=== PATIENT | female | born 1950 | race Caucasian/White ===

== ENCOUNTER 2017-07-12 15:04 | Day surgery (SDC) | payer MEDICARE, BC ==
[2017-07-11 12:03] LABS: PROTHROMBIN TIME - PATIENT 10.5 SEC (9.8-11.6)
[2017-07-11 13:24] LABS: BASOPHIL % 0.5 % (0.0-2.0); EOSINOPHIL % 0.4 % (0.0-4.0); HEMATOCRIT 37.8 % (35.0-46.0); HEMOGLOBIN 12.8 GM/DL (11.6-15.3); LYMPH % 14.8 % (9.0-44.0); LYMPHOCYTE # 1.4 TH/MM3 (1.0-4.8); MEAN CELL VOLUME 92.1 FL (80.0-100.0); MEAN CORPUSCULAR HEMOGLOBIN 31.1 PG (27.0-34.0); MEAN CORPUSCULAR HGB CONC 33.8 % (32.0-36.0); MEAN PLATELET VOLUME 7.3 FL (7.0-11.0); MONO % 9.6 % (0.0-8.0); MONOCYTE # 0.9 TH/MM3 (0-0.9); NEUT % 74.7 % (16.0-70.0); PLATELET COUNT 401 TH/MM3 (150-450); RED CELL DISTRIBUTION WIDTH 13.7 % (11.6-17.2); WHITE BLOOD COUNT 9.4 TH/MM3 (4.0-11.0)
--- NOTE | 2017-07-11 14:51 | RADRPT ---
EXAM DATE/TIME: 07/11/2017 13:50 [place] COMPARISON: No previous studies available for comparison. EXTERNAL COMPARISON : [facility], CT ABDOMEN & PELVIS W/CONTRAST, June 27, 2017. INDICATIONS : Ascites. MEDICAL HISTORY : Occasional irregular heartbeat. Ovarian cysts. Ascites. SURGICAL HISTORY : Tonsillectomy. Appendectomy. section. Ovarian cyst excised. Bilateral rotator cuff repairs. ENCOUNTER: Initial ACUITY: 2 weeks PAIN SCORE: 1/10 LOCATION: Abdomen. AREA EVALUATED: Abdominal quadrants. FINDINGS: Imaging of the abdomen and pelvis was performed to evaluate for ascites for possible paracentesis. T race fluid is identified predominantly around the hepatic convexity. CONCLUSION: Trace fluid around the hepatic convexity. Insufficient volume for safe percutaneous drainage. Zac Ojeda MD on July 11, 2017 at 14:49 Board Certified Radiologist. This report was verified electronically.
[2017-07-12 14:20] VITALS: BP 140/93; PULSE 70; RESP 20; TEMP 98.2; O2SAT 97
[2017-07-12 14:35] VITALS: BP 142/92; PULSE 73; RESP 20; O2SAT 99
[~2017-07-12 15:04] MED LIST: DICL75 PO; METH36 PO
[2017-07-12 15:29] VITALS: BP 145/85; PULSE 74; RESP 16; TEMP 98.1
[2017-07-12 16:20] VITALS: BP_SYST 115; BP_SYST 140; BP_DIAS 63; BP_DIAS 93; PULSE 70; PULSE 91; RESP 18; RESP 20; TEMP 98.2; O2SAT 97; O2SAT 99
[2017-07-12 16:30] VITALS: BP 111/59; PULSE 96; RESP 20; O2SAT 97
[2017-07-12] MEDS ORDERED: LIDOCAINE HCL 1% 20 ML VIAL ONE (16:49)
--- NOTE | 2017-07-12 16:56 | RADRPT ---
EXAM DATE/TIME: 07/12/2017 16:08 [place] COMPARISON: EXTERNAL COMPARISON: US ABDOMEN - LOWER LIMITED, July 11, 2017, 13:50. [facility], CT ABDOMEN & PELVIS W/CONTRAST, Jun 27 2017. INDICATIONS : Ascites. MEDICAL HISTORY : Occasional irregular heartbeat. Ovarian cysts. Ascites. SURGICAL HISTORY : Tonsillectomy. Appendectomy. section. Ovarian cyst excised. Bilateral rotator cuff repairs. ENCOUNTER: Initial ACUITY: 2 weeks PAIN SCORE: 2/10 LOCATION: Right lower quadrant FLUID: Total volume of 850 cc of clear, yellow fluid was removed. Fluid was sent to lab for ordered studies. Post procedure scanning reveals no hematoma or other complication. TECHNIQUE: 1. Ultrasound guidance for abdominal paracentesis. 2. Paracentesis. The risks, benefits, and alternatives to ultrasound guided paracentesis were explained to the patient in detail including the risk of bleeding and infection. Written and verbal informed consent was obt ained. With the patient on the ultrasound table, ultrasound imaging was used to select the most appropriate approach for paracentesis. Overlying skin was prepped and draped in the usual sterile fashion and wi th a local anesthetic, a dermatotomy was made with an 11 blade scalpel. A 6 Syrian Xlz-H-kbrydphq ca theter was introduced into the peritoneal cavity under direct ultrasound visualization and fluid was collected. The patient tolerated the procedure well and left the ultrasound suite in stable condition. CONCLUSION: Uncomplicated ultrasound guided paracentesis. Otilio Freeman MD on July 12, 2017 at 16:54 Board Certified Radiologist. This report was verified electronically.
== END 2017-07-12 17:30 | disposition home or self-care (01) ==
LOC: HRAD 15:04 → HRIP 15:30 → HRAD 17:30
PROVIDERS: ATTEND Internal Medicine Gastroenterology
DX: R18.8 Other ascites (principal)
CPT/HCPCS: 36415; 49083; 76705; 85025; 85610; 88112; 88305; 88341; 88342; C1729

== ENCOUNTER 2017-07-21 10:59 | Emergency (ER) | payer MEDICARE, BC ==
[~2017-07-21] VITALS: Ht 170.2 cm; Wt 54.0 kg
[2017-07-21] MEDS ORDERED: IOHEXOL 350 MG/ML 10 ML VIAL (for RAD DIAG) IVCONTRAST ONE (11:00)
[2017-07-21 11:05] VITALS: BP 133/71; PULSE 79; RESP 19; TEMP 97.7; O2SAT 100
[2017-07-21] MEDS ORDERED: SODIUM CHLOR 0.9% 1000 ML INJ 1,000 ML IV SCH (11:32)
[2017-07-21] MEDS ORDERED: SODIUM CHLORIDE 0.9% FLUSH 10 ML FLUSH IV FLUSH PRN (11:45)
[2017-07-21] MEDS ORDERED: PROCHLORPERAZINE INJ 10 MG/2 ML VIAL IV PUSH ONE (11:45)
[2017-07-21] MEDS ORDERED: MORPHINE SULFATE 2 MG/ML SYRINGE IV PUSH ONE (11:45)
[2017-07-21 12:09] LABS: AUTOMATED NEUTROPHIL # 7.9 TH/MM3 (1.8-7.7); BASOPHIL % 0.5 % (0.0-2.0); EOSINOPHIL # 0.1 TH/MM3 (0-0.4); EOSINOPHIL % 0.6 % (0.0-4.0); HEMATOCRIT 38.8 % (35.0-46.0); HEMOGLOBIN 13.3 GM/DL (11.6-15.3); LYMPH % 9.8 % (9.0-44.0); MEAN CELL VOLUME 91.6 FL (80.0-100.0); MEAN CORPUSCULAR HEMOGLOBIN 31.3 PG (27.0-34.0); MEAN CORPUSCULAR HGB CONC 34.1 % (32.0-36.0); MEAN PLATELET VOLUME 8.3 FL (7.0-11.0); MONOCYTE # 0.9 TH/MM3 (0-0.9); NEUT % 80.1 % (16.0-70.0); PLATELET COUNT 411 TH/MM3 (150-450); RED BLOOD COUNT 4.24 MIL/MM3 (4.00-5.30); RED CELL DISTRIBUTION WIDTH 13.3 % (11.6-17.2); WHITE BLOOD COUNT 9.9 TH/MM3 (4.0-11.0)
[2017-07-21] MEDS ORDERED: MORPHINE SULFATE 4 MG/ML INJ IV PUSH ONE (12:15)
[2017-07-21 12:25] LABS: PROTHROMBIN TIME - PATIENT 10.4 SEC (9.8-11.6)
[2017-07-21 12:26] LABS: AST (GOT) 22 U/L (15-37); BICARBONATE 24.4 MEQ/L (21.0-32.0); BLOOD UREA NITROGEN 9 MG/DL (7-18); CALCIUM 9.6 MG/DL (8.5-10.1); CHLORIDE 91 MEQ/L (98-107); CREATININE 0.53 MG/DL (0.50-1.00); GLOMERULAR FILTRATION RATE 116 ML/MIN (>89); GLUCOSE,RANDOM 79 MG/DL (74-106); SODIUM (NA) 130 MEQ/L (136-145)
[2017-07-21 12:28] LABS: ALT (GPT) 16 U/L (10-53)
[2017-07-21 12:30] LABS: ALKALINE PHOSPHATASE 76 U/L (45-117); TOTAL BILIRUBIN ADULT 0.4 MG/DL (0.2-1.0); TOTAL PROTEIN 7.5 GM/DL (6.4-8.2)
[2017-07-21 13:38] VITALS: BP 140/85; PULSE 74; RESP 16; O2SAT 100
--- NOTE | 2017-07-21 14:02 | RADRPT ---
EXAM DATE: 07/21/2017 1:53 PM EDT AGE/SEX: 66 years / Female INDICATIONS: Abdominal pain, nausea, vomiting. Rapid weight loss. CLINICAL DATA: This is the patient's initial encounter. Patient reports that signs and symptoms have been present for 1 day and indicates a pain score of 6/10. MEDICAL/SURGICAL HISTORY: Carcinoma, ovarian. Appendectomy. section. Ovarian cyst rem izzy. ORAL CONTRAST: No oral contrast ingested. RADIATION DOSE: 6.64 CTDI (mGy) COMPARISON: CT of the abdomen and pelvis 06/27/2017. TECHNIQUE: Multiple contiguous axial images were obtained through the abdomen and pelvis following b olus infusion of 96 ml Omnipaque 350 (iohexol) nonionic water-soluble contrast as a single exam dos e. No oral contrast ingested. Using automated exposure control and adjustment of the mA and/or kV ac cording to patient size, the radiation dose was kept as low as reasonably achievable to obtain optima l diagnostic quality images. FINDINGS: Lower Lungs: The visualized lower lungs are clear. Liver: The liver has a homogeneous density without space-occupying lesion. There is no dilation of th e biliary tree. Spleen: There is a 2.3 cm area of poor enhancement involving the anterior inferior margin of the spl een. This is a new finding from the prior exam. The remaining spleen is unremarkable. Splenic vein is patent as is the splenic artery.. Pancreas: Unremarkable without mass or calcification. Kidneys: Normal in size and shape. No evidence of mass or hydronephrosis. Adrenal Glands: Unremarkable. Aorta: The aorta and proximal iliac vessels are grossly unremarkable without aneurysmal dilation. Bowel/Mesentery: Small volume ascites mostly adjacent to the liver tip and below the domes of the di aphragms. Overall the volume of ascites is slightly larger from the prior exam. No free air. Bowel st ructures are unremarkable. A few small scattered nodules are seen involving the omentum concerning fo r carcinomatosis. These measure approximate 1 cm in size and are seen anteriorly. Abdominal Wall: Prior ventral hernia repair utilizing mesh.. Retroperitoneum: No evidence of adenopathy in the retrocrural, para-aortic, or deep pelvic regions. Bladder: Contours are smooth. Reproductive Organs: No abnormal masses or calcifications seen. Inguinal: The inguinal region is unremarkable without evidence of adenopathy. Bony Structures: A degenerative and scoliotic spine.. CONCLUSION: 1. Small volume ascites which is slightly larger in volume from the prior examination. The volume is insufficient for safe paracentesis. 2. Small nodules involving the omentum suggesting carcinomatosis. 3. Area of poor enhancement involving the spleen which is new and suggestive of a small splenic infa rction. 4. Prior ventral hernia repair utilizing mesh. Electronically signed by: Armin Villanueva MD 07/21/2017 2:01 PM EDT
[2017-07-21 14:35] LABS: BILIRUBIN, URINE NEG (NEG); BLOOD, URINE NEG (NEG); GLUCOSE,URINE NEG (NEG); KETONE, URINE 80 mg/dL (NEG); MUCUS URINE FEW /lpf (OCC); NITRITE,URINE NEG (NEG); PH, URINE 5.5 (5.0-8.5); SQUAMOUS EPITHELIAL CELL URINE 1 /hpf (0-5); TRANSITIONAL EPI CELLS, URINE <1 /hpf; URINE COLOR LIGHT-YELLOW (YELLW/STRAW); URINE LEUKOCYTE ESTERASE NEG (NEG)
[2017-07-21] MEDS ORDERED: NORC5TAB PO (14:58)
[2017-07-21] MEDS ORDERED: PROC10TA PO (14:58)
--- NOTE | 2017-07-21 14:58 | PD ---
HPI Chief Complaint: GI Complaint Time Seen by Provider: 11:32 Travel History International Travel<30 days: No Contact w/Intl Traveler<30days: No Traveled to known affect area: No History of Present Illness HPI Patient is a 66 year old female who comes in complaining of abdominal pain with nausea and vomiting. She was diagnosed with ovarian cancer 8 weeks ago, she has not started treatment yet. She says that she eats a few bites of food and then feels very sick and like she needs to vomit. She says she has not been able to have a bowel movement. She feels like she is low on nutrients and weak because she has not been able to eat. She denies fever chills. She is tried taking Tylenol for pain without much relief. Severity is moderate. PFSH Past Medical History Cancer: Yes Cardiovascular Problems: Yes (OCCASIONAL IRREGULAR HEARTBEAT) Diabetes: No Endocrine: No Genitourinary: No Hepatitis: No Hiatal Hernia: No Immune Disorder: No Musculoskeletal: Yes (LITTLE TO NO CARTLIDGE C5/C7 & LOW BACK INTERMITTENT PAIN /DISCOMFORT ) Neurologic: No Psychiatric: Yes (ADD) Reproductive: No Respiratory: No Thyroid Disease: No ?: Not Tubal Ligation: Yes Past Surgical History Abdominal Surgery: Yes (APPY & OVARIAN CYST EXCISED 1968; ) AICD: No Appendectomy: Yes Body Medical Devices: NONE Cardiac Surgery: No Section: Yes Ear Surgery: No Endocrine Surgery: No Eye Surgery: No Genitourinary Surgery: No Gynecologic Surgery: Yes (C SECTION X 2; ) Joint Replacement: No Oral Surgery: Yes (TONSILLECTOMY ) Pacemaker: No Thoracic Surgery: No Tonsillectomy: Yes Other Surgery: Yes Social History Alcohol Use: Yes (OCCASIONALLY) Tobacco Use: No Substance Use: Yes (MARIJUANA EDIBLES) Allergies-Medications (Allergen,Severity, Reaction): Coded Allergies: No Known Allergies (Unverified , 01/22/14) Reported Meds & Prescriptions Reported Meds & Active Scripts Active Reported Concerta (Methylphenidate HCl) Methylphenidate 36 mg Evert 1 Evert PO DAILY Diclofenac Sodium 75 Mg Tab 75 Mg PO BID PRN Review of Systems Except as stated in HPI: all other systems reviewed are Neg General / Constitutional: No: Fever, Chills HENT: No: Headaches, Lightheadedness Cardiovascular: No: Chest Pain or Discomfort Respiratory: No: Shortness of Breath Gastrointestinal: Positive: Nausea, Vomiting, Abdominal Pain Musculoskeletal: No: Myalgias, Edema Skin: No Rash, No Change in Pigmentation Neurologic: No: Weakness, Dizziness Physical Exam Narrative GENERAL: Awake and alert, no acute distress. SKIN: Focused skin assessment warm/dry. HEAD: Atraumatic. Normocephalic. EYES: Pupils equal and round. No scleral icterus. ENT: Mucous membranes pink and moist. NECK: Trachea midline. No JVD. CARDIOVASCULAR: Regular rate and rhythm. No murmur appreciated. RESPIRATORY: No accessory muscle use. Clear to auscultation. Breath sounds equal bilaterally. GASTROINTESTINAL: Abdomen soft, nondistended. Mild lower abdominal tenderness to palpation. No rebound or guarding. MUSCULOSKELETAL: No obvious deformities. No clubbing. No cyanosis. No edema. NEUROLOGICAL: Awake and alert. No obvious cranial nerve deficits. Motor grossly within normal limits. Normal speech. PSYCHIATRIC: Appropriate mood and affect; insight and judgment normal. Data Data Last Documented VS Vital Signs Date Time Temp Pulse Resp B/P (MAP) Pulse Ox O2 Delivery O2 Flow Rate FiO2 07/21/17 13:38 74 16 140/85 (103) 100 Room Air 07/21/17 11:05 97.7 Orders Orders Complete Blood Count With Diff (07/21/17 11:32) Comprehensive Metabolic Panel (07/21/17 11:32) Lipase (07/21/17 11:32) Prothrombin Time / Inr (Pt) (07/21/17 11:32) Act Partial Throm Time (Ptt) (07/21/17 11:32) Urinalysis - C+S If Indicated (07/21/17 11:32) Ct Abd/Pel W Iv Contrast(Rout) (07/21/17 11:32) Iv Access Insert/Monitor (07/21/17 11:32) Ecg Monitoring (07/21/17 11:32) Oximetry (07/21/17 11:32) Sodium Chlor 0.9% 1000 Ml Inj (Ns 1000 M (07/21/17 11:32) Sodium Chloride 0.9% Flush (Ns Flush) (07/21/17 11:45) Prochlorperazine Inj (Compazine Inj) (07/21/17 11:45) Morphine Inj (Morphine Inj) (07/21/17 11:45) Morphine Inj (Morphine Inj) (07/21/17 12:15) Iohexol 350 Inj (Omnipaque 350 Inj) (07/21/17 11:00) Labs Laboratory Tests Test 07/21/17 11:45 07/21/17 14:08 White Blood Count 9.9 TH/MM3 Red Blood Count 4.24 MIL/MM3 Hemoglobin 13.3 GM/DL Hematocrit 38.8 % Mean Corpuscular Volume 91.6 FL Mean Corpuscular Hemoglobin 31.3 PG Mean Corpuscular Hemoglobin Concent 34.1 % Red Cell Distribution Width 13.3 % Platelet Count 411 TH/MM3 Mean Platelet Volume 8.3 FL Neutrophils (%) (Auto) 80.1 % Lymphocytes (%) (Auto) 9.8 % Monocytes (%) (Auto) 9.0 % Eosinophils (%) (Auto) 0.6 % Basophils (%) (Auto) 0.5 % Neutrophils # (Auto) 7.9 TH/MM3 Lymphocytes # (Auto) 1.0 TH/MM3 Monocytes # (Auto) 0.9 TH/MM3 Eosinophils # (Auto) 0.1 TH/MM3 Basophils # (Auto) 0.0 TH/MM3 CBC Comment DIFF FINAL Differential Comment Prothrombin Time 10.4 SEC Prothromb Time International Ratio 1.0 RATIO Activated Partial Thromboplast Time 26.0 SEC Blood Urea Nitrogen 9 MG/DL Creatinine 0.53 MG/DL Random Glucose 79 MG/DL Total Protein 7.5 GM/DL Albumin 4.0 GM/DL Calcium Level 9.6 MG/DL Alkaline Phosphatase 76 U/L Aspartate Amino Transf (AST/SGOT) 22 U/L Alanine Aminotransferase (ALT/SGPT) 16 U/L Total Bilirubin 0.4 MG/DL Sodium Level 130 MEQ/L Potassium Level 3.8 MEQ/L Chloride Level 91 MEQ/L Carbon Dioxide Level 24.4 MEQ/L Anion Gap 15 MEQ/L Estimat Glomerular Filtration Rate 116 ML/MIN Lipase 367 U/L Urine Color LIGHT-YELLOW Urine Turbidity CLEAR Urine pH 5.5 Urine Specific Index 1.005 Urine Protein NEG mg/dL Urine Glucose (UA) NEG mg/dL Urine Ketones 80 mg/dL Urine Occult Blood NEG Urine Nitrite NEG Urine Bilirubin NEG Urine Urobilinogen LESS THAN 2.0 MG/DL Urine Leukocyte Esterase NEG Urine RBC LESS THAN 1 /hpf Urine WBC 1 /hpf Urine Squamous Epithelial Cells 1 /hpf Urine Transitional Epithelial Cells <1 /hpf Urine Mucus FEW /lpf Microscopic Urinalysis Comment CULT NOT INDICATED MDM Medical Decision Making Medical Screen Exam Complete: Yes Emergency Medical Condition: Yes Medical Record Reviewed: Yes Differential Diagnosis Small bowel obstruction versus metastatic cancer is dehydration versus electrolyte abnormality Narrative Course Patient is a 66-year-old female who comes in complaining of abdominal pain and vomiting. Exam shows mild lower abdominal tenderness. IV established, labs sent. Labs show sodium of 130, no other acute abnormalities. Patient given IV fluids, Compazine, morphine. CT abdomen pelvis performed shows evidence of the cancer, there is no evidence of bowel obstruction. Last 24 hours Impressions Abdomen/Pelvis CT 07/21/17 1132 Signed Impressions: CONCLUSION: 1. Small volume ascites which is slightly larger in volume from the prior exam ination. The volume is insufficient for safe paracentesis. 2. Small nodules involving the omentum suggesting carcinomatosis. 3. Area of poor enhancement involving the spleen which is new and suggestive o f a small splenic infarction. 4. Prior ventral hernia repair utilizing mesh. Patient will be discharged with prescription for Compazine as well as pain medicine. She is advised follow-up with her doctors. Advised to try eating small frequent meals. Advised to drink plenty of fluids. Advised return as needed for any worsening symptoms. Diagnosis Primary Impression: Nausea & vomiting Qualified Codes: R11.2 - Nausea with vomiting, unspecified Additional Impressions: Abdominal pain Qualified Codes: R10.84 - Generalized abdominal pain Ovarian cancer Qualified Codes: C56.9 - Malignant neoplasm of unspecified ovary Patient Instructions: Abdominal Pain (ED), Acute Nausea and Vomiting (ED), General Instructions Additional Instructions: Drink plenty of fluids. Take Compazine as needed for nausea. You can take [place] as needed for pain. Follow-up with your doctors. Return to the ED as needed for any worsening symptoms. Scripts Hydrocodone-Acetaminophen ([place]) 5 Mg-325 Mg Tab 1 TAB PO Q6H Y for PAIN, #10 TAB 0 Refills Prov: Demi Medrano MD 07/21/17 Prochlorperazine Maleate (Prochlorperazine Maleate) 10 Mg Tab 10 MG PO Q6H Y for NAUSEA OR VOMITING, #15 TAB 0 Refills Prov: Demi Medrano MD 07/21/17 Disposition: 01 DISCHARGE HOME Condition: Stable Demi Medrano MD July 21, 2017 14:58
[2017-07-21 15:16] VITALS: BP 130/86
== END 2017-07-21 15:39 | disposition home or self-care (01) ==
LOC: NEPC 10:59
DX: C56.9 Malignant neoplasm of unspecified ovary (principal); R11.2 Nausea with vomiting, unspecified; R10.84 Generalized abdominal pain
CPT/HCPCS: 74177; 80053; 81001; 83690; 85025; 85610; 85730; 96374; 96375; 99284; J0780; J2270; J7030; Q9967

== ENCOUNTER 2017-07-26 07:51 | Day surgery (SDC) | payer MEDICARE, BC ==
[~2017-07-26 07:51] MED LIST changes: +NORC5TAB PO; +PROC10TA PO
--- NOTE | 2017-07-26 10:06 | RADRPT ---
EXAM DATE: 07/26/2017 8:44 AM EDT AGE/SEX: 66 years / Female INDICATIONS: Evaluate for paracentesis. CLINICAL DATA: This is the patient's initial encounter. Patient reports that signs and symptoms have been present for 2 weeks and indicates a pain score of 0/10. MEDICAL/SURGICAL HISTORY: . Ovarian cancer. Occasional irregular heartbeat. Ovarian cysts. Asci michelle. . Tonsillectomy. Appendectomy. section. Ovarian cyst excised.Bilateral rotator cuff re pairs. Hernia repair. COMPARISON: [facility] [place] ABDOMEN - LOWER LIMITED, 07/11/2017. . [facility], CT ABDOMEN AND P KALANI W/ CONTRAST 2017-06-27 FINDINGS: Minimal free fluid is evident. Patient did not desire paracentesis at this time. CONCLUSION: 1. No paracentesis was performed. Patient will reschedule at her convenience. Electronically signed by: Rodger Freeman MD 07/26/2017 10:04 AM EDT
== END 2017-07-26 09:30 | disposition home or self-care (01) ==
LOC: HRAD 07:51 → HRIP 07:53 → HRAD 09:30
PROVIDERS: ATTEND Obstetrics & Gynecology Gynecologic Oncology
DX: R18.8 Other ascites (principal); Z85.43 Personal history of malignant neoplasm of ovary; N83.209 Unspecified ovarian cyst, unspecified side
CPT/HCPCS: 76705

== ENCOUNTER 2017-08-02 12:40 | Day surgery (SDC) | payer MEDICARE, BC ==
--- NOTE | 2017-08-02 13:40 | PD.RAD ---
Post US Procedure Prog Note Pre Procedure Diagnosis: (1) Ovarian cancer (2) Ascites Post Procedure Diagnosis: (1) Ovarian cancer (2) Ascites Procedure Date: Aug 02, 2017 Supervising Radiologist: Leonidse Roth Proceduralist/Assist: Astrid Donald RDMS Anesthesia: Local Plan of Activity Patient to Unit: ROPU Patient Condition: Good See PACS Report for procedural detail/treatment Drainage Procedure Procedure 1 Imaging Guidance: Ultrasound Side: Right Procedure Type: Paracentesis Drainage: Suction Fluid Removal (CCs): 2600 Fluid Description: Clear, Yellow Plan to ROPU then discharge in 30 minutes. Leonides Roth MD Aug 02, 2017 13:39
[2017-08-02 14:10] VITALS: BP 117/76; PULSE 82; RESP 18; TEMP 97.4; O2SAT 95
[2017-08-02] MEDS ORDERED: LIDOCAINE HCL 1% PF 30 ML VIAL ONE (14:12)
[2017-08-02 14:25] VITALS: BP 110/76; PULSE 80; RESP 18; O2SAT 96
--- NOTE | 2017-08-02 14:55 | RADRPT ---
EXAM DATE: 08/02/2017 2:07 PM EDT AGE/SEX: 66 years / Female INDICATIONS: Ascites. CLINICAL DATA: This is the patient's subsequent encounter. Patient reports that signs and symptoms h ave been present for 3 weeks and indicates a pain score of 0/10. MEDICAL/SURGICAL HISTORY: . Ovarian cancer. Occasional irregular heartbeat. Ovarian cysts. Asci michelle. . Tonsillectomy. Appendectomy. section. Ovarian cyst excised. Bilateral rotator cuff r epairs. Hernia repair. COMPARISON: [facility] – [place], [place] GUIDED ABD PARACENTESIS, 07/12/2017. . FLUID: Total volume of 2600 cc of clear, yellow fluid was removed. Fluid was discarded. Paracentesis was the rapeutic only. . . TECHNIQUE: Ultrasound guidance for abdominal paracentesis. Paracentesis. The risks, benefits, and alternatives to ultrasound guided paracentesis were explained to the patient in detail including the risk of bleeding and infection. Written and verbal informed consent was obt ained. With the patient on the ultrasound table, ultrasound imaging was used to select the most appropriate approach for paracentesis. Overlying skin was prepped and draped in the usual sterile fashion and wi th a local anesthetic, a dermatotomy was made with an 11 blade scalpel. A 6 Swedish [id number]-Z-wulwqchd ca theter was introduced into the peritoneal cavity and fluid was collected. Post procedure scanning reveals no hematoma or other complication. The patient tolerated the procedu re well and left the ultrasound suite in stable condition. CONCLUSION: Uncomplicated paracentesis with removal of 2.6 L of fluid. Electronically signed by: Leonides Roth MD 08/02/2017 2:54 PM EDT
== END 2017-08-02 14:35 | disposition home or self-care (01) ==
LOC: HRAD 12:40 → HRIP 12:43 → HRAD 14:35
PROVIDERS: ATTEND Obstetrics & Gynecology Gynecologic Oncology
DX: R18.8 Other ascites (principal); C56.9 Malignant neoplasm of unspecified ovary; I49.9 Cardiac arrhythmia, unspecified
CPT/HCPCS: 49083; C1729

== ENCOUNTER 2017-08-12 08:12 | Day surgery (SDC) | payer MEDICARE, BC ==
[~2017-08-12] VITALS: Ht 170.2 cm; Wt 52.5 kg
[2017-08-12] MEDS ORDERED: BYST5TAB2 PO (08:27)
[2017-08-12 08:28] VITALS: BP 95/42; PULSE 70; RESP 18; TEMP 97.8; O2SAT 99
[2017-08-12] MEDS ORDERED: CHLORHEXIDINE GLUCONATE 2 % 1 PACK (2 CLOTHS) TOPICAL SCH (09:30)
[2017-08-12] MEDS ORDERED: POVIDONE IODINE 5% (ANTISEPSIS KIT) 4 APPLICATIONS EACH NARE SCH (09:30)
[2017-08-12] MEDS ORDERED: ceFAZolin 2 GM PREMIX 50 ML - implanted port/tunneled catheter insertion IV SCH (09:30)
[2017-08-12] MEDS ORDERED: SODIUM CHLORIDE 0.9% 1000 ML IV SCH (09:30)
[2017-08-12] MEDS: VANCOMYCIN 1000 MG/NS 250 ML - implanted port/tunneled catheter IV SCH ×4 (09:32→11:35)
[2017-08-12] MEDS ORDERED: MIDAZOLAM HCL 5 MG/5 ML VIAL ONE (10:10)
[2017-08-12] MEDS ORDERED: fentaNYL CITRATE 250 MCG/5 ML AMP ONE (10:11)
[2017-08-12] MEDS ORDERED: LIDOCAINE 1%/EPINEPHrine 1:100,000 SOLN 30 ML VIAL ONE (10:15)
--- NOTE | 2017-08-12 11:05 | PD.RAD ---
Post Procedure Progress Note Pre Procedure Diagnosis: (1) Ovarian cancer Post Procedure Diagnosis: (1) Ovarian cancer Procedure Date: Aug 12, 2017 Supervising Radiologist: Benoit Zaldivar Anesthesia: Conscious Sedation Plan of Activity Patient to Unit: ROPU Patient Condition: Good See PACS Report for procedural detail/treatment Benoit Zaldivar MD Aug 12, 2017 11:05
[2017-08-12 11:15] VITALS: BP 100/69; PULSE 71; RESP 18; TEMP 97.9; O2SAT 94
[2017-08-12 11:30] VITALS: BP 94/46; PULSE 71; RESP 18; O2SAT 95
[2017-08-12 12:00] VITALS: BP 96/58; PULSE 70; RESP 18; O2SAT 95
[2017-08-12 12:30] VITALS: BP 100/64; PULSE 67; RESP 18; O2SAT 100
--- NOTE | 2017-08-12 13:17 | RADRPT ---
EXAM DATE: 08/12/2017 11:20 AM EDT AGE/SEX: 66 years / Female INDICATIONS: Patient presents with ovarian cancer in need of port placement for treatment. CLINICAL DATA: This is the patient's initial encounter. Patient reports that signs and symptoms have been present for 3 months and indicates a pain score of 0/10. MEDICAL/SURGICAL HISTORY: . ADDC5-C7 DDDIrregular heart beat Appendectomy. Ovarian cyst remova l COMPARISON: No prior exams available for comparison. FLUORO TIME (min): .002 IMAGE SERIES: 1 SEDATION TIME (min): 30 MEDICATION(S): 1.5mg midazolam (Versed) IV 75mcg fentanyl (Sublimaze) IV DEVICE(S): Right 8F Power Port . . PROCEDURE : 1. Continuous pulse oximetry and EKG monitoring. 2. Intravenous conscious sedation. 3. Ultrasound guidance for venous access. 4. Fluoroscopic guided implantable central venous port placement. The patient was placed supine. The neck was prepped in sterile fashion. Full sterile technique was u sed, including cap, mask, sterile gloves and gown, and a large sterile sheet. Hand hygiene and 2% ch lorhexidine Betadine was utilized per protocol for cutaneous antisepsis with appropriate dry time for site. Sterile gel and sterile probe cover were utilized for ultrasound guidance. The skin and sub cutaneous tissues were infiltrated with local anesthetic solution. Under direct ultrasound guidance, central venous access was accomplished in the targeted vessel. The ultrasound images depicting access guidance were stored and saved to PACS for permanent record. A s ubcutaneous pocket was created using blunt dissection. The port was introduced to the pocket. The c atheter tubing was fed through a subcutaneous tunnel to the venotomy site. The catheter tubing was c ut to a suitable length and then was introduced through a valved Peel-Away sheath and positioned with catheter tubing tip at the cavo-atrial junction level. The pocket incision was closed with subcutic ular Vicryl suture. Steri-Strips were applied. The port was flushed and locked with heparin solutio n per protocol. Sterile dressing was applied to the site. The patient tolerated the procedure well. Conscious sedation was performed with the prescribed dosages and duration as above in the presence of an independent trained radiology nurse to assist in the monitoring of the patient. EKG and oximetry remained stable throughout the procedure. The patient tolerated the procedure well and there were no complications. The patient was sent to post anesthesia recovery in stable condition. CONCLUSION: 1. Uncomplicated ultrasound and fluoroscopic guided implanted central venous port catheter placement as described in detail above. An 8 Maori Power port was placed. Electronically signed by: Benoit Zaldivar MD 08/12/2017 1:15 PM EDT
== END 2017-08-12 13:04 | disposition home or self-care (01) ==
LOC: HROP 08:12 → HRIP 08:13 → HROP 13:04
PROVIDERS: ATTEND Obstetrics & Gynecology Gynecologic Oncology
DX: Z45.2 Encounter for adjustment and management of vascular access device (principal); C56.9 Malignant neoplasm of unspecified ovary
CPT/HCPCS: 36561; 76937; 77001; 99152; 99153; C1788; J0690; J1642; J2250; J3010; J3370; J7030; J7050

== ENCOUNTER 2017-08-22 09:52 | Day surgery (SDC) | payer MEDICARE, BC ==
[~2017-08-22 09:52] MED LIST changes: +BYST5TAB2 PO; -DICL75 PO; -METH36 PO; -NORC5TAB PO; -PROC10TA PO
[2017-08-22 10:22] VITALS: BP 121/79; PULSE 77; RESP 16; TEMP 97.7; O2SAT 100
[2017-08-22 11:16] VITALS: BP_SYST 112; BP_SYST 148; BP_DIAS 75; BP_DIAS 78; PULSE 75; PULSE 79; RESP 17; RESP 18; TEMP 97.9; O2SAT 95; O2SAT 98
--- NOTE | 2017-08-22 11:19 | RADRPT ---
EXAM DATE: 08/22/2017 11:06 AM EDT AGE/SEX: 66 years / Female INDICATIONS: Ascites. CLINICAL DATA: This is the patient's subsequent encounter. Patient reports that signs and symptoms h ave been present for 4 - 6 months and indicates a pain score of 0/10. MEDICAL/SURGICAL HISTORY: . Ovarian cancer. Occasional irregular heartbeat. Ovarian cysts. Asci michelle. . Tonsillectomy. Appendectomy. section. Ovarian cyst excised. Bilateral rotator cuff r epairs. Hernia repair. COMPARISON: [facility] – [place], [place] GUIDED ABD PARACENTESIS, 08/02/2017. . FLUID: Total volume of 4200 cc of clear, yellow fluid was removed. Fluid was discarded. Paracentesis was the rapeutic only. . . TECHNIQUE: Ultrasound guidance for abdominal paracentesis. Paracentesis. The risks, benefits, and alternatives to ultrasound guided paracentesis were explained to the patient in detail including the risk of bleeding and infection. Written and verbal informed consent was obt ained. With the patient on the ultrasound table, ultrasound imaging was used to select the most appropriate approach for paracentesis. Overlying skin was prepped and draped in the usual sterile fashion and wi th a local anesthetic, a dermatotomy was made with an 11 blade scalpel. A 6 Bengali Dez-A-nnsonknj ca theter was introduced into the peritoneal cavity and fluid was collected. Post procedure scanning reveals no hematoma or other complication. The patient tolerated the procedu re well and left the ultrasound suite in stable condition. FINDINGS: Large amount of ascites. CONCLUSION: 1. Uncomplicated ultrasound guided large volume paracentesis. Electronically signed by: Benoit Zaldivar MD 08/22/2017 11:18 AM EDT
[2017-08-22 11:31] VITALS: BP 114/74; PULSE 74; RESP 17; O2SAT 97
[2017-08-23] MEDS ORDERED: ONDA8TAB7 PO (18:44)
[2017-08-23] MEDS ORDERED: PANT20TA2 PO (18:44)
[2017-08-23] MEDS ORDERED: METO10TA PO (18:44)
[2017-08-23] MEDS ORDERED: REGL5TAB PO (18:44)
== END 2017-08-22 11:36 | disposition home or self-care (01) ==
LOC: HRAD 09:52 → HRIP 09:56 → HRAD 11:36
PROVIDERS: ATTEND Obstetrics & Gynecology Gynecologic Oncology
DX: R18.8 Other ascites (principal); Z85.43 Personal history of malignant neoplasm of ovary; N83.209 Unspecified ovarian cyst, unspecified side
CPT/HCPCS: 49083; C1729

== ENCOUNTER 2017-08-23 17:07 | Inpatient (IN) ==
[2017-08-25] MEDS ORDERED: Morphine Inj 4 MG/ML Vial IV.PUSH PRN (00:01)
[2017-08-25] MEDS ORDERED: Bisacodyl 10 MG Supp RECTAL PRN (00:01)
[2017-08-25] MEDS ORDERED: Acetaminophen 325 MG Tablet PO PRN (00:01)
[2017-08-25] MEDS ORDERED: Vancomycin Consult Pharmacy 1 EACH OTHER SCH (00:01)
[2017-08-25 08:20] LABS: Baso # (Auto) 0.1 th/mm3 (0.0-0.2); Baso % (Auto) 0.3 % (0.0-2.0); Eos % (Auto) 0.1 % (0.0-4.0); Hematocrit 32.7 % (35.0-46.0); Hemoglobin 10.9 gm/dL (11.6-15.3); Lymph # (Auto) 1.5 th/mm3 (1.0-4.8); Lymph % (Auto) 4.3 % (9.0-44.0); Mean Corpuscular HGB Conc 33.2 % (32.0-36.0); Mean Corpuscular Hemoglobin 30.7 pg (27.0-34.0); Mean Corpuscular Volume 92.5 fL (80.0-100.0); Mean Platelet Volume 7.5 fL (7.0-11.0); Mono # (Auto) 1.2 th/mm3 (0.0-0.9); Mono % (Auto) 3.5 % (0.0-8.0); Neut # (Auto) 32.1 th/mm3 (1.8-7.7); Neut % (Auto) 91.8 % (16.0-70.0); Platelet Count 272 th/mm3 (150-450); Red Blood Count 3.54 mil/mm3 (4.00-5.30); Red Cell Distribution Width 14.3 % (11.6-17.2)
[2017-08-25 08:37] LABS: Calcium 8.6 mg/dL (8.5-10.1)
[2017-08-25 08:44] LABS: Total Protein 5.4 g/dL (6.4-8.2)
[2017-08-25] MEDS ORDERED: Senna/Docusate Sodium 8.6/50 MG Tablet PO SCH (09:00)
[2017-08-25] MEDS ORDERED: Vancomycin Inj 750 MG in Sodium Chlor 0.9% Inj 250 ML IV.SIG SCH (09:00)
[2017-08-25] MEDS ORDERED: Pantoprazole Sodium 20 MG DR Tablet PO SCH (09:00)
[2017-08-25 09:29] LABS: Lymphocytes 5 % (9-44); Monocytes 5 % (0-8); Myelocytes 2 % (0-0); Platelet Estimate Normal (Normal); Platelet Morphology Normal (Normal); Toxic Granulation 1+; Toxic Vacuolation Present
[2017-08-25 09:30] LABS: Ovalocytes 1+
--- NOTE | 2017-08-25 15:05 | P.PNONC ---
Subjective Interval history: Feeling better Reports feeling well enough to go home Has follow-up appointment with Dr. Jimenez's office for labs this week Objective Vital Signs/Intake & Output: Vital Signs 08/25/17 00:00 08/25/17 04:00 08/25/17 08:00 Temperature 98.2 F 97.5 F L 97.7 F Pulse Rate 79 83 76 Respiratory Rate 18 18 17 Blood Pressure 124/72 122/64 121/80 Pulse Oximetry 98 98 97 08/25/17 12:00 Temperature 98.0 F Pulse Rate 98 H Respiratory Rate 18 Blood Pressure 127/84 Pulse Oximetry 96 Intake & Output 08/24/17 08/25/17 08/25/17 18:59 06:59 18:59 Intake Total 350 / 350 Balance 350 / 350 Weight 110 lb 3.698 oz 110 lb 3.698 oz Intake: IV 350 / 350 Maxipime Inj 1,000 MG In NS Inj 100 / 100 100 ML @ 200 mls/hr IV.SIG Q12H [facility] Rx#:[id number] Vancomycin Inj 750 MG In NS Inj 250 / 250 250 ML @ 250 mls/hr IV.SIG Q18H [facility] Rx#:[id number] Other: # Voids 6 Date of Last Bowel Movement 08/25/17 Result Diagrams: 08/25/17 06:23 08/24/17 06:09 Laboratory Results: Laboratory Results - last 24 hr 08/23/17 08/23/17 08/23/17 17:30 17:30 17:30 WBC RBC Hgb Hct MCV MCH MCHC RDW Plt Count MPV Prelim Diff (Auto) Neut % (Auto) Lymph % (Auto) [place] % (Auto) Eos % (Auto) Baso % (Auto) Neut # (Auto) Lymph # (Auto) [place] # (Auto) Eos # (Auto) Baso # (Auto) CBC Comment WBC Differential Total Counted Neutrophils % (Manual) Seg Neuts % (Manual) Band Neutrophils % Band Neuts % (Manual) Lymphocytes % Lymphocytes % (Manual) Monocytes % Monocytes % (Manual) Myelocytes % (Man) Neutrophils # (Manual) Abs Neuts (Manual) Metamyelocytes Myelocytes Differential Comment Toxic Granulation Toxic Vacuolation Dohle Bodies Platelet Estimate Platelet Morphology Plt Morphology Comment Ovalocytes Keratocytes PT 10.6 INR 1.0 APTT 23.0 L Sodium 129 L Potassium 3.3 L Chloride 93 L Carbon Dioxide 25.5 Anion Gap 11 BUN 17 Creatinine 0.46 L Estimated GFR 136 Random Glucose 105 Lactic Acid 1.1 Calcium 8.5 Prot Corrected Calcium Magnesium 1.8 Total Bilirubin 0.3 AST 20 ALT 15 Alkaline Phosphatase 203 H Total Creatine Kinase 49 Troponin I LESS THAN 0.02 L Total Protein 5.8 L Albumin 3.0 L Lipase 352 Urine Color Urine Turbidity Urine pH Ur Specific [place] Urine Protein Urine Glucose (UA) Urine Ketones Urine Occult Blood Urine Nitrite Urine Bilirubin Urine Urobilinogen Ur Leukocyte Esterase Urine RBC Urine WBC Ur Squamous Epith Cells Urine Bacteria Hyaline Casts Urine Mucus Micro UA Comment 08/23/17 08/23/17 08/24/17 17:30 19:15 06:09 WBC 44.7 H RBC 3.43 L Hgb 10.5 L Hct 31.3 L MCV 91.2 MCH 30.5 MCHC 33.5 RDW 14.0 Plt Count 305 MPV 7.3 Prelim Diff (Auto) Neut % (Auto) 91.8 H Lymph % (Auto) 3.6 L [place] % (Auto) 4.3 Eos % (Auto) 0.1 Baso % (Auto) 0.2 Neut # (Auto) 41.0 H Lymph # (Auto) 1.6 [place] # (Auto) 1.9 H Eos # (Auto) 0.1 Baso # (Auto) 0.1 CBC Comment AUTO DIFF WBC Differential Total Counted 100 Neutrophils % (Manual) 63 Seg Neuts % (Manual) Band Neutrophils % 23 H Band Neuts % (Manual) Lymphocytes % 3 L Lymphocytes % (Manual) Monocytes % 4 Monocytes % (Manual) Myelocytes % (Man) Neutrophils # (Manual) 41.6 H Abs Neuts (Manual) Metamyelocytes 4 H Myelocytes 3 H Differential Comment FINAL DIFF MANUAL Toxic Granulation Toxic Vacuolation Dohle Bodies PRESENT H Platelet Estimate NORMAL Platelet Morphology Plt Morphology Comment NORMAL Ovalocytes Keratocytes PT INR APTT Sodium 136 Potassium 3.7 Chloride 101 D Carbon Dioxide 24.1 Anion Gap 11 BUN 16 Creatinine 0.38 L Estimated GFR 170 Random Glucose 93 Lactic Acid Calcium 7.8 L Prot Corrected Calcium Magnesium Total Bilirubin 0.1 L AST 17 ALT 14 Alkaline Phosphatase 169 H Total Creatine Kinase Troponin I Total Protein 4.9 L D Albumin 2.3 L D Lipase Urine Color YELLOW Urine Turbidity HAZY H Urine pH 6.0 Ur Specific [place] 1.019 Urine Protein 30 H Urine Glucose (UA) NEG Urine Ketones NEG Urine Occult Blood MOD H Urine Nitrite POS H Urine Bilirubin NEG Urine Urobilinogen LESS THAN 2 Ur Leukocyte Esterase TRACE H Urine RBC 6 H Urine WBC 49 H Ur Squamous Epith Cells 1 Urine Bacteria MANY H Hyaline Casts 9 Urine Mucus FEW H Micro UA Comment CULTURE INDICATED 08/24/17 08/25/17 08/25/17 06:09 06:23 06:23 WBC 33.9 H 35.0 H RBC 3.22 L 3.54 L Hgb 10.0 L 10.9 L Hct 29.8 L 32.7 L MCV 92.5 92.5 MCH 31.0 30.7 MCHC 33.5 33.2 RDW 14.4 14.3 Plt Count 260 272 MPV 7.6 7.5 Prelim Diff (Auto) Slide review pending Neut % (Auto) 92.1 H 91.8 H Lymph % (Auto) 4.3 L 4.3 L [place] % (Auto) 3.3 3.5 Eos % (Auto) 0.2 0.1 Baso % (Auto) 0.1 0.3 Neut # (Auto) 31.2 H 32.1 H Lymph # (Auto) 1.4 1.5 [place] # (Auto) 1.1 H 1.2 H Eos # (Auto) 0.1 0.0 Baso # (Auto) 0.0 0.1 CBC Comment AUTO DIFF WBC Differential Manual diff final Total Counted 100 Neutrophils % (Manual) 80 H Seg Neuts % (Manual) 76 H Band Neutrophils % 13 H Band Neuts % (Manual) 12 H Lymphocytes % 3 L Lymphocytes % (Manual) 5 L Monocytes % 3 Monocytes % (Manual) 5 Myelocytes % (Man) 2 H Neutrophils # (Manual) 31.9 H Abs Neuts (Manual) 31.5 H Metamyelocytes Myelocytes 1 H Differential Comment FINAL DIFF MANUAL . Toxic Granulation 1+ H Toxic Vacuolation Present H Dohle Bodies Platelet Estimate NORMAL Normal Platelet Morphology Normal Plt Morphology Comment NORMAL Ovalocytes 1+ H Keratocytes OCC H PT INR APTT Sodium Potassium Chloride Carbon Dioxide Anion Gap BUN Creatinine Estimated GFR Random Glucose Lactic Acid Calcium 8.6 Prot Corrected Calcium 9.7 Magnesium Total Bilirubin AST ALT Alkaline Phosphatase Total Creatine Kinase Troponin I Total Protein 5.4 L Albumin Lipase Urine Color Urine Turbidity Urine pH Ur Specific [place] Urine Protein Urine Glucose (UA) Urine Ketones Urine Occult Blood Urine Nitrite Urine Bilirubin Urine Urobilinogen Ur Leukocyte Esterase Urine RBC Urine WBC Ur Squamous Epith Cells Urine Bacteria Hyaline Casts Urine Mucus Micro UA Comment Medications: Active Medications Generic Name Dose Route Start Last Admin Trade Name Freq PRN Reason Stop Dose Admin Vancomycin HCl 750 mg/ Sodium 250 mls @ 250 mls/hr 08/25/17 09:00 08/25/17 10 :14 Chloride IV.SIG Infused Q18H [facility] Infusion Cefepime HCl 1,000 mg/ Sodium 100 mls @ 200 mls/hr 08/25/17 09:00 08/25/17 10 :15 Chloride IV.SIG Infused Q12H [facility] Infusion Metoclopramide HCl 5 mg 08/25/17 00:01 08/25/17 08:18 Reglan Inj IV.PUSH 5 mg Q6H PRN Administration NAUSEA OR VOMITING Nebivolol 5 mg 08/25/17 09:00 08/25/17 08:28 Bystolic PO Not Given DAILY [facility] Pantoprazole Sodium 20 mg 08/25/17 09:00 08/25/17 08:22 Protonix PO 20 mg DAILY [facility] Administration Senna/Docusate Sodium 1 tab 08/25/17 09:00 08/25/17 08:28 Marian-Colace PO Not Given BID [facility] Sodium Chloride 2 ml 08/25/17 09:00 08/25/17 08:14 Ns Flush IV.FLUSH 2 ml BID [facility] Administration Objective Remarks: GENERAL: Older female who appears younger than stated age resting in bed in no obvious distress SKIN: Warm and dry. HEAD: Normocephalic. EYES: No scleral icterus. No injection or drainage. NECK: Supple, trachea midline. No JVD or lymphadenopathy. CARDIOVASCULAR: Regular rate and rhythm without murmurs. RESPIRATORY: Breath sounds equal bilaterally. No accessory muscle use. GASTROINTESTINAL: Abdomen protuberant. Mildly tender to palpation EXTREMITIES: No cyanosis MUSCULOSKELETAL: Adequate muscle tone. NEUROLOGICAL: No obvious focal deficit. Awake, alert, and oriented x3. Assessment/Plan - Plan Leukocytosis likely due to effects from the Neulasta. Overall she is feeling better and feels comfortable to manage her care at home. She has multiple family members willing and able to assist. Blood cultures negative 2 days. No evidence of sepsis. No fever. She will be sent home on antibiotics per attending for UTI. Clear for discharge from oncology standpoint. - Attending Statement The exam, history, and the medical decision-making described in the above note were completed with the assistance of the mid-level provider. I reviewed and agree with the findings presented. I attest that I had a [id number] encounter with the patient on the same day, and personally performed and documented my assessment and findings in the medical record. 66 yoF with ovarian cancer WBC downtrending, afebrile, cultures with no growth. cleared for discharge. Close follow up with Dr. Gill in clinic.
[2017-08-26] MEDS ORDERED: Pharmacy Ordered Lab Info OTHER ONE (02:45)
== END 2017-08-25 16:36 | disposition home or self-care (01) ==
LOC: N06 → UNDODISIN → N06 19:20
PROVIDERS: ADMIT Family Medicine; ATTEND Family Medicine

== ENCOUNTER 2017-12-18 09:00 | Inpatient (IN) ==
[2017-12-18] MEDS ORDERED: Sod Chloride 0.9% Inj 1,000 ML IV.SIG ONE (09:49)
[2017-12-18] MEDS ORDERED: Sod Chloride 0.9% Inj 1,000 ML IV.SIG SCH (10:00)
--- NOTE | 2017-12-18 10:34 | ED ---
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 Patient was told by her oncologist, Dr. Curiel, that she should go to the emergency room as her hemoglobin was very low and she would need a blood transfusion. Patient is currently undergoing chemotherapy, reports that she was told that she had blood in her ascites fluid. Patient also reports that she has has had frequent blood transfusions - last transfusion was last month. Overall, patient is complaining of generalized weakness which has been ongoing for her with her cancer treatment Related Data Home Medications Medication Instructions Recorded Confirmed fentanyl 1 patch TRANSDERMAL Q72H 12/18/17 12/18/17 Allergies Allergy/AdvReac Type Severity Reaction Status Date / Time hydrocodone AdvReac Severe Nausea/Vomi Verified 12/18/17 10:35 ting Review of Systems ROS: all other systems reviewed are negative FOR[facility]LY [facility] Medical History Medical History [place] cancer (Acute) Surgical History Surgical History H/O shoulder surgery (Acute) History of tonsillectomy (Acute) Hx of appendectomy (Acute) Hx of section (Acute) Hx of hernia repair (Acute) Family History Family History Other No pertinent family history Social History Social History Substance History: No History of Abuse Second Hand Smoke Exposure: No Smoking Status: Former smoker Tobacco Type: Cigarettes How Often Do You Have a Drink Containing Alcohol: Monthly or less Immunization History Tetanus Immunization: Unsure Exam Narrative Exam Narrative: GENERAL: moderate distress SKIN: Focused skin assessment warm/dry. Patient pale appearing HEAD: Atraumatic. Normocephalic. EYES: Pupils equal and round. No scleral icterus. No injection or drainage. ENT: No nasal bleeding or discharge. Mucous membranes pink and moist. NECK: Trachea midline. No JVD. CARDIOVASCULAR: Regular rate and rhythm. No murmur appreciated. RESPIRATORY: No accessory muscle use. Clear to auscultation. Breath sounds equal bilaterally. GASTROINTESTINAL: Abdomen soft, non-tender, nondistended. Hepatic and splenic margins not palpable. MUSCULOSKELETAL: No obvious deformities. No clubbing. No cyanosis. No edema. NEUROLOGICAL: Awake and alert. No obvious cranial nerve deficits. Motor grossly within normal limits. Normal speech. PSYCHIATRIC: Appropriate mood and affect; insight and judgment normal. Course Initial Documented Vital Signs Temperature 98.7 F 12/18/17 09:29 Pulse Rate 103 H 12/18/17 09:29 Respiratory Rate 18 12/18/17 09:29 Blood Pressure 91/69 L 12/18/17 09:29 Last Documented Vital Signs Temperature 97.7 F 12/20/17 16:00 Pulse Rate 96 H 12/20/17 17:05 Respiratory Rate 18 12/20/17 17:05 Blood Pressure 136/89 12/20/17 16:00 Pulse Oximetry 100 12/20/17 16:38 Medical Decision Making MDM Narrative Medical decision making narrative: During the course of the patients emergency department visit, the patients history, examination, and differential diagnosis were reviewed with the patient. The patient was placed on a awake overnight monitor with oximetry and frequent blood pressure monitoring. The patient had an IV access obtained and blood work sent for analysis. The patient was initially provided IVF The patients laboratory studies were reviewed and remarkable for hgb of 5.4, platelets 38, wbc 0.2 Patient is neutropenic, neutropenic precautions were initiated. 2 units of leuko-irradiated blood was ordered, patient will be given a dose of cefepime, she has been pancultured. case reviewed with Dr. Lomas who accepts pt on behalf of Dr. Tolentino Medical Screen Exam Complete: Yes Emergency Medical Condition: Yes Differential Diagnosis Differential Diagnosis: symptomatic anemia Medical Records Medical records reviewed: Yes I reviewed the patient's medical records. Lab Data Result diagrams: 12/20/17 12:34 12/20/17 05:25 Lab Results 12/18/17 12/18/17 12/18/17 Range/Units 11:30 11:30 11:30 WBC 0.2 L (4.0-11.0) th/mm3 RBC 1.70 L (4.00-5.30) mil/mm3 Hgb 5.4 L* (11.6-15.3) gm/dL Hct 15.4 L* (35.0-46.0) % MCV 90.7 (80.0-100.0) fL MCH 31.6 (27.0-34.0) pg MCHC 34.8 (32.0-36.0) % RDW 16.5 (11.6-17.2) % Plt Count 39 L D (150-450) th/mm3 MPV 11.0 (7.0-11.0) fL Prelim Diff (Auto) Manual diff required Neut % (Auto) (16.0-70.0) % Lymph % (Auto) (9.0-44.0) % [place] % (Auto) (0.0-8.0) % Eos % (Auto) (0.0-4.0) % Baso % (Auto) (0.0-2.0) % Neut # (Auto) (1.8-7.7) th/mm3 Lymph # (Auto) (1.0-4.8) th/mm3 [place] # (Auto) (0.0-0.9) th/mm3 Eos # (Auto) (0.0-0.4) th/mm3 Baso # (Auto) (0.0-0.2) th/mm3 WBC Differential Manual diff final Seg Neuts % (Manual) 30 (16-70) % Band Neuts % (Manual) (0-6) % Lymphocytes % (Manual) 30 (9-44) % Monocytes % (Manual) 40 H (0-8) % Metamyelocytes % (Man) (0-1) % Myelocytes % (Man) (0-0) % Promyelocytes % (Man) (0-0) % Blast Cells % (Manual) (0-0) % Abs Neuts (Manual) 0.1 L* (1.8-7.7) th/mm3 Differential Comment . Toxic Granulation (None) Toxic Vacuolation (None) Platelet Estimate Low L (Normal) Platelet Morphology Normal (Normal) Dimorphic RBCs (None) Target Cells (None) PT 10.9 (9.8-11.6) sec INR 1.1 Ratio APTT 36.2 H (24.3-30.1) sec Sodium 130 L (136-145) meq/L Potassium 3.4 L (3.5-5.1) meq/L Chloride 99 (98-107) meq/L Carbon Dioxide 21.5 (21.0-32.0) meq/L Anion Gap 10 (5-15) meq/L BUN 21 H (7-18) mg/dL Creatinine 0.46 L (0.50-1.00) mg/dL Estimated GFR Greater than 89 (>89) mL/min POC Glucose (68-110) mg/dl Random Glucose 92 (74-106) mg/dL Lactic Acid (0.4-2.0) mmol/L Calcium 7.2 L* (8.5-10.1) mg/dL Prot Corrected Calcium 8.5 (8.5-10.1) mg/dL Magnesium 1.9 (1.5-2.5) mg/dL Total Bilirubin 1.0 (0.2-1.0) mg/dL AST 65 H (15-37) U/L ALT 42 (10-53) U/L Alkaline Phosphatase 367 H (45-117) U/L Total Protein 4.7 L (6.4-8.2) g/dL Albumin 1.2 L (3.4-5.0) g/dL Urine Color (Yellw/Straw) Urine Clarity (Clear) Urine pH (5.0-8.5) Ur Specific [place] (1.002-1.035) Urine Protein (Neg-Trace) mg/dL Urine Glucose (UA) (Negative) mg/dL Urine Ketones (Negative) mg/dL Urine Occult Blood (Negative) Urine Nitrate (Negative) Urine Bilirubin (Negative) Urine Urobilinogen (Less than 2) mg/dL Ur Leukocyte Esterase (Negative) Urine RBC (0-3) /hpf Urine WBC (0-5) /hpf Urine Mucus (Occasional) /lpf Micro UA Comment Ur Microscopic Review Urine Culture Comments Stool C.difficile Ag (Negative) Stool C.difficile Toxin (Negative) Stl C.difficile DNA Amp (Negative) St C. diff Tox Epid 027 (Negative) Vancomycin Trough (5.0-10.0) mcg/mL Blood Type Blood Type Recheck Antibody Screen MTS Gel Crossmatch Bld Prod Order Comment 12/18/17 12/18/17 12/18/17 Range/Units 11:30 11:30 12:05 WBC (4.0-11.0) th/mm3 RBC (4.00-5.30) mil/mm3 Hgb (11.6-15.3) gm/dL Hct (35.0-46.0) % MCV (80.0-100.0) fL MCH (27.0-34.0) pg MCHC (32.0-36.0) % RDW (11.6-17.2) % Plt Count (150-450) th/mm3 MPV (7.0-11.0) fL Prelim Diff (Auto) Neut % (Auto) (16.0-70.0) % Lymph % (Auto) (9.0-44.0) % [place] % (Auto) (0.0-8.0) % Eos % (Auto) (0.0-4.0) % Baso % (Auto) (0.0-2.0) % Neut # (Auto) (1.8-7.7) th/mm3 Lymph # (Auto) (1.0-4.8) th/mm3 [place] # (Auto) (0.0-0.9) th/mm3 Eos # (Auto) (0.0-0.4) th/mm3 Baso # (Auto) (0.0-0.2) th/mm3 WBC Differential Seg Neuts % (Manual) (16-70) % Band Neuts % (Manual) (0-6) % Lymphocytes % (Manual) (9-44) % Monocytes % (Manual) (0-8) % Metamyelocytes % (Man) (0-1) % Myelocytes % (Man) (0-0) % Promyelocytes % (Man) (0-0) % Blast Cells % (Manual) (0-0) % Abs Neuts (Manual) (1.8-7.7) th/mm3 Differential Comment Toxic Granulation (None) Toxic Vacuolation (None) Platelet Estimate (Normal) Platelet Morphology (Normal) Dimorphic RBCs (None) Target Cells (None) PT (9.8-11.6) sec INR Ratio APTT (24.3-30.1) sec Sodium (136-145) meq/L Potassium (3.5-5.1) meq/L Chloride (98-107) meq/L Carbon Dioxide (21.0-32.0) meq/L Anion Gap (5-15) meq/L BUN (7-18) mg/dL Creatinine (0.50-1.00) mg/dL Estimated GFR (>89) mL/min POC Glucose (68-110) mg/dl Random Glucose (74-106) mg/dL Lactic Acid 1.9 (0.4-2.0) mmol/L Calcium (8.5-10.1) mg/dL Prot Corrected Calcium (8.5-10.1) mg/dL Magnesium (1.5-2.5) mg/dL Total Bilirubin (0.2-1.0) mg/dL AST (15-37) U/L ALT (10-53) U/L Alkaline Phosphatase (45-117) U/L Total Protein (6.4-8.2) g/dL Albumin (3.4-5.0) g/dL Urine Color (Yellw/Straw) Urine Clarity (Clear) Urine pH (5.0-8.5) Ur Specific [place] (1.002-1.035) Urine Protein (Neg-Trace) mg/dL Urine Glucose (UA) (Negative) mg/dL Urine Ketones (Negative) mg/dL Urine Occult Blood (Negative) Urine Nitrate (Negative) Urine Bilirubin (Negative) Urine Urobilinogen (Less than 2) mg/dL Ur Leukocyte Esterase (Negative) Urine RBC (0-3) /hpf Urine WBC (0-5) /hpf Urine Mucus (Occasional) /lpf Micro UA Comment Ur Microscopic Review Urine Culture Comments Stool C.difficile Ag (Negative) Stool C.difficile Toxin (Negative) Stl C.difficile DNA Amp (Negative) St C. diff Tox Epid 027 (Negative) Vancomycin Trough (5.0-10.0) mcg/mL Blood Type B Negative Blood Type Recheck Not needed Antibody Screen Negative MTS Gel Crossmatch See Detail Bld Prod Order Comment 12/18/17 12/18/17 12/19/17 Range/Units 22:10 23:15 04:00 WBC 0.3 L (4.0-11.0) th/mm3 RBC 3.19 L (4.00-5.30) mil/mm3 Hgb 8.2 L D 9.3 L (11.6-15.3) gm/dL Hct 23.2 L 27.1 L (35.0-46.0) % MCV 85.1 D (80.0-100.0) fL MCH 29.1 (27.0-34.0) pg MCHC 34.1 (32.0-36.0) % RDW 18.9 H (11.6-17.2) % Plt Count 19 L* D (150-450) th/mm3 MPV 10.1 (7.0-11.0) fL Prelim Diff (Auto) Manual diff required Neut % (Auto) (16.0-70.0) % Lymph % (Auto) (9.0-44.0) % [place] % (Auto) (0.0-8.0) % Eos % (Auto) (0.0-4.0) % Baso % (Auto) (0.0-2.0) % Neut # (Auto) (1.8-7.7) th/mm3 Lymph # (Auto) (1.0-4.8) th/mm3 [place] # (Auto) (0.0-0.9) th/mm3 Eos # (Auto) (0.0-0.4) th/mm3 Baso # (Auto) (0.0-0.2) th/mm3 WBC Differential Manual diff final Seg Neuts % (Manual) 20 (16-70) % Band Neuts % (Manual) (0-6) % Lymphocytes % (Manual) 60 H (9-44) % Monocytes % (Manual) 20 H (0-8) % Metamyelocytes % (Man) (0-1) % Myelocytes % (Man) (0-0) % Promyelocytes % (Man) (0-0) % Blast Cells % (Manual) (0-0) % Abs Neuts (Manual) 0.1 L* (1.8-7.7) th/mm3 Differential Comment . Toxic Granulation (None) Toxic Vacuolation Present H (None) Platelet Estimate Low L (Normal) Platelet Morphology Normal (Normal) Dimorphic RBCs (None) Target Cells (None) PT (9.8-11.6) sec INR Ratio APTT (24.3-30.1) sec Sodium (136-145) meq/L Potassium (3.5-5.1) meq/L Chloride (98-107) meq/L Carbon Dioxide (21.0-32.0) meq/L Anion Gap (5-15) meq/L BUN (7-18) mg/dL Creatinine (0.50-1.00) mg/dL Estimated GFR (>89) mL/min POC Glucose (68-110) mg/dl Random Glucose (74-106) mg/dL Lactic Acid (0.4-2.0) mmol/L Calcium (8.5-10.1) mg/dL Prot Corrected Calcium (8.5-10.1) mg/dL Magnesium (1.5-2.5) mg/dL Total Bilirubin (0.2-1.0) mg/dL AST (15-37) U/L ALT (10-53) U/L Alkaline Phosphatase (45-117) U/L Total Protein (6.4-8.2) g/dL Albumin (3.4-5.0) g/dL Urine Color [place] (Yellw/Straw) Urine Clarity Hazy H (Clear) Urine pH 6.0 (5.0-8.5) Ur Specific [place] 1.041 H (1.002-1.035) Urine Protein 100 H (Neg-Trace) mg/dL Urine Glucose (UA) Negative (Negative) mg/dL Urine Ketones Negative (Negative) mg/dL Urine Occult Blood Moderate H (Negative) Urine Nitrate Positive H (Negative) Urine Bilirubin Negative (Negative) Urine Urobilinogen 2.0 H (Less than 2) mg/dL Ur Leukocyte Esterase Negative (Negative) Urine RBC 1 (0-3) /hpf Urine WBC 1 (0-5) /hpf Urine Mucus Few H (Occasional) /lpf Micro UA Comment Culture not ind Ur Microscopic Review Not Reportable Urine Culture Comments Culture not ind Stool C.difficile Ag (Negative) Stool C.difficile Toxin (Negative) Stl C.difficile DNA Amp (Negative) St C. diff Tox Epid 027 (Negative) Vancomycin Trough (5.0-10.0) mcg/mL Blood Type Blood Type Recheck Antibody Screen MTS Gel Crossmatch Bld Prod Order Comment 12/19/17 12/19/17 12/19/17 Range/Units 04:00 07:44 08:30 WBC (4.0-11.0) th/mm3 RBC (4.00-5.30) mil/mm3 Hgb (11.6-15.3) gm/dL Hct (35.0-46.0) % MCV (80.0-100.0) fL MCH (27.0-34.0) pg MCHC (32.0-36.0) % RDW (11.6-17.2) % Plt Count (150-450) th/mm3 MPV (7.0-11.0) fL Prelim Diff (Auto) Neut % (Auto) (16.0-70.0) % Lymph % (Auto) (9.0-44.0) % [place] % (Auto) (0.0-8.0) % Eos % (Auto) (0.0-4.0) % Baso % (Auto) (0.0-2.0) % Neut # (Auto) (1.8-7.7) th/mm3 Lymph # (Auto) (1.0-4.8) th/mm3 [place] # (Auto) (0.0-0.9) th/mm3 Eos # (Auto) (0.0-0.4) th/mm3 Baso # (Auto) (0.0-0.2) th/mm3 WBC Differential Seg Neuts % (Manual) (16-70) % Band Neuts % (Manual) (0-6) % Lymphocytes % (Manual) (9-44) % Monocytes % (Manual) (0-8) % Metamyelocytes % (Man) (0-1) % Myelocytes % (Man) (0-0) % Promyelocytes % (Man) (0-0) % Blast Cells % (Manual) (0-0) % Abs Neuts (Manual) (1.8-7.7) th/mm3 Differential Comment Toxic Granulation (None) Toxic Vacuolation (None) Platelet Estimate (Normal) Platelet Morphology (Normal) Dimorphic RBCs (None) Target Cells (None) PT (9.8-11.6) sec INR Ratio APTT (24.3-30.1) sec Sodium 135 L (136-145) meq/L Potassium 3.1 L (3.5-5.1) meq/L Chloride 102 (98-107) meq/L Carbon Dioxide 21.5 (21.0-32.0) meq/L Anion Gap 12 (5-15) meq/L BUN 20 H (7-18) mg/dL Creatinine 0.42 L (0.50-1.00) mg/dL Estimated GFR Greater than 89 (>89) mL/min POC Glucose 61 L 74 (68-110) mg/dl Random Glucose 60 L (74-106) mg/dL Lactic Acid (0.4-2.0) mmol/L Calcium 7.2 L* (8.5-10.1) mg/dL Prot Corrected Calcium 8.6 (8.5-10.1) mg/dL Magnesium (1.5-2.5) mg/dL Total Bilirubin 1.2 H (0.2-1.0) mg/dL AST 46 H (15-37) U/L ALT 33 (10-53) U/L Alkaline Phosphatase 291 H (45-117) U/L Total Protein 4.6 L (6.4-8.2) g/dL Albumin 1.1 L (3.4-5.0) g/dL Urine Color (Yellw/Straw) Urine Clarity (Clear) Urine pH (5.0-8.5) Ur Specific [place] (1.002-1.035) Urine Protein (Neg-Trace) mg/dL Urine Glucose (UA) (Negative) mg/dL Urine Ketones (Negative) mg/dL Urine Occult Blood (Negative) Urine Nitrate (Negative) Urine Bilirubin (Negative) Urine Urobilinogen (Less than 2) mg/dL Ur Leukocyte Esterase (Negative) Urine RBC (0-3) /hpf Urine WBC (0-5) /hpf Urine Mucus (Occasional) /lpf Micro UA Comment Ur Microscopic Review Urine Culture Comments Stool C.difficile Ag (Negative) Stool C.difficile Toxin (Negative) Stl C.difficile DNA Amp (Negative) St C. diff Tox Epid 027 (Negative) Vancomycin Trough (5.0-10.0) mcg/mL Blood Type Blood Type Recheck Antibody Screen MTS Gel Crossmatch Bld Prod Order Comment 12/19/17 12/19/17 12/19/17 Range/Units 11:28 14:38 17:23 WBC 0.3 L (4.0-11.0) th/mm3 RBC 3.16 L (4.00-5.30) mil/mm3 Hgb 10.6 L 9.4 L (11.6-15.3) gm/dL Hct 30.6 L 26.3 L (35.0-46.0) % MCV 83.4 (80.0-100.0) fL MCH 29.7 (27.0-34.0) pg MCHC 35.6 (32.0-36.0) % RDW 19.4 H (11.6-17.2) % Plt Count 26 L D (150-450) th/mm3 MPV 11.1 H (7.0-11.0) fL Prelim Diff (Auto) Slide review pending Neut % (Auto) 10.6 L (16.0-70.0) % Lymph % (Auto) 33.3 (9.0-44.0) % [place] % (Auto) 49.0 H (0.0-8.0) % Eos % (Auto) 7.1 H (0.0-4.0) % Baso % (Auto) 0.0 (0.0-2.0) % Neut # (Auto) 0.0 L* (1.8-7.7) th/mm3 Lymph # (Auto) 0.1 L (1.0-4.8) th/mm3 [place] # (Auto) 0.2 (0.0-0.9) th/mm3 Eos # (Auto) 0.0 (0.0-0.4) th/mm3 Baso # (Auto) 0.0 (0.0-0.2) th/mm3 WBC Differential Manual diff final Seg Neuts % (Manual) 24 (16-70) % Band Neuts % (Manual) (0-6) % Lymphocytes % (Manual) 40 (9-44) % Monocytes % (Manual) 36 H (0-8) % Metamyelocytes % (Man) (0-1) % Myelocytes % (Man) (0-0) % Promyelocytes % (Man) (0-0) % Blast Cells % (Manual) (0-0) % Abs Neuts (Manual) 0.1 L* (1.8-7.7) th/mm3 Differential Comment . Toxic Granulation (None) Toxic Vacuolation (None) Platelet Estimate Low L (Normal) Platelet Morphology Enlarged H (Normal) Dimorphic RBCs (None) Target Cells (None) PT (9.8-11.6) sec INR Ratio APTT (24.3-30.1) sec Sodium (136-145) meq/L Potassium (3.5-5.1) meq/L Chloride (98-107) meq/L Carbon Dioxide (21.0-32.0) meq/L Anion Gap (5-15) meq/L BUN (7-18) mg/dL Creatinine (0.50-1.00) mg/dL Estimated GFR (>89) mL/min POC Glucose 83 (68-110) mg/dl Random Glucose (74-106) mg/dL Lactic Acid (0.4-2.0) mmol/L Calcium (8.5-10.1) mg/dL Prot Corrected Calcium (8.5-10.1) mg/dL Magnesium (1.5-2.5) mg/dL Total Bilirubin (0.2-1.0) mg/dL AST (15-37) U/L ALT (10-53) U/L Alkaline Phosphatase (45-117) U/L Total Protein (6.4-8.2) g/dL Albumin (3.4-5.0) g/dL Urine Color (Yellw/Straw) Urine Clarity (Clear) Urine pH (5.0-8.5) Ur Specific [place] (1.002-1.035) Urine Protein (Neg-Trace) mg/dL Urine Glucose (UA) (Negative) mg/dL Urine Ketones (Negative) mg/dL Urine Occult Blood (Negative) Urine Nitrate (Negative) Urine Bilirubin (Negative) Urine Urobilinogen (Less than 2) mg/dL Ur Leukocyte Esterase (Negative) Urine RBC (0-3) /hpf Urine WBC (0-5) /hpf Urine Mucus (Occasional) /lpf Micro UA Comment Ur Microscopic Review Urine Culture Comments Stool C.difficile Ag (Negative) Stool C.difficile Toxin (Negative) Stl C.difficile DNA Amp (Negative) St C. diff Tox Epid 027 (Negative) Vancomycin Trough (5.0-10.0) mcg/mL Blood Type Blood Type Recheck Antibody Screen MTS Gel Crossmatch Bld Prod Order Comment 12/19/17 12/20/17 12/20/17 Range/Units 17:33 05:25 05:25 WBC 1.5 L D (4.0-11.0) th/mm3 RBC 3.38 L (4.00-5.30) mil/mm3 Hgb 10.0 L (11.6-15.3) gm/dL Hct 28.4 L (35.0-46.0) % MCV 84.0 (80.0-100.0) fL MCH 29.5 (27.0-34.0) pg MCHC 35.1 (32.0-36.0) % RDW 19.5 H (11.6-17.2) % Plt Count 16 L* D (150-450) th/mm3 MPV 10.9 (7.0-11.0) fL Prelim Diff (Auto) Slide review pending Neut % (Auto) 40.8 (16.0-70.0) % Lymph % (Auto) 9.8 (9.0-44.0) % [place] % (Auto) 48.8 H (0.0-8.0) % Eos % (Auto) 0.6 (0.0-4.0) % Baso % (Auto) 0.0 (0.0-2.0) % Neut # (Auto) 0.6 L (1.8-7.7) th/mm3 Lymph # (Auto) 0.1 L (1.0-4.8) th/mm3 [place] # (Auto) 0.7 (0.0-0.9) th/mm3 Eos # (Auto) 0.0 (0.0-0.4) th/mm3 Baso # (Auto) 0.0 (0.0-0.2) th/mm3 WBC Differential Manual diff final Seg Neuts % (Manual) 47 (16-70) % Band Neuts % (Manual) 28 H (0-6) % Lymphocytes % (Manual) 7 L (9-44) % Monocytes % (Manual) 12 H (0-8) % Metamyelocytes % (Man) 3 H (0-1) % Myelocytes % (Man) 3 H (0-0) % Promyelocytes % (Man) (0-0) % Blast Cells % (Manual) (0-0) % Abs Neuts (Manual) 1.2 L (1.8-7.7) th/mm3 Differential Comment . Toxic Granulation 2+ H (None) Toxic Vacuolation (None) Platelet Estimate Low L (Normal) Platelet Morphology Enlarged H (Normal) Dimorphic RBCs (None) Target Cells 1+ H (None) PT (9.8-11.6) sec INR Ratio APTT (24.3-30.1) sec Sodium 134 L (136-145) meq/L Potassium 3.3 L (3.5-5.1) meq/L Chloride 102 (98-107) meq/L Carbon Dioxide 19.2 L (21.0-32.0) meq/L Anion Gap 13 (5-15) meq/L BUN 23 H (7-18) mg/dL Creatinine 0.42 L (0.50-1.00) mg/dL Estimated GFR Greater than 89 (>89) mL/min POC Glucose (68-110) mg/dl Random Glucose 72 L (74-106) mg/dL Lactic Acid (0.4-2.0) mmol/L Calcium 7.7 L (8.5-10.1) mg/dL Prot Corrected Calcium (8.5-10.1) mg/dL Magnesium (1.5-2.5) mg/dL Total Bilirubin 0.8 (0.2-1.0) mg/dL AST 21 (15-37) U/L ALT 25 (10-53) U/L Alkaline Phosphatase 244 H (45-117) U/L Total Protein 4.6 L (6.4-8.2) g/dL Albumin 1.1 L (3.4-5.0) g/dL Urine Color (Yellw/Straw) Urine Clarity (Clear) Urine pH (5.0-8.5) Ur Specific [place] (1.002-1.035) Urine Protein (Neg-Trace) mg/dL Urine Glucose (UA) (Negative) mg/dL Urine Ketones (Negative) mg/dL Urine Occult Blood (Negative) Urine Nitrate (Negative) Urine Bilirubin (Negative) Urine Urobilinogen (Less than 2) mg/dL Ur Leukocyte Esterase (Negative) Urine RBC (0-3) /hpf Urine WBC (0-5) /hpf Urine Mucus (Occasional) /lpf Micro UA Comment Ur Microscopic Review Urine Culture Comments Stool C.difficile Ag Positive H (Negative) Stool C.difficile Toxin Negative (Negative) Stl C.difficile DNA Amp Positive H (Negative) St C. diff Tox Epid 027 Negative (Negative) Vancomycin Trough (5.0-10.0) mcg/mL Blood Type Blood Type Recheck Antibody Screen MTS Gel Crossmatch Bld Prod Order Comment 12/20/17 12/20/17 12/20/17 Range/Units 08:23 12:34 12:34 WBC 3.2 L D (4.0-11.0) th/mm3 RBC 3.09 L (4.00-5.30) mil/mm3 Hgb 8.9 L (11.6-15.3) gm/dL Hct 26.3 L (35.0-46.0) % MCV 85.0 (80.0-100.0) fL MCH 28.9 (27.0-34.0) pg MCHC 34.0 (32.0-36.0) % RDW 19.0 H (11.6-17.2) % Plt Count 51 L D (150-450) th/mm3 MPV 9.0 (7.0-11.0) fL Prelim Diff (Auto) Manual diff required Neut % (Auto) (16.0-70.0) % Lymph % (Auto) (9.0-44.0) % [place] % (Auto) (0.0-8.0) % Eos % (Auto) (0.0-4.0) % Baso % (Auto) (0.0-2.0) % Neut # (Auto) (1.8-7.7) th/mm3 Lymph # (Auto) (1.0-4.8) th/mm3 [place] # (Auto) (0.0-0.9) th/mm3 Eos # (Auto) (0.0-0.4) th/mm3 Baso # (Auto) (0.0-0.2) th/mm3 WBC Differential Manual diff final Seg Neuts % (Manual) 28 (16-70) % Band Neuts % (Manual) 37 H (0-6) % Lymphocytes % (Manual) 8 L (9-44) % Monocytes % (Manual) 12 H (0-8) % Metamyelocytes % (Man) 3 H (0-1) % Myelocytes % (Man) 9 H (0-0) % Promyelocytes % (Man) 1 H (0-0) % Blast Cells % (Manual) 2 H (0-0) % Abs Neuts (Manual) 2.5 (1.8-7.7) th/mm3 Differential Comment . Toxic Granulation 2+ H (None) Toxic Vacuolation Present H (None) Platelet Estimate Low L (Normal) Platelet Morphology Enlarged H (Normal) Dimorphic RBCs Present H (None) Target Cells (None) PT (9.8-11.6) sec INR Ratio APTT (24.3-30.1) sec Sodium (136-145) meq/L Potassium (3.5-5.1) meq/L Chloride (98-107) meq/L Carbon Dioxide (21.0-32.0) meq/L Anion Gap (5-15) meq/L BUN (7-18) mg/dL Creatinine (0.50-1.00) mg/dL Estimated GFR (>89) mL/min POC Glucose (68-110) mg/dl Random Glucose (74-106) mg/dL Lactic Acid (0.4-2.0) mmol/L Calcium (8.5-10.1) mg/dL Prot Corrected Calcium (8.5-10.1) mg/dL Magnesium (1.5-2.5) mg/dL Total Bilirubin (0.2-1.0) mg/dL AST (15-37) U/L ALT (10-53) U/L Alkaline Phosphatase (45-117) U/L Total Protein (6.4-8.2) g/dL Albumin (3.4-5.0) g/dL Urine Color (Yellw/Straw) Urine Clarity (Clear) Urine pH (5.0-8.5) Ur Specific [place] (1.002-1.035) Urine Protein (Neg-Trace) mg/dL Urine Glucose (UA) (Negative) mg/dL Urine Ketones (Negative) mg/dL Urine Occult Blood (Negative) Urine Nitrate (Negative) Urine Bilirubin (Negative) Urine Urobilinogen (Less than 2) mg/dL Ur Leukocyte Esterase (Negative) Urine RBC (0-3) /hpf Urine WBC (0-5) /hpf Urine Mucus (Occasional) /lpf Micro UA Comment Ur Microscopic Review Urine Culture Comments Stool C.difficile Ag (Negative) Stool C.difficile Toxin (Negative) Stl C.difficile DNA Amp (Negative) St C. diff Tox Epid 027 (Negative) Vancomycin Trough 12.6 H (5.0-10.0) mcg/mL Blood Type Blood Type Recheck Antibody Screen MTS Gel Crossmatch Bld Prod Order Comment 12/20/17 12/20/17 Range/Units 12:34 12:34 WBC (4.0-11.0) th/mm3 RBC (4.00-5.30) mil/mm3 Hgb (11.6-15.3) gm/dL Hct (35.0-46.0) % MCV (80.0-100.0) fL MCH (27.0-34.0) pg MCHC (32.0-36.0) % RDW (11.6-17.2) % Plt Count (150-450) th/mm3 MPV (7.0-11.0) fL Prelim Diff (Auto) Neut % (Auto) (16.0-70.0) % Lymph % (Auto) (9.0-44.0) % [place] % (Auto) (0.0-8.0) % Eos % (Auto) (0.0-4.0) % Baso % (Auto) (0.0-2.0) % Neut # (Auto) (1.8-7.7) th/mm3 Lymph # (Auto) (1.0-4.8) th/mm3 [place] # (Auto) (0.0-0.9) th/mm3 Eos # (Auto) (0.0-0.4) th/mm3 Baso # (Auto) (0.0-0.2) th/mm3 WBC Differential Seg Neuts % (Manual) (16-70) % Band Neuts % (Manual) (0-6) % Lymphocytes % (Manual) (9-44) % Monocytes % (Manual) (0-8) % Metamyelocytes % (Man) (0-1) % Myelocytes % (Man) (0-0) % Promyelocytes % (Man) (0-0) % Blast Cells % (Manual) (0-0) % Abs Neuts (Manual) (1.8-7.7) th/mm3 Differential Comment Toxic Granulation (None) Toxic Vacuolation (None) Platelet Estimate (Normal) Platelet Morphology (Normal) Dimorphic RBCs (None) Target Cells (None) PT 11.0 (9.8-11.6) sec INR 1.1 Ratio APTT 27.8 (24.3-30.1) sec Sodium (136-145) meq/L Potassium (3.5-5.1) meq/L Chloride (98-107) meq/L Carbon Dioxide (21.0-32.0) meq/L Anion Gap (5-15) meq/L BUN (7-18) mg/dL Creatinine (0.50-1.00) mg/dL Estimated GFR (>89) mL/min POC Glucose (68-110) mg/dl Random Glucose (74-106) mg/dL Lactic Acid (0.4-2.0) mmol/L Calcium (8.5-10.1) mg/dL Prot Corrected Calcium (8.5-10.1) mg/dL Magnesium (1.5-2.5) mg/dL Total Bilirubin (0.2-1.0) mg/dL AST (15-37) U/L ALT (10-53) U/L Alkaline Phosphatase (45-117) U/L Total Protein (6.4-8.2) g/dL Albumin (3.4-5.0) g/dL Urine Color (Yellw/Straw) Urine Clarity (Clear) Urine pH (5.0-8.5) Ur Specific [place] (1.002-1.035) Urine Protein (Neg-Trace) mg/dL Urine Glucose (UA) (Negative) mg/dL Urine Ketones (Negative) mg/dL Urine Occult Blood (Negative) Urine Nitrate (Negative) Urine Bilirubin (Negative) Urine Urobilinogen (Less than 2) mg/dL Ur Leukocyte Esterase (Negative) Urine RBC (0-3) /hpf Urine WBC (0-5) /hpf Urine Mucus (Occasional) /lpf Micro UA Comment Ur Microscopic Review Urine Culture Comments Stool C.difficile Ag (Negative) Stool C.difficile Toxin (Negative) Stl C.difficile DNA Amp (Negative) St C. diff Tox Epid 027 (Negative) Vancomycin Trough (5.0-10.0) mcg/mL Blood Type Blood Type Recheck Antibody Screen MTS Gel Crossmatch Bld Prod Order Comment Imaging Data Radiologist's impression: Chest CT 12/18/17 00:00 CONCLUSION: 1. Bibasilar airspace disease, left greater than right. Cannot exclude an early infiltrate just above the left hemidiaphragm. 2. No suspicious mass lesions to suggest metastatic disease. 3. Abdominal ascites. Abdomen/Pelvis CT 12/18/17 14:05 CONCLUSION: 1. Diffuse peritoneal ascites, slightly worse when compared to the prior. 2. Interval development of diffuse periportal edema in the liver. 3. The findings concerning for infarct in the anterior pole of the spleen. 4. Interval development of left-sided hydronephrosis with delayed nephrogram characteristic of a high-grade obstruction. This appears to be within the distal ureter. I do not see an obvious obstructing mass lesion distally, however. 5. Diffuse bowel wall thickening. Findings are nonspecific but could be related to a low oncotic pressure associated with the diffuse abdominal ascites. Abdomen Ultrasound 12/20/17 00:00 CONCLUSION: 1. Ascites. No hematoma noted. Discharge Plan Discharge Disposition Patient Disposition: 30 Still Patient Discharge Condition Condition: Fair Discharge Details Diagnosis: Anemia, Thrombocytopenia Physicians Team ED Provider: Inocencia Lay Primary Care Provider: Deric Benson Attending Provider: Simone Tolentino Other Providers: Earline Jimenez ; Jun Coleman ; Sumit Mims ; Alistair Kan ; [facility] Discharge Interventions Interventions: ED Discharge Assessment Last Done: 12/18/17 14:03 Status ED Status: Left Department Discharge Information Discharge Date/Time: 12/18/17 14:40
[2017-12-18 11:52] LABS: Mean Corpuscular HGB Conc 34.8 % (32.0-36.0); Mean Corpuscular Hemoglobin 31.6 pg (27.0-34.0); Mean Corpuscular Volume 90.7 fL (80.0-100.0); Platelet Count 39 th/mm3 (150-450); Red Cell Distribution Width 16.5 % (11.6-17.2); White Blood Count 0.2 th/mm3 (4.0-11.0)
[2017-12-18 11:53] LABS: Activated Partial Thrombo Time 36.2 sec (24.3-30.1); INR 1.1 Ratio; Prothrombin Time 10.9 sec (9.8-11.6)
[2017-12-18 12:00] LABS: Alanine Aminotransferase 42 U/L (10-53); Albumin 1.2 g/dL (3.4-5.0); Anion Gap 10 meq/L (5-15); Aspartate Aminotransferase 65 U/L (15-37); Blood Urea Nitrogen 21 mg/dL (7-18); Calcium 7.2 mg/dL (8.5-10.1); Carbon Dioxide 21.5 meq/L (21.0-32.0); Chloride 99 meq/L (98-107); Glomerular Filtration Rate Greater Than 89 mL/min (>89); Glucose,Random 92 mg/dL (74-106); Magnesium 1.9 mg/dL (1.5-2.5); Potassium 3.4 meq/L (3.5-5.1); Sodium 130 meq/L (136-145)
[2017-12-18 12:03] LABS: Alkaline Phosphatase 367 U/L (45-117); Total Protein 4.7 g/dL (6.4-8.2)
[2017-12-18 12:04] LABS: Hematocrit 15.4 % (35.0-46.0); Hemoglobin 5.4 gm/dL (11.6-15.3)
[2017-12-18 12:32] LABS: Lymphocytes 30 % (9-44); Monocytes 40 % (0-8)
[2017-12-18 12:33] LABS: Platelet Morphology Normal (Normal)
[2017-12-18] MEDS ORDERED: Sodium Chlor 0.9% Inj 250 ML IV.SIG SCH (13:00)
--- NOTE | 2017-12-18 13:49 | P.HPFP ---
History of Present Illness Primary Care Physician: Deric Benson MD <Simone Tolentino 12/18/17 22:38> Deric Benson MD <Ruddy Lomas 12/18/17 13:49> Chief Complaint: Fatigue, DrGosia Sent <Ruddy Lomas 12/18/17 16:52> History of Present Illness: 67-year-old female being treated for ovarian cancer presents to the emergency department after being sent over by Dr. Jimenez for symptomatic and severe anemia. Patient has been feeling extremely fatigued and short of breath recently associated with diarrhea and mild abdominal discomfort. She is currently being treated with chemotherapy, recently changing to a Avastin for which she has been treated x2, most recently 5 days ago. She has been getting weekly paracentesis for recurrent ascites, her most recent paracentesis 6 days ago was noted to be bloody with approximately 5.5 L of fluid removed. She endorses fatigue, she endorses shortness of breath, she endorses generalized malaise. She does endorse chest congestion with a cough that is nonproductive. She also endorses subjective chills. She denies fevers. She denies nausea or vomiting. She denies chest pain or palpitations. 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 Jimenez for symptomatic and severe anemia noted on monitoring blood work. Patient reports feeling extreme global fatigue with no focal weakness or speech difficulty. She also reports significant diarrhea for the last couple weeks since starting Avastin for her chemotherapy (2 doses so far; Saturday and 2 weeks prior). Her cancer treatment course is complicated by recurrent ascites for which she gets paracentesis weekly. Last paracentesis was of last week during which time ~5 L bloody fluid was removed (usually fluid was clear). She has not had fever, but she does endorse chills and chest congestion / cough without production of sputum. <Ruddy Lomas 12/18/17 19:49> - Diagnosis (1) Pancytopenia due to chemotherapy (2) Ascites (3) Protein-calorie malnutrition (4) Diarrhea (5) Ovarian cancer <Simone Tolentino 12/18/18 22:38> (1) Pancytopenia due to chemotherapy (2) Ascites (3) Protein-calorie malnutrition (4) Diarrhea (5) Ovarian cancer <Ruddy Lomas 12/18/17 21:39> Inpatient Certification: I certify that the inpatient services were ordered in accordance with Medicare regulations governing the order. This includes certification that hospital inpatient services are reasonable and necessary and in the case of services not specified as inpatient-only under 42 CFR 419.22(n), that they are appropriately provided as inpatient services in accordance to with the 2-midnight benchmark under 43 CFR 412.3(e) <Simone Tolentino 12/18/17 22:38> I certify that the inpatient services were ordered in accordance with Medicare regulations governing the order. This includes certification that hospital inpatient services are reasonable and necessary and in the case of services not specified as inpatient-only under 42 CFR 419.22(n), that they are appropriately provided as inpatient services in accordance to with the 2-midnight benchmark under 43 CFR 412.3(e) <Adria Lomasy Amy 12/18/17 13:49> Estimated Total Length of Stay (Days): 5 <Ruddy Lomas 12/18/17 16:52> Plans for Post Hospital Care: Home <Ruddy Lomas 12/18/17 16:52> Review of Systems Constitutional: Reports anorexia, Reports chills, Reports fatigue, Reports lack of energy, Reports malaise, Denies fever(s) <LomasRuddy Amy 12/18/17 19:49> Ears, Nose, Mouth, and Throat: Denies ear pain <LomasRuddy Reyes 12/18/17 19: 49> Cardiovascular: Denies chest pain <LomasRuddy Amy 12/18/17 19:49> Respiratory: Reports chest congestion, Reports cough, Reports shortness of breath with activity, Denies excessive phlegm production, Denies shortness of breath <LomasRuddy Amy 12/18/17 19:49> Gastrointestinal: Reports loose stools, Reports nausea, Denies abdominal pain, Denies vomiting <AbebeRuddy Amy 12/18/17 19:49> Musculoskeletal: Reports body aches, Reports decreased muscle mass (chronic), Denies back pain <Lomas,Ruddy Amy Afshin 12/18/17 19:49> Skin/Breast: Denies rash <Ruddy Lomas Amy Afshin 12/18/17 19:49> Neurologic: Denies abnormal speech, Denies confusion, Denies localized weakness <LomasRuddy Amy 12/18/17 19:49> PMFSH - History History Provided By: Patient, Family Member <Ruddy Lomas Amy Afshin 12/18/17 13:49> - Medical History Medical History: Medical History (Last Reviewed 12/18/17 @ 10:33 by Inocencia Lay) Ovary cancer <RajanLisay Afshin 12/18/17 22:38> Medical History (Last Reviewed 12/18/17 @ 10:33 by Inocencia Lay) Ovary cancer <LomasRuddy Amy 12/18/17 13:49> - Surgical History Surgical History: Surgical History (Last Updated 12/18/17 @ 19:39 by Ruddy Lomas MD, R3) H/O shoulder surgery History of tonsillectomy Hx of appendectomy Hx of section Hx of hernia repair <RajanSimone 12/18/17 22:38> Surgical History (Last Updated 12/18/17 @ 19:39 by Ruddy Lomas MD, R3) H/O shoulder surgery History of tonsillectomy Hx of appendectomy Hx of section Hx of hernia repair <LomasRuddy Amy 12/18/17 19:49> - Social History I have reviewed the patient's Social History: Yes <Ruddy Lomas 12/18/17 19:49> - Tobacco History Second Hand Smoke Exposure: No <Ruddy Lomas 12/18/17 13:49> Tobacco Use In Past 30 Days: No <Ruddy Lomas 12/18/17 13:49> Smoking Status: Former smoker (1 PPD x 15 years, quit 30 years ago) <Ruddy Lomas 12/18/17 19:49> Tobacco Type: Cigarettes <Ruddy Lomas 12/18/17 13:49> - Alcohol History How Often Do You Have a Drink Containing Alcohol: Never <Ruddy Lomas 13:49> - Substance Use History Substance History: No History of Abuse <Ruddy Lomas S - 12/18/17 13:49> - Travel History Recent Travel in the [place] Within the Last 8 Weeks: No <Ruddy Lomas - 13:49> Recent Travel Out of the Country Within the Last 8 Weeks: No <Ruddy Lomas - 12/18/17 13:49> - Immunization History Tetanus Immunization: Unsure <Ruddy Lomas - 12/18/17 13:49> Medications and Allergies Allergies Allergy/AdvReac Type Severity Reaction Status Date / Time hydrocodone AdvReac Severe Nausea/Vomi Verified 12/18/17 10:35 ting <Rajan,Simone - 12/18/17 22:38> Home Medications Medication Instructions Recorded Confirmed Type fentanyl 1 patch TRANSDERMAL Q72H 12/18/17 12/18/17 History <RajanSimone - 12/18/17 22:38> Active Medications: Active Medications Acetaminophen (Tylenol) 650 mg PO Q4H PRN PRN Reason: Fever or Pain 1 TO 10 Fentanyl (Duragesic 25 Mcg Patch.72hr) 1 patch T-DERMAL Q72H [facility] Last Admin: 12/18/17 17:14 Dose: Not Given Filgrastim (Neupogen Inj) 300 mcg SQ DAILY@1700 [facility] Sodium Chloride (Ns Inj) 1,000 mls @ 0 mls/hr IV.SIG BOLUS [facility] Sodium Chloride (Ns Inj) 250 mls @ 15 mls/hr IV.SIG ONCE [facility] Stop: 12/19/17 05:39 Last Admin: 12/18/17 13:34 Dose: 15 mls/hr Cefepime HCl 2,000 mg/ Sodium (Chloride) 100 mls @ 200 mls/hr IV.SIG Q12H [facility] Ibuprofen (Advil) 200 mg PO Q6H PRN PRN Reason: PAIN SCALE 1 TO 10 Last Admin: 12/18/17 21:06 Dose: 200 mg Loratadine (Claritin) 5 mg PO DAILY [facility] Last Admin: 12/18/17 21:04 Dose: 5 mg Miscellaneous (Pill Splitter) 1 each OTHER PRN PRN PRN Reason: SEE LABEL COMMENTS Ondansetron HCl (Zofran Inj) 4 mg IV.PUSH Q6H PRN PRN Reason: NAUSEA OR VOMITING Pantoprazole Sodium (Protonix Inj) 40 mg IV.PUSH Q24H [facility] Last Admin: 12/18/17 18:41 Dose: 40 mg Patch Removal (Remove Old Patch) 1 each T-DERMAL Q72H [facility] Last Admin: 12/18/17 17:14 Dose: Not Given Pharmacy Profile Note (Vancomycin Consult Pharmacy) 1 each OTHER UNSCH PRN PRN Reason: Pharmacy to dose Sodium Chloride (Ns Flush) 2 ml IV.FLUSH BID [facility] Last Admin: 12/18/17 22:14 Dose: 2 ml Sodium Chloride (Ns Flush) 2 ml IV.FLUSH PRN PRN PRN Reason: FLUSH AFTER USING IV ACCESS <Simone Tolentino - 12/18/17 22:38> Active Medications Sodium Chloride (Ns Inj) 1,000 mls @ 0 mls/hr IV.SIG BOLUS [facility] Sodium Chloride (Ns Inj) 250 mls @ 15 mls/hr IV.SIG ONCE [facility] Stop: 12/19/17 05:39 Last Admin: 12/18/17 13:34 Dose: 15 mls/hr Sodium Chloride (Ns Flush) 2 ml IV.FLUSH PRN PRN PRN Reason: FLUSH AFTER USING IV ACCESS Last Admin: 12/18/17 10:18 Dose: 2 ml <Ruddy Lomas S - 12/18/17 13:49> Exam Vital signs: Vital Signs 12/18/17 09:29 12/18/17 09:49 12/18/17 13:32 Temperature 98.7 F 98.0 F Pulse Rate 103 H 113 H 121 H Respiratory Rate 18 20 Blood Pressure 91/69 L 105/70 Pulse Oximetry 100 100 12/18/17 13:48 12/18/17 15:00 12/18/17 15:51 Temperature 98.3 F 98.8 F Pulse Rate 122 H 119 H 120 H Respiratory Rate 18 20 Blood Pressure 101/66 147/79 H Pulse Oximetry 100 100 12/18/17 18:39 Temperature 97.6 F Pulse Rate 112 H Respiratory Rate 20 Blood Pressure 102/80 Pulse Oximetry 99 Intake & Output 12/18/17 12/18/17 12/19/17 06:59 18:59 06:59 Intake Total 1620 / 1620 Output Total 100 / 100 Balance 1620 / 1620 -100 / -100 Weight 45.359 kg Intake: IV 1100 / 1100 Maxipime Inj 2,000 MG In NS Inj 100 / 100 100 ML @ 200 mls/hr IV.SIG ONCE ONE Rx#:[id number] NS Inj 1,000 ML @ Wide Open IV. 1000 / 1000 SIG BOLUS ONE Rx#:[id number] Oral 120 / 120 Intake (Blood Product) Amt 400 / 400 Rbc As-3 Leukoreduced Irrad 0 / 0 Unit [id number] Rbc As-3 Leukoreduced Irrad 400 / 400 Unit [id number] Output: Urine 100 / 100 Other: # Voids 2 Date of Last Bowel Movement 12/18/17 # Bowel Movements 2 # Incontinent Bowel Movements 2 Weight On Admission 45.359 kg <Simone Tolentino - 12/18/17 22:38> Vital Signs 12/18/17 09:29 12/18/17 09:49 12/18/17 13:32 Temperature 98.7 F 98.0 F Pulse Rate 103 H 113 H 121 H Respiratory Rate 18 20 Blood Pressure 91/69 L 105/70 Pulse Oximetry 100 100 Intake & Output 12/17/17 12/18/17 12/18/17 18:59 06:59 18:59 Intake Total 1100 / 1100 Balance 1100 / 1100 Weight 45.359 kg Intake: IV 1100 / 1100 Maxipime Inj 2,000 MG In NS Inj 100 / 100 100 ML @ 200 mls/hr IV.SIG ONCE ONE Rx#:[id number] NS Inj 1,000 ML @ Wide Open IV. 1000 / 1000 SIG BOLUS ONE Rx#:[id number] Intake (Blood Product) Amt 0 / 0 Rbc As-3 Leukoreduced Irrad 0 / 0 Unit [id number] Other: Date of Last Bowel Movement 12/18/17 # Incontinent Bowel Movements 2 <Ruddy Lomas S - 12/18/17 13:49> Narrative: General: Thin, frail-appearing, somewhat emaciated female lying in bed in no obvious distress Cardiovascular: Tachycardic with regular rhythm without murmur Pulmonary: Clear to auscultation bilaterally Abdomen: Soft, distended, no significant tenderness, no rebound, no guarding Extremities: Bilateral lower extremities with pitting edema 1+ to the ankles Skin: No obvious defect or deformity, tunneled Vas-Cath in the left upper chest with no evidence of infection <Simone Tolentino - 12/18/17 22:38> - Constitutional no acute distress, cachectic, chronically ill appearing <Ruddy Lomas - 19:49> - Routine HEENT Exam Head: Present: normocephalic, atraumatic <Ruddy Lomas - 12/18/17 19:49> Eye: Present: EOMI <Ruddy Lomas - 12/18/17 19:49> ENT: Present: mucous membranes moist <Ruddy Lomas - 12/18/17 19:49> - Routine Neck Exam Present: supple <Ruddy Lomas - 12/18/17 19:49> - Routine Respiratory Exam Present: CTA bilaterally. Absent: accessory muscle use, decreased breath sounds , wheezes, crackles <Ruddy Lomas - 12/18/17 19:49> - Routine Cardiovascular Exam Present: S1, S2, tachycardia. Absent: murmur <Ruddy Lomas - 12/18/17 19:49 > - Routine Abdominal Exam Present: soft, normoactive bowel sounds, distended. Absent: rebound, guarding, firm, rigid, mass <Ruddy Lomas - 12/18/17 19:49> - Routine Extremities Exam Absent: cyanosis, clubbing, edema <Ruddy Lomas - 12/18/17 19:49> - Routine Skin Exam Absent: intact <Ruddy Lomas - 12/18/17 19:49> - Routine Neurological Exam Present: alert, CN II-XII intact, moving all extremities <Ruddy Lomas - 19:49> Results - Labs Result diagrams: 12/18/17 11:30 12/18/17 11:30 <Simone Tolentino - 12/18/17 22:38> Abnormal lab results 12/18/17 12/18/17 12/18/17 Range/Units 11:30 11:30 11:30 WBC 0.2 L (4.0-11.0) th/mm3 RBC 1.70 L (4.00-5.30) mil/mm3 Hgb 5.4 L* (11.6-15.3) gm/dL Hct 15.4 L* (35.0-46.0) % Plt Count 39 L D (150-450) th/mm3 Monocytes % (Manual) 40 H (0-8) % Abs Neuts (Manual) 0.1 L* (1.8-7.7) th/mm3 Platelet Estimate Low L (Normal) APTT 36.2 H (24.3-30.1) sec Sodium 130 L (136-145) meq/L Potassium 3.4 L (3.5-5.1) meq/L BUN 21 H (7-18) mg/dL Creatinine 0.46 L (0.50-1.00) mg/dL Calcium 7.2 L* (8.5-10.1) mg/dL AST 65 H (15-37) U/L Alkaline Phosphatase 367 H (45-117) U/L Total Protein 4.7 L (6.4-8.2) g/dL Albumin 1.2 L (3.4-5.0) g/dL MTS Gel Crossmatch 12/18/17 Range/Units 12:05 WBC (4.0-11.0) th/mm3 RBC (4.00-5.30) mil/mm3 Hgb (11.6-15.3) gm/dL Hct (35.0-46.0) % Plt Count (150-450) th/mm3 Monocytes % (Manual) (0-8) % Abs Neuts (Manual) (1.8-7.7) th/mm3 Platelet Estimate (Normal) APTT (24.3-30.1) sec Sodium (136-145) meq/L Potassium (3.5-5.1) meq/L BUN (7-18) mg/dL Creatinine (0.50-1.00) mg/dL Calcium (8.5-10.1) mg/dL AST (15-37) U/L Alkaline Phosphatase (45-117) U/L Total Protein (6.4-8.2) g/dL Albumin (3.4-5.0) g/dL MTS Gel Crossmatch See Detail Short CBC 12/18/17 Range/Units 11:30 WBC 0.2 L (4.0-11.0) th/mm3 Hgb 5.4 L* (11.6-15.3) gm/dL Hct 15.4 L* (35.0-46.0) % Plt Count 39 L D (150-450) th/mm3 BMP 12/18/17 11:30 Sodium 130 L Potassium 3.4 L Chloride 99 Carbon Dioxide 21.5 BUN 21 H Creatinine 0.46 L Calcium 7.2 L* Liver Function 12/18/17 Range/Units 11:30 Total Bilirubin 1.0 (0.2-1.0) mg/dL AST 65 H (15-37) U/L ALT 42 (10-53) U/L Alkaline Phosphatase 367 H (45-117) U/L Albumin 1.2 L (3.4-5.0) g/dL <Rajan,Simone - 12/18/17 22:38> Abnormal lab results 12/18/17 12/18/17 12/18/17 Range/Units 11:30 11:30 11:30 WBC 0.2 L (4.0-11.0) th/mm3 RBC 1.70 L (4.00-5.30) mil/mm3 Hgb 5.4 L* (11.6-15.3) gm/dL Hct 15.4 L* (35.0-46.0) % Plt Count 39 L D (150-450) th/mm3 Monocytes % (Manual) 40 H (0-8) % Abs Neuts (Manual) 0.1 L* (1.8-7.7) th/mm3 Platelet Estimate Low L (Normal) APTT 36.2 H (24.3-30.1) sec Sodium 130 L (136-145) meq/L Potassium 3.4 L (3.5-5.1) meq/L BUN 21 H (7-18) mg/dL Creatinine 0.46 L (0.50-1.00) mg/dL Calcium 7.2 L* (8.5-10.1) mg/dL AST 65 H (15-37) U/L Alkaline Phosphatase 367 H (45-117) U/L Total Protein 4.7 L (6.4-8.2) g/dL Albumin 1.2 L (3.4-5.0) g/dL MTS Gel Crossmatch 12/18/17 Range/Units 12:05 WBC (4.0-11.0) th/mm3 RBC (4.00-5.30) mil/mm3 Hgb (11.6-15.3) gm/dL Hct (35.0-46.0) % Plt Count (150-450) th/mm3 Monocytes % (Manual) (0-8) % Abs Neuts (Manual) (1.8-7.7) th/mm3 Platelet Estimate (Normal) APTT (24.3-30.1) sec Sodium (136-145) meq/L Potassium (3.5-5.1) meq/L BUN (7-18) mg/dL Creatinine (0.50-1.00) mg/dL Calcium (8.5-10.1) mg/dL AST (15-37) U/L Alkaline Phosphatase (45-117) U/L Total Protein (6.4-8.2) g/dL Albumin (3.4-5.0) g/dL MTS Gel Crossmatch See Detail Short CBC 12/18/17 Range/Units 11:30 WBC 0.2 L (4.0-11.0) th/mm3 Hgb 5.4 L* (11.6-15.3) gm/dL Hct 15.4 L* (35.0-46.0) % Plt Count 39 L D (150-450) th/mm3 BMP 12/18/17 11:30 Sodium 130 L Potassium 3.4 L Chloride 99 Carbon Dioxide 21.5 BUN 21 H Creatinine 0.46 L Calcium 7.2 L* Liver Function 12/18/17 Range/Units 11:30 Total Bilirubin 1.0 (0.2-1.0) mg/dL AST 65 H (15-37) U/L ALT 42 (10-53) U/L Alkaline Phosphatase 367 H (45-117) U/L Albumin 1.2 L (3.4-5.0) g/dL <Ruddy Lomas S - 12/18/17 13:49> - Imaging Impressions Chest CT 12/18/17 00:00 CONCLUSION: 1. Bibasilar airspace disease, left greater than right. Cannot exclude an early infiltrate just above the left hemidiaphragm. 2. No suspicious mass lesions to suggest metastatic disease. 3. Abdominal ascites. Abdomen/Pelvis CT 12/18/17 14:05 CONCLUSION: 1. Diffuse peritoneal ascites, slightly worse when compared to the prior. 2. Interval development of diffuse periportal edema in the liver. 3. The findings concerning for infarct in the anterior pole of the spleen. 4. Interval development of left-sided hydronephrosis with delayed nephrogram characteristic of a high-grade obstruction. This appears to be within the distal ureter. I do not see an obvious obstructing mass lesion distally, however. 5. Diffuse bowel wall thickening. Findings are nonspecific but could be related to a low oncotic pressure associated with the diffuse abdominal ascites. <RajanSimone - 12/18/17 22:38> Impressions Chest CT 12/18/17 00:00 CONCLUSION: 1. Bibasilar airspace disease, left greater than right. Cannot exclude an early infiltrate just above the left hemidiaphragm. 2. No suspicious mass lesions to suggest metastatic disease. 3. Abdominal ascites. Abdomen/Pelvis CT 12/18/17 14:05 CONCLUSION: 1. Diffuse peritoneal ascites, slightly worse when compared to the prior. 2. Interval development of diffuse periportal edema in the liver. 3. The findings concerning for infarct in the anterior pole of the spleen. 4. Interval development of left-sided hydronephrosis with delayed nephrogram characteristic of a high-grade obstruction. This appears to be within the distal ureter. I do not see an obvious obstructing mass lesion distally, however. 5. Diffuse bowel wall thickening. Findings are nonspecific but could be related to a low oncotic pressure associated with the diffuse abdominal ascites. <Ruddy Lomas S - 12/18/17 19:49> Caprini VTE Risk Assessment Caprini VTE Risk Assessment: Moderate/High Risk (score >= 2) <Ruddy Lomas - 12/18/17 19:49> VTE Pharmacological Exception Reason: Thrombocytopenia (<50) <Ruddy Lomas - 12/18/17 19:49> Caprini Risk Assessment Model: Point Value = 1 Point Value = 2 Point Value = 3 Point Value = 5 Age 41-60 Minor surgery BMI > 25 kg/m2 Swollen legs Varicose veins or History of unexplained or recurrent spontaneous Oral contraceptives or hormone replacement Sepsis (< 1 month) Serious lung disease, including pneumonia (< 1 month) Abnormal pulmonary function Acute myocardial infarction Congestive heart failure (< 1 month) History of inflammatory bowel disease Medical patient at bed rest Age 61-74 Arthroscopic surgery Major open surgery (> 45 min) Laparoscopic surgery (> 45 min) Malignancy Confined to bed (> 72 hours) Immobilizing plaster cast Central venous access Age >= 75 History of VTE Family history of VTE Factor V Leiden Prothrombin [id number] Lupus anticoagulant Anticardiolipin antibodies Elevated serum homocysteine Heparin-induced thrombocytopenia Other congenital or acquired thrombophilia Stroke (< 1 month) Elective arthroplasty Hip, pelvis, or leg fracture Acute spinal cord injury (< 1 month) <Simone Tolentino 12/18/17 22:38> Prophylaxis Regimen: Total Risk Factor Score Risk Level Prophylaxis Regimen 0-1 Low Early ambulation 2 Moderate Order ONE of the following: *Sequential Compression Device (SCD) *Heparin 5000 units SQ BID 3-4 Higher Order ONE of the following medications: *Heparin 5000 units SQ TID *Enoxaparin/Lovenox 40 mg SQ daily (WT < 150 kg, CrCl > 30 mL/min) *Enoxaparin/Lovenox 30 mg SQ daily (WT < 150 kg, CrCl > 10-29 mL/min) *Enoxaparin/Lovenox 30 mg SQ BID (WT < 150 kg, CrCl > 30 mL/min) AND/OR *Sequential Compression Device (SCD) 5 or more Highest Order ONE of the following medications: *Heparin 5000 units SQ TID (Preferred with Epidurals) *Enoxaparin/Lovenox 40 mg SQ daily (WT < 150 kg, CrCl > 30 mL/min) *Enoxaparin/Lovenox 30 mg SQ daily (WT < 150 kg, CrCl > 10-29 mL/min) *Enoxaparin/Lovenox 30 mg SQ BID (WT < 150 kg, CrCl > 30 mL/min) AND *Sequential Compression Device (SCD) <Simone Tolentino 12/18/17 22:38> Assessment and Plan - Assessment (1) Pancytopenia due to chemotherapy Code(s): D61.810 - Antineoplastic chemotherapy induced pancytopenia Status: Acute (2) Ascites Code(s): R18.8 - Other ascites Status: Acute (3) Protein-calorie malnutrition Code(s): E46 - Unspecified protein-calorie malnutrition Status: Acute (4) Diarrhea Code(s): R19.7 - Diarrhea, unspecified Status: Acute (5) Ovarian cancer Code(s): C56.9 - Malignant neoplasm of unspecified ovary Status: Acute <Simone Tolentino 12/18/17 22:38> (1) Pancytopenia due to chemotherapy Code(s): D61.810 - Antineoplastic chemotherapy induced pancytopenia Status: Acute (2) Ascites Code(s): R18.8 - Other ascites Status: Acute (3) Protein-calorie malnutrition Code(s): E46 - Unspecified protein-calorie malnutrition Status: Acute (4) Diarrhea Code(s): R19.7 - Diarrhea, unspecified Status: Acute (5) Ovarian cancer Code(s): C56.9 - Malignant neoplasm of unspecified ovary Status: Acute <Ruddy Lomas S - 12/18/17 21:39> - Assessment and Plan 67 yo female with 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 Pancytopenia Likely due to chemotherapy. Afebrile, but reports chills and cough Anemia - Hgb on admission 5.4 Neutropenic - ANC of ~100 Thrombocytopenic - Plt 34 CT chest showing questionable pulmonary infiltrate * Antibiotic coverage with Vancomycin, Cefepime until blood Cx negative at least 48 hours * Repeat blood cultures for fever * Transfuse 2 units PRBC, check post-transfusion H/H * Pharmacologic DVT PPX contraindicated due to thrombocytopenia * Neutropenic precautions * Consulted oncologist hernandez Veliz appreciated * goal Hgb > 8 * recommend Neupogen 300 mcg daily * Agree with antibiotic coverage * Work up diarrhea 2. Diarrhea Likely chemotherapy related, however could also be infectious. If so likely C difficile * Check C difficile PCR * Check hemoccult * Zofran PRN N/V 3. Protein-calorie malnutrition Chronic, due to cancer * Replete electrolytes slowly due to recurrent ascites - NS @ 15 cc/hr * Consult to cable splicer helper for TPN (patient receives TPN outpatient) * Liquid diet as flaca 4. Ascites Chronic ascites due to tumor burden * Monitor clinically; if worsening consider repeat paracentesis sooner than weekly 5. Ovarian cancer Presumed ovarian but in any case certainly adenocarcinoma CT abdomen/pelvis findings noted above, overall suggestive of increased tumor burden from prior studies * Consulted oncologist hernandez Veliz appreciated * Consider palliative consult after discussion with patient FEN/PPX F: As above E: Monitor. Replete via IVF and TPN. Acutely as needed if abnormalities severe. N: Liquid diet with TPN per dietary DVT: SCDs only Code status: DNR <Ruddy Lomas S - 12/18/17 21:31> Discussed Condition With: Dr. Jimenez (Oncologist) <Ruddy Lomas S - 12/18/17 21:31> - Attending Attestation Patient case discussed with resident physicians I have independently examined the patient I have read the above note and agree with the assessment and plan as discussed with me I was involved in all medical decision making for this patient Anemia: Receiving 2 units irradiated blood cells at this time CT of the abdomen/pelvis as well as CT chest ordered Obtain Hemoccult, however patient would be a poor candidate for invasive evaluation such as colonoscopy Transfuse as needed to keep hemoglobin greater than 8 Neutropenic: Secondary to chemotherapy treatment Blood cultures pending Urine cultures pending Empiric antibiotics with vancomycin and cefepime Hematology consult pending Malignancy: Continue pain control and we will discussed case with Dr. Barbara Tolentino MD <Simone Tolentino - 12/18/17 22:38>
[2017-12-18] MEDS ORDERED: Vancomycin Consult Pharmacy OTHER PRN (17:20)
--- NOTE | 2017-12-18 17:20 | MB ---
cc: Earline Jimenez MD, Cory MD DATE: 12/18/2017 REQUESTING PHYSICIAN: Ruddy Lomas MD, and Inocencia Lay DO REASON FOR CONSULTATION: Ovarian cancer. REASON FOR ADMISSION: Pancytopenia, diarrhea, symptomatic ascites, overall decreased oral intake and failure to thrive. 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 The working diagnosis is ovarian cancer for which Taxol and carboplatin chemotherapy were initiated. Despite that, however, she had essentially no objective or subjective response to chemotherapy and the CA-125 remained elevated. She remained symptomatic from carcinomatosis and ascites. Second opinion consultation was sought with [facility]. Change of treatment was made to a dose-dense Taxol plus Avastin every 2 weeks. She received what I believe was a second cycle of this regimen with her last infusion on Saturday of last week. Prior to that, I believe she received 3 cycles of Taxol and carboplatin chemotherapy. She has struggled with pancytopenia since day 15 of the regimen has been held due to excessive bone marrow suppression. She underwent a paracentesis on of last week where, I believe, she said 5 liters of ascites was removed. She presents today and is admitted now to the hospital. Her main symptom was that of intractable diarrhea. She also has generalized weakness, failure to thrive, poor p.o. intake of both solids and liquids. She does not believe she has been febrile. She has also had a cough, nonproductive, and she is seen now. We are very grateful for the excellent care from the primary medicine team. She is seen now in consultation for further evaluation and recommendations regarding these findings. PAST MEDICAL HISTORY: Ovarian cancer. PAST SURGICAL HISTORY: Includes tonsillectomy, appendectomy, herniorrhaphy and section. SOCIAL HISTORY: She is accompanied by her and sister. She has a very supportive family. She does not currently smoke, has previously used tobacco. MEDICATIONS: Include the p.r.n. medications around chemotherapy for nausea. She has also been recently started on a Fentanyl transdermal patch in addition to as needed oral hydrocodone for pain. This was stopped given history of sensitivity to that medication, but she is tolerating the fentanyl well. LABORATORY DATA: Laboratory upon admission show pancytopenia. White count of 0.2 with a neutrophil count of 0.1, H and H are 5.4 and 15.4, platelets of 39,000. Coagulation studies show an INR of 1.1. Electrolytes show a potassium slightly low at 3.4, corrected calcium adequate at 8.5, BUN and creatinine 21 and 0.46. PHYSICAL EXAMINATION: VITAL SIGNS: She is afebrile since admission, pulse ranging from 119-122, respirations 18-20, blood pressure 101-147/66-79, O2 saturation is 100%. GENERAL: She is alert and oriented x3, in good spirits, but she clearly does not feel well. In general, she is cachectic. HEENT: Her mucous membranes are dry and her skin is pale, but she is able to converse, ask and answer questions clearly. She has a frequent nonproductive cough. LUNGS: Clear to apices. There is dullness at the bases bilaterally with decreased air exchange and there are coarse breath sounds on the left. CARDIOVASCULAR: Rapid regular rate and rhythm. BACK: No CVA tenderness or spinal point tenderness. ABDOMEN: Distended with ascites as well as a fullness in the epigastrium consistent with her known tumor. There is no rebound or guarding. PELVIC: Deferred. EXTREMITIES: No palpable cords. There is peripheral muscular wasting. No significant edema. The extremities are warm. Time was spent in discussion with her and her family members reviewing the findings and her case to date. I am sorry she is feeling poorly. Certainly, the underlying illness is contributing to many of her symptoms and furthermore exacerbated by chemotherapy with her profound pancytopenia. She reports that the 5.5 liters of fluid that was removed last week was bloody and with the carcinomatous implants, we know that bloody ascites can occur and that is in part contributing to her anemia. Additional effects from chemotherapy are further contributing to her anemia. She is neutropenic and given that we are going to hold forthcoming chemotherapy, it may be reasonable to give Neulasta injection or Neupogen injections now to try to expedite recovery of her bone marrow suppression. We will continue to follow her. If her platelet counts go below 20,000, may consider transfusion. She understands we will try to reverse and fix the things that are treatable and there may be some irreversible changes associated to the illness about which we will have continued discussions. I think it would be reasonable, in addition to the blood cultures that have been sent, to get a chest x-ray as well as send stool for Clostridium difficile cultures given her persistent diarrhea and to treat any of these abnormalities that can be addressed. It is also probable she has bilateral pleural effusions given the nature of her ascites and a therapeutic paracentesis and/or thoracentesis may be recommended at some point. She inquired as to whether or not she would take chemotherapy Saturday and certainly I admire her courage, but there is no possible way she would be physically able to take chemotherapy this Saturday and we will need to consider significantly modifying regimen and/or discontinuing treatment given that she has not shown any objective response to treatment thus far. As per our prior discussions, we considered the possibility that this is not an ovarian cancer. It was diagnosed based on carcinomatosis, pelvic mass, elevated CA-125 and adenocarcinoma in the ascites. CAT scan does not show any other obvious source of disease, but an atypical presentation for pancreas cancer or something such as gallbladder cancer for example may explain why she is having such poor response to chemotherapy. Nevertheless, Taxol and carboplatin is amongst the most often used regimen for adenocarcinoma of uncertain origin. We may need to consider palliative care and we will initiate again discussion of hospice. Up until this time, she has not been ready to consider cessation of treatment and has been motivated and steadfast to move forward with treatment. Nevertheless, this will be a series of ongoing discussions with her and her family. Discussion ensued. Questions were asked and answered. They expressed good understanding. ASSESSMENT: 1. 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 2. Thus far, nonresponse to Taxol and carboplatin as first line treatment and nonresponse to Taxol and Avastin second line treatment. 3. Admitted for symptomatic recurrent ascites, persistent diarrhea, cough, decreased oral intake, overall failure to thrive. PLAN: 1. Agree with supportive care, IV hydration, correction of electrolytes, transfusion to keep hemoglobin at least above 8. 2. Broad spectrum antibiotics given neutropenia with neutropenic precautions. Would also obtain Clostridium difficile cultures from stool and obtain chest x-ray. 3. Consider Neulasta or Neupogen stem cell support in an effort to try to potentially expedite recovery of bone marrow suppression. Thank you for the consultation. We will follow along in her care. MD Giovanna Okeefe , 04:42 PM , 05:02 PM
[2017-12-18] MEDS ORDERED: Filgrastim Inj 300 MCG/ML Vial SQ ONE (18:00)
[2017-12-18] MEDS: Pantoprazole Inj 40 MG Vial IV.PUSH SCH (18:41)
--- NOTE | 2017-12-18 18:50 | CT ---
EXAM DATE: 12/18/2017 2:19 PM EDT AGE/SEX: 67 years / Female INDICATIONS: Ovarian cancer. Evaluate for metastatic disease. CLINICAL DATA: This is the patient's initial encounter. Patient reports that signs and symptoms have been present for 1 day and indicates a pain score of 0/10. MEDICAL/SURGICAL HISTORY: Carcinoma, ovarian. Appendectomy. section. ORAL CONTRAST: No oral contrast ingested. RADIATION DOSE: 5.86 CTDI (mGy) ; Combined studies [place] [facility] [place]/21/2017. . TECHNIQUE: Multiple contiguous axial images were obtained through the abdomen and pelvis following b olus infusion of 75 ml Omnipaque 350 (iohexol) nonionic water-soluble contrast as a cumulative dose for multiple exams. No oral contrast ingested. Using automated exposure control and adjustment of t he mA and/or kV according to patient size, radiation dose was kept as low as reasonably achievable to obtain optimal diagnostic quality images. DICOM format image data is available electronically for r eview and comparison. FINDINGS: Lower Lungs: Bibasilar atelectatic changes, slightly worse on the left. Cannot exclude an early infil trate in the left base Liver: There is diffuse periportal edema throughout the liver. I do not see obvious intrahepatic bili victor hugo duct dilatation.. Spleen: Asymmetric enhancement of the spleen possibly representing infarct in the anterior pole. Pancreas: Unremarkable without mass or calcification. Kidneys: Interval development of left-sided hydronephrosis with asymmetric nephrograms characteristi c of left-sided renal obstruction. This is probably due to some distal ureteric obstruction as the pr oximal ureter does appear to be prominent. Right kidney is radiographically normal except for a benig n-appearing cortical cyst posteriorly in the midpole Adrenal Glands: Unremarkable. Aorta: The aorta and proximal iliac vessels are grossly unremarkable without aneurysmal dilation. Bowel/Mesentery: Diffuse peritoneal ascites. There is suggestion of some nonspecific bowel wall thic kening in multiple loops of small bowel. Abdominal Wall: Intact. Retroperitoneum: No evidence of adenopathy in the retrocrural, para-aortic, or deep pelvic regions. Bladder: Contours are smooth. Reproductive Organs: No abnormal masses or calcifications seen. Inguinal: The inguinal region is unremarkable without evidence of adenopathy. Bony Structures: Unremarkable. Post Contrast: No abnormal areas of enhancement seen. CONCLUSION: 1. Diffuse peritoneal ascites, slightly worse when compared to the prior. 2. Interval development of diffuse periportal edema in the liver. 3. The findings concerning for infarct in the anterior pole of the spleen. 4. Interval development of left-sided hydronephrosis with delayed nephrogram characteristic of a hig h-grade obstruction. This appears to be within the distal ureter. I do not see an obvious obstructing mass lesion distally, however. 5. Diffuse bowel wall thickening. Findings are nonspecific but could be related to a low oncotic pre ssure associated with the diffuse abdominal ascites. Electronically signed by: Zac Ojeda MD 12/18/2017 6:49 PM EDT
[2017-12-18] MEDS ORDERED: Ibuprofen 200 MG Tablet PO PRN (18:55)
[2017-12-18] MEDS ORDERED: Acetaminophen 325 MG Tablet PO PRN (18:55)
--- NOTE | 2017-12-18 18:57 | CT ---
EXAM DATE: 12/18/2017 5:07 PM EDT AGE/SEX: 67 years / Female INDICATIONS: Ovarian cancer. Evaluate for metastatic disease. CLINICAL DATA: This is the patient's initial encounter. Patient reports that signs and symptoms have been present for 1 day and indicates a pain score of 0/10. MEDICAL/SURGICAL HISTORY: Carcinoma, ovarian. Appendectomy. section. RADIATION DOSE: 5.86 CTDI (mGy) ; Combined studies COMPARISON: No prior exams available for comparison. TECHNIQUE: Multiple contiguous axial images were obtained through the chest during bolus infusion of 75 ml Omnipaque 350 (iohexol) nonionic water-soluble contrast as a cumulative dose for multiple exa ms. Images were obtained in suspended respiration using multiple row detector helical technique. U sing automated exposure control and adjustment of the mA and/or kV according to patient size, radiati on dose was kept as low as reasonably achievable to obtain optimal diagnostic quality images. DICOM format image data is available electronically for review and comparison. FINDINGS: Lungs: Bibasilar atelectatic changes. More consolidated airspace process just above the left hemidiap hragm may represent an early infiltrate, however. Mediastinum: There is good visualization of the great vessels of the middle mediastinum. No evidenc e of mediastinal or hilar adenopathy/mass. Pleurae: No evidence of focal thickening or pleural effusion. Axillae: Unremarkable. Bony Structures: Unremarkable. Miscellaneous: The examination was extended to include the upper abdomen, and both adrenal glands ar e normal in size and configuration. Right IJ [id number] catheter with the tip appropriately positi oned at the junction of the SVC and right atrium. Ascites in the upper abdomen. Post Contrast: No abnormal areas of enhancement seen. CONCLUSION: 1. Bibasilar airspace disease, left greater than right. Cannot exclude an early infiltrate just abov e the left hemidiaphragm. 2. No suspicious mass lesions to suggest metastatic disease. 3. Abdominal ascites. Electronically signed by: Zac Ojeda MD 12/18/2017 6:55 PM EDT
[2017-12-18] MEDS ORDERED: Vancomycin Inj 1,000 MG in Sodium Chlor 0.9% Inj 250 ML IV.SIG ONE (19:00)
[2017-12-18] MEDS ORDERED: Sodium Chloride 0.9% 2 ML Flush PRN IV.FLUSH (20:52)
[2017-12-18] MEDS: Loratadine 10 MG Tablet PO SCH (21:04)
[2017-12-18] MEDS: Sodium Chloride 0.9% 2 ML Flush BID IV.FLUSH SCH (22:14)
[2017-12-18 23:25] LABS: Hematocrit 23.2 % (35.0-46.0); Hemoglobin 8.2 gm/dL (11.6-15.3)
[2017-12-18 23:32] LABS: Bilirubin,Urine Negative (Negative); Clarity,Urine Hazy (Clear); Color,Urine Amber (Yellw/Straw); Glucose,Urine (UA) Negative (Negative); Leukocyte Esterase,Urine Negative (Negative); Mucus,Urine Few /lpf (Occasional); Nitrite,Urine Positive (Negative); Specific Gravity,Urine 1.041 (1.002-1.035)
[2017-12-19] MEDS: Benzonatate 100 MG Capsule PO PRN (02:05)
[2017-12-19 05:58] LABS: Hematocrit 27.1 % (35.0-46.0); Hemoglobin 9.3 gm/dL (11.6-15.3); Mean Corpuscular HGB Conc 34.1 % (32.0-36.0); Mean Corpuscular Hemoglobin 29.1 pg (27.0-34.0); Mean Corpuscular Volume 85.1 fL (80.0-100.0); Mean Platelet Volume 10.1 fL (7.0-11.0); Platelet Count 19 th/mm3 (150-450); Red Blood Count 3.19 mil/mm3 (4.00-5.30); Red Cell Distribution Width 18.9 % (11.6-17.2); White Blood Count 0.3 th/mm3 (4.0-11.0)
[2017-12-19 06:39] LABS: Alanine Aminotransferase 33 U/L (10-53); Albumin 1.1 g/dL (3.4-5.0); Alkaline Phosphatase 291 U/L (45-117); Anion Gap 12 meq/L (5-15); Aspartate Aminotransferase 46 U/L (15-37); Blood Urea Nitrogen 20 mg/dL (7-18); Calcium 7.2 mg/dL (8.5-10.1); Carbon Dioxide 21.5 meq/L (21.0-32.0); Chloride 102 meq/L (98-107); Glomerular Filtration Rate Greater Than 89 mL/min (>89); Glucose,Random 60 mg/dL (74-106); Potassium 3.1 meq/L (3.5-5.1); Sodium 135 meq/L (136-145); Total Protein 4.6 g/dL (6.4-8.2)
[2017-12-19] MEDS: Loratadine 10 MG Tablet PO SCH (08:00)
[2017-12-19] MEDS: Sodium Chloride 0.9% 2 ML Flush BID IV.FLUSH SCH ×2 (08:01→21:12)
[2017-12-19 09:44] LABS: Lymphocytes 60 % (9-44); Monocytes 20 % (0-8); Platelet Morphology Normal (Normal); Toxic Vacuolation Present
--- NOTE | 2017-12-19 10:51 | P.PNFP ---
Addendum entered and electronically signed by Emily Schmidt MD, R2 12/19/17 11 :45: Urine culture also pending. Original Note: Subjective Interval history: this morning, patient states she is doing ok. She has a cough that has gotten worse. Does not endorse abdominal pain doesn't feel like her abdomen is distended or uncomfortable. No new symptoms, endorses continued episodes of diarrhea. Interested in talking to palliative care. <Emily Schmidt - 12/19/17 11:44> Results - Labs Result diagrams: 12/19/17 11:28 12/19/17 04:00 <Simone Tolentino - 12/19/17 15:33> Abnormal lab results 12/18/17 12/18/17 12/18/17 Range/Units 12:05 22:10 23:15 WBC (4.0-11.0) th/mm3 RBC (4.00-5.30) mil/mm3 Hgb 8.2 L D (11.6-15.3) gm/dL Hct 23.2 L (35.0-46.0) % RDW (11.6-17.2) % Plt Count (150-450) th/mm3 Lymphocytes % (Manual) (9-44) % Monocytes % (Manual) (0-8) % Abs Neuts (Manual) (1.8-7.7) th/mm3 Toxic Vacuolation (None) Platelet Estimate (Normal) Sodium (136-145) meq/L Potassium (3.5-5.1) meq/L BUN (7-18) mg/dL Creatinine (0.50-1.00) mg/dL POC Glucose (68-110) mg/dl Random Glucose (74-106) mg/dL Calcium (8.5-10.1) mg/dL Total Bilirubin (0.2-1.0) mg/dL AST (15-37) U/L Alkaline Phosphatase (45-117) U/L Total Protein (6.4-8.2) g/dL Albumin (3.4-5.0) g/dL Urine Clarity Hazy H (Clear) Ur Specific [place] 1.041 H (1.002-1.035) Urine Protein 100 H (Neg-Trace) mg/dL Urine Occult Blood Moderate H (Negative) Urine Nitrate Positive H (Negative) Urine Urobilinogen 2.0 H (Less than 2) mg/dL Urine Mucus Few H (Occasional) /lpf MTS Gel Crossmatch See Detail 12/19/17 12/19/17 12/19/17 Range/Units 04:00 04:00 07:44 WBC 0.3 L (4.0-11.0) th/mm3 RBC 3.19 L (4.00-5.30) mil/mm3 Hgb 9.3 L (11.6-15.3) gm/dL Hct 27.1 L (35.0-46.0) % RDW 18.9 H (11.6-17.2) % Plt Count 19 L* D (150-450) th/mm3 Lymphocytes % (Manual) 60 H (9-44) % Monocytes % (Manual) 20 H (0-8) % Abs Neuts (Manual) 0.1 L* (1.8-7.7) th/mm3 Toxic Vacuolation Present H (None) Platelet Estimate Low L (Normal) Sodium 135 L (136-145) meq/L Potassium 3.1 L (3.5-5.1) meq/L BUN 20 H (7-18) mg/dL Creatinine 0.42 L (0.50-1.00) mg/dL POC Glucose 61 L (68-110) mg/dl Random Glucose 60 L (74-106) mg/dL Calcium 7.2 L* (8.5-10.1) mg/dL Total Bilirubin 1.2 H (0.2-1.0) mg/dL AST 46 H (15-37) U/L Alkaline Phosphatase 291 H (45-117) U/L Total Protein 4.6 L (6.4-8.2) g/dL Albumin 1.1 L (3.4-5.0) g/dL Urine Clarity (Clear) Ur Specific [place] (1.002-1.035) Urine Protein (Neg-Trace) mg/dL Urine Occult Blood (Negative) Urine Nitrate (Negative) Urine Urobilinogen (Less than 2) mg/dL Urine Mucus (Occasional) /lpf MTS Gel Crossmatch 12/19/17 Range/Units 11:28 WBC (4.0-11.0) th/mm3 RBC (4.00-5.30) mil/mm3 Hgb 10.6 L (11.6-15.3) gm/dL Hct 30.6 L (35.0-46.0) % RDW (11.6-17.2) % Plt Count (150-450) th/mm3 Lymphocytes % (Manual) (9-44) % Monocytes % (Manual) (0-8) % Abs Neuts (Manual) (1.8-7.7) th/mm3 Toxic Vacuolation (None) Platelet Estimate (Normal) Sodium (136-145) meq/L Potassium (3.5-5.1) meq/L BUN (7-18) mg/dL Creatinine (0.50-1.00) mg/dL POC Glucose (68-110) mg/dl Random Glucose (74-106) mg/dL Calcium (8.5-10.1) mg/dL Total Bilirubin (0.2-1.0) mg/dL AST (15-37) U/L Alkaline Phosphatase (45-117) U/L Total Protein (6.4-8.2) g/dL Albumin (3.4-5.0) g/dL Urine Clarity (Clear) Ur Specific [place] (1.002-1.035) Urine Protein (Neg-Trace) mg/dL Urine Occult Blood (Negative) Urine Nitrate (Negative) Urine Urobilinogen (Less than 2) mg/dL Urine Mucus (Occasional) /lpf MTS Gel Crossmatch Short CBC 12/18/17 12/19/17 12/19/17 Range/Units 23:15 04:00 11:28 WBC 0.3 L (4.0-11.0) th/mm3 Hgb 8.2 L D 9.3 L 10.6 L (11.6-15.3) gm/dL Hct 23.2 L 27.1 L 30.6 L (35.0-46.0) % Plt Count 19 L* D (150-450) th/mm3 BMP 12/19/17 04:00 Sodium 135 L Potassium 3.1 L Chloride 102 Carbon Dioxide 21.5 BUN 20 H Creatinine 0.42 L Calcium 7.2 L* Liver Function 12/19/17 Range/Units 04:00 Total Bilirubin 1.2 H (0.2-1.0) mg/dL AST 46 H (15-37) U/L ALT 33 (10-53) U/L Alkaline Phosphatase 291 H (45-117) U/L Albumin 1.1 L (3.4-5.0) g/dL Urine 12/18/17 Range/Units 22:10 Urine Color Betty (Yellw/Straw) Urine Clarity Hazy H (Clear) Urine pH 6.0 (5.0-8.5) Ur Specific [place] 1.041 H (1.002-1.035) Urine Protein 100 H (Neg-Trace) mg/dL Urine Glucose (UA) Negative (Negative) mg/dL <Simone Tolentino - 12/19/17 15:33> Abnormal lab results 12/18/17 12/18/17 12/18/17 Range/Units 11:30 11:30 11:30 WBC 0.2 L (4.0-11.0) th/mm3 RBC 1.70 L (4.00-5.30) mil/mm3 Hgb 5.4 L* (11.6-15.3) gm/dL Hct 15.4 L* (35.0-46.0) % RDW (11.6-17.2) % Plt Count 39 L D (150-450) th/mm3 Lymphocytes % (Manual) (9-44) % Monocytes % (Manual) 40 H (0-8) % Abs Neuts (Manual) 0.1 L* (1.8-7.7) th/mm3 Toxic Vacuolation (None) Platelet Estimate Low L (Normal) APTT 36.2 H (24.3-30.1) sec Sodium 130 L (136-145) meq/L Potassium 3.4 L (3.5-5.1) meq/L BUN 21 H (7-18) mg/dL Creatinine 0.46 L (0.50-1.00) mg/dL POC Glucose (68-110) mg/dl Random Glucose (74-106) mg/dL Calcium 7.2 L* (8.5-10.1) mg/dL Total Bilirubin (0.2-1.0) mg/dL AST 65 H (15-37) U/L Alkaline Phosphatase 367 H (45-117) U/L Total Protein 4.7 L (6.4-8.2) g/dL Albumin 1.2 L (3.4-5.0) g/dL Urine Clarity (Clear) Ur Specific [place] (1.002-1.035) Urine Protein (Neg-Trace) mg/dL Urine Occult Blood (Negative) Urine Nitrate (Negative) Urine Urobilinogen (Less than 2) mg/dL Urine Mucus (Occasional) /lpf MTS Gel Crossmatch 12/18/17 12/18/17 12/18/17 Range/Units 12:05 22:10 23:15 WBC (4.0-11.0) th/mm3 RBC (4.00-5.30) mil/mm3 Hgb 8.2 L D (11.6-15.3) gm/dL Hct 23.2 L (35.0-46.0) % RDW (11.6-17.2) % Plt Count (150-450) th/mm3 Lymphocytes % (Manual) (9-44) % Monocytes % (Manual) (0-8) % Abs Neuts (Manual) (1.8-7.7) th/mm3 Toxic Vacuolation (None) Platelet Estimate (Normal) APTT (24.3-30.1) sec Sodium (136-145) meq/L Potassium (3.5-5.1) meq/L BUN (7-18) mg/dL Creatinine (0.50-1.00) mg/dL POC Glucose (68-110) mg/dl Random Glucose (74-106) mg/dL Calcium (8.5-10.1) mg/dL Total Bilirubin (0.2-1.0) mg/dL AST (15-37) U/L Alkaline Phosphatase (45-117) U/L Total Protein (6.4-8.2) g/dL Albumin (3.4-5.0) g/dL Urine Clarity Hazy H (Clear) Ur Specific [place] 1.041 H (1.002-1.035) Urine Protein 100 H (Neg-Trace) mg/dL Urine Occult Blood Moderate H (Negative) Urine Nitrate Positive H (Negative) Urine Urobilinogen 2.0 H (Less than 2) mg/dL Urine Mucus Few H (Occasional) /lpf MTS Gel Crossmatch See Detail 12/19/17 12/19/17 12/19/17 Range/Units 04:00 04:00 07:44 WBC 0.3 L (4.0-11.0) th/mm3 RBC 3.19 L (4.00-5.30) mil/mm3 Hgb 9.3 L (11.6-15.3) gm/dL Hct 27.1 L (35.0-46.0) % RDW 18.9 H (11.6-17.2) % Plt Count 19 L* D (150-450) th/mm3 Lymphocytes % (Manual) 60 H (9-44) % Monocytes % (Manual) 20 H (0-8) % Abs Neuts (Manual) 0.1 L* (1.8-7.7) th/mm3 Toxic Vacuolation Present H (None) Platelet Estimate Low L (Normal) APTT (24.3-30.1) sec Sodium 135 L (136-145) meq/L Potassium 3.1 L (3.5-5.1) meq/L BUN 20 H (7-18) mg/dL Creatinine 0.42 L (0.50-1.00) mg/dL POC Glucose 61 L (68-110) mg/dl Random Glucose 60 L (74-106) mg/dL Calcium 7.2 L* (8.5-10.1) mg/dL Total Bilirubin 1.2 H (0.2-1.0) mg/dL AST 46 H (15-37) U/L Alkaline Phosphatase 291 H (45-117) U/L Total Protein 4.6 L (6.4-8.2) g/dL Albumin 1.1 L (3.4-5.0) g/dL Urine Clarity (Clear) Ur Specific [place] (1.002-1.035) Urine Protein (Neg-Trace) mg/dL Urine Occult Blood (Negative) Urine Nitrate (Negative) Urine Urobilinogen (Less than 2) mg/dL Urine Mucus (Occasional) /lpf MTS Gel Crossmatch Short CBC 12/18/17 12/18/17 12/19/17 Range/Units 11:30 23:15 04:00 WBC 0.2 L 0.3 L (4.0-11.0) th/mm3 Hgb 5.4 L* 8.2 L D 9.3 L (11.6-15.3) gm/dL Hct 15.4 L* 23.2 L 27.1 L (35.0-46.0) % Plt Count 39 L D 19 L* D (150-450) th/mm3 BMP 12/18/17 12/19/17 11:30 04:00 Sodium 130 L 135 L Potassium 3.4 L 3.1 L Chloride 99 102 Carbon Dioxide 21.5 21.5 BUN 21 H 20 H Creatinine 0.46 L 0.42 L Calcium 7.2 L* 7.2 L* Liver Function 12/18/17 12/19/17 Range/Units 11:30 04:00 Total Bilirubin 1.0 1.2 H (0.2-1.0) mg/dL AST 65 H 46 H (15-37) U/L ALT 42 33 (10-53) U/L Alkaline Phosphatase 367 H 291 H (45-117) U/L Albumin 1.2 L 1.1 L (3.4-5.0) g/dL Urine 12/18/17 Range/Units 22:10 Urine Color Betty (Yellw/Straw) Urine Clarity Hazy H (Clear) Urine pH 6.0 (5.0-8.5) Ur Specific [place] 1.041 H (1.002-1.035) Urine Protein 100 H (Neg-Trace) mg/dL Urine Glucose (UA) Negative (Negative) mg/dL <Emily Schmidt - 12/19/17 10:51> - Imaging Impressions Chest CT 12/18/17 00:00 CONCLUSION: 1. Bibasilar airspace disease, left greater than right. Cannot exclude an early infiltrate just above the left hemidiaphragm. 2. No suspicious mass lesions to suggest metastatic disease. 3. Abdominal ascites. Abdomen/Pelvis CT 12/18/17 14:05 CONCLUSION: 1. Diffuse peritoneal ascites, slightly worse when compared to the prior. 2. Interval development of diffuse periportal edema in the liver. 3. The findings concerning for infarct in the anterior pole of the spleen. 4. Interval development of left-sided hydronephrosis with delayed nephrogram characteristic of a high-grade obstruction. This appears to be within the distal ureter. I do not see an obvious obstructing mass lesion distally, however. 5. Diffuse bowel wall thickening. Findings are nonspecific but could be related to a low oncotic pressure associated with the diffuse abdominal ascites. <Simone Tolentino - 12/19/17 15:33> Impressions Chest CT 12/18/17 00:00 CONCLUSION: 1. Bibasilar airspace disease, left greater than right. Cannot exclude an early infiltrate just above the left hemidiaphragm. 2. No suspicious mass lesions to suggest metastatic disease. 3. Abdominal ascites. Abdomen/Pelvis CT 12/18/17 14:05 CONCLUSION: 1. Diffuse peritoneal ascites, slightly worse when compared to the prior. 2. Interval development of diffuse periportal edema in the liver. 3. The findings concerning for infarct in the anterior pole of the spleen. 4. Interval development of left-sided hydronephrosis with delayed nephrogram characteristic of a high-grade obstruction. This appears to be within the distal ureter. I do not see an obvious obstructing mass lesion distally, however. 5. Diffuse bowel wall thickening. Findings are nonspecific but could be related to a low oncotic pressure associated with the diffuse abdominal ascites. <BrayanEmily N - 12/19/17 10:51> Physical Exam Vital signs: Vital Signs 12/18/17 15:51 12/18/17 18:39 12/18/17 20:00 Temperature 98.8 F 97.6 F 97.8 F Pulse Rate 120 H 112 H 106 H Respiratory Rate 20 20 20 Blood Pressure 147/79 H 102/80 104/76 Pulse Oximetry 100 99 99 12/18/17 20:03 12/18/17 22:00 12/19/17 00:00 Temperature 97.8 F 97.8 F Pulse Rate 110 H 103 H 101 H Respiratory Rate 18 18 Blood Pressure 113/88 121/78 Pulse Oximetry 99 99 12/19/17 00:19 12/19/17 04:00 12/19/17 07:18 Temperature 97.7 F Pulse Rate 102 H 106 H 103 H Respiratory Rate 18 Blood Pressure 116/84 Pulse Oximetry 100 12/19/17 08:00 12/19/17 11:26 12/19/17 11:58 Temperature 97.8 F 97.9 F Pulse Rate 108 H 79 107 H Respiratory Rate 20 16 20 Blood Pressure 125/89 116/81 Pulse Oximetry 100 99 12/19/17 14:39 Temperature 98.0 F Pulse Rate 107 H Respiratory Rate 20 Blood Pressure 111/79 Pulse Oximetry 100 Intake & Output 12/18/17 12/19/17 12/19/17 18:59 06:59 18:59 Intake Total 1620 / 1620 850 / 850 357.5 / 357.5 Output Total 525 / 525 Balance 1620 / 1620 325 / 325 357.5 / 357.5 Weight 45.359 kg Intake: IV 1100 / 1100 450 / 450 357.5 / 357.5 Maxipime Inj 2,000 MG In NS Inj 100 / 100 100 / 100 100 / 100 100 ML @ 200 mls/hr IV.SIG Q12H [facility] Rx#:[id number] NS Inj 1,000 ML @ Wide Open IV. 1000 / 1000 SIG BOLUS ONE Rx#:[id number] NS Inj 250 ML @ 15 mls/hr IV. 100 / 100 SIG ONCE VALENTINE Rx#:[id number] Vancomycin Inj 1,000 MG In NS 250 / 250 Inj 250 ML @ 250 mls/hr IV.SIG ONCE ONE Rx#:[id number] Vancomycin Inj 750 MG In NS Inj 257.5 / 257.5 250 ML @ 250 mls/hr IV.SIG Q12H VAL[facility]INE Rx#:[id number] Oral 120 / 120 Intake (Blood Product) Amt 400 / 400 400 / 400 Rbc As-3 Leukoreduced Irrad 0 / 0 400 / 400 Unit [id number] Rbc As-3 Leukoreduced Irrad 400 / 400 Unit [id number] Output: Urine 475 / 475 Emesis 50 / 50 Other: # Voids 2 4 Date of Last Bowel Movement 12/18/17 12/18/17 12/18/17 # Bowel Movements 2 # Incontinent Bowel Movements 2 2 Weight On Admission 45.359 kg <Simone Tolentino - 12/19/17 15:33> Vital Signs 12/18/17 13:32 12/18/17 13:48 12/18/17 15:00 Temperature 98.0 F 98.3 F Pulse Rate 121 H 122 H 119 H Respiratory Rate 20 18 Blood Pressure 105/70 101/66 Pulse Oximetry 100 100 12/18/17 15:51 12/18/17 18:39 12/18/17 20:00 Temperature 98.8 F 97.6 F 97.8 F Pulse Rate 120 H 112 H 106 H Respiratory Rate 20 20 20 Blood Pressure 147/79 H 102/80 104/76 Pulse Oximetry 100 99 99 12/18/17 20:03 12/18/17 22:00 12/19/17 00:00 Temperature 97.8 F 97.8 F Pulse Rate 110 H 103 H 101 H Respiratory Rate 18 18 Blood Pressure 113/88 121/78 Pulse Oximetry 99 99 12/19/17 00:19 12/19/17 04:00 12/19/17 07:18 Temperature 97.7 F Pulse Rate 102 H 106 H 103 H Respiratory Rate 18 Blood Pressure 116/84 Pulse Oximetry 100 Intake & Output 12/18/17 12/19/17 12/19/17 18:59 06:59 18:59 Intake Total 1620 / 1620 850 / 850 Output Total 525 / 525 Balance 1620 / 1620 325 / 325 Weight 45.359 kg Intake: IV 1100 / 1100 450 / 450 Maxipime Inj 2,000 MG In NS Inj 100 / 100 100 / 100 100 ML @ 200 mls/hr IV.SIG Q12H [facility] Rx#:[id number] NS Inj 1,000 ML @ Wide Open IV. 1000 / 1000 SIG BOLUS ONE Rx#:[id number] NS Inj 250 ML @ 15 mls/hr IV. 100 / 100 SIG ONCE VAL[facility]INE Rx#:[id number] Vancomycin Inj 1,000 MG In NS 250 / 250 Inj 250 ML @ 250 mls/hr IV.SIG ONCE ONE Rx#:[id number] Oral 120 / 120 Intake (Blood Product) Amt 400 / 400 400 / 400 Rbc As-3 Leukoreduced Irrad 0 / 0 400 / 400 Unit [id number] Rbc As-3 Leukoreduced Irrad 400 / 400 Unit [id number] Output: Urine 475 / 475 Emesis 50 / 50 Other: # Voids 2 4 Date of Last Bowel Movement 12/18/17 12/18/17 # Bowel Movements 2 # Incontinent Bowel Movements 2 2 Weight On Admission 45.359 kg <Emily Schmidt N - 12/19/17 10:51> Narrative: General: Pale, cachectic female sitting in no obvious distress. Non-productive cough. Cardiovascular: Tachycardic with regular rhythm without murmur Pulmonary: Coarse expiratory rhonchi Abdomen: Soft, distended, no significant tenderness. Extremities: Bilateral lower extremities with pitting edema 1+ to the ankles Skin: No obvious defect or deformity, tunneled Vas-Cath in the left upper chest with no evidence of infection <Emily Schmidt N - 12/19/17 11:44> Assessment and Plan - Assessment (1) Cough Code(s): R05 - Cough Status: Acute (2) Pancytopenia due to chemotherapy Code(s): D61.810 - Antineoplastic chemotherapy induced pancytopenia Status: Acute (3) Diarrhea Code(s): R19.7 - Diarrhea, unspecified Status: Acute (4) Ascites Code(s): R18.8 - Other ascites Status: Acute (5) Protein-calorie malnutrition Code(s): E46 - Unspecified protein-calorie malnutrition Status: Acute (6) Ovarian cancer Code(s): C56.9 - Malignant neoplasm of unspecified ovary Status: Acute <Simone Tolentino - 12/19/17 15:33> (1) Cough Code(s): R05 - Cough Status: Acute Plan: May be 2/2 to fluid overload due to ascites Duonebs Q6H scheduled Acapella Monitor clinically (2) Pancytopenia due to chemotherapy Code(s): D61.810 - Antineoplastic chemotherapy induced pancytopenia Status: Acute Plan: On Vanc, cefepime day #2 Blood cx growing Gram + rods and cocci, f/u results S/p 2 units PRBCs, Hgb level improved to 9.3 Neutropenic precautions Platelets low this AM. Plan to recheck CBC at 1 pm. If the same or decreased, plan to transfuse platelets On Neupogen [address] Jimenez/Oncology consulted, plan to follow recs -Agrees w/plan above (3) Diarrhea Code(s): R19.7 - Diarrhea, unspecified Status: Acute Plan: C diff PCR and hemoccult pending Consider further stool studies (4) Ascites Code(s): R18.8 - Other ascites Status: Acute Plan: Monitor clinically If indicated, will need paracentesis after plt transfusion (5) Protein-calorie malnutrition Code(s): E46 - Unspecified protein-calorie malnutrition Status: Acute Plan: Dietary consulted On liquid diet (6) Ovarian cancer Code(s): C56.9 - Malignant neoplasm of unspecified ovary Status: Acute Plan: Oncology consulted, appreciate recs Palliative consulted today <Emily Schmidt - 12/19/17 11:29> - Assessment and Plan 67 yo female with 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 Pancytopenia Likely due to chemotherapy. Afebrile, but reports chills and cough Anemia - Hgb on admission 5.4 Neutropenic - ANC of ~100 Thrombocytopenic - Plt 34 CT chest showing questionable pulmonary infiltrate * Antibiotic coverage with Vancomycin, Cefepime until blood Cx negative at least 48 hours * Repeat blood cultures for fever * Transfuse 2 units PRBC, check post-transfusion H/H * Pharmacologic DVT PPX contraindicated due to thrombocytopenia * Neutropenic precautions * Consulted oncologist Dr. Jimenez recsharon appreciated * goal Hgb > 8 * recommend Neupogen 300 mcg daily * Agree with antibiotic coverage * Work up diarrhea 2. Diarrhea Likely chemotherapy related, however could also be infectious. If so likely C difficile * Check C difficile PCR * Check hemoccult * Zofran PRN N/V 3. Protein-calorie malnutrition Chronic, due to cancer * Replete electrolytes slowly due to recurrent ascites - NS @ 15 cc/hr * Consult to [facility] for TPN (patient receives TPN outpatient) * Liquid diet as flaca 4. Ascites Chronic ascites due to tumor burden * Monitor clinically; if worsening consider repeat paracentesis sooner than weekly 5. Ovarian cancer Presumed ovarian but in any case certainly adenocarcinoma CT abdomen/pelvis findings noted above, overall suggestive of increased tumor burden from prior studies * Consulted oncologist Dr. Jimenez, recsharon appreciated * Consider palliative consult after discussion with patient FEN/PPX F: As above E: Monitor. Replete via IVF and TPN. Acutely as needed if abnormalities severe. N: Liquid diet with TPN per dietary DVT: SCDs only Code status: DNR <Emily Schmidt N - 12/19/17 10:51> - Attending Attestation Patient case discussed with resident physicians I have independently examined the patient I have read the above note and agree with the assessment and plan as discussed with me I was involved in all medical decision making for this patient Simone Tolentino MD <Simone Tolentino - 12/19/17 15:33>
[2017-12-19] MEDS: Vancomycin Inj 750 MG in Sodium Chlor 0.9% Inj 250 ML IV.SIG SCH ×2 (10:52→22:07)
--- NOTE | 2017-12-19 11:07 | P.CONPAL ---
Consult Service: Palliative Care Requesting Physician: Emily Schmidt Reason for Consult: a. To assist with evaluation and management of symptoms including:pain, diarrhea, debility b. To assist medical decision maker(s) with: better understanding of current medical conditions; weighing benefits/burdens of medical treatment options; making medical treatment decisions. Primary Care Provider: Deric Benson MD History of Present Illness History of Present Illness: Ms. Velasquez is a 67-year-old female who presented to [place] emergency room on with complaints of overall fatigue, generalized weakness, and diarrhea. 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 It is of note that the initiation of chemotherapy the patient essentially had no objective or subjective response. She did obtain a second opinion consultation through [facility]. Treatment modalities were changed and she recently just completed her second cycle last Saturday. She also undergoes weekly paracentesis, last one being of last week where by report 5 L of ascitic fluid were removed. She is found to be extremely anemic and the decision was made to admit the patient for further evaluation and treatment. Initial emergency room evaluation revealed: * Temp 98.7, pulse rate 103, respiratory rate 18, BP 91/69, pulse oximetry 100% on room air * WBC 0.2, RBC 1.70, Hgb 5.4, HCT 15.4, platelets 39, absolute neutrophil count 0.1 * PT 10.9, INR, 1.1, APTT 36.2 * NA 130, K+ 3.4, CL 99, CO2 21.5, BUN 21, creatinine 0.46, glucose 92 * Calcium 7.2 PCC 8.5, total bili 1.0, AST 65, ALT 42, alkaline phosphatase 367 , total protein 4.7 albumin 1.2, lactic acid 1.9 * Chest CT: Bibasilar airspace disease, left greater than right. Cannot exclude an early infiltrate just above the left hemidiaphragm. No suspicious mass lesions to suggest metastatic disease. Abdominal ascites * Abdominal/pelvic CT: Diffuse peritoneal ascites, slightly worse when compared to the prior. Interval development of diffuse portal edema in the liver. The findings concerning for infarct in the anterior pole of the spleen. Interval development of left-sided hydronephrosis with delayed nephrogram characteristic of high-grade obstruction. This appears to be within the distal ureter. No obvious obstruction mass lesion distally however. Diffuse bowel wall thickening. Findings are nonspecific but could be related to low oncotic pressure associated with the diffuse abdominal ascites. The patient was admitted by [facility] medicine and 2 liters of PRBCs were given. Plan to transfuse to keep hemoglobin at least above 8. Neutropenic precautions were initiated, and the patient was to be checked for C. difficile PCR. Patient started on broad-spectrum antibiotics. Dietary was consulted for TPN due to protein-calorie malnutrition. Patient was also given supportive care with IV hydration and current correction of electrolytes. Dr. Jimenez (oncologist) was consulted as he is known to the patient. CT findings overall suggestive of increased tumor burden from prior studies. Per his discussion with the patient he feels there is a strong possibility that this is not ovarian cancer given its poor response to any targeted chemotherapy. He feels it is possible this may be an atypical presentation for pancreatic or gallbladder cancer. Even if this is the case patient is currently receiving most often used regimen. Dr. Jimenez felt at this time it would be appropriate to discuss hospice. Palliative care was consulted to assist with symptom management and to discuss goals of care going forward. The patient appeared cachectic and generally weak but in otherwise good spirits. She states she was able to ambulate to the door and back with physical therapy today. Currently has a 25mcg fentanyl patch which she feels is relieving her pain well. She does complain of some discomfort in her abdomen and is curious about as to whether she will require another palliative paracentesis, though at this time she may not be a candidate due to her thrombocytopenia. She states she has not had much of an appetite for some months now and she is receiving TPN as an outpatient. Further discussion concerning goals of care, etc. to follow Function/Cognitive Trajectory: Prior to her hospitalization the patient was independent of ambulation and most ADLs. She is living at home with her and 2 children. She has a good support system in place and was actively receiving chemotherapy with weekly palliative paracentesis. Review of Systems Constitutional: Reports fatigue, Reports weakness, Reports weight loss Gastrointestinal: Reports abdominal pain, Reports loose stools PMFSH - History History Provided By: Patient, Family Member - Medical History Medical History: Medical History (Last Reviewed 12/19/17 @ 09:11 by Lucien Gupta) Ovary cancer - Surgical History Surgical History: Surgical History (Last Reviewed 12/19/17 @ 09:11 by Lucien Gupta) H/O shoulder surgery History of tonsillectomy Hx of appendectomy Hx of section Hx of hernia repair - Family History Family History: Family History (Last Updated 12/19/17 @ 14:53 by DARNELL Alfaro) Other No pertinent family history - Social History I have reviewed the patient's Social History: Yes - Tobacco History Second Hand Smoke Exposure: No Tobacco Use In Past 30 Days: No Smoking Status: Former smoker (1 PPD x 15 years, quit 30 years ago) Tobacco Type: Cigarettes - Alcohol History How Often Do You Have a Drink Containing Alcohol: Never - Substance Use History Substance History: No History of Abuse - Travel History History of Recent Travel: No Recent Travel in the [place] Within the Last 8 Weeks: No Recent Travel Out of the Country Within the Last 8 Weeks: No - Immunization History Tetanus Immunization: Unsure Hx Influenza Vaccine This Season: No Medications and Allergies Active Medications: Active Medications Acetaminophen (Tylenol) 650 mg PO Q4H PRN PRN Reason: Fever or Pain 1 TO 10 Albuterol (Duoneb Neb (Avelino)) 1 ampul NEB Q6HR NEB [facility]ELINO Benzonatate (Tessalon Perles) 100 mg PO Q8H PRN PRN Reason: cough Last Admin: 12/19/17 02:05 Dose: 100 mg Fentanyl (Duragesic 25 Mcg Patch.72hr) 1 patch T-DERMAL Q72H AVELINO Last Admin: 12/18/17 17:14 Dose: Not Given Filgrastim (Neupogen Inj) 300 mcg SQ DAILY@1700 AVELINO Cefepime HCl 2,000 mg/ Sodium (Chloride) 100 mls @ 200 mls/hr IV.SIG Q12H AVELINO Last Admin: 12/19/17 08:00 Dose: 200 mls/hr Potassium Chloride/Sodium Chloride (Ns + Kcl 40 Meq Inj) 1,000 mls @ 20 mls/hr IV.CONT .Q24H AVELINO Vancomycin HCl 750 mg/ Sodium (Chloride) 257.5 mls @ 250 mls/hr IV.SIG Q12H [facility]INO Last Admin: 12/19/17 10:52 Dose: 250 mls/hr Ibuprofen (Advil) 200 mg PO Q6H PRN PRN Reason: PAIN SCALE 1 TO 10 Last Admin: 12/18/17 21:06 Dose: 200 mg Loratadine (Claritin) 5 mg PO DAILY [facility] Last Admin: 12/19/17 08:00 Dose: 5 mg Miscellaneous (Pill Splitter) 1 each OTHER PRN PRN PRN Reason: SEE LABEL COMMENTS Miscellaneous Information ([facility] Ordered Lab Info) 0 each OTHER ONCE ONE Stop: 12/20/17 09:46 Ondansetron HCl (Zofran Inj) 4 mg IV.PUSH Q6H PRN PRN Reason: NAUSEA OR VOMITING Last Admin: 12/19/17 01:34 Dose: 4 mg Pantoprazole Sodium (Protonix Inj) 40 mg IV.PUSH Q24H [facility] Last Admin: 12/18/17 18:41 Dose: 40 mg Patch Removal (Remove Old Patch) 1 each T-DERMAL Q72H [facility] Last Admin: 12/18/17 17:14 Dose: Not Given Pharmacy Profile Note (Vancomycin Consult Pharmacy) 1 each OTHER UNSCH PRN PRN Reason: Pharmacy to dose Sodium Chloride (Ns Flush) 2 ml IV.FLUSH BID [facility] Last Admin: 12/19/17 08:01 Dose: 2 ml Sodium Chloride (Ns Flush) 2 ml IV.FLUSH PRN PRN PRN Reason: FLUSH AFTER USING IV ACCESS Allergies Allergy/AdvReac Type Severity Reaction Status Date / Time hydrocodone AdvReac Severe Nausea/Vomi Verified 12/18/17 10:35 ting Home Medications Medication Instructions Recorded Confirmed Type fentanyl 1 patch TRANSDERMAL Q72H 12/18/17 12/18/17 History Advance Directives Living Will: Yes (patient states she has a living will at home as well as community DNR, she will have someone bring a copy in for our records) Power of Flight Nurse Name: patient unsure - sister or cousin Documented care wishes: The patient states she has a documented power of sex worker or escort and will have her family bring in a copy for our records here Today's verbally stated goals: The patient is in agreements with DNR. We had a lengthy discussion concerning what she would like to do moving forward with concerns to aggressive treatment including chemotherapy. She states that she is unsure what she would do right now. She wants to speak with her and children though she did verbalize that she is not so sure she would like to continue doing chemotherapy given the medical repercussions. She did verbalize she would like to concentrate on quality of life as opposed to quantity. Family/friends goals: Family is supportive of patient's decisions. Ethical and Legal Issues: There are currently no legal or ethical issues impacting care at this time. The patient is currently unsure if she has documented healthcare surrogate, and the absence of such per [place] statutes the patient's would serve as proxy. Physical Exam Vital Signs: Vital Signs - 24 hr 12/18/17 13:32 12/18/17 13:48 12/18/17 15:00 Temperature 98.0 F 98.3 F Pulse Rate 121 H 122 H 119 H Respiratory Rate 20 18 Blood Pressure 105/70 101/66 Pulse Oximetry 100 100 12/18/17 15:51 12/18/17 18:39 12/18/17 20:00 Temperature 98.8 F 97.6 F 97.8 F Pulse Rate 120 H 112 H 106 H Respiratory Rate 20 20 20 Blood Pressure 147/79 H 102/80 104/76 Pulse Oximetry 100 99 99 12/18/17 20:03 12/18/17 22:00 12/19/17 00:00 Temperature 97.8 F 97.8 F Pulse Rate 110 H 103 H 101 H Respiratory Rate 18 18 Blood Pressure 113/88 121/78 Pulse Oximetry 99 99 12/19/17 00:19 12/19/17 04:00 12/19/17 07:18 Temperature 97.7 F Pulse Rate 102 H 106 H 103 H Respiratory Rate 18 Blood Pressure 116/84 Pulse Oximetry 100 I&O: Intake & Output 12/17/17 12/18/17 12/19/17 12/20/17 06:59 06:59 06:59 06:59 Intake Total 2470 / 2470 Output Total 525 / 525 Balance 1944 / 1944 Weight 45.359 kg Physical Exam: CONSTITUTIONAL/GENERAL: Cachectic with temporal wasting. TUBES/LINES/DRAINS: Right chest wall port SKIN: No jaundice, rashes, or lesions. No wounds seen anteriorly. Skin temperature appropriate. Not diaphoretic. HEAD: Atraumatic. Normocephalic. EYES: Pupils equal and round and reactive. Extraocular motions intact. No scleral icterus. No injection or drainage. Fundi not examined. ENT: Hearing grossly normal. Nose without bleeding or purulent drainage. Throat without visible erythema, exudates, masses, or lesions. Oral mucosa dry NECK: Trachea midline. Supple, nontender. No palpable thyroid enlargement or nodularity. CARDIOVASCULAR: Regular rate and rhythm without murmurs, gallops, or rubs. No JVD. Peripheral pulses symmetric. RESPIRATORY/CHEST: Symmetric, unlabored respirations. Clear to auscultation. Breath sounds equal bilaterally. Scattered rhonchi heard mostly right middle lobe. Patient has a wet sounding cough GASTROINTESTINAL: Abdomen firm and noticeably distended. Tender to palpation and percussion particularly RLQ. Dull to percussion. No guarding. Bowel sounds intermittent. GENITOURINARY: Without palpable bladder distension. MUSCULOSKELETAL: Extremities without clubbing, cyanosis, or edema. No joint tenderness or effusion noted. No calf tenderness. No mottling or clubbing. LYMPHATICS: No palpable cervical or supraclavicular adenopathy. NEUROLOGICAL: Awake and alert. Motor and sensory grossly within normal limits. Follows commands. Cognitively sharp. Moves all extremities. PSYCHIATRIC: No obvious anxiety/depression. no apparent hallucinations or other psychotic thought process. Pleasant Diagnostic Tests Laboratory: Laboratory Results - last 72 hr 12/18/17 12/18/17 12/18/17 11:30 11:30 11:30 WBC 0.2 L RBC 1.70 L Hgb 5.4 L* Hct 15.4 L* MCV 90.7 MCH 31.6 MCHC 34.8 RDW 16.5 Plt Count 39 L D MPV 11.0 Prelim Diff (Auto) Manual diff required WBC Differential Manual diff final Seg Neuts % (Manual) 30 Lymphocytes % (Manual) 30 Monocytes % (Manual) 40 H Abs Neuts (Manual) 0.1 L* Differential Comment . Toxic Vacuolation Platelet Estimate Low L Platelet Morphology Normal PT 10.9 INR 1.1 APTT 36.2 H Sodium 130 L Potassium 3.4 L Chloride 99 Carbon Dioxide 21.5 Anion Gap 10 BUN 21 H Creatinine 0.46 L Estimated GFR Greater than 89 POC Glucose Random Glucose 92 Lactic Acid Calcium 7.2 L* Prot Corrected Calcium 8.5 Magnesium 1.9 Total Bilirubin 1.0 AST 65 H ALT 42 Alkaline Phosphatase 367 H Total Protein 4.7 L Albumin 1.2 L Urine Color Urine Clarity Urine pH Ur Specific Jaffrey Urine Protein Urine Glucose (UA) Urine Ketones Urine Occult Blood Urine Nitrate Urine Bilirubin Urine Urobilinogen Ur Leukocyte Esterase Urine RBC Urine WBC Urine Mucus Micro UA Comment Ur Microscopic Review Urine Culture Comments Blood Type Blood Type Recheck Antibody Screen MTS Gel Crossmatch 12/18/17 12/18/17 12/18/17 11:30 11:30 12:05 WBC RBC Hgb Hct MCV MCH MCHC RDW Plt Count MPV Prelim Diff (Auto) WBC Differential Seg Neuts % (Manual) Lymphocytes % (Manual) Monocytes % (Manual) Abs Neuts (Manual) Differential Comment Toxic Vacuolation Platelet Estimate Platelet Morphology PT INR APTT Sodium Potassium Chloride Carbon Dioxide Anion Gap BUN Creatinine Estimated GFR POC Glucose Random Glucose Lactic Acid 1.9 Calcium Prot Corrected Calcium Magnesium Total Bilirubin AST ALT Alkaline Phosphatase Total Protein Albumin Urine Color Urine Clarity Urine pH Ur Specific Jaffrey Urine Protein Urine Glucose (UA) Urine Ketones Urine Occult Blood Urine Nitrate Urine Bilirubin Urine Urobilinogen Ur Leukocyte Esterase Urine RBC Urine WBC Urine Mucus Micro UA Comment Ur Microscopic Review Urine Culture Comments Blood Type B Negative Blood Type Recheck Not needed Antibody Screen Negative MTS Gel Crossmatch See Detail 12/18/17 12/18/17 12/19/17 22:10 23:15 04:00 WBC 0.3 L RBC 3.19 L Hgb 8.2 L D 9.3 L Hct 23.2 L 27.1 L MCV 85.1 D MCH 29.1 MCHC 34.1 RDW 18.9 H Plt Count 19 L* D MPV 10.1 Prelim Diff (Auto) Manual diff required WBC Differential Manual diff final Seg Neuts % (Manual) 20 Lymphocytes % (Manual) 60 H Monocytes % (Manual) 20 H Abs Neuts (Manual) 0.1 L* Differential Comment . Toxic Vacuolation Present H Platelet Estimate Low L Platelet Morphology Normal PT INR APTT Sodium Potassium Chloride Carbon Dioxide Anion Gap BUN Creatinine Estimated GFR POC Glucose Random Glucose Lactic Acid Calcium Prot Corrected Calcium Magnesium Total Bilirubin AST ALT Alkaline Phosphatase Total Protein Albumin Urine Color Betty Urine Clarity Hazy H Urine pH 6.0 Ur Specific Jaffrey 1.041 H Urine Protein 100 H Urine Glucose (UA) Negative Urine Ketones Negative Urine Occult Blood Moderate H Urine Nitrate Positive H Urine Bilirubin Negative Urine Urobilinogen 2.0 H Ur Leukocyte Esterase Negative Urine RBC 1 Urine WBC 1 Urine Mucus Few H Micro UA Comment Culture not ind Ur Microscopic Review Not Reportable Urine Culture Comments Culture not ind Blood Type Blood Type Recheck Antibody Screen MTS Gel Crossmatch 12/19/17 12/19/17 12/19/17 04:00 07:44 08:30 WBC RBC Hgb Hct MCV MCH MCHC RDW Plt Count MPV Prelim Diff (Auto) WBC Differential Seg Neuts % (Manual) Lymphocytes % (Manual) Monocytes % (Manual) Abs Neuts (Manual) Differential Comment Toxic Vacuolation Platelet Estimate Platelet Morphology PT INR APTT Sodium 135 L Potassium 3.1 L Chloride 102 Carbon Dioxide 21.5 Anion Gap 12 BUN 20 H Creatinine 0.42 L Estimated GFR Greater than 89 POC Glucose 61 L 74 Random Glucose 60 L Lactic Acid Calcium 7.2 L* Prot Corrected Calcium 8.6 Magnesium Total Bilirubin 1.2 H AST 46 H ALT 33 Alkaline Phosphatase 291 H Total Protein 4.6 L Albumin 1.1 L Urine Color Urine Clarity Urine pH Ur Specific Jaffrey Urine Protein Urine Glucose (UA) Urine Ketones Urine Occult Blood Urine Nitrate Urine Bilirubin Urine Urobilinogen Ur Leukocyte Esterase Urine RBC Urine WBC Urine Mucus Micro UA Comment Ur Microscopic Review Urine Culture Comments Blood Type Blood Type Recheck Antibody Screen MTS Gel Crossmatch Result Diagrams: 12/19/17 11:28 12/19/17 04:00 Microbiology: Microbiology 12/18/17 10:55 Aerobic Blood Culture - Preliminary Blood - Peripheral gram positive cocci gram negative rods Anaerobic Blood Culture - Preliminary gram positive cocci 12/18/17 10:55 Aerobic Blood Culture - Preliminary Blood - Peripheral gram positive cocci gram negative rods Anaerobic Blood Culture - Preliminary gram positive cocci Imaging: Impressions Chest CT 12/18/17 00:00 CONCLUSION: 1. Bibasilar airspace disease, left greater than right. Cannot exclude an early infiltrate just above the left hemidiaphragm. 2. No suspicious mass lesions to suggest metastatic disease. 3. Abdominal ascites. Abdomen/Pelvis CT 12/18/17 14:05 CONCLUSION: 1. Diffuse peritoneal ascites, slightly worse when compared to the prior. 2. Interval development of diffuse periportal edema in the liver. 3. The findings concerning for infarct in the anterior pole of the spleen. 4. Interval development of left-sided hydronephrosis with delayed nephrogram characteristic of a high-grade obstruction. This appears to be within the distal ureter. I do not see an obvious obstructing mass lesion distally, however. 5. Diffuse bowel wall thickening. Findings are nonspecific but could be related to a low oncotic pressure associated with the diffuse abdominal ascites. Patient/Family Conference Family Conference Location: Bedside Issues Discussed: * Palliative care role, purpose, approach * Additional medical, psychosocial, and spiritual history * Patients general health, functional status, and cognitive changes in the months leading up to the current hospitalization * Patient/family understanding of the current medical problems * Patient/family understanding of prognosis * Patients goals of care as best understood from advance directives and/or conversations and/or values * Current medical treatment options and benefits/burdens of those options * Likely scenarios comparing ongoing aggressive care with a transition to comfort measures only * Questions answered to the best of my ability * Palliative care contact information provided Mrs. Velasquez is currently able to participate in her own healthcare decisions. In the absence of a documented living will or power of sex worker or escort, per [place] statutes decision making falls to the patient's Aldair Velasquez . Her goals up to this point have remained aggressive. She does currently verbalize that she is unsure if she wishes to continue with aggressive chemotherapy given her medical complications. She wants to discuss this further with her and children before deciding whether or not to proceed or to transition to comfort care. Assessment and Plan - Symptom Scale (1) Pain 0-10 Scale: 1 (2) Protein-calorie malnutrition 0-10 Scale: Unable to quantify (3) Diarrhea 0-10 Scale: Unable to quantify Pertinent Non-Medical Issues: Psychosocial: Patient was born in [place], [place]. In her 20s she worked for the [employer] where she met her . The couple then moved to [place] where she had her 2 children. 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 Spiritual: Lutheran Legal: Per [place] statutes in the absence of documented living will, healthcare decision making would fall to the patient's , Aldair Velasquez should the patient become incapacitated any time. The patient does feel that she has filled out a living will at one point in time will ask family members to bring in a copy Ethical issues impacting care: There are currently no known ethical issues impacting care at this time Important Contacts: Aldair Velasquez, /HCP [phone] Demi Velasquez , daughter [phone] Prognosis: Given the aggressive nature of her cancer and poor response to chemotherapy in conjunction with her current medical decline. The patient is at high risk for continued morbidity, infection, debility, and eventually . Code Status: No Code DNR Plan: * LEGAL DECISION MAKER -per [place] statutes, in the absence of a documented living will or power of sex worker or escort healthcare decision would fall to the patient' s Aldair Velasquez should she become incapacitated in time. The patient believes she did fill out a living will at one point and will ask her family to bring a copy. * GOALS - Mrs. Velasquez is currently able to participate in her own healthcare decisions. Her goals up to this point have remained aggressive. She does currently verbalize that she is unsure if she wishes to continue with aggressive chemotherapy given her medical complications. She wants to discuss this further with her and children before deciding whether or not to proceed or to transition to comfort care. * CODE STATUS -DNR, the patient states she has a community DNR and will bring in a copy for records * SYMPTOMS: Paincurrently using fentanyl 25 MCG's patch every 72 hours. Verbalizes good pain control with this modality. Did not recommend any current changes should her pain increase can discuss adjusting patch as needed. May also require palliative paracentesis once thrombocytopenia improves Debilitypatient has severe proteincalorie malnutrition. Currently receiving TPN. States she does not have an appetite has been on TPN for approximately 3- 4 months. Dietary consult appreciated. Loose stoolsmost likely related to chemotherapy. C. difficile PCR pending. Should hopefully see improve him with cessation of day 15 of chemotherapy. Palliative care will continue to follow during hospital course as condition evolves, to assist patient/decision maker with understanding of medical conditions, weighing benefits/burdens of treatment options, for clarification of goals of treatment. Additionally will assist with any symptoms of palliative concern. Appreciation Thank you for the opportunity to participate in the care of Taryn Velasquez. Attestation Attestation: To help prompt me to consider important information that might be impacting today's encounter and assessment, information from prior notes written by myself or my colleagues may have been "brought forward" into today's note. My signature on this note, however, is an attestation that I personally performed the exam, history, and/or decision-making noted today, and, unless otherwise indicated, the interactions with patient, family, and staff as well as the review of records all occurred today. I also attest that the listed assessment and stated plan reflect my best clinical judgment today based on the combination of historical information, prior notes, and today's exam/ interactions. When time spent is documented, it refers only to time spent today by the signer, or if indicated, combined time spent today by collaborating physician/nurse practitioner.
[2017-12-19 12:04] LABS: Hematocrit 30.6 % (35.0-46.0); Hemoglobin 10.6 gm/dL (11.6-15.3)
--- NOTE | 2017-12-19 13:55 | MB ---
cc: Earline Jimenez MD,Ruddy Cassidy,Deric Tolentino,Simone CASTRO DATE: 12/19/2017 FOLLOWUP CONSULTATION HISTORY OF PRESENT ILLNESS: Taryn Velasquez was seen again today in followup. She is accompanied by her niece, who is visiting. She remains in great spirits despite feeling poorly. I updated her on findings. I explained that her white count remains quite low. She is on broad spectrum antibiotics. Her blood cultures have grown out gram-positive cocci and gram-negative rods. Her platelet count is quite low, just below 20,000 at 19,000. I explained that the plan is to repeat the CBC this afternoon. If the platelet count drops much below 20,000, the plan will be to transfuse platelets. There has been significant improvement in her hemoglobin after transfusion. Her hemoglobin was 5.4 upon admission and now it is 10.6 and she is pleased with this improvement and she does report overall feeling stronger, feeling a bit better. The diarrhea that has been quite troublesome, has improved to some extent. I do not see yet any culture report from the stool specimens. Her pain is adequately controlled. She is taking a little bit of liquids in and tolerating it. She had one bout of nausea with emesis last night. Otherwise, her stomach has stayed fairly settled. She believes the fentanyl patch has been helpful in controlling her pain. She was able to get out of bed and ambulate for a short distance with assistance today. She said it was difficult, but she was encouraged by that and she is encouraged to continue to stay active to the extent possible as long as she has help available. Discussion ensued. Questions were asked and answered. I explained again that even though she is scheduled for chemotherapy tomorrow, she is not able to take chemotherapy because of her current illness and low blood counts and that the current regimen, if continued, we would likely have to omit day 15 of treatment anyway because of poor tolerance. She has only thus far been able to receive day 1 and day 8 of the Taxol and Avastin. By day 15, it has been omitted due to pancytopenia. More questions asked and answered. She had a paracentesis last . She understands that if she becomes profoundly uncomfortable from reaccumulation that she could have another palliative paracentesis. She also understands that it would be best to have her platelet count elevated before any invasive procedure and more questions were asked and answered and she was grateful for the time spent and I am pleased to see her feeling a little bit better. TIME SPENT: Twenty-five minutes of this 15-minute [id number] encounter was spent in counseling and coordination of care. MD YELENA Okeefe/jackie , 12:19 PM , 12:29 PM
[2017-12-19 15:33] LABS: Eos % (Auto) 7.1 % (0.0-4.0); Hematocrit 26.3 % (35.0-46.0); Hemoglobin 9.4 gm/dL (11.6-15.3); Lymph # (Auto) 0.1 th/mm3 (1.0-4.8); Lymph % (Auto) 33.3 % (9.0-44.0); Mean Corpuscular HGB Conc 35.6 % (32.0-36.0); Mean Corpuscular Hemoglobin 29.7 pg (27.0-34.0); Mean Corpuscular Volume 83.4 fL (80.0-100.0); Mean Platelet Volume 11.1 fL (7.0-11.0); Mono # (Auto) 0.2 th/mm3 (0.0-0.9); Neut % (Auto) 10.6 % (16.0-70.0); Platelet Count 26 th/mm3 (150-450); Red Blood Count 3.16 mil/mm3 (4.00-5.30); Red Cell Distribution Width 19.4 % (11.6-17.2); White Blood Count 0.3 th/mm3 (4.0-11.0)
[2017-12-19 16:10] LABS: Lymphocytes 40 % (9-44); Monocytes 36 % (0-8)
--- NOTE | 2017-12-19 16:32 | P.DIET ---
Nutritional Evaluation Type of nutrition evaluation: initial Nutrition consult regarding: TPN/PPN Nutrition screening: Weight Loss > 10 lbs, MDC Objective - Diagnosis sympotomatic anemia, neutropenia - Objective Body Mass Index: 15.7 % IBW: 74 (IBW = 100lb) Body Weight Used for Calculations: Actual Energy Needs - Lower Range (kCal/kg): 35 Energy Needs - Upper Range (kCal/kg): 40 Lower Limit kCal/kg (kCals): 1,588 Upper Limit kCal/kg (kCals): 1,814 Lower Limit Protein Factor (Grams per Kg): 1.2 Upper Limit Protein Factor (Grams per Kg): 1.5 Lower Protein Needs (Protein): 54 Upper Protein Needs (Protein): 68 Dietitian Reviewed in Medical Record: Current diet, Curent medications, Labs, Medical history Diet Order: Clear liquid diet Objective Comments: PMH: ovary cancer, chemotherapy, weekly paracentesis for ascites Labs: Glucose 60 Meds: zofran, protonix Assessment Assessment: Pt at nutritional risk r/t reported unplanned wt loss. Pt receives home TPN and currently on a clear liquid diet. For TPN recommend, Clinimix E 5/20 @ 50 mL/hr and 20% lipids @ 31.25 mL/hr over 8hrs daily to offer 60gms of pro, 1556 kcals and GUR 4.4. Recommend TG level in setting of TPN. Monitor PO intake, labs, electrolytes. Recommendations: 1. For TPN recommend, Clinimix E 5/20 @ 50 mL/hr and 20% lipids @ 31.25 mL/hr over 8hrs daily 2. Recommend TG level in setting of TPN 3. Monitor PO intake, labs, electrolytes 4. Dietitian following Dietitian to Monitor: Lab values, Intake & Output, TPN/PPN tolerance, Weight change, Medical course
[2017-12-19] MEDS: Filgrastim Inj 300 MCG/ML Vial SQ SCH (17:24)
[2017-12-19] MEDS: Pantoprazole Inj 40 MG Vial IV.PUSH SCH (17:24)
--- NOTE | 2017-12-19 20:11 | P.PNADD ---
Addendum to Inpatient Note Additional information: pt is seen around 1999 full note to follow Neutropenia ascites L hydro bowel wall thickning cont cefepime, vancomycin
[2017-12-20 06:28] LABS: Eos % (Auto) 0.6 % (0.0-4.0); Hematocrit 28.4 % (35.0-46.0); Lymph # (Auto) 0.1 th/mm3 (1.0-4.8); Lymph % (Auto) 9.8 % (9.0-44.0); Mean Corpuscular HGB Conc 35.1 % (32.0-36.0); Mean Corpuscular Hemoglobin 29.5 pg (27.0-34.0); Mean Platelet Volume 10.9 fL (7.0-11.0); Mono # (Auto) 0.7 th/mm3 (0.0-0.9); Mono % (Auto) 48.8 % (0.0-8.0); Neut # (Auto) 0.6 th/mm3 (1.8-7.7); Neut % (Auto) 40.8 % (16.0-70.0); Red Blood Count 3.38 mil/mm3 (4.00-5.30); Red Cell Distribution Width 19.5 % (11.6-17.2); White Blood Count 1.5 th/mm3 (4.0-11.0)
[2017-12-20 06:34] LABS: Platelet Count 16 th/mm3 (150-450)
--- NOTE | 2017-12-20 06:34 | P.CONID ---
History of Present Illness Service: ID Consult date: 12/19/17 Requesting Physician: Simone Tolentino Reason for Consult: bacteremia. Neutropenic patient Primary Care Provider: Deric Benson MD Chief Complaint: Fatigue, Dr. Sent History of Present Illness: This is delayed entry pt is seen around 1999 on 12/19 67-year-old female being treated for metastatic ovarian cancer presents to the emergency department after being sent over by Dr. Jimenez for symptomatic and severe anemia. Last chemo about a week ago. Pt is profoundly neutropenic and anemic She feels very fatigued She also c/o diarrhea, weight loss, SOB , non droductive cough No fevers. Pt is afebrile thouout entire hospital course She has ascites and requires weekly paracentesis for recurrent ascites her most recent paracentesis 6 days ago was noted to be bloody with approximately 5.5 L of fluid removed. Blood cultures done and are growing GNR and GPC She has PORT placed about a week ago CT showed bowel wall thickening, left-sided hydronephrosis with delayed nephrogram characteristic of a high-grade obstruction. This appears to be within the distal ureter. I do not see an obvious obstructing mass lesion distally, ascited PMFSH - History History Provided By: Patient, Family Member - Medical History Medical History: Medical History (Last Reviewed 12/19/17 @ 09:11 by Lucien Gupta) Ovary cancer - Surgical History Surgical History: Surgical History (Last Reviewed 12/19/17 @ 09:11 by Lucien Gupta) H/O shoulder surgery History of tonsillectomy Hx of appendectomy Hx of section Hx of hernia repair - Family History Family History: Family History (Last Updated 12/19/17 @ 14:53 by DARNELL Alfaro) Other No pertinent family history - Tobacco History Second Hand Smoke Exposure: No Tobacco Use In Past 30 Days: No Smoking Status: Former smoker (1 PPD x 15 years, quit 30 years ago) Tobacco Type: Cigarettes - Alcohol History How Often Do You Have a Drink Containing Alcohol: Never - Substance Use History Substance History: No History of Abuse - Travel History History of Recent Travel: No Recent Travel in the [place] Within the Last 8 Weeks: No Recent Travel Out of the Country Within the Last 8 Weeks: No - Immunization History Tetanus Immunization: Unsure Hx Influenza Vaccine This Season: No Medications and Allergies Active Medications: Active Medications Acetaminophen (Tylenol) 650 mg PO Q4H PRN PRN Reason: Fever or Pain 1 TO 10 Albuterol (Duoneb Neb ([facility])) 1 ampul NEB Q6HR NEB [facility] Last Admin: 12/20/17 05:01 Dose: 1 ampul Benzonatate (Tessalon Perles) 100 mg PO Q8H PRN PRN Reason: cough Last Admin: 12/19/17 02:05 Dose: 100 mg Fentanyl (Duragesic 25 Mcg Patch.72hr) 1 patch T-DERMAL Q72H [facility] Last Admin: 12/18/17 17:14 Dose: Not Given Filgrastim (Neupogen Inj) 300 mcg SQ DAILY@1700 [facility] Last Admin: 12/19/17 17:24 Dose: 300 mcg Cefepime HCl 2,000 mg/ Sodium (Chloride) 100 mls @ 200 mls/hr IV.SIG Q12H [facility] Last Infusion: 12/19/17 22:08 Dose: Infused Potassium Chloride/Sodium Chloride (Ns + Kcl 40 Meq Inj) 1,000 mls @ 20 mls/hr IV.CONT .Q24H [facility] Last Admin: 12/19/17 12:31 Dose: 20 mls/hr Vancomycin HCl 750 mg/ Sodium (Chloride) 257.5 mls @ 250 mls/hr IV.SIG Q12H [facility] Last Infusion: 12/19/17 23:10 Dose: Infused Ibuprofen (Advil) 200 mg PO Q6H PRN PRN Reason: PAIN SCALE 1 TO 10 Last Admin: 12/18/17 21:06 Dose: 200 mg Loratadine (Claritin) 5 mg PO DAILY [facility] Last Admin: 12/19/17 08:00 Dose: 5 mg Miscellaneous (Pill Splitter) 1 each OTHER PRN PRN PRN Reason: SEE LABEL COMMENTS Miscellaneous Information ([facility] Ordered Lab Info) 0 each OTHER ONCE ONE Stop: 12/20/17 09:46 Ondansetron HCl (Zofran Inj) 4 mg IV.PUSH Q6H PRN PRN Reason: NAUSEA OR VOMITING Last Admin: 12/19/17 01:34 Dose: 4 mg Pantoprazole Sodium (Protonix Inj) 40 mg IV.PUSH Q24H [facility] Last Admin: 12/19/17 17:24 Dose: 40 mg Patch Removal (Remove Old Patch) 1 each T-DERMAL Q72H [facility] Last Admin: 12/18/17 17:14 Dose: Not Given Pharmacy Profile Note (Vancomycin Consult Pharmacy) 1 each OTHER UNSCH PRN PRN Reason: Pharmacy to dose Sodium Chloride (Ns Flush) 2 ml IV.FLUSH BID [facility] Last Admin: 12/19/17 21:12 Dose: Not Given Sodium Chloride (Ns Flush) 2 ml IV.FLUSH PRN PRN PRN Reason: FLUSH AFTER USING IV ACCESS Allergies Allergy/AdvReac Type Severity Reaction Status Date / Time hydrocodone AdvReac Severe Nausea/Vomi Verified 12/18/17 10:35 ting Home Medications Medication Instructions Recorded Confirmed Type fentanyl 1 patch TRANSDERMAL Q72H 12/18/17 12/18/17 History Exam Vital signs: Vital Signs 12/19/17 07:18 12/19/17 08:00 12/19/17 11:26 Temperature 97.8 F Pulse Rate 103 H 108 H 79 Respiratory Rate 20 16 Blood Pressure 125/89 Pulse Oximetry 100 12/19/17 11:58 12/19/17 12:00 12/19/17 14:39 Temperature 97.9 F 98.0 F Pulse Rate 107 H 109 H 107 H Respiratory Rate 20 20 Blood Pressure 116/81 111/79 Pulse Oximetry 99 100 12/19/17 16:00 12/19/17 16:18 12/19/17 19:20 Temperature 97.7 F Pulse Rate 107 H 104 H 111 H Respiratory Rate 16 18 Blood Pressure 114/82 Pulse Oximetry 99 12/19/17 20:02 12/19/17 21:36 12/20/17 00:06 Temperature Pulse Rate 105 H 103 H 112 H Respiratory Rate 18 Blood Pressure Pulse Oximetry 12/20/17 00:14 12/20/17 04:00 12/20/17 05:01 Temperature 97.8 F 98 F Pulse Rate 113 H 116 H 98 H Respiratory Rate 20 20 18 Blood Pressure 135/82 124/93 H Pulse Oximetry 99 96 Intake & Output 12/19/17 12/19/17 12/20/17 06:59 18:59 06:59 Intake Total 850 / 850 597.5 / 597.5 597.5 / 597.5 Output Total 525 / 525 150 / 150 Balance 325 / 325 597.5 / 597.5 447.5 / 447.5 Intake: IV 450 / 450 357.5 / 357.5 357.5 / 357.5 Maxipime Inj 2,000 MG In NS Inj 100 / 100 100 / 100 100 / 100 100 ML @ 200 mls/hr IV.SIG Q12H [facility] Rx#:[id number] NS Inj 250 ML @ 15 mls/hr IV. 100 / 100 SIG ONCE [facility] Rx#:[id number] Vancomycin Inj 1,000 MG In NS 250 / 250 Inj 250 ML @ 250 mls/hr IV.SIG ONCE ONE Rx#:[id number] Vancomycin Inj 750 MG In NS Inj 257.5 / 257.5 257.5 / 257.5 250 ML @ 250 mls/hr IV.SIG Q12H [facility] Rx#:[id number] Oral 240 / 240 240 / 240 Intake (Blood Product) Amt 400 / 400 Rbc As-3 Leukoreduced Irrad 400 / 400 Unit [id number] Output: Urine 475 / 475 150 / 150 Emesis 50 / 50 Other: # Voids 4 3 Date of Last Bowel Movement 12/18/17 12/18/17 12/19/17 # Bowel Movements 1 # Incontinent Bowel Movements 2 - Constitutional no acute distress, thin, cachectic, chronically ill appearing - Routine HEENT Exam Head: Present: normocephalic, atraumatic Eye: Present: EOMI, PERRL ENT: Present: mucous membranes moist, oropharynx clear - Routine Neck Exam Present: supple. Absent: JVD, lymphadenopathy - Routine Chest/Breast/Axilla Exam Comments: PORT in place R side chest, site OK - Routine Respiratory Exam Present: decreased breath sounds (b/b), CTA bilaterally. Absent: accessory muscle use - Routine Cardiovascular Exam Present: RRR, S1, S2. Absent: murmur, gallop, rubs - Routine Abdominal Exam Present: soft, tenderness (diffise), distended. Absent: normoactive bowel sounds (decreased), rebound, guarding, organomegaly, mass - Routine Extremities Exam Absent: cyanosis, clubbing, edema - Routine Skin Exam Present: dry. Absent: jaundice, rash - Routine Neurological Exam Present: alert, oriented X3, CN II-XII intact. Absent: sensory deficit, motor deficit - Routine Psychiatric Exam Present: normal affect, normal thought process Results - Labs CBC & Chem 7: 12/20/17 05:25 12/19/17 04:00 Labs: Laboratory Results - last 24 hr 12/19/17 12/19/17 12/19/17 04:00 04:00 07:44 WBC RBC Hgb Hct MCV MCH MCHC RDW Plt Count MPV Prelim Diff (Auto) Neut % (Auto) Lymph % (Auto) [place] % (Auto) Eos % (Auto) Baso % (Auto) Neut # (Auto) Lymph # (Auto) [place] # (Auto) Eos # (Auto) Baso # (Auto) WBC Differential Manual diff final Seg Neuts % (Manual) 20 Lymphocytes % (Manual) 60 H Monocytes % (Manual) 20 H Abs Neuts (Manual) 0.1 L* Differential Comment Toxic Vacuolation Present H Platelet Estimate Low L Platelet Morphology Normal Sodium 135 L Potassium 3.1 L Chloride 102 Carbon Dioxide 21.5 Anion Gap 12 BUN 20 H Creatinine 0.42 L Estimated GFR Greater than 89 POC Glucose 61 L Random Glucose 60 L Calcium 7.2 L* Prot Corrected Calcium 8.6 Total Bilirubin 1.2 H AST 46 H ALT 33 Alkaline Phosphatase 291 H Total Protein 4.6 L Albumin 1.1 L Stl C.difficile DNA Amp St C. diff Tox Epid 027 12/19/17 12/19/17 12/19/17 08:30 11:28 14:38 WBC 0.3 L RBC 3.16 L Hgb 10.6 L 9.4 L Hct 30.6 L 26.3 L MCV 83.4 MCH 29.7 MCHC 35.6 RDW 19.4 H Plt Count 26 L D MPV 11.1 H Prelim Diff (Auto) Slide review pending Neut % (Auto) 10.6 L Lymph % (Auto) 33.3 [place] % (Auto) 49.0 H Eos % (Auto) 7.1 H Baso % (Auto) 0.0 Neut # (Auto) 0.0 L* Lymph # (Auto) 0.[address] [place] # (Auto) 0.2 Eos # (Auto) 0.0 Baso # (Auto) 0.0 WBC Differential Manual diff final Seg Neuts % (Manual) 24 Lymphocytes % (Manual) 40 Monocytes % (Manual) 36 H Abs Neuts (Manual) 0.1 L* Differential Comment . Toxic Vacuolation Platelet Estimate Low L Platelet Morphology Enlarged H Sodium Potassium Chloride Carbon Dioxide Anion Gap BUN Creatinine Estimated GFR POC Glucose 74 Random Glucose Calcium Prot Corrected Calcium Total Bilirubin AST ALT Alkaline Phosphatase Total Protein Albumin Stl C.difficile DNA Amp St C. diff Tox Epid 027 12/19/17 12/19/17 17:23 17:33 WBC RBC Hgb Hct MCV MCH MCHC RDW Plt Count MPV Prelim Diff (Auto) Neut % (Auto) Lymph % (Auto) [place] % (Auto) Eos % (Auto) Baso % (Auto) Neut # (Auto) Lymph # (Auto) [place] # (Auto) Eos # (Auto) Baso # (Auto) WBC Differential Seg Neuts % (Manual) Lymphocytes % (Manual) Monocytes % (Manual) Abs Neuts (Manual) Differential Comment Toxic Vacuolation Platelet Estimate Platelet Morphology Sodium Potassium Chloride Carbon Dioxide Anion Gap BUN Creatinine Estimated GFR POC Glucose 83 Random Glucose Calcium Prot Corrected Calcium Total Bilirubin AST ALT Alkaline Phosphatase Total Protein Albumin Stl C.difficile DNA Amp Positive H St C. diff Tox Epid 027 Negative - Imaging Chest CT 12/18/17 00:00 CONCLUSION: 1. Bibasilar airspace disease, left greater than right. Cannot exclude an early infiltrate just above the left hemidiaphragm. 2. No suspicious mass lesions to suggest metastatic disease. 3. Abdominal ascites. Abdomen/Pelvis CT 12/18/17 14:05 CONCLUSION: 1. Diffuse peritoneal ascites, slightly worse when compared to the prior. 2. Interval development of diffuse periportal edema in the liver. 3. The findings concerning for infarct in the anterior pole of the spleen. 4. Interval development of left-sided hydronephrosis with delayed nephrogram characteristic of a high-grade obstruction. This appears to be within the distal ureter. I do not see an obvious obstructing mass lesion distally, however. 5. Diffuse bowel wall thickening. Findings are nonspecific but could be related to a low oncotic pressure associated with the diffuse abdominal ascites. Assessment and Plan - Plan Bactermia, Psuedomonas and GPC source can be intraabdominal, vs (L ureter obstruction) vs, less likely PORT Metastatic ovarian ca Neutropenia Symptomatic anemia malignant recurrent ascites, on weekly paracenthesis schedule L hydronephrosis, obstructive uropathy bowel wall thickning, C.diff + (tox negative) cont cefepime,change to q 8 cont IV vancomycin add oral vanco, IV Flagyl consult urologist
[2017-12-20 06:51] LABS: Albumin 1.1 g/dL (3.4-5.0); Anion Gap 13 meq/L (5-15); Aspartate Aminotransferase 21 U/L (15-37); Blood Urea Nitrogen 23 mg/dL (7-18); Calcium 7.7 mg/dL (8.5-10.1); Carbon Dioxide 19.2 meq/L (21.0-32.0); Chloride 102 meq/L (98-107); Glomerular Filtration Rate Greater Than 89 mL/min (>89); Glucose,Random 72 mg/dL (74-106); Potassium 3.3 meq/L (3.5-5.1); Sodium 134 meq/L (136-145)
[2017-12-20 06:53] LABS: Alanine Aminotransferase 25 U/L (10-53); Alkaline Phosphatase 244 U/L (45-117); Total Protein 4.6 g/dL (6.4-8.2)
--- NOTE | 2017-12-20 07:56 | P.PN ---
Subjective Interval history: no new c/o, able to sleep some last night, cough persists, adequate pain control , presently no n/v Physical Exam Vital signs: Vital Signs 12/19/17 08:00 12/19/17 11:26 12/19/17 11:58 Temperature 97.8 F 97.9 F Pulse Rate 108 H 79 107 H Respiratory Rate 20 16 20 Blood Pressure 125/89 116/81 Pulse Oximetry 100 99 12/19/17 12:00 12/19/17 14:39 12/19/17 16:00 Temperature 98.0 F Pulse Rate 109 H 107 H 107 H Respiratory Rate 20 Blood Pressure 111/79 Pulse Oximetry 100 12/19/17 16:18 12/19/17 19:20 12/19/17 20:02 Temperature 97.7 F Pulse Rate 104 H 111 H 105 H Respiratory Rate 16 18 Blood Pressure 114/82 Pulse Oximetry 99 12/19/17 21:36 12/20/17 00:06 12/20/17 00:14 Temperature 97.8 F Pulse Rate 103 H 112 H 113 H Respiratory Rate 18 20 Blood Pressure 135/82 Pulse Oximetry 99 12/20/17 03:59 12/20/17 04:00 12/20/17 05:01 Temperature 98 F Pulse Rate 106 H 116 H 98 H Respiratory Rate 20 18 Blood Pressure 124/93 H Pulse Oximetry 96 Intake & Output 12/19/17 12/20/17 12/20/17 18:59 06:59 18:59 Intake Total 597.5 / 597.5 597.5 / 597.5 Output Total 150 / 150 Balance 597.5 / 597.5 447.5 / 447.5 Intake: IV 357.5 / 357.5 357.5 / 357.5 Maxipime Inj 2,000 MG In NS Inj 100 / 100 100 / 100 100 ML @ 200 mls/hr IV.SIG Q12H [facility] Rx#:[id number] Vancomycin Inj 750 MG In NS Inj 257.5 / 257.5 257.5 / 257.5 250 ML @ 250 mls/hr IV.SIG Q12H [facility] Rx#:[id number] Oral 240 / 240 240 / 240 Output: Urine 150 / 150 Other: # Voids 3 Date of Last Bowel Movement 12/18/17 12/19/17 # Bowel Movements 1 - Constitutional no acute distress - Routine HEENT Exam Head: Present: normocephalic Eye: Present: EOMI - Routine Respiratory Exam Present: decreased breath sounds (at bases), rales - Routine Abdominal Exam Present: distended (ascites, tumor, non-acute) - Routine Neurological Exam Present: alert, oriented X3 - Detailed Neurological Exam: Coma Scale Eye Opening: Spontaneous - Routine Psychiatric Exam Present: normal affect Results - Labs CBC & Chem 7: 12/20/17 05:25 12/20/17 05:25 Laboratory Results - last 24 hr 12/19/17 12/19/17 12/19/17 04:00 08:30 11:28 WBC RBC Hgb 10.6 L Hct 30.6 L MCV MCH MCHC RDW Plt Count MPV Prelim Diff (Auto) Neut % (Auto) Lymph % (Auto) [place] % (Auto) Eos % (Auto) Baso % (Auto) Neut # (Auto) Lymph # (Auto) [place] # (Auto) Eos # (Auto) Baso # (Auto) WBC Differential Manual diff final Seg Neuts % (Manual) 20 Lymphocytes % (Manual) 60 H Monocytes % (Manual) 20 H Abs Neuts (Manual) 0.1 L* Differential Comment Toxic Vacuolation Present H Platelet Estimate Low L Platelet Morphology Normal Sodium Potassium Chloride Carbon Dioxide Anion Gap BUN Creatinine Estimated GFR POC Glucose 74 Random Glucose Calcium Total Bilirubin AST ALT Alkaline Phosphatase Total Protein Albumin Stl C.difficile DNA Amp St C. diff Tox Epid 027 12/19/17 12/19/17 12/19/17 14:38 17:23 17:33 WBC 0.3 L RBC 3.16 L Hgb 9.4 L Hct 26.3 L MCV 83.4 MCH 29.7 MCHC 35.6 RDW 19.4 H Plt Count 26 L D MPV 11.1 H Prelim Diff (Auto) Slide review pending Neut % (Auto) 10.6 L Lymph % (Auto) 33.3 [place] % (Auto) 49.0 H Eos % (Auto) 7.1 H Baso % (Auto) 0.0 Neut # (Auto) 0.0 L* Lymph # (Auto) 0.1 L [place] # (Auto) 0.2 Eos # (Auto) 0.0 Baso # (Auto) 0.0 WBC Differential Manual diff final Seg Neuts % (Manual) 24 Lymphocytes % (Manual) 40 Monocytes % (Manual) 36 H Abs Neuts (Manual) 0.1 L* Differential Comment . Toxic Vacuolation Platelet Estimate Low L Platelet Morphology Enlarged H Sodium Potassium Chloride Carbon Dioxide Anion Gap BUN Creatinine Estimated GFR POC Glucose 83 Random Glucose Calcium Total Bilirubin AST ALT Alkaline Phosphatase Total Protein Albumin Stl C.difficile DNA Amp Positive H St C. diff Tox Epid 027 Negative 12/20/17 12/20/17 05:25 05:25 WBC 1.5 L D RBC 3.38 L Hgb 10.0 L Hct 28.4 L MCV 84.0 MCH 29.5 MCHC 35.1 RDW 19.5 H Plt Count 16 L* D MPV 10.9 Prelim Diff (Auto) Slide review pending Neut % (Auto) 40.8 Lymph % (Auto) 9.8 [place] % (Auto) 48.8 H Eos % (Auto) 0.6 Baso % (Auto) 0.0 Neut # (Auto) 0.6 L Lymph # (Auto) 0.1 L [place] # (Auto) 0.7 Eos # (Auto) 0.0 Baso # (Auto) 0.0 WBC Differential Seg Neuts % (Manual) Lymphocytes % (Manual) Monocytes % (Manual) Abs Neuts (Manual) Differential Comment . Toxic Vacuolation Platelet Estimate Platelet Morphology Sodium 134 L Potassium 3.3 L Chloride 102 Carbon Dioxide 19.2 L Anion Gap 13 BUN 23 H Creatinine 0.42 L Estimated GFR Greater than 89 POC Glucose Random Glucose 72 L Calcium 7.7 L Total Bilirubin 0.8 AST 21 ALT 25 Alkaline Phosphatase 244 H Total Protein 4.6 L Albumin 1.1 L Stl C.difficile DNA Amp St C. diff Tox Epid 027 Microbiology 12/19/17 17:33 Stool Stool Occult Blood (AYSHA) - Final Hemoccult positive 12/18/17 10:55 Blood - Peripheral Aerobic Blood Culture - Preliminary Streptococcus species Pseudomonas aeruginosa 12/18/17 10:55 Blood - Peripheral Anaerobic Blood Culture - Preliminary gram positive cocci 12/18/17 10:55 Blood - Peripheral Aerobic Blood Culture - Preliminary gram positive cocci gram negative rods 12/18/17 10:55 Blood - Peripheral Anaerobic Blood Culture - Preliminary gram positive cocci Assessment and Plan - Plan Neutropenia shows incremental improvement anemia improved s/p transfusion platelets < 20k, consider transfusion Antibiotic coverage modified by ID urology consulted palliative care consulted continue present management, supportive care
[2017-12-20 08:03] LABS: Lymphocytes 7 % (9-44); Metamyelocytes 3 % (0-1); Monocytes 12 % (0-8); Myelocytes 3 % (0-0)
[2017-12-20 08:05] LABS: Target Cells 1+; Toxic Granulation 2+
[2017-12-20] MEDS: Loratadine 10 MG Tablet PO SCH (08:30)
[2017-12-20] MEDS: Sodium Chloride 0.9% 2 ML Flush BID IV.FLUSH SCH ×2 (08:30→21:23)
[2017-12-20] MEDS ORDERED: Sodium Chlor 0.9% Inj 250 ML IV.SIG SCH (09:00)
[2017-12-20] MEDS ORDERED: Pharmacy Ordered Lab Info OTHER ONE (09:45)
--- NOTE | 2017-12-20 11:33 | P.PNFP ---
Subjective Interval history: Patient states she feels very run down and fatigued. Cannot tell if she feels less short of breath today but her chest hurts when she coughs. Abdomen feels tight and distended. Does not report any other new problems. <Emily Schmidt Antony - 12/20/17 11:33> Results - Labs Result diagrams: 12/20/17 12:34 12/20/17 05:25 <Simone Tolentino - 12/20/17 14:39> Abnormal lab results 12/18/17 12/19/17 12/19/17 Range/Units 12:05 14:38 17:33 WBC 0.3 L (4.0-11.0) th/mm3 RBC 3.16 L (4.00-5.30) mil/mm3 Hgb 9.4 L (11.6-15.3) gm/dL Hct 26.3 L (35.0-46.0) % RDW 19.4 H (11.6-17.2) % Plt Count 26 L D (150-450) th/mm3 MPV 11.1 H (7.0-11.0) fL Neut % (Auto) 10.6 L (16.0-70.0) % Fergus % (Auto) 49.0 H (0.0-8.0) % Eos % (Auto) 7.1 H (0.0-4.0) % Neut # (Auto) 0.0 L* (1.8-7.7) th/mm3 Lymph # (Auto) 0.1 L (1.0-4.8) th/mm3 Band Neuts % (Manual) (0-6) % Lymphocytes % (Manual) (9-44) % Monocytes % (Manual) 36 H (0-8) % Metamyelocytes % (Man) (0-1) % Myelocytes % (Man) (0-0) % Promyelocytes % (Man) (0-0) % Blast Cells % (Manual) (0-0) % Abs Neuts (Manual) 0.1 L* (1.8-7.7) th/mm3 Toxic Granulation (None) Toxic Vacuolation (None) Platelet Estimate Low L (Normal) Platelet Morphology Enlarged H (Normal) Dimorphic RBCs (None) Target Cells (None) Sodium (136-145) meq/L Potassium (3.5-5.1) meq/L Carbon Dioxide (21.0-32.0) meq/L BUN (7-18) mg/dL Creatinine (0.50-1.00) mg/dL Random Glucose (74-106) mg/dL Calcium (8.5-10.1) mg/dL Alkaline Phosphatase (45-117) U/L Total Protein (6.4-8.2) g/dL Albumin (3.4-5.0) g/dL Stool C.difficile Ag Positive H (Negative) Stl C.difficile DNA Amp Positive H (Negative) Vancomycin Trough (5.0-10.0) mcg/mL MTS Gel Crossmatch See Detail 12/20/17 12/20/17 12/20/17 Range/Units 05:25 05:25 12:34 WBC 1.5 L D (4.0-11.0) th/mm3 RBC 3.38 L (4.00-5.30) mil/mm3 Hgb 10.0 L (11.6-15.3) gm/dL Hct 28.4 L (35.0-46.0) % RDW 19.5 H (11.6-17.2) % Plt Count 16 L* D (150-450) th/mm3 MPV (7.0-11.0) fL Neut % (Auto) (16.0-70.0) % Fergus % (Auto) 48.8 H (0.0-8.0) % Eos % (Auto) (0.0-4.0) % Neut # (Auto) 0.6 L (1.8-7.7) th/mm3 Lymph # (Auto) 0.1 L (1.0-4.8) th/mm3 Band Neuts % (Manual) 28 H (0-6) % Lymphocytes % (Manual) 7 L (9-44) % Monocytes % (Manual) 12 H (0-8) % Metamyelocytes % (Man) 3 H (0-1) % Myelocytes % (Man) 3 H (0-0) % Promyelocytes % (Man) (0-0) % Blast Cells % (Manual) (0-0) % Abs Neuts (Manual) 1.2 L (1.8-7.7) th/mm3 Toxic Granulation 2+ H (None) Toxic Vacuolation (None) Platelet Estimate Low L (Normal) Platelet Morphology Enlarged H (Normal) Dimorphic RBCs (None) Target Cells 1+ H (None) Sodium 134 L (136-145) meq/L Potassium 3.3 L (3.5-5.1) meq/L Carbon Dioxide 19.2 L (21.0-32.0) meq/L BUN 23 H (7-18) mg/dL Creatinine 0.42 L (0.50-1.00) mg/dL Random Glucose 72 L (74-106) mg/dL Calcium 7.7 L (8.5-10.1) mg/dL Alkaline Phosphatase 244 H (45-117) U/L Total Protein 4.6 L (6.4-8.2) g/dL Albumin 1.1 L (3.4-5.0) g/dL Stool C.difficile Ag (Negative) Stl C.difficile DNA Amp (Negative) Vancomycin Trough 12.6 H (5.0-10.0) mcg/mL MTS Gel Crossmatch 12/20/17 Range/Units 12:34 WBC 3.2 L D (4.0-11.0) th/mm3 RBC 3.09 L (4.00-5.30) mil/mm3 Hgb 8.9 L (11.6-15.3) gm/dL Hct 26.3 L (35.0-46.0) % RDW 19.0 H (11.6-17.2) % Plt Count 51 L D (150-450) th/mm3 MPV (7.0-11.0) fL Neut % (Auto) (16.0-70.0) % Fergus % (Auto) (0.0-8.0) % Eos % (Auto) (0.0-4.0) % Neut # (Auto) (1.8-7.7) th/mm3 Lymph # (Auto) (1.0-4.8) th/mm3 Band Neuts % (Manual) 37 H (0-6) % Lymphocytes % (Manual) 8 L (9-44) % Monocytes % (Manual) 12 H (0-8) % Metamyelocytes % (Man) 3 H (0-1) % Myelocytes % (Man) 9 H (0-0) % Promyelocytes % (Man) 1 H (0-0) % Blast Cells % (Manual) 2 H (0-0) % Abs Neuts (Manual) (1.8-7.7) th/mm3 Toxic Granulation 2+ H (None) Toxic Vacuolation Present H (None) Platelet Estimate Low L (Normal) Platelet Morphology Enlarged H (Normal) Dimorphic RBCs Present H (None) Target Cells (None) Sodium (136-145) meq/L Potassium (3.5-5.1) meq/L Carbon Dioxide (21.0-32.0) meq/L BUN (7-18) mg/dL Creatinine (0.50-1.00) mg/dL Random Glucose (74-106) mg/dL Calcium (8.5-10.1) mg/dL Alkaline Phosphatase (45-117) U/L Total Protein (6.4-8.2) g/dL Albumin (3.4-5.0) g/dL Stool C.difficile Ag (Negative) Stl C.difficile DNA Amp (Negative) Vancomycin Trough (5.0-10.0) mcg/mL MTS Gel Crossmatch Short CBC 12/19/17 12/20/17 12/20/17 Range/Units 14:38 05:25 12:34 WBC 0.3 L 1.5 L D 3.2 L D (4.0-11.0) th/mm3 Hgb 9.4 L 10.0 L 8.9 L (11.6-15.3) gm/dL Hct 26.3 L 28.4 L 26.3 L (35.0-46.0) % Plt Count 26 L D 16 L* D 51 L D (150-450) th/mm3 BMP 12/20/17 05:25 Sodium 134 L Potassium 3.3 L Chloride 102 Carbon Dioxide 19.2 L BUN 23 H Creatinine 0.42 L Calcium 7.7 L Liver Function 12/20/17 Range/Units 05:25 Total Bilirubin 0.8 (0.2-1.0) mg/dL AST 21 (15-37) U/L ALT 25 (10-53) U/L Alkaline Phosphatase 244 H (45-117) U/L Albumin 1.1 L (3.4-5.0) g/dL <Simone Tolentino - 12/20/17 14:39> Abnormal lab results 12/18/17 12/19/17 12/19/17 Range/Units 12:05 11:28 14:38 WBC 0.3 L (4.0-11.0) th/mm3 RBC 3.16 L (4.00-5.30) mil/mm3 Hgb 10.6 L 9.4 L (11.6-15.3) gm/dL Hct 30.6 L 26.3 L (35.0-46.0) % RDW 19.4 H (11.6-17.2) % Plt Count 26 L D (150-450) th/mm3 MPV 11.1 H (7.0-11.0) fL Neut % (Auto) 10.6 L (16.0-70.0) % Fergus % (Auto) 49.0 H (0.0-8.0) % Eos % (Auto) 7.1 H (0.0-4.0) % Neut # (Auto) 0.0 L* (1.8-7.7) th/mm3 Lymph # (Auto) 0.1 L (1.0-4.8) th/mm3 Band Neuts % (Manual) (0-6) % Lymphocytes % (Manual) (9-44) % Monocytes % (Manual) 36 H (0-8) % Metamyelocytes % (Man) (0-1) % Myelocytes % (Man) (0-0) % Abs Neuts (Manual) 0.1 L* (1.8-7.7) th/mm3 Toxic Granulation (None) Platelet Estimate Low L (Normal) Platelet Morphology Enlarged H (Normal) Target Cells (None) Sodium (136-145) meq/L Potassium (3.5-5.1) meq/L Carbon Dioxide (21.0-32.0) meq/L BUN (7-18) mg/dL Creatinine (0.50-1.00) mg/dL Random Glucose (74-106) mg/dL Calcium (8.5-10.1) mg/dL Alkaline Phosphatase (45-117) U/L Total Protein (6.4-8.2) g/dL Albumin (3.4-5.0) g/dL Stool C.difficile Ag (Negative) Stl C.difficile DNA Amp (Negative) MTS Gel Crossmatch See Detail 10/25/18 10/26/18 10/26/18 Range/Units 17:33 05:25 05:25 WBC 1.5 L D (4.0-11.0) th/mm3 RBC 3.38 L (4.00-5.30) mil/mm3 Hgb 10.0 L (11.6-15.3) gm/dL Hct 28.4 L (35.0-46.0) % RDW 19.5 H (11.6-17.2) % Plt Count 16 L* D (150-450) th/mm3 MPV (7.0-11.0) fL Neut % (Auto) (16.0-70.0) % Fergus % (Auto) 48.8 H (0.0-8.0) % Eos % (Auto) (0.0-4.0) % Neut # (Auto) 0.6 L (1.8-7.7) th/mm3 Lymph # (Auto) 0.1 L (1.0-4.8) th/mm3 Band Neuts % (Manual) 28 H (0-6) % Lymphocytes % (Manual) 7 L (9-44) % Monocytes % (Manual) 12 H (0-8) % Metamyelocytes % (Man) 3 H (0-1) % Myelocytes % (Man) 3 H (0-0) % Abs Neuts (Manual) 1.2 L (1.8-7.7) th/mm3 Toxic Granulation 2+ H (None) Platelet Estimate Low L (Normal) Platelet Morphology Enlarged H (Normal) Target Cells 1+ H (None) Sodium 134 L (136-145) meq/L Potassium 3.3 L (3.5-5.1) meq/L Carbon Dioxide 19.2 L (21.0-32.0) meq/L BUN 23 H (7-18) mg/dL Creatinine 0.42 L (0.50-1.00) mg/dL Random Glucose 72 L (74-106) mg/dL Calcium 7.7 L (8.5-10.1) mg/dL Alkaline Phosphatase 244 H (45-117) U/L Total Protein 4.6 L (6.4-8.2) g/dL Albumin 1.1 L (3.4-5.0) g/dL Stool C.difficile Ag Positive H (Negative) Stl C.difficile DNA Amp Positive H (Negative) MTS Gel Crossmatch Short CBC 12/19/17 12/19/17 12/20/17 Range/Units 11:28 14:38 05:25 WBC 0.3 L 1.5 L D (4.0-11.0) th/mm3 Hgb 10.6 L 9.4 L 10.0 L (11.6-15.3) gm/dL Hct 30.6 L 26.3 L 28.4 L (35.0-46.0) % Plt Count 26 L D 16 L* D (150-450) th/mm3 BMP 12/20/17 05:25 Sodium 134 L Potassium 3.3 L Chloride 102 Carbon Dioxide 19.2 L BUN 23 H Creatinine 0.42 L Calcium 7.7 L Liver Function 12/20/17 Range/Units 05:25 Total Bilirubin 0.8 (0.2-1.0) mg/dL AST 21 (15-37) U/L ALT 25 (10-53) U/L Alkaline Phosphatase 244 H (45-117) U/L Albumin 1.1 L (3.4-5.0) g/dL <Emily Schmidt N - 12/20/17 11:33> Physical Exam Vital signs: Vital Signs 12/19/17 14:39 12/19/17 16:00 12/19/17 16:18 Temperature 98.0 F Pulse Rate 107 H 107 H 104 H Respiratory Rate 20 16 Blood Pressure 111/79 Pulse Oximetry 100 12/19/17 19:20 12/19/17 20:02 12/19/17 21:36 Temperature 97.7 F Pulse Rate 111 H 105 H 103 H Respiratory Rate 18 18 Blood Pressure 114/82 Pulse Oximetry 99 12/20/17 00:06 12/20/17 00:14 12/20/17 03:59 Temperature 97.8 F Pulse Rate 112 H 113 H 106 H Respiratory Rate 20 Blood Pressure 135/82 Pulse Oximetry 99 12/20/17 04:00 12/20/17 05:01 12/20/17 08:00 Temperature 98 F Pulse Rate 116 H 98 H 113 H Respiratory Rate 20 18 Blood Pressure 124/93 H Pulse Oximetry 96 12/20/17 08:25 12/20/17 09:00 12/20/17 09:40 Temperature 97.5 F L 97.7 F Pulse Rate 108 H 107 H Respiratory Rate 20 20 Blood Pressure 117/82 131/101 H Pulse Oximetry 99 99 98 12/20/17 09:58 12/20/17 11:06 12/20/17 12:33 Temperature 97.8 F 97.8 F Pulse Rate 108 H 113 H Respiratory Rate 18 Blood Pressure 138/90 Pulse Oximetry 99 12/20/17 13:00 Temperature Pulse Rate Respiratory Rate Blood Pressure Pulse Oximetry 99 Intake & Output 12/19/17 12/20/17 12/20/17 18:59 06:59 18:59 Intake Total 597.5 / 597.5 597.5 / 597.5 723.5 / 723.5 Output Total 150 / 150 Balance 597.5 / 597.5 447.5 / 447.5 723.5 / 723.5 Intake: IV 357.5 / 357.5 357.5 / 357.5 457.5 / 457.5 Maxipime Inj 2,000 MG In NS Inj 100 / 100 100 / 100 100 / 100 100 ML @ 200 mls/hr IV.SIG Q8H [facility] Rx#:[id number] Vancomycin Inj 750 MG In NS Inj 257.5 / 257.5 257.5 / 257.5 257.5 / 257.5 250 ML @ 250 mls/hr IV.SIG Q12H [facility] Rx#:[id number] Flagyl 500 MG Inj 100 ML @ 100 100 / 100 mls/hr IV.SIG Q8H [facility] Rx#: [id number] Oral 240 / 240 240 / 240 Intake (Blood Product) Amt 266 / 266 Plt Pheresis B Leukored/ Irr 266 / 266 Unit [id number] Output: Urine 150 / 150 Other: # Voids 3 Date of Last Bowel Movement 12/18/17 12/19/17 12/18/17 # Bowel Movements 1 <Simone Tolentino - 12/20/17 14:39> Vital Signs 12/19/17 11:26 12/19/17 11:58 12/19/17 12:00 Temperature 97.9 F Pulse Rate 79 107 H 109 H Respiratory Rate 16 20 Blood Pressure 116/81 Pulse Oximetry 99 12/19/17 14:39 12/19/17 16:00 12/19/17 16:18 Temperature 98.0 F Pulse Rate 107 H 107 H 104 H Respiratory Rate 20 16 Blood Pressure 111/79 Pulse Oximetry 100 12/19/17 19:20 12/19/17 20:02 12/19/17 21:36 Temperature 97.7 F Pulse Rate 111 H 105 H 103 H Respiratory Rate 18 18 Blood Pressure 114/82 Pulse Oximetry 99 12/20/17 00:06 12/20/17 00:14 12/20/17 03:59 Temperature 97.8 F Pulse Rate 112 H 113 H 106 H Respiratory Rate 20 Blood Pressure 135/82 Pulse Oximetry 99 12/20/17 04:00 12/20/17 05:01 12/20/17 08:00 Temperature 98 F Pulse Rate 116 H 98 H 113 H Respiratory Rate 20 18 Blood Pressure 124/93 H Pulse Oximetry 96 12/20/17 08:25 12/20/17 09:00 12/20/17 09:40 Temperature 97.5 F L 97.7 F Pulse Rate 108 H 107 H Respiratory Rate 20 20 Blood Pressure 117/82 131/101 H Pulse Oximetry 99 99 98 12/20/17 11:06 Temperature Pulse Rate 108 H Respiratory Rate Blood Pressure Pulse Oximetry Intake & Output 12/19/17 12/20/17 12/20/17 18:59 06:59 18:59 Intake Total 597.5 / 597.5 597.5 / 597.5 200 / 200 Output Total 150 / 150 Balance 597.5 / 597.5 447.5 / 447.5 200 / 200 Intake: IV 357.5 / 357.5 357.5 / 357.5 200 / 200 Maxipime Inj 2,000 MG In NS Inj 100 / 100 100 / 100 100 / 100 100 ML @ 200 mls/hr IV.SIG Q8H [facility] Rx#:[id number] Vancomycin Inj 750 MG In NS Inj 257.5 / 257.5 257.5 / 257.5 250 ML @ 250 mls/hr IV.SIG Q12H [facility] Rx#:[id number] Flagyl 500 MG Inj 100 ML @ 100 100 / 100 mls/hr IV.SIG Q8H [facility] Rx#: [id number] Oral 240 / 240 240 / 240 Intake (Blood Product) Amt 0 / 0 Plt Pheresis B Leukored/ Irr 0 / 0 Unit [id number] Output: Urine 150 / 150 Other: # Voids 3 Date of Last Bowel Movement 12/18/17 12/19/17 12/18/17 # Bowel Movements 1 <Emily Schmidt N - 12/20/17 11:33> Narrative: General: Pale, cachectic female sitting in no obvious distress. Non-productive cough. Cardiovascular: Tachycardic with regular rhythm without murmur Pulmonary: CTAB Abdomen: distended Skin: No obvious defect or deformity. Port at right upper chest, no signs of infection. <Emily Schmidt N - 12/20/17 11:33> Assessment and Plan - Assessment (1) Cough Code(s): R05 - Cough Status: Acute (2) Pancytopenia due to chemotherapy Code(s): D61.810 - Antineoplastic chemotherapy induced pancytopenia Status: Acute (3) C. difficile diarrhea Code(s): A04.72 - Enterocolitis due to Clostridium difficile, not specified as recurrent Status: Acute (4) Ascites Code(s): R18.8 - Other ascites Status: Acute (5) Hydronephrosis, left Code(s): N13.30 - Unspecified hydronephrosis Status: Acute (6) Protein-calorie malnutrition Code(s): E46 - Unspecified protein-calorie malnutrition Status: Acute (7) Ovarian cancer Code(s): C56.9 - Malignant neoplasm of unspecified ovary Status: Acute <Lisa Tolentinoy - 12/20/17 14:39> (1) Cough Code(s): R05 - Cough Status: Acute Plan: Improved May be 2/2 to fluid overload due to ascites Con't Duonebs Q6H scheduled and Acapella Monitor clinically (2) Pancytopenia due to chemotherapy Code(s): D61.810 - Antineoplastic chemotherapy induced pancytopenia Status: Acute Plan: S/p 2 units PRBCs on 12/18, Hgb level improved to 9.3 S/p Vanc, cefepime 2 days Blood cx growing Strep viridans, Staph coag negative, and pseudomonas. ID was consulted. Flagyl and oral vanc were added 12/20 Neutropenic precautions Platelets low this AM from yesterday. Receiving plt transfusion today Plan to consult IR for paracentesis, discussed w/Dr. Jimenez On Neupogen 300 daily Oncology following Continue to follow ID recs (3) C. difficile diarrhea Code(s): A04.72 - Enterocolitis due to Clostridium difficile, not specified as recurrent Status: Acute Plan: Bowel thickening on CT abd C diff +, toxin negative. Due to lack of immunity, receiving treatment to cover Encourage maintaining hydration (4) Ascites Code(s): R18.8 - Other ascites Status: Acute Plan: Indicated based on clinical assessment If indicated, will need paracentesis after plt transfusion DC fluids today, may resume after procedure (5) Hydronephrosis, left Code(s): N13.30 - Unspecified hydronephrosis Status: Acute Plan: Per CT imaging, associated w/obstructive uropathy Urology consulted (6) Protein-calorie malnutrition Code(s): E46 - Unspecified protein-calorie malnutrition Status: Acute Plan: Dietary consulted: For TPN recommend, Clinimix E 5/20 @ 50 mL/hr and 20% lipids @ 31.25 mL/hr over 8hrs daily Dietary will continue to follow TG level ordered for tomorrow AM based on recs (7) Ovarian cancer Code(s): C56.9 - Malignant neoplasm of unspecified ovary Status: Acute Plan: Oncology consulted, appreciate recs Palliative consulted: patient wishes to proceed w/aggressive treatment, but unsure whether to con't chemo <Emily Schmidt - 12/20/17 11:13> - Assessment and Plan DISPO: pending con't treatment FEN/PPX F: None for now E: Monitor. N: Liquid diet with TPN per dietary DVT: SCDs only Code status: DNR <Emily Schmidt - 12/20/17 11:33> - Attending Attestation Patient case discussed with resident physicians I have independently examined the patient I have read the above note and agree with the assessment and plan as discussed with me I was involved in all medical decision making for this patient Simone Tolentino MD <Simone Tolentino - 12/20/17 14:39>
[2017-12-20] MEDS ORDERED: Potassium Chloride 25 MEQ Effervescent Tablet PO ONE (12:00)
--- NOTE | 2017-12-20 12:04 | P.PNPAL ---
Reason for Visit Reason for visit: a. To assist with evaluation and management of symptoms including:pain, diarrhea, debility b. To assist medical decision maker(s) with: better understanding of current medical conditions; weighing benefits/burdens of medical treatment options; making medical treatment decisions. Subjective Subjective/Interval History: Ms. Velasquez is a 67-year-old female who presented to [place] emergency room on with complaints of overall fatigue, generalized weakness, and diarrhea. 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 It is of note that the initiation of chemotherapy the patient essentially had no objective or subjective response. She did obtain a second opinion consultation through [facility]. Treatment modalities were changed and she recently just completed her second cycle last Saturday. She also undergoes weekly paracentesis, last one being of last week where by report 5 L of ascitic fluid were removed. She is found to be extremely anemic and the decision was made to admit the patient for further evaluation and treatment. Dr. Jimenez (oncologist) was consulted as he is known to the patient. CT findings overall suggestive of increased tumor burden from prior studies. Per his discussion with the patient he feels there is a strong possibility that this is not ovarian cancer given its poor response to any targeted chemotherapy. He feels it is possible this may be an atypical presentation for pancreatic or gallbladder cancer. Even if this is the case patient is currently receiving most often used regimen. Dr. Jimenez felt at this time it would be appropriate to discuss hospice. 12/20/17 Palliative care to continue follow-up of symptom management and goals of medical care. Patient feels more "run down" today. Not sleeping well which she attributes to hospital environment. Urology consult was placed for obstructive uropathy. Belly slightly more distended and firm today. Plans for palliative paracentesis hopefully today with IR. Was transfused 1 pack of platelets in anticipation of this. Blood cultures from 12/18+ for Pseudomonas and viridans, stool from 12/18 Hemoccult positive as well as C. difficile antigen +/toxin -. Patient continues with wet sounding cough though denies any sputum production. She does state that it started to hurt to cough she feels slightly more short of breath. She is losing her voice as well. She states she is still considering her options regarding chemotherapy. She does understand that her functional status at this time would not allow her to continue. Today's clinical data revealed: * WBC 1.5, Hgb 10.0, HCT 28.4, platelets 16, ANC 1.2 * NA 134, K+ 3.3, CL 102, CO2 19.2, BUN 23, creatinine 0.42, glucose 72, CA 7.7 , albumin 1.1 Advance Directives Living Will: Completed, but not made available Documented care wishes:: The patient states she has a documented power of senior attorney and will have her family bring in a copy for our records here Significant change in goals:: At this point there are no significant changes in goals of care. She still is unsure if she would like to continue with chemotherapy. She understands that her functional status is not cohesive with continuing chemotherapy at this time. She would like to think about it over the weekend and discuss with her family. Objective Vital Signs: Vital Signs 12/19/17 12:00 12/19/17 14:39 12/19/17 16:00 Temperature 98.0 F Pulse Rate 109 H 107 H 107 H Respiratory Rate 20 Blood Pressure 111/79 Pulse Oximetry 100 12/19/17 16:18 12/19/17 19:20 12/19/17 20:02 Temperature 97.7 F Pulse Rate 104 H 111 H 105 H Respiratory Rate 16 18 Blood Pressure 114/82 Pulse Oximetry 99 12/19/17 21:36 12/20/17 00:06 12/20/17 00:14 Temperature 97.8 F Pulse Rate 103 H 112 H 113 H Respiratory Rate 18 20 Blood Pressure 135/82 Pulse Oximetry 99 12/20/17 03:59 12/20/17 04:00 12/20/17 05:01 Temperature 98 F Pulse Rate 106 H 116 H 98 H Respiratory Rate 20 18 Blood Pressure 124/93 H Pulse Oximetry 96 12/20/17 08:00 12/20/17 08:25 12/20/17 09:00 Temperature 97.5 F L Pulse Rate 113 H 108 H Respiratory Rate 20 Blood Pressure 117/82 Pulse Oximetry 99 99 12/20/17 09:40 12/20/17 11:06 Temperature 97.7 F Pulse Rate 107 H 108 H Respiratory Rate 20 Blood Pressure 131/101 H Pulse Oximetry 98 Intake & Output 12/19/17 12/20/17 12/20/17 18:59 06:59 18:59 Intake Total 597.5 / 597.5 597.5 / 597.5 200 / 200 Output Total 150 / 150 Balance 597.5 / 597.5 447.5 / 447.5 200 / 200 Intake: IV 357.5 / 357.5 357.5 / 357.5 200 / 200 Maxipime Inj 2,000 MG In NS Inj 100 / 100 100 / 100 100 / 100 100 ML @ 200 mls/hr IV.SIG Q8H [facility] Rx#:[id number] Vancomycin Inj 750 MG In NS Inj 257.5 / 257.5 257.5 / 257.5 250 ML @ 250 mls/hr IV.SIG Q12H [facility] Rx#:[id number] Flagyl 500 MG Inj 100 ML @ 100 100 / 100 mls/hr IV.SIG Q8H [facility]INE Rx#: [id number] Oral 240 / 240 240 / 240 Intake (Blood Product) Amt 0 / 0 Plt Pheresis B Leukored/ Irr 0 / 0 Unit [id number] Output: Urine 150 / 150 Other: # Voids 3 Date of Last Bowel Movement 12/18/17 12/19/17 12/18/17 # Bowel Movements 1 Physical Exam: CONSTITUTIONAL/GENERAL: Cachectic with temporal wasting. TUBES/LINES/DRAINS: Right chest wall port SKIN: No jaundice, rashes, or lesions. No wounds seen anteriorly. Skin temperature appropriate. Not diaphoretic. EYES: Pupils equal and round and reactive. Extraocular motions intact. No scleral icterus. No injection or drainage. Fundi not examined. ENT: Hearing grossly normal. Throat without visible erythema, exudates, masses, or lesions. Oral mucosa dry NECK: Trachea midline. Supple, nontender. No palpable thyroid enlargement or nodularity. CARDIOVASCULAR: Regular rate and rhythm without murmurs, gallops, or rubs. No JVD. Peripheral pulses symmetric. RESPIRATORY/CHEST: Symmetric, unlabored respirations. Clear to auscultation. Breath sounds equal bilaterally. Scattered rhonchi heard mostly right middle lobe. Diminished in the bases. Patient has a wet sounding cough, losing voice slight increased work of breathing GASTROINTESTINAL: Abdomen firm and noticeably distended slightly larger today. Tender to palpation and percussion particularly RLQ. Dull to percussion. No guarding. Bowel sounds intermittent. MUSCULOSKELETAL: Extremities without clubbing, cyanosis, or edema. No joint tenderness or effusion noted. No calf tenderness. No mottling or clubbing. NEUROLOGICAL: Awake and alert. Motor and sensory grossly within normal limits. Follows commands. Cognitively sharp. Moves all extremities. PSYCHIATRIC: No obvious anxiety/depression. no apparent hallucinations or other psychotic thought process. Pleasant Diagnostic Tests Laboratory: Laboratory Results - last 72 hr 12/18/17 12/18/17 12/18/17 11:30 11:30 11:30 WBC 0.2 L RBC 1.70 L Hgb 5.4 L* Hct 15.4 L* MCV 90.7 MCH 31.6 MCHC 34.8 RDW 16.5 Plt Count 39 L D MPV 11.0 Prelim Diff (Auto) Manual diff required Neut % (Auto) Lymph % (Auto) [place] % (Auto) Eos % (Auto) Baso % (Auto) Neut # (Auto) Lymph # (Auto) [place] # (Auto) Eos # (Auto) Baso # (Auto) WBC Differential Manual diff final Seg Neuts % (Manual) 30 Band Neuts % (Manual) Lymphocytes % (Manual) 30 Monocytes % (Manual) 40 H Metamyelocytes % (Man) Myelocytes % (Man) Abs Neuts (Manual) 0.1 L* Differential Comment . Toxic Granulation Toxic Vacuolation Platelet Estimate Low L Platelet Morphology Normal Target Cells PT 10.9 INR 1.1 APTT 36.2 H Sodium 130 L Potassium 3.4 L Chloride 99 Carbon Dioxide 21.5 Anion Gap 10 BUN 21 H Creatinine 0.46 L Estimated GFR Greater than 89 POC Glucose Random Glucose 92 Lactic Acid Calcium 7.2 L* Prot Corrected Calcium 8.5 Magnesium 1.9 Total Bilirubin 1.0 AST 65 H ALT 42 Alkaline Phosphatase 367 H Total Protein 4.7 L Albumin 1.2 L Urine Color Urine Clarity Urine pH Ur Specific [place] Urine Protein Urine Glucose (UA) Urine Ketones Urine Occult Blood Urine Nitrate Urine Bilirubin Urine Urobilinogen Ur Leukocyte Esterase Urine RBC Urine WBC Urine Mucus Micro UA Comment Ur Microscopic Review Urine Culture Comments Stool C.difficile Ag Stool C.difficile Toxin Stl C.difficile DNA Amp St C. diff Tox Epid 027 Blood Type Blood Type Recheck Antibody Screen MTS Gel Crossmatch Bld Prod Order Comment 12/18/17 12/18/17 12/18/17 11:30 11:30 12:05 WBC RBC Hgb Hct MCV MCH MCHC RDW Plt Count MPV Prelim Diff (Auto) Neut % (Auto) Lymph % (Auto) [place] % (Auto) Eos % (Auto) Baso % (Auto) Neut # (Auto) Lymph # (Auto) [place] # (Auto) Eos # (Auto) Baso # (Auto) WBC Differential Seg Neuts % (Manual) Band Neuts % (Manual) Lymphocytes % (Manual) Monocytes % (Manual) Metamyelocytes % (Man) Myelocytes % (Man) Abs Neuts (Manual) Differential Comment Toxic Granulation Toxic Vacuolation Platelet Estimate Platelet Morphology Target Cells PT INR APTT Sodium Potassium Chloride Carbon Dioxide Anion Gap BUN Creatinine Estimated GFR POC Glucose Random Glucose Lactic Acid 1.9 Calcium Prot Corrected Calcium Magnesium Total Bilirubin AST ALT Alkaline Phosphatase Total Protein Albumin Urine Color Urine Clarity Urine pH Ur Specific [place] Urine Protein Urine Glucose (UA) Urine Ketones Urine Occult Blood Urine Nitrate Urine Bilirubin Urine Urobilinogen Ur Leukocyte Esterase Urine RBC Urine WBC Urine Mucus Micro UA Comment Ur Microscopic Review Urine Culture Comments Stool C.difficile Ag Stool C.difficile Toxin Stl C.difficile DNA Amp St C. diff Tox Epid 027 Blood Type B Negative Blood Type Recheck Not needed Antibody Screen Negative MTS Gel Crossmatch See Detail Bld Prod Order Comment 12/18/17 12/18/17 12/19/17 22:10 23:15 04:00 WBC 0.3 L RBC 3.19 L Hgb 8.2 L D 9.3 L Hct 23.2 L 27.1 L MCV 85.1 D MCH 29.1 MCHC 34.1 RDW 18.9 H Plt Count 19 L* D MPV 10.1 Prelim Diff (Auto) Manual diff required Neut % (Auto) Lymph % (Auto) [place] % (Auto) Eos % (Auto) Baso % (Auto) Neut # (Auto) Lymph # (Auto) [place] # (Auto) Eos # (Auto) Baso # (Auto) WBC Differential Manual diff final Seg Neuts % (Manual) 20 Band Neuts % (Manual) Lymphocytes % (Manual) 60 H Monocytes % (Manual) 20 H Metamyelocytes % (Man) Myelocytes % (Man) Abs Neuts (Manual) 0.1 L* Differential Comment . Toxic Granulation Toxic Vacuolation Present H Platelet Estimate Low L Platelet Morphology Normal Target Cells PT INR APTT Sodium Potassium Chloride Carbon Dioxide Anion Gap BUN Creatinine Estimated GFR POC Glucose Random Glucose Lactic Acid Calcium Prot Corrected Calcium Magnesium Total Bilirubin AST ALT Alkaline Phosphatase Total Protein Albumin Urine Color [place] Urine Clarity Hazy H Urine pH 6.0 Ur Specific [place] 1.041 H Urine Protein 100 H Urine Glucose (UA) Negative Urine Ketones Negative Urine Occult Blood Moderate H Urine Nitrate Positive H Urine Bilirubin Negative Urine Urobilinogen 2.0 H Ur Leukocyte Esterase Negative Urine RBC 1 Urine WBC 1 Urine Mucus Few H Micro UA Comment Culture not ind Ur Microscopic Review Not Reportable Urine Culture Comments Culture not ind Stool C.difficile Ag Stool C.difficile Toxin Stl C.difficile DNA Amp St C. diff Tox Epid 027 Blood Type Blood Type Recheck Antibody Screen MTS Gel Crossmatch Bld Prod Order Comment 12/19/17 12/19/17 12/19/17 04:00 07:44 08:30 WBC RBC Hgb Hct MCV MCH MCHC RDW Plt Count MPV Prelim Diff (Auto) Neut % (Auto) Lymph % (Auto) [place] % (Auto) Eos % (Auto) Baso % (Auto) Neut # (Auto) Lymph # (Auto) [place] # (Auto) Eos # (Auto) Baso # (Auto) WBC Differential Seg Neuts % (Manual) Band Neuts % (Manual) Lymphocytes % (Manual) Monocytes % (Manual) Metamyelocytes % (Man) Myelocytes % (Man) Abs Neuts (Manual) Differential Comment Toxic Granulation Toxic Vacuolation Platelet Estimate Platelet Morphology Target Cells PT INR APTT Sodium 135 L Potassium 3.1 L Chloride 102 Carbon Dioxide 21.5 Anion Gap 12 BUN 20 H Creatinine 0.42 L Estimated GFR Greater than 89 POC Glucose 61 L 74 Random Glucose 60 L Lactic Acid Calcium 7.2 L* Prot Corrected Calcium 8.6 Magnesium Total Bilirubin 1.2 H AST 46 H ALT 33 Alkaline Phosphatase 291 H Total Protein 4.6 L Albumin 1.1 L Urine Color Urine Clarity Urine pH Ur Specific [place] Urine Protein Urine Glucose (UA) Urine Ketones Urine Occult Blood Urine Nitrate Urine Bilirubin Urine Urobilinogen Ur Leukocyte Esterase Urine RBC Urine WBC Urine Mucus Micro UA Comment Ur Microscopic Review Urine Culture Comments Stool C.difficile Ag Stool C.difficile Toxin Stl C.difficile DNA Amp St C. diff Tox Epid 027 Blood Type Blood Type Recheck Antibody Screen MTS Gel Crossmatch Bld Prod Order Comment 10/12/19/17 12/19/17 11:28 14:38 17:23 WBC 0.3 L RBC 3.16 L Hgb 10.6 L 9.4 L Hct 30.6 L 26.3 L MCV 83.4 MCH 29.7 MCHC 35.6 RDW 19.4 H Plt Count 26 L D MPV 11.1 H Prelim Diff (Auto) Slide review pending Neut % (Auto) 10.6 L Lymph % (Auto) 33.3 [place] % (Auto) 49.0 H Eos % (Auto) 7.1 H Baso % (Auto) 0.0 Neut # (Auto) 0.0 L* Lymph # (Auto) 0.1 L [place] # (Auto) 0.2 Eos # (Auto) 0.0 Baso # (Auto) 0.0 WBC Differential Manual diff final Seg Neuts % (Manual) 24 Band Neuts % (Manual) Lymphocytes % (Manual) 40 Monocytes % (Manual) 36 H Metamyelocytes % (Man) Myelocytes % (Man) Abs Neuts (Manual) 0.1 L* Differential Comment . Toxic Granulation Toxic Vacuolation Platelet Estimate Low L Platelet Morphology Enlarged H Target Cells PT INR APTT Sodium Potassium Chloride Carbon Dioxide Anion Gap BUN Creatinine Estimated GFR POC Glucose 83 Random Glucose Lactic Acid Calcium Prot Corrected Calcium Magnesium Total Bilirubin AST ALT Alkaline Phosphatase Total Protein Albumin Urine Color Urine Clarity Urine pH Ur Specific [place] Urine Protein Urine Glucose (UA) Urine Ketones Urine Occult Blood Urine Nitrate Urine Bilirubin Urine Urobilinogen Ur Leukocyte Esterase Urine RBC Urine WBC Urine Mucus Micro UA Comment Ur Microscopic Review Urine Culture Comments Stool C.difficile Ag Stool C.difficile Toxin Stl C.difficile DNA Amp St C. diff Tox Epid 027 Blood Type Blood Type Recheck Antibody Screen MTS Gel Crossmatch Bld Prod Order Comment 12/19/17 12/20/17 12/20/17 17:33 05:25 05:25 WBC 1.5 L D RBC 3.38 L Hgb 10.0 L Hct 28.4 L MCV 84.0 MCH 29.5 MCHC 35.1 RDW 19.5 H Plt Count 16 L* D MPV 10.9 Prelim Diff (Auto) Slide review pending Neut % (Auto) 40.8 Lymph % (Auto) 9.8 [place] % (Auto) 48.8 H Eos % (Auto) 0.6 Baso % (Auto) 0.0 Neut # (Auto) 0.6 L Lymph # (Auto) 0.1 L [place] # (Auto) 0.7 Eos # (Auto) 0.0 Baso # (Auto) 0.0 WBC Differential Manual diff final Seg Neuts % (Manual) 47 Band Neuts % (Manual) 28 H Lymphocytes % (Manual) 7 L Monocytes % (Manual) 12 H Metamyelocytes % (Man) 3 H Myelocytes % (Man) 3 H Abs Neuts (Manual) 1.2 L Differential Comment . Toxic Granulation 2+ H Toxic Vacuolation Platelet Estimate Low L Platelet Morphology Enlarged H Target Cells 1+ H PT INR APTT Sodium 134 L Potassium 3.3 L Chloride 102 Carbon Dioxide 19.2 L Anion Gap 13 BUN 23 H Creatinine 0.42 L Estimated GFR Greater than 89 POC Glucose Random Glucose 72 L Lactic Acid Calcium 7.7 L Prot Corrected Calcium Magnesium Total Bilirubin 0.8 AST 21 ALT 25 Alkaline Phosphatase 244 H Total Protein 4.6 L Albumin 1.1 L Urine Color Urine Clarity Urine pH Ur Specific [place] Urine Protein Urine Glucose (UA) Urine Ketones Urine Occult Blood Urine Nitrate Urine Bilirubin Urine Urobilinogen Ur Leukocyte Esterase Urine RBC Urine WBC Urine Mucus Micro UA Comment Ur Microscopic Review Urine Culture Comments Stool C.difficile Ag Positive H Stool C.difficile Toxin Negative Stl C.difficile DNA Amp Positive H St C. diff Tox Epid 027 Negative Blood Type Blood Type Recheck Antibody Screen MTS Gel Crossmatch Bld Prod Order Comment 12/20/17 08:23 WBC RBC Hgb Hct MCV MCH MCHC RDW Plt Count MPV Prelim Diff (Auto) Neut % (Auto) Lymph % (Auto) [place] % (Auto) Eos % (Auto) Baso % (Auto) Neut # (Auto) Lymph # (Auto) [place] # (Auto) Eos # (Auto) Baso # (Auto) WBC Differential Seg Neuts % (Manual) Band Neuts % (Manual) Lymphocytes % (Manual) Monocytes % (Manual) Metamyelocytes % (Man) Myelocytes % (Man) Abs Neuts (Manual) Differential Comment Toxic Granulation Toxic Vacuolation Platelet Estimate Platelet Morphology Target Cells PT INR APTT Sodium Potassium Chloride Carbon Dioxide Anion Gap BUN Creatinine Estimated GFR POC Glucose Random Glucose Lactic Acid Calcium Prot Corrected Calcium Magnesium Total Bilirubin AST ALT Alkaline Phosphatase Total Protein Albumin Urine Color Urine Clarity Urine pH Ur Specific [place] Urine Protein Urine Glucose (UA) Urine Ketones Urine Occult Blood Urine Nitrate Urine Bilirubin Urine Urobilinogen Ur Leukocyte Esterase Urine RBC Urine WBC Urine Mucus Micro UA Comment Ur Microscopic Review Urine Culture Comments Stool C.difficile Ag Stool C.difficile Toxin Stl C.difficile DNA Amp St C. diff Tox Epid 027 Blood Type Blood Type Recheck Antibody Screen MTS Gel Crossmatch Bld Prod Order Comment Result Diagrams: 12/20/17 12:34 12/20/17 05:25 Microbiology: Microbiology 12/18/17 10:55 Aerobic Blood Culture - Final Blood - Peripheral Pseudomonas aeruginosa Viridans streptococcus grp Staphylococcus coag negative Anaerobic Blood Culture - Final Viridans streptococcus grp Staphylococcus coag negative 12/18/17 10:55 Aerobic Blood Culture - Preliminary Blood - Peripheral Pseudomonas aeruginosa Viridans streptococcus grp Staphylococcus coag negative Anaerobic Blood Culture - Final Viridans streptococcus grp Staphylococcus coag negative 12/19/17 17:33 Stool Occult Blood (AYSHA) - Final Stool Hemoccult positive Assessment and Plan - Symptom Scale (1) Pain 0-10 Scale: 1 Comment: currently controlled with fentanyl patch 25mcg (2) Protein-calorie malnutrition 0-10 Scale: Unable to quantify Comment: following dietary recommendations for TPN (3) Diarrhea 0-10 Scale: 1 Comment: cdiff+, on oral Vanco. Pt states improving Pertinent Non-Medical Issues: Psychosocial: Patient was born in [place], [place]. In her 20s she worked for the [employer] where she met her . The couple then moved to [place] where she had her 2 children. 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 Spiritual: Bahai Legal: Per [place] statutes in the absence of documented living will, healthcare decision making would fall to the patient's , Aldair Ron should the patient become incapacitated any time. The patient does feel that she has filled out a living will at one point in time will ask family members to bring in a copy Ethical issues impacting care: There are currently no known ethical issues impacting care at this time Important Contacts: Aldair Ron, /HCP [phone] Demi Velasquez , daughter [phone] Prognosis: Given the aggressive nature of her cancer and poor response to chemotherapy in conjunction with her current medical decline. The patient is at high risk for continued morbidity, infection, debility, and eventually . Code Status: No Code DNR Plan: * LEGAL DECISION MAKER -per [place] statutes, in the absence of a documented living will or power of senior attorney healthcare decision would fall to the patient' s Aldair Velasquez should she become incapacitated in time. The patient believes she did fill out a living will at one point and will ask her family to bring a copy. * GOALS - Mrs. Velasquez is currently able to participate in her own healthcare decisions. Her goals up to this point have remained aggressive. She does currently verbalize that she is unsure if she wishes to continue with aggressive chemotherapy given her medical complications. She wants to discuss this further with her and children before deciding whether or not to proceed or to transition to comfort care. She states she would like to continue to think about this over the weekend * CODE STATUS -DNR, the patient states she has a community DNR and will bring in a copy for records * SYMPTOMS: Paincurrently using fentanyl 25 MCG's patch every 72 hours. Verbalizes good pain control with this modality. Did not recommend any current changes should her pain increase can discuss adjusting patch as needed. May also require palliative paracentesis once thrombocytopenia improves. No further recommendations at this time Debilitypatient has severe proteincalorie malnutrition. Currently receiving TPN. Continue with dietary recommendations Loose stoolsmost likely related to chemotherapy. C. difficile positive, started on oral vancomycin 3 times daily. Improving per patient. Appreciate ID input Palliative care will continue to follow during hospital course as condition evolves, to assist patient/decision maker with understanding of medical conditions, weighing benefits/burdens of treatment options, for clarification of goals of treatment. Additionally will assist with any symptoms of palliative concern. Attestation Attestation: To help prompt me to consider important information that might be impacting today's encounter and assessment, information from prior notes written by myself or my colleagues may have been "brought forward" into today's note. My signature on this note, however, is an attestation that I personally performed the exam, history, and/or decision-making noted today, and, unless otherwise indicated, the interactions with patient, family, and staff as well as the review of records all occurred today. I also attest that the listed assessment and stated plan reflect my best clinical judgment today based on the combination of historical information, prior notes, and today's exam/ interactions. When time spent is documented, it refers only to time spent today by the signer, or if indicated, combined time spent today by collaborating physician/nurse practitioner.
[2017-12-20] MEDS: Vancomycin Inj 750 MG in Sodium Chlor 0.9% Inj 250 ML IV.SIG SCH ×2 (12:20→22:47)
--- NOTE | 2017-12-20 12:46 | P.CONURO ---
History of Present Illness Service: Consult date: 12/20/17 Requesting Physician: Evelin Massey Reason for Consult: Left hydronephrosis Primary Care Provider: Deric Benson MD Chief Complaint: Fatigue, Dr. Mckayla History of Present Illness: 67-year-old female with history metastatic ovarian cancer who was recently admitted with anemia. During the course of her present hospitalization a CT scan of the abdomen and pelvis was performed that demonstrated moderate left hydronephrosis. At the time of consultation, the patient appeared very weak and tired. She reports having some pain involving the left flank which was not severe in magnitude. She denied dysuria or hematuria. Review of Systems All other systems reviewed negative except as stated in HPI [facility] - History History Provided By: Patient, Family Member - Medical History Medical History: Medical History (Last Reviewed 12/19/17 @ 09:11 by Lucien Gupta) Ovary cancer - Surgical History Surgical History: Surgical History (Last Reviewed 12/19/17 @ 09:11 by Lucien Gupta) H/O shoulder surgery History of tonsillectomy Hx of appendectomy Hx of section Hx of hernia repair - Family History Family History: Family History (Last Updated 12/19/17 @ 14:53 by DARNELL Alfaro) Other No pertinent family history - Tobacco History Second Hand Smoke Exposure: No Tobacco Use In Past 30 Days: No Smoking Status: Former smoker (1 PPD x 15 years, quit 30 years ago) Tobacco Type: Cigarettes - Alcohol History How Often Do You Have a Drink Containing Alcohol: Never - Substance Use History Substance History: No History of Abuse - Travel History History of Recent Travel: No Recent Travel in the [place] Within the Last 8 Weeks: No Recent Travel Out of the Country Within the Last 8 Weeks: No - Immunization History Tetanus Immunization: Unsure Hx Influenza Vaccine This Season: No Medications and Allergies Active Medications: Active Medications Acetaminophen (Tylenol) 650 mg PO Q4H PRN PRN Reason: Fever or Pain 1 TO 10 Albuterol (Duoneb Neb (Avelino)) 1 ampul NEB Q6HR NEB [facility] Last Admin: 12/20/17 10:28 Dose: Not Given Benzonatate (Tessalon Perles) 100 mg PO Q8H PRN PRN Reason: cough Last Admin: 12/19/17 02:05 Dose: 100 mg Fentanyl (Duragesic 25 Mcg Patch.72hr) 1 patch T-DERMAL Q72H [facility], [facility]1983 Last Admin: 12/18/17 17:14 Dose: Not Given Filgrastim (Neupogen Inj) 300 mcg SQ DAILY@1700 [facility]ELINO Last Admin: 12/19/17 17:24 Dose: 300 mcg Potassium Chloride/Sodium Chloride (Ns + Kcl 40 Meq Inj) 1,000 mls @ 20 mls/hr IV.CONT .Q24H [facility], [facility]1983 Last Admin: 12/19/17 12:31 Dose: 20 mls/hr Vancomycin HCl 750 mg/ Sodium (Chloride) 257.5 mls @ 250 mls/hr IV.SIG Q12H [facility], [facility]1983 Last Admin: 12/20/17 12:20 Dose: 250 mls/hr Cefepime HCl 2,000 mg/ Sodium (Chloride) 100 mls @ 200 mls/hr IV.SIG Q8H [facility], [facility]1983 Last Infusion: 12/20/17 08:51 Dose: Infused Metronidazole/Sodium Chloride (Flagyl 500 Mg Inj) 100 mls @ 100 mls/hr IV.SIG Q8H [facility], [facility]1983 Last Infusion: 12/20/17 10:00 Dose: Infused Sodium Chloride (Ns Inj) 250 mls @ 15 mls/hr IV.SIG ONCE [facility], [facility]1983 Stop: 12/21/17 01:39 Last Admin: 12/20/17 12:19 Dose: Not Given Ibuprofen (Advil) 200 mg PO Q6H PRN PRN Reason: PAIN SCALE 1 TO 10 Last Admin: 12/18/17 21:06 Dose: 200 mg Loratadine (Claritin) 5 mg PO DAILY [facility] Last Admin: 12/20/17 08:30 Dose: 5 mg Miscellaneous (Pill Splitter) 1 each OTHER PRN PRN PRN Reason: SEE LABEL COMMENTS Ondansetron HCl (Zofran Inj) 4 mg IV.PUSH Q6H PRN PRN Reason: NAUSEA OR VOMITING Last Admin: 12/19/17 01:34 Dose: 4 mg Pantoprazole Sodium (Protonix Inj) 40 mg IV.PUSH Q24H [facility] Last Admin: 12/19/17 17:24 Dose: 40 mg Patch Removal (Remove Old Patch) 1 each T-DERMAL Q72H [facility], [facility] Last Admin: 12/18/17 17:14 Dose: Not Given Pharmacy Profile Note (Vancomycin Consult Pharmacy) 1 each OTHER UNSCH PRN PRN Reason: Pharmacy to dose Sodium Chloride (Ns Flush) 2 ml IV.FLUSH BID [facility], [facility] Last Admin: 12/20/17 08:30 Dose: 2 ml Sodium Chloride (Ns Flush) 2 ml IV.FLUSH PRN PRN PRN Reason: FLUSH AFTER USING IV ACCESS Vancomycin HCl (Vancomycin Po) 500 mg PO QID [facility], [facility]1983 Last Admin: 12/20/17 12:20 Dose: 500 mg Allergies Allergy/AdvReac Type Severity Reaction Status Date / Time hydrocodone AdvReac Severe Nausea/Vomi Verified 12/18/17 10:35 ting Home Medications Medication Instructions Recorded Confirmed Type fentanyl 1 patch TRANSDERMAL Q72H 12/18/17 12/18/17 History Physical Exam Vital Signs - 24 hr 12/19/17 14:39 12/19/17 16:00 12/19/17 16:18 Temperature 98.0 F Pulse Rate 107 H 107 H 104 H Respiratory Rate 20 16 Blood Pressure 111/79 Pulse Oximetry 100 12/19/17 19:20 12/19/17 20:02 12/19/17 21:36 Temperature 97.7 F Pulse Rate 111 H 105 H 103 H Respiratory Rate 18 18 Blood Pressure 114/82 Pulse Oximetry 99 12/20/17 00:06 12/20/17 00:14 12/20/17 03:59 Temperature 97.8 F Pulse Rate 112 H 113 H 106 H Respiratory Rate 20 Blood Pressure 135/82 Pulse Oximetry 99 12/20/17 04:00 12/20/17 05:01 12/20/17 08:00 Temperature 98 F Pulse Rate 116 H 98 H 113 H Respiratory Rate 20 18 Blood Pressure 124/93 H Pulse Oximetry 96 12/20/17 08:25 12/20/17 09:00 12/20/17 09:40 Temperature 97.5 F L 97.7 F Pulse Rate 108 H 107 H Respiratory Rate 20 20 Blood Pressure 117/82 131/101 H Pulse Oximetry 99 99 98 12/20/17 09:58 12/20/17 11:06 12/20/17 12:33 Temperature 97.8 F 97.8 F Pulse Rate 108 H 113 H Respiratory Rate 18 Blood Pressure 138/90 Pulse Oximetry 99 Physical Exam: GENERAL: Lying quietly in bed and in no apparent distress. SKIN: No rashes, ecchymoses or lesions. Cool and dry. HEAD: Atraumatic. Normocephalic. No temporal or scalp tenderness. EYES: Pupils equal round and reactive. Extraocular motions intact. No scleral icterus. No injection or drainage. ENT: Nose without bleeding, purulent drainage or septal hematoma. Throat without erythema, tonsillar hypertrophy or exudate. Uvula midline. Airway patent. NECK: Trachea midline. No JVD or lymphadenopathy. Supple, nontender, no meningeal signs. GASTROINTESTINAL: Abdomen soft, non-tender, nondistended. GENITOURINARY: No CVA tenderness, bladder not distended MUSCULOSKELETAL: Extremities without clubbing, cyanosis, or edema. No joint tenderness, effusion, or edema noted. No calf tenderness. Negative Homans sign bilaterally. NEUROLOGICAL: Awake and alert. Cranial nerves II through XII intact. Motor and sensory grossly within normal limits. Laboratory Results - last 24 hr 12/18/17 12/19/17 12/19/17 12:05 14:38 17:23 WBC 0.3 L RBC 3.16 L Hgb 9.4 L Hct 26.3 L MCV 83.4 MCH 29.7 MCHC 35.6 RDW 19.4 H Plt Count 26 L D MPV 11.1 H Prelim Diff (Auto) Slide review pending Neut % (Auto) 10.6 L Lymph % (Auto) 33.3 Bleckley % (Auto) 49.0 H Eos % (Auto) 7.1 H Baso % (Auto) 0.0 Neut # (Auto) 0.0 L* Lymph # (Auto) 0.1 L Bleckley # (Auto) 0.2 Eos # (Auto) 0.0 Baso # (Auto) 0.0 WBC Differential Manual diff final Seg Neuts % (Manual) 24 Band Neuts % (Manual) Lymphocytes % (Manual) 40 Monocytes % (Manual) 36 H Metamyelocytes % (Man) Myelocytes % (Man) Abs Neuts (Manual) 0.1 L* Differential Comment . Toxic Granulation Platelet Estimate Low L Platelet Morphology Enlarged H Target Cells Sodium Potassium Chloride Carbon Dioxide Anion Gap BUN Creatinine Estimated GFR POC Glucose 83 Random Glucose Calcium Total Bilirubin AST ALT Alkaline Phosphatase Total Protein Albumin Stool C.difficile Ag Stool C.difficile Toxin Stl C.difficile DNA Amp St C. diff Tox Epid 027 MTS Gel Crossmatch See Detail Bld Prod Order Comment 12/19/17 12/20/17 12/20/17 17:33 05:25 05:25 WBC 1.5 L D RBC 3.38 L Hgb 10.0 L Hct 28.4 L MCV 84.0 MCH 29.5 MCHC 35.1 RDW 19.5 H Plt Count 16 L* D MPV 10.9 Prelim Diff (Auto) Slide review pending Neut % (Auto) 40.8 Lymph % (Auto) 9.8 Bleckley % (Auto) 48.8 H Eos % (Auto) 0.6 Baso % (Auto) 0.0 Neut # (Auto) 0.6 L Lymph # (Auto) 0.1 L Bleckley # (Auto) 0.7 Eos # (Auto) 0.0 Baso # (Auto) 0.0 WBC Differential Manual diff final Seg Neuts % (Manual) 47 Band Neuts % (Manual) 28 H Lymphocytes % (Manual) 7 L Monocytes % (Manual) 12 H Metamyelocytes % (Man) 3 H Myelocytes % (Man) 3 H Abs Neuts (Manual) 1.2 L Differential Comment . Toxic Granulation 2+ H Platelet Estimate Low L Platelet Morphology Enlarged H Target Cells 1+ H Sodium 134 L Potassium 3.3 L Chloride 102 Carbon Dioxide 19.2 L Anion Gap 13 BUN 23 H Creatinine 0.42 L Estimated GFR Greater than 89 POC Glucose Random Glucose 72 L Calcium 7.7 L Total Bilirubin 0.8 AST 21 ALT 25 Alkaline Phosphatase 244 H Total Protein 4.6 L Albumin 1.1 L Stool C.difficile Ag Positive H Stool C.difficile Toxin Negative Stl C.difficile DNA Amp Positive H St C. diff Tox Epid 027 Negative MTS Gel Crossmatch Bld Prod Order Comment 12/20/17 08:23 WBC RBC Hgb Hct MCV MCH MCHC RDW Plt Count MPV Prelim Diff (Auto) Neut % (Auto) Lymph % (Auto) Bleckley % (Auto) Eos % (Auto) Baso % (Auto) Neut # (Auto) Lymph # (Auto) Bleckley # (Auto) Eos # (Auto) Baso # (Auto) WBC Differential Seg Neuts % (Manual) Band Neuts % (Manual) Lymphocytes % (Manual) Monocytes % (Manual) Metamyelocytes % (Man) Myelocytes % (Man) Abs Neuts (Manual) Differential Comment Toxic Granulation Platelet Estimate Platelet Morphology Target Cells Sodium Potassium Chloride Carbon Dioxide Anion Gap BUN Creatinine Estimated GFR POC Glucose Random Glucose Calcium Total Bilirubin AST ALT Alkaline Phosphatase Total Protein Albumin Stool C.difficile Ag Stool C.difficile Toxin Stl C.difficile DNA Amp St C. diff Tox Epid 027 MTS Gel Crossmatch Bld Prod Order Comment Microbiology 12/18/17 10:55 Aerobic Blood Culture - Final Blood - Peripheral Pseudomonas aeruginosa Viridans streptococcus grp Staphylococcus coag negative Anaerobic Blood Culture - Final Viridans streptococcus grp Staphylococcus coag negative 12/18/17 10:55 Aerobic Blood Culture - Preliminary Blood - Peripheral Pseudomonas aeruginosa Viridans streptococcus grp Staphylococcus coag negative Anaerobic Blood Culture - Final Viridans streptococcus grp Staphylococcus coag negative 12/19/17 17:33 Stool Occult Blood (AYSHA) - Final Stool Hemoccult positive Result Diagrams: 12/20/17 12:34 12/20/17 05:25 Imaging: ITS Impressions Chest CT 12/18/17 00:00 CONCLUSION: 1. Bibasilar airspace disease, left greater than right. Cannot exclude an early infiltrate just above the left hemidiaphragm. 2. No suspicious mass lesions to suggest metastatic disease. 3. Abdominal ascites. Abdomen/Pelvis CT 12/18/17 14:05 CONCLUSION: 1. Diffuse peritoneal ascites, slightly worse when compared to the prior. 2. Interval development of diffuse periportal edema in the liver. 3. The findings concerning for infarct in the anterior pole of the spleen. 4. Interval development of left-sided hydronephrosis with delayed nephrogram characteristic of a high-grade obstruction. This appears to be within the distal ureter. I do not see an obvious obstructing mass lesion distally, however. 5. Diffuse bowel wall thickening. Findings are nonspecific but could be related to a low oncotic pressure associated with the diffuse abdominal ascites. Assessment and Plan - Assessment (1) Hydronephrosis, left Code(s): N13.30 - Unspecified hydronephrosis Status: Acute - Plan Urologic impression: 1. Metastatic ovarian CA 2. Left hydronephrosis likely related to extrinsic ureteral compression from progression of the ovarian CA. Plan: 1. Patient scheduled for cystoscopy, left retrograde pyelogram and left ureteral stent placement on Saturday 2. We will keep patient n.p.o. after midnight on Saturday
[2017-12-20 13:15] LABS: Hematocrit 26.3 % (35.0-46.0); Hemoglobin 8.9 gm/dL (11.6-15.3); Mean Corpuscular Hemoglobin 28.9 pg (27.0-34.0); Platelet Count 51 th/mm3 (150-450); Red Blood Count 3.09 mil/mm3 (4.00-5.30); White Blood Count 3.2 th/mm3 (4.0-11.0)
[2017-12-20 13:17] LABS: INR 1.1 Ratio
[2017-12-20 14:16] LABS: Blast Cells 2 % (0-0); Lymphocytes 8 % (9-44); Metamyelocytes 3 % (0-1); Monocytes 12 % (0-8); Myelocytes 9 % (0-0); Promyelocyte 1 % (0-0)
[2017-12-20 14:17] LABS: Dimorphic RBC Present; Toxic Granulation 2+; Toxic Vacuolation Present
--- NOTE | 2017-12-20 15:45 | US ---
EXAM DATE: 12/20/2017 3:36 PM EDT AGE/SEX: 67 years / Female INDICATIONS: Ascites. CLINICAL DATA: This is the patient's sequela encounter. Patient reports that signs and symptoms have been present for 1 week and indicates a pain score of 2/10. MEDICAL/SURGICAL HISTORY: Carcinoma, ovarian. . Appendectomy. Ovarian cyst removal. COMPARISON: [facility] [place] & [place]ELVIS W CONTRAST, 12/18/2017. . FINDINGS: There is mild to moderate ascites. No hematoma noted in the anterior abdominal wall. There is mural t hickening of bowel. CONCLUSION: 1. Ascites. No hematoma noted. Electronically signed by: James Carballo MD 12/20/2017 3:44 PM EDT
[2017-12-20] MEDS: Pantoprazole Inj 40 MG Vial IV.PUSH SCH (17:35)
[2017-12-20] MEDS: Filgrastim Inj 300 MCG/ML Vial SQ SCH (17:35)
[2017-12-20] MEDS: Multivitamin Inj 10 ML, Folic Acid Inj 1 MG in AA 5%/D20W - Electrolytes 2,000 ML IV.SIG SCH (21:23)
[2017-12-21] MEDS ORDERED: Naloxone Inj 0.4 MG/ML Vial IV.PUSH PRN (01:31)
[2017-12-21] MEDS ORDERED: Morphine Inj 4 MG/ML Vial IV.PUSH ONE (01:33)
[2017-12-21] MEDS: Loratadine 10 MG Tablet PO SCH (09:50)
[2017-12-21] MEDS: Sodium Chloride 0.9% 2 ML Flush BID IV.FLUSH SCH ×2 (09:50→20:14)
--- NOTE | 2017-12-21 10:37 | P.PNFP ---
Subjective Interval history: Patient continues to complain of generalized abdominal pain, worse on the left than the right she describes as "pressure". She did receive morphine overnight which significantly helped her pain and allowed her to get some rest. Yesterday , she went down for abdominal ultrasound with paracentesis, however paracentesis was not performed due to mild to moderate ascites fluid seen on ultrasound which was apparently not enough ascites to perform this procedure. She denies chest pain or palpitations, she denies shortness of breath, she denies fever. She does endorse continued cough that feels like it needs to be productive but is unable to cough anything up. Results - Labs Result diagrams: 12/20/17 12:34 12/20/17 05:25 Abnormal lab results 12/20/17 12/20/17 12/21/17 Range/Units 12:34 12:34 05:30 WBC 3.2 L D (4.0-11.0) th/mm3 RBC 3.09 L (4.00-5.30) mil/mm3 Hgb 8.9 L (11.6-15.3) gm/dL Hct 26.3 L (35.0-46.0) % RDW 19.0 H (11.6-17.2) % Plt Count 51 L D (150-450) th/mm3 Band Neuts % (Manual) 37 H (0-6) % Lymphocytes % (Manual) 8 L (9-44) % Monocytes % (Manual) 12 H (0-8) % Metamyelocytes % (Man) 3 H (0-1) % Myelocytes % (Man) 9 H (0-0) % Promyelocytes % (Man) 1 H (0-0) % Blast Cells % (Manual) 2 H (0-0) % Toxic Granulation 2+ H (None) Toxic Vacuolation Present H (None) Platelet Estimate Low L (Normal) Platelet Morphology Enlarged H (Normal) Dimorphic RBCs Present H (None) Triglycerides 289 H (42-150) mg/dL Vancomycin Trough 12.6 H (5.0-10.0) mcg/mL Short CBC 12/20/17 Range/Units 12:34 WBC 3.2 L D (4.0-11.0) th/mm3 Hgb 8.9 L (11.6-15.3) gm/dL Hct 26.3 L (35.0-46.0) % Plt Count 51 L D (150-450) th/mm3 - Imaging Impressions Abdomen Ultrasound 12/20/17 00:00 CONCLUSION: 1. Ascites. No hematoma noted. Physical Exam Vital signs: Vital Signs 12/20/17 11:06 12/20/17 12:33 12/20/17 13:00 Temperature 97.8 F Pulse Rate 108 H 113 H Respiratory Rate 18 Blood Pressure 138/90 Pulse Oximetry 99 99 12/20/17 16:00 12/20/17 16:38 12/20/17 17:05 Temperature 97.7 F Pulse Rate 114 H 96 H Respiratory Rate 20 18 Blood Pressure 136/89 Pulse Oximetry 100 100 12/20/17 20:00 12/20/17 20:21 12/21/17 00:00 Temperature 97.7 F 97.8 F Pulse Rate 110 H 114 H 109 H Respiratory Rate 20 22 Blood Pressure 99/77 L 124/91 H Pulse Oximetry 97 99 12/21/17 04:00 12/21/17 07:39 12/21/17 09:50 Temperature 97.8 F 98.4 F Pulse Rate 104 H 108 H 108 H Respiratory Rate 16 18 18 Blood Pressure 129/99 H 125/92 H Pulse Oximetry 99 98 Intake & Output 12/20/17 12/21/17 12/21/17 18:59 06:59 18:59 Intake Total 1303.5 / 1303.5 907.5 / 907.5 Output Total 200 / 200 Balance 1303.5 / 1303.5 707.5 / 707.5 Intake: IV 557.5 / 557.5 807.5 / 807.5 Maxipime Inj 2,000 MG In NS Inj 200 / 200 100 / 100 100 ML @ 200 mls/hr IV.SIG Q8H [facility] Rx#:[id number] Intralipid 20% Inj 250 ML @ 31. 250 / 250 25 mls/hr IV.SIG DAILY@1999 [facility] Rx#:[id number] Vancomycin Inj 750 MG In NS Inj 257.5 / 257.5 257.5 / 257.5 250 ML @ 250 mls/hr IV.SIG Q12H [facility] Rx#:[id number] Flagyl 500 MG Inj 100 ML @ 100 100 / 100 200 / 200 mls/hr IV.SIG Q8H [facility] Rx#: [id number] Oral 480 / 480 100 / 100 Intake (Blood Product) Amt / Plt Pheresis B Leukored/ Irr 266 / 266 Unit [id number] Output: Urine 200 / 200 Other: # Voids 2 1 Date of Last Bowel Movement 12/18/17 12/18/17 # Bowel Movements 2 Narrative: GENERAL: Frail-appearing female, lying in bed in mild discomfort SKIN: Multiple areas of ecchymosis of the upper extremities with fragile skin. NECK: Trachea midline. No JVD or lymphadenopathy. CV: Tachycardic with regular rhythm, no murmurs appreciated Pulmonary: Clear to auscultation bilaterally with moderate air exchange. No obvious rhonchi or rales GASTROINTESTINAL: Abdomen mildly distended and diffusely tender, worse so on the left than the right GENITOURINARY: No CVA tenderness, bladder not distended Neuro: Alert and oriented x3. Motor and sensory grossly within normal limits. Assessment and Plan - Assessment (1) Pancytopenia due to chemotherapy Code(s): D61.810 - Antineoplastic chemotherapy induced pancytopenia Status: Acute Plan: Neupogen started on 12/19/17 with [facility] recommendations -Seems to be responding with WBCs and platelets trending upward and absolute neutrophil count of 2.5 today S/p 2 units PRBCs on 12/18 Status post 1 unit platelet infusion on 12/20 Neutropenic precautions Continue to watch daily labs Oncology following Continue to follow ID recs (2) Pneumonia Code(s): J18.9 - Pneumonia, unspecified organism Status: Acute Plan: Continue IV antibiotics given neutropenia on presentation: Vancomycin 750 mg IV every 12 hours with vancomycin pharmacy consult Cefepime 2 g IV every 8 hours Metronidazole 500 mg IV every [address] shows bibasilar airspace disease, left more so than right. Cannot exclude early infiltrate just above the left hemidiaphragm Blood cultures from 12/18/17 -susceptibilities pending Pseudomonas aeruginosa Viridans Streptococcus Staphylococcus coagulase-negative Repeat blood cultures ordered for today Chest physiotherapy ordered Continue with breathing treatments Incentive spirometer and Acapella to bedside (3) Bacteremia Code(s): R78.81 - Bacteremia Status: Acute Plan: Blood cultures from 12/18/17 growing multiple species: Pseudomonas aeruginosa Viridans Streptococcus Staphylococcus coagulase-negative Source of bacteremia unknown, possibly from pneumonia versus urinary retention/ hydronephrosis versus immunosuppression Repeat blood cultures ordered for today IV antibiotics per pneumonia Infectious disease consulted and following (4) C. difficile diarrhea Code(s): A04.72 - Enterocolitis due to Clostridium difficile, not specified as recurrent Status: Acute Plan: Bowel thickening on CT abd and C diff + (toxin negative) Flagyl 500 mg IV every 8 hours Vancomycin 500 mg p.o. 4 times daily Encourage maintaining hydration Contact precautions (5) Ascites Code(s): R18.8 - Other ascites Status: Acute Plan: Ultrasound-guided paracentesis ordered for yesterday but was unable to be performed due to lack of adequate ascitic fluid Continue to monitor daily, may require paracentesis at a later date (6) Hydronephrosis, left Code(s): N13.30 - Unspecified hydronephrosis Status: Acute Plan: Urology following: Plan for cystoscopy with left retrograde pyelogram and likely left ureteral stent placement on Saturday Pain control provided with morphine 4 mg IV every 4 hours as needed (7) Protein-calorie malnutrition Code(s): E46 - Unspecified protein-calorie malnutrition Status: Acute Plan: TPN transfuse nightly over 8 hours For TPN recommend, Clinimix E 5/20 @ 50 mL/hr and 20% lipids @ 31.25 mL/hr over 8hrs daily Dietary will continue to follow (8) Ovarian cancer Code(s): C56.9 - Malignant neoplasm of unspecified ovary Status: Acute Plan: Oncology consulted, appreciate recs Palliative consulted: patient wishes to proceed w/aggressive treatment, but unsure whether to con't chemo (2) Pneumonia Qualifiers: Pneumonia type: due to unspecified organism Laterality: left Lung location: lower lobe of lung Qualified Code(s): J18.1 - Lobar pneumonia, unspecified organism
[2017-12-21] MEDS: Vancomycin Inj 750 MG in Sodium Chlor 0.9% Inj 250 ML IV.SIG SCH ×2 (12:11→22:57)
[2017-12-21 12:52] LABS: Hematocrit 28.8 % (35.0-46.0); Hemoglobin 9.8 gm/dL (11.6-15.3); Mean Corpuscular Hemoglobin 28.8 pg (27.0-34.0); Mean Corpuscular Volume 84.6 fL (80.0-100.0); Mean Platelet Volume 10.1 fL (7.0-11.0); Platelet Count 42 th/mm3 (150-450); Red Blood Count 3.41 mil/mm3 (4.00-5.30); Red Cell Distribution Width 19.1 % (11.6-17.2); White Blood Count 16.2 th/mm3 (4.0-11.0)
[2017-12-21] MEDS: Morphine Inj 4 MG/ML Vial IV.PUSH PRN ×2 (13:10→20:19)
[2017-12-21 13:48] LABS: Alanine Aminotransferase 19 U/L (10-53); Albumin 1.2 g/dL (3.4-5.0); Alkaline Phosphatase 237 U/L (45-117); Anion Gap 9 meq/L (5-15); Aspartate Aminotransferase 14 U/L (15-37); Blood Urea Nitrogen 26 mg/dL (7-18); Calcium 7.7 mg/dL (8.5-10.1); Carbon Dioxide 22.6 meq/L (21.0-32.0); Chloride 101 meq/L (98-107); Glomerular Filtration Rate 74 mL/min (>89); Glucose,Random 165 mg/dL (74-106); Sodium 133 meq/L (136-145); Total Protein 4.9 g/dL (6.4-8.2)
[2017-12-21 13:51] LABS: Potassium 2.8 meq/L (3.5-5.1)
[2017-12-21 14:05] LABS: Metamyelocytes 1 % (0-1); Monocytes 6 % (0-8); Platelet Morphology Normal (Normal)
[2017-12-21] MEDS: Pantoprazole Inj 40 MG Vial IV.PUSH SCH (17:51)
[2017-12-21] MEDS: Filgrastim Inj 300 MCG/ML Vial SQ SCH (17:51)
[2017-12-21] MEDS: Multivitamin Inj 10 ML, Folic Acid Inj 1 MG in AA 5%/D20W - Electrolytes 2,000 ML IV.SIG SCH (20:12)
[2017-12-21] MEDS: Benzonatate 100 MG Capsule PO PRN (20:29)
[2017-12-22 06:03] LABS: Hematocrit 29.5 % (35.0-46.0); Mean Corpuscular Hemoglobin 28.9 pg (27.0-34.0); Mean Corpuscular Volume 84.9 fL (80.0-100.0); Mean Platelet Volume 11.4 fL (7.0-11.0); Platelet Count 39 th/mm3 (150-450); Red Blood Count 3.47 mil/mm3 (4.00-5.30); Red Cell Distribution Width 19.4 % (11.6-17.2); White Blood Count 35.2 th/mm3 (4.0-11.0)
[2017-12-22 06:29] LABS: Alanine Aminotransferase 17 U/L (10-53); Albumin 1.1 g/dL (3.4-5.0); Alkaline Phosphatase 266 U/L (45-117); Anion Gap 10 meq/L (5-15); Aspartate Aminotransferase 19 U/L (15-37); Blood Urea Nitrogen 25 mg/dL (7-18); Calcium 7.3 mg/dL (8.5-10.1); Carbon Dioxide 21.8 meq/L (21.0-32.0); Chloride 102 meq/L (98-107); Glomerular Filtration Rate Greater Than 89 mL/min (>89); Glucose,Random 163 mg/dL (74-106); Sodium 134 meq/L (136-145); Total Protein 4.6 g/dL (6.4-8.2)
[2017-12-22 06:32] LABS: Potassium 2.9 meq/L (3.5-5.1)
[2017-12-22 07:19] LABS: Lymphocytes 2 % (9-44); Monocytes 4 % (0-8); Myelocytes 1 % (0-0); Platelet Morphology Normal (Normal)
[2017-12-22] MEDS: Sodium Chloride 0.9% 2 ML Flush BID IV.FLUSH SCH ×2 (09:53→21:43)
[2017-12-22] MEDS: Loratadine 10 MG Tablet PO SCH (09:56)
[2017-12-22] MEDS: Vancomycin Inj 750 MG in Sodium Chlor 0.9% Inj 250 ML IV.SIG SCH ×2 (12:05→21:42)
--- NOTE | 2017-12-22 13:34 | P.PNFP ---
Subjective Interval history: Patient seen examined this morning. Patient states that she is feeling better today compared to yesterday. She does continue to have diffuse abdominal pain, but states that this is not feel like the normal pain she experiences prior to paracentesis. She continues to experience loose stools, no blood noted. No acute events overnight. She denies fever, chills, nausea, vomiting, flank pain. She would like her morphine dose to be decreased, because she states that she does not need that much pain medication at this time. <May Negro - 12/22/17 13:33> Results - Labs Result diagrams: 12/23/17 11:32 12/23/17 11:32 <Justin Rucker - 12/23/17 13:40> Abnormal lab results 12/22/17 12/23/17 12/23/17 Range/Units 16:49 04:04 11:32 WBC (4.0-11.0) th/mm3 RBC (4.00-5.30) mil/mm3 Hgb (11.6-15.3) gm/dL Hct (35.0-46.0) % RDW (11.6-17.2) % Plt Count (150-450) th/mm3 Band Neuts % (Manual) (0-6) % Lymphocytes % (Manual) (9-44) % Myelocytes % (Man) (0-0) % Plasma Cell % (Manual) (0-0) % Abs Neuts (Manual) (1.8-7.7) th/mm3 Toxic Granulation (None) Dohle Bodies (None) Platelet Estimate (Normal) Platelet Morphology (Normal) Sodium 134 L (136-145) meq/L Potassium 3.2 L 3.3 L (3.5-5.1) meq/L BUN 27 H 29 H (7-18) mg/dL POC Glucose 127 H (68-110) mg/dl Calcium 7.7 L 7.8 L (8.5-10.1) mg/dL Alkaline Phosphatase 322 H (45-117) U/L Total Protein 5.0 L (6.4-8.2) g/dL Albumin 1.2 L (3.4-5.0) g/dL 12/23/17 Range/Units 11:32 WBC 43.7 H (4.0-11.0) th/mm3 RBC 3.53 L (4.00-5.30) mil/mm3 Hgb 10.0 L (11.6-15.3) gm/dL Hct 29.9 L (35.0-46.0) % RDW 19.7 H (11.6-17.2) % Plt Count 57 L D (150-450) th/mm3 Band Neuts % (Manual) 19 H (0-6) % Lymphocytes % (Manual) 2 L (9-44) % Myelocytes % (Man) 2 H (0-0) % Plasma Cell % (Manual) 1 H (0-0) % Abs Neuts (Manual) 40.2 H (1.8-7.7) th/mm3 Toxic Granulation 2+ H (None) Dohle Bodies Present H (None) Platelet Estimate Low L (Normal) Platelet Morphology Enlarged H (Normal) Sodium (136-145) meq/L Potassium (3.5-5.1) meq/L BUN (7-18) mg/dL POC Glucose (68-110) mg/dl Calcium (8.5-10.1) mg/dL Alkaline Phosphatase (45-117) U/L Total Protein (6.4-8.2) g/dL Albumin (3.4-5.0) g/dL Short CBC 12/23/17 Range/Units 11:32 WBC 43.7 H (4.0-11.0) th/mm3 Hgb 10.0 L (11.6-15.3) gm/dL Hct 29.9 L (35.0-46.0) % Plt Count 57 L D (150-450) th/mm3 BMP 12/22/17 12/23/17 16:49 11:32 Sodium 134 L 136 Potassium 3.2 L 3.3 L Chloride 103 104 Carbon Dioxide 22.1 23.7 BUN 27 H 29 H Creatinine 0.56 0.56 Calcium 7.7 L 7.8 L Liver Function 12/23/17 Range/Units 11:32 Total Bilirubin 0.5 (0.2-1.0) mg/dL AST 26 (15-37) U/L ALT 17 (10-53) U/L Alkaline Phosphatase 322 H (45-117) U/L Albumin 1.2 L (3.4-5.0) g/dL <Rucker,Justin - 12/23/17 13:40> Abnormal lab results 12/21/17 12/21/17 12/22/17 Range/Units 12:44 12:44 04:00 WBC 35.2 H D (4.0-11.0) th/mm3 RBC 3.47 L (4.00-5.30) mil/mm3 Hgb 10.0 L (11.6-15.3) gm/dL Hct 29.5 L (35.0-46.0) % RDW 19.4 H (11.6-17.2) % Plt Count 39 L (150-450) th/mm3 MPV 11.4 H (7.0-11.0) fL Band Neuts % (Manual) 47 H 45 H (0-6) % Lymphocytes % (Manual) 2 L (9-44) % Myelocytes % (Man) 1 H (0-0) % Abs Neuts (Manual) 15.2 H 33.1 H (1.8-7.7) th/mm3 Platelet Estimate Low L Low L (Normal) Sodium 133 L (136-145) meq/L Potassium 2.8 L* (3.5-5.1) meq/L BUN 26 H (7-18) mg/dL Estimated GFR 74 L (>89) mL/min Random Glucose 165 H (74-106) mg/dL Calcium 7.7 L (8.5-10.1) mg/dL AST 14 L (15-37) U/L Alkaline Phosphatase 237 H (45-117) U/L Total Protein 4.9 L (6.4-8.2) g/dL Albumin 1.2 L (3.4-5.0) g/dL 12/22/17 Range/Units 04:00 WBC (4.0-11.0) th/mm3 RBC (4.00-5.30) mil/mm3 Hgb (11.6-15.3) gm/dL Hct (35.0-46.0) % RDW (11.6-17.2) % Plt Count (150-450) th/mm3 MPV (7.0-11.0) fL Band Neuts % (Manual) (0-6) % Lymphocytes % (Manual) (9-44) % Myelocytes % (Man) (0-0) % Abs Neuts (Manual) (1.8-7.7) th/mm3 Platelet Estimate (Normal) Sodium 134 L (136-145) meq/L Potassium 2.9 L* (3.5-5.1) meq/L BUN 25 H (7-18) mg/dL Estimated GFR (>89) mL/min Random Glucose 163 H (74-106) mg/dL Calcium 7.3 L* (8.5-10.1) mg/dL AST (15-37) U/L Alkaline Phosphatase 266 H (45-117) U/L Total Protein 4.6 L (6.4-8.2) g/dL Albumin 1.1 L (3.4-5.0) g/dL Short CBC 12/22/17 Range/Units 04:00 WBC 35.2 H D (4.0-11.0) th/mm3 Hgb 10.0 L (11.6-15.3) gm/dL Hct 29.5 L (35.0-46.0) % Plt Count 39 L (150-450) th/mm3 BMP 12/21/17 12/22/17 12:44 04:00 Sodium 133 L 134 L Potassium 2.8 L* 2.9 L* Chloride 101 102 Carbon Dioxide 22.6 21.8 BUN 26 H 25 H Creatinine 0.78 0.61 Calcium 7.7 L 7.3 L* Liver Function 12/21/17 12/22/17 Range/Units 12:44 04:00 Total Bilirubin 0.5 0.5 (0.2-1.0) mg/dL AST 14 L 19 (15-37) U/L ALT 19 17 (10-53) U/L Alkaline Phosphatase 237 H 266 H (45-117) U/L Albumin 1.2 L 1.1 L (3.4-5.0) g/dL <May Negor - 12/22/17 13:33> Physical Exam Vital signs: Vital Signs 12/22/17 16:00 12/22/17 16:55 12/22/17 17:02 Temperature 98.5 F Pulse Rate 113 H 110 H 110 H Respiratory Rate 16 16 Blood Pressure 131/99 H Pulse Oximetry 99 12/22/17 20:00 12/22/17 20:11 12/23/17 00:00 Temperature 98.3 F 97.8 F Pulse Rate 110 H 112 H 115 H Respiratory Rate 16 18 Blood Pressure 130/94 H 133/97 H Pulse Oximetry 98 97 12/23/17 00:10 12/23/17 04:00 12/23/17 08:00 Temperature 97.9 F 98.6 F Pulse Rate 106 H 110 H 112 H Respiratory Rate 18 22 Blood Pressure 133/100 H 150/105 H Pulse Oximetry 99 96 12/23/17 08:56 Temperature Pulse Rate 115 H Respiratory Rate 18 Blood Pressure Pulse Oximetry Intake & Output 12/22/17 12/23/17 12/23/17 18:59 06:59 18:59 Intake Total 1207.5 / 1207.5 1047.5 / 1047.5 200 / 200 Output Total 275 / 275 325 / 325 Balance 932.5 / 932.5 722.5 / 722.5 200 / 200 Intake: IV 557.5 / 557.5 807.5 / 807.5 200 / 200 Maxipime Inj 2,000 MG In NS Inj 100 / 100 200 / 200 100 / 100 100 ML @ 200 mls/hr IV.SIG Q8H [facility] Rx#:[id number] Intralipid 20% Inj 250 ML @ 31. 250 / 250 25 mls/hr IV.SIG DAILY@1999 [facility] Rx#:[id number] Vancomycin Inj 750 MG In NS Inj 257.5 / 257.5 257.5 / 257.5 250 ML @ 250 mls/hr IV.SIG Q12H [facility] Rx#:[id number] Flagyl 500 MG Inj 100 ML @ 100 200 / 200 100 / 100 100 / 100 mls/hr IV.SIG Q8H [facility] Rx#: [id number] Oral 650 / 650 240 / 240 Output: Urine 275 / 275 325 / 325 Other: Date of Last Bowel Movement 12/20/17 <Justin Rucker - 12/23/17 13:40> Vital Signs 12/21/17 15:22 12/21/17 16:00 12/21/17 20:00 Temperature 99.1 F 98.2 F Pulse Rate 107 H 114 H 113 H Respiratory Rate 18 16 18 Blood Pressure 135/70 143/98 H Pulse Oximetry 99 97 12/21/17 20:56 12/21/17 21:36 12/22/17 00:00 Temperature 97.8 F Pulse Rate 113 H 113 H 111 H Respiratory Rate 20 18 Blood Pressure 123/89 Pulse Oximetry 98 12/22/17 04:00 12/22/17 08:30 12/22/17 09:44 Temperature 98.0 F 98.3 F Pulse Rate 101 H 117 H 122 H Respiratory Rate 18 16 16 Blood Pressure 127/92 H 139/94 H Pulse Oximetry 99 98 12/22/17 11:36 Temperature 98.2 F Pulse Rate 119 H Respiratory Rate 16 Blood Pressure 128/94 H Pulse Oximetry 98 Intake & Output 12/21/17 12/22/17 12/22/17 18:59 06:59 18:59 Intake Total 457.5 / 457.5 3017.7 / 3017.7 Output Total 400 / 400 Balance 457.5 / 457.5 2617.7 / 2617.7 Intake: IV 457.5 / 457.5 2917.7 / 2917.7 Maxipime Inj 2,000 MG In NS Inj 100 / 100 200 / 200 100 ML @ 200 mls/hr IV.SIG Q8H [facility] Rx#:[id number] Intralipid 20% Inj 250 ML @ 31. 250 / 250 25 mls/hr IV.SIG DAILY@1999 [facility] Rx#:[id number] MVI-12 Inj 10 ML Folvite Inj 1 2009.2 / 2010.2 MG In Clinimix E 5%/D20W Inj 2, 000 ML @ 50 mls/hr IV.SIG Q24H [facility] Rx#:[id number] Vancomycin Inj 750 MG In NS Inj 257.5 / 257.5 257.5 / 257.5 250 ML @ 250 mls/hr IV.SIG Q12H [facility] Rx#:[id number] Flagyl 500 MG Inj 100 ML @ 100 100 / 100 200 / 200 mls/hr IV.SIG Q8H [facility] Rx#: [id number] Oral 100 / 100 Output: Urine 400 / 400 Other: Date of Last Bowel Movement 12/20/17 <May Negro - 12/22/17 13:33> Narrative: GENERAL: Frail-appearing female, sitting up in bed. SKIN: Multiple areas of ecchymosis of the upper extremities with fragile skin. NECK: Trachea midline. No JVD or lymphadenopathy. CV: Tachycardic with regular rhythm, no murmurs appreciated. CHEST: Chemotherapy port in place on right side chest wall. No notable erythema , swelling, active bleeding, or drainage. Pulmonary: Clear to auscultation bilaterally with moderate air exchange. No obvious rhonchi or rales GASTROINTESTINAL: Abdomen mildly distended and diffusely tender, worse so on the left than the right GENITOURINARY: No CVA tenderness, bladder not distended Neuro: Alert and oriented x3. Motor and sensory grossly within normal limits. <May Negro - 12/22/17 13:33> Assessment and Plan - Assessment (1) Pneumonia Code(s): J18.9 - Pneumonia, unspecified organism Status: Acute Plan: Continue IV antibiotics given neutropenia on presentation: Vancomycin 750 mg IV every 12 hours with vancomycin pharmacy consult Cefepime 2 g IV every 8 hours Metronidazole 500 mg IV every [address] shows bibasilar airspace disease, left more so than right. Cannot exclude early infiltrate just above the left hemidiaphragm Blood cultures from 12/18/17 -susceptibilities pending Pseudomonas aeruginosa Viridans Streptococcus Staphylococcus coagulase-negative Repeat blood cultures from 12/21 showed no growth for 1 day. Chest physiotherapy ordered Continue with breathing treatments Incentive spirometer and Acapella to bedside (2) Hydronephrosis, left Code(s): N13.30 - Unspecified hydronephrosis Status: Acute Plan: Urology following: Plan for cystoscopy with left retrograde pyelogram and likely left ureteral stent placement on Saturday Pain control provided with morphine 4 mg IV every 4 hours as needed (3) C. difficile diarrhea Code(s): A04.72 - Enterocolitis due to Clostridium difficile, not specified as recurrent Status: Acute Plan: Bowel thickening on CT abd and C diff + (toxin negative) Flagyl 500 mg IV every 8 hours Vancomycin 500 mg p.o. 4 times daily Encourage maintaining hydration Contact precautions (4) Ascites Code(s): R18.8 - Other ascites Status: Acute Plan: Patient receives ultrasound-guided paracentesis weekly due to accumulation of ascites. Last paracentesis performed on , 1/2 weeks ago. Continue to monitor daily, may require paracentesis at a later date (5) Protein-calorie malnutrition Code(s): E46 - Unspecified protein-calorie malnutrition Status: Acute Plan: TPN transfuse nightly over 8 hours For TPN recommend, Clinimix E 5/20 @ 50 mL/hr and 20% lipids @ 31.25 mL/hr over 8hrs daily Dietary will continue to follow (6) Pancytopenia due to chemotherapy Code(s): D61.810 - Antineoplastic chemotherapy induced pancytopenia Status: Resolved Plan: Neupogen started on 12/19/17 with [facility] recommendations. -WBC 32.5 from 0.3 on admission and neutrophils increased from 10.6% to >40% since admission, which indicates response to Neupogen. -Calculated ANC significantly improved from admission. -Spoke to Dr. Jimenez, who states that patient meets criteria for discontinue Neupogen at this time. S/p 2 units PRBCs on 12/18 Status post 1 unit platelet infusion on 12/20 Continue to watch daily labs Oncology following Continue to follow ID recs (7) Bacteremia Code(s): R78.81 - Bacteremia Status: Resolved Plan: Blood cultures from 12/18/17 growing multiple species: Pseudomonas aeruginosa Viridans Streptococcus Staphylococcus coagulase-negative Source of bacteremia unknown, possibly from pneumonia versus urinary retention/ hydronephrosis versus immunosuppression Repeat blood cultures show no growth in 24 hours, following 3 days of current antibiotic regimen. IV antibiotics per pneumonia Infectious disease consulted and following (8) Ovarian cancer Code(s): C56.9 - Malignant neoplasm of unspecified ovary Status: Acute Plan: Oncology consulted, appreciate recs Palliative consulted: patient wishes to proceed w/aggressive treatment, but unsure whether to con't chemo <May Negro - 12/22/17 13:20> - Assessment and Plan DISPO: pending con't treatment FEN/PPX F: None for now E: Hypokalemia of 2.9, repleted with potassium chloride x2. Will continue to monitor and replete as necessary. Calcium level 7.3, however calculated protein corrected calcium is 9.6. No repletion needed at this time. N: Liquid diet with TPN per dietary DVT: SCDs only Code status: DNR <May Negro - 12/22/17 13:33> - Attending Attestation See the residents documentation for details. I saw and evaluated the patient regarding the tamayo portions of this evaluation and agree with the residents findings and plans as written. Parts of this note were created using [employer] voice recognition software program. While efforts were made to correct any mistakes made by this software, some mistakes, errors, and omissions may remain in the final note that were not caught when the note was originally created. Plan of care was discussed and agreed upon with the patient as specifically documented in the above note. An opportunity to ask questions with explanation was provided. Patient voiced understanding on all information reviewed and discussed. <Justin Rucekr - 12/23/17 13:40> <May Negro B - Last Filed: 12/22/17 13:20> (1) Pneumonia Qualifiers: Pneumonia type: due to unspecified organism Laterality: left Lung location: lower lobe of lung Qualified Code(s): J18.1 - Lobar pneumonia, unspecified organism <May Negro - Last Filed: 12/22/17 13:20> (1) Pneumonia Qualifiers: Pneumonia type: due to unspecified organism Laterality: left Lung location: lower lobe of lung Qualified Code(s): J18.1 - Lobar pneumonia, unspecified organism
[2017-12-22] MEDS: Morphine Sulfate Inj 2 MG/ML Vial IV.PUSH PRN ×2 (16:48→21:45)
[2017-12-22 18:02] LABS: Anion Gap 9 meq/L (5-15); Blood Urea Nitrogen 27 mg/dL (7-18); Calcium 7.7 mg/dL (8.5-10.1); Carbon Dioxide 22.1 meq/L (21.0-32.0); Chloride 103 meq/L (98-107); Glomerular Filtration Rate Greater Than 89 mL/min (>89); Glucose,Random 101 mg/dL (74-106); Potassium 3.2 meq/L (3.5-5.1); Sodium 134 meq/L (136-145)
[2017-12-22] MEDS: Pantoprazole Inj 40 MG Vial IV.PUSH SCH (18:27)
[2017-12-22] MEDS: Multivitamin Inj 10 ML, Folic Acid Inj 1 MG in AA 5%/D20W - Electrolytes 2,000 ML IV.SIG SCH ×2 (21:43→21:44)
[2017-12-22] MEDS: Benzonatate 100 MG Capsule PO PRN (21:45)
[2017-12-23] MEDS: Morphine Sulfate Inj 2 MG/ML Vial IV.PUSH PRN ×2 (02:11→13:04)
[2017-12-23] MEDS ORDERED: Chlorhexidine Gluconate 2% 1 Pack (2 Cloths) TOPICAL ONE (04:30)
[2017-12-23] MEDS ORDERED: Sodium Chlor 0.9% Inj 500 ML IV.CONT ONE (04:30)
--- NOTE | 2017-12-23 07:32 | P.PNONC ---
Subjective Interval history: patient is resting in bed states does not feel well this morning she is going for cystoscopy with urethral stent placement this morning pain rate: 10 Objective Vital Signs/Intake & Output: Vital Signs 12/22/17 08:00 12/22/17 08:30 12/22/17 09:44 Temperature 98.3 F Pulse Rate 114 H 117 H 122 H Respiratory Rate 16 16 Blood Pressure 139/94 H Pulse Oximetry 98 12/22/17 11:36 12/22/17 12:00 12/22/17 16:00 Temperature 98.2 F Pulse Rate 119 H 116 H 113 H Respiratory Rate 16 Blood Pressure 128/94 H Pulse Oximetry 98 12/22/17 16:55 12/22/17 17:02 12/22/17 20:00 Temperature 98.5 F 98.3 F Pulse Rate 110 H 110 H 110 H Respiratory Rate 16 16 16 Blood Pressure 131/99 H 130/94 H Pulse Oximetry 99 98 12/22/17 20:11 12/23/17 00:00 12/23/17 00:10 Temperature 97.8 F Pulse Rate 112 H 115 H 106 H Respiratory Rate 18 Blood Pressure 133/97 H Pulse Oximetry 97 12/23/17 04:00 Temperature 97.9 F Pulse Rate 110 H Respiratory Rate 18 Blood Pressure 133/100 H Pulse Oximetry 99 Intake & Output 12/22/17 12/23/17 12/23/17 18:59 06:59 18:59 Intake Total 1207.5 / 1207.5 1047.5 / 1047.5 Output Total 275 / 275 325 / 325 Balance 932.5 / 932.5 722.5 / 722.5 Intake: IV 557.5 / 557.5 807.5 / 807.5 Maxipime Inj 2,000 MG In NS Inj 100 / 100 200 / 200 100 ML @ 200 mls/hr IV.SIG Q8H [facility] Rx#:[id number] Intralipid 20% Inj 250 ML @ 31. 250 / 250 25 mls/hr IV.SIG DAILY@1999 [facility] Rx#:[id number] Vancomycin Inj 750 MG In NS Inj 257.5 / 257.5 257.5 / 257.5 250 ML @ 250 mls/hr IV.SIG Q12H [facility] Rx#:[id number] Flagyl 500 MG Inj 100 ML @ 100 200 / 200 100 / 100 mls/hr IV.SIG Q8H [facility] Rx#: [id number] Oral 650 / 650 240 / 240 Output: Urine 275 / 275 325 / 325 Other: Date of Last Bowel Movement 12/20/17 Result Diagrams: 12/22/17 04:00 12/22/17 16:49 Laboratory Results: Laboratory Results - last 24 hr 12/22/17 12/22/17 12/23/17 04:00 16:49 04:04 WBC Differential Manual diff final Seg Neuts % (Manual) 48 Band Neuts % (Manual) 45 H Lymphocytes % (Manual) 2 L Monocytes % (Manual) 4 Myelocytes % (Man) 1 H Abs Neuts (Manual) 33.1 H Platelet Estimate Low L Platelet Morphology Normal Sodium 134 L Potassium 3.2 L Chloride 103 Carbon Dioxide 22.1 Anion Gap 9 BUN 27 H Creatinine 0.56 Estimated GFR Greater than 89 POC Glucose 127 H Random Glucose 101 Calcium 7.7 L Culture Results: Microbiology 12/21/17 12:44 Aerobic Blood Culture - Preliminary Blood - Peripheral No growth in 1 day Anaerobic Blood Culture - Preliminary No growth in 1 day 12/21/17 12:40 Aerobic Blood Culture - Preliminary Blood - Peripheral No growth in 1 day Anaerobic Blood Culture - Preliminary No growth in 1 day 12/18/17 10:55 Aerobic Blood Culture - Final Blood - Peripheral Pseudomonas aeruginosa Viridans streptococcus grp Staphylococcus coag negative Anaerobic Blood Culture - Final Viridans streptococcus grp Staphylococcus coag negative 12/19/17 14:25 Urine Culture - Final Clean Catch Urine No growth in 48 hours 12/18/17 10:55 Aerobic Blood Culture - Final Blood - Peripheral Pseudomonas aeruginosa Viridans streptococcus grp Staphylococcus coag negative Anaerobic Blood Culture - Final Viridans streptococcus grp Staphylococcus coag negative Medications: Active Medications Generic Name Dose Route Start Last Admin Trade Name Freq PRN Reason Stop Dose Admin Albuterol 1 ampul 12/19/17 10:00 12/23/17 03:35 Duoneb Neb ([facility]) NEB Not Given Q6HR NEB [facility] Benzonatate 100 mg 12/19/17 01:47 12/22/17 21:45 Tessalon Perles PO 100 mg Q8H PRN Administration cough Fentanyl 1 patch 12/20/17 20:00 12/20/17 21:21 Duragesic 25 Mcg Patch.72hr T-DERMAL 1 patch Q72H [facility] Administration Potassium Chloride/Sodium Chloride 1,000 mls @ 20 mls/hr 12/19/17 07:15 12/20 18:01 Ns + Kcl 40 Meq Inj IV.CONT 0 mls/hr .Q24H [facility] Infusion Vancomycin HCl 750 mg/ Sodium 257.5 mls @ 250 mls/hr 12/19/17 10:00 12/22/17 23:51 Chloride IV.SIG Infused Q12H [facility] Infusion Fat Emulsion Intravenous 250 mls @ 31.25 mls/hr 12/20/17 18:00 12/23/17 06:34 Intralipid 20% Inj IV.SIG Infused DAILY@1999 [facility] Infusion Metronidazole/Sodium Chloride 100 mls @ 100 mls/hr 12/21/17 09:00 12/23/17 02 :00 Flagyl 500 Mg Inj IV.SIG Infused Q8H [facility] Infusion Cefepime HCl 2,000 mg/ Sodium 100 mls @ 200 mls/hr 12/21/17 10:00 12/23/17 03 :11 Chloride IV.SIG Infused Q8H [facility] Infusion Multivitamins 10 ml/ Folic 2,010.2 mls @ 50 mls/hr 12/22/17 20:00 12/22/17 21 :43 Acid 1 mg/ Amino Acids/ IV.SIG 50 mls/hr Electrolytes DAILY@1999 [facility] Administration Ibuprofen 200 mg 12/18/17 18:55 12/18/17 21:06 Advil PO 200 mg Q6H PRN Administration Pain scale 1-2 Loratadine 5 mg 12/18/17 21:00 12/22/17 09:56 Claritin PO 5 mg DAILY [facility] Administration Morphine Sulfate 2 mg 12/22/17 13:21 12/23/17 02:11 Morphine Inj IV.PUSH 2 mg Q4H PRN Administration Pain scale 3-10 Ondansetron HCl 4 mg 12/18/17 16:34 12/22/17 16:48 Zofran Inj IV.PUSH 4 mg Q6H PRN Administration NAUSEA OR VOMITING Pantoprazole Sodium 40 mg 12/18/17 18:00 12/22/17 18:27 Protonix Inj IV.PUSH 40 mg Q24H [facility] Administration Patch Removal 1 each 12/20/17 20:00 12/20/17 21:22 Remove Old Patch T-DERMAL 1 each Q72H [facility] Administration Sodium Chloride 2 ml 12/18/17 21:00 12/22/17 21:43 Ns Flush IV.FLUSH 2 ml BID [facility] Administration Vancomycin HCl 500 mg 12/20/17 09:00 12/22/17 21:43 Vancomycin Po PO 500 mg QID [facility] Administration Objective Remarks: GENERAL: frail, ill appearing SKIN: Warm and dry. HEAD: Normocephalic. EYES: No scleral icterus. No injection or drainage. CARDIOVASCULAR: Regular rate and rhythm without murmurs. RESPIRATORY: No accessory muscle use. GASTROINTESTINAL: Abdomen firm, generalized tenderness MUSCULOSKELETAL: deconditioned NEUROLOGICAL: No obvious focal deficit. Awake, alert, and oriented x3. PSYCHIATRIC: Appropriate mood and affect; insight and judgment normal. Assessment/Plan (1) Ovarian cancer Code(s): C56.9 - Malignant neoplasm of unspecified ovary Status: Chronic (2) Hydronephrosis, left Code(s): N13.30 - Unspecified hydronephrosis Status: Acute (3) Pancytopenia due to chemotherapy Code(s): D61.810 - Antineoplastic chemotherapy induced pancytopenia Status: Resolved - Plan Palliative Care following IV chemotherapy is on hold very poor prognosis, patient DNR, Hospice appropriate if patient wishes for comfort care unable to continue chemotherapy unless performance status greatly improves supportive care pain control cystoscopy today for renal stent placement H/H improved s/p transfusion leukocytosis...patient received Neupogen platelets are improving s/p transfusion repeat blood cultures, no growth X 1 day urine negative pneumonia cefepime vancomycin Flagyl
[2017-12-23] MEDS: Loratadine 10 MG Tablet PO SCH (08:08)
[2017-12-23] MEDS ORDERED: Pharmacy Ordered Lab Info OTHER ONE (09:45)
[2017-12-23] MEDS: Vancomycin Inj 750 MG in Sodium Chlor 0.9% Inj 250 ML IV.SIG SCH (11:30)
[2017-12-23] MEDS: Sodium Chloride 0.9% 2 ML Flush BID IV.FLUSH SCH ×2 (11:56→21:36)
[2017-12-23 12:06] LABS: Hematocrit 29.9 % (35.0-46.0); Mean Corpuscular HGB Conc 33.5 % (32.0-36.0); Mean Corpuscular Hemoglobin 28.4 pg (27.0-34.0); Mean Corpuscular Volume 84.8 fL (80.0-100.0); Mean Platelet Volume 10.7 fL (7.0-11.0); Platelet Count 57 th/mm3 (150-450); Red Blood Count 3.53 mil/mm3 (4.00-5.30); Red Cell Distribution Width 19.7 % (11.6-17.2); White Blood Count 43.7 th/mm3 (4.0-11.0)
--- NOTE | 2017-12-23 12:10 | P.PNPAL ---
Reason for Visit Reason for visit: a. To assist with evaluation and management of symptoms including:pain, diarrhea, debility b. To assist medical decision maker(s) with: better understanding of current medical conditions; weighing benefits/burdens of medical treatment options; making medical treatment decisions. Subjective Subjective/Interval History: Ms. Velasquez is a 67-year-old female who presented to [place] emergency room on with complaints of overall fatigue, generalized weakness, and diarrhea. 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 It is of note that the initiation of chemotherapy the patient essentially had no objective or subjective response. She did obtain a second opinion consultation through [facility]. Treatment modalities were changed and she recently just completed her second cycle last Saturday. She also undergoes weekly paracentesis, last one being of last week where by report 5 L of ascitic fluid were removed. She is found to be extremely anemic and the decision was made to admit the patient for further evaluation and treatment. Dr. Jimenez (oncologist) was consulted as he is known to the patient. CT findings overall suggestive of increased tumor burden from prior studies. Per his discussion with the patient he feels there is a strong possibility that this is not ovarian cancer given its poor response to any targeted chemotherapy. He feels it is possible this may be an atypical presentation for pancreatic or gallbladder cancer. Even if this is the case patient is currently receiving most often used regimen. Dr. Jimenez felt at this time it would be appropriate to discuss hospice. 12/23/17 Palliative care to continue follow-up of symptom management and goals of medical care. Patient states she has been feeling more and more tired over the weekend. She originally asked to have her IVP Morphine decreased to 2 mg but today is complaining of increased abdominal pain. She would like to have the morphine increase back to 4 mg. Today her is at bedside and we had a long discussion as to what the patient's next steps were. Patient verbalized that she was tired and no longer wanted to seek aggressive treatment. She stated she was ready to and just wanted to be comfortable and be with her family for as much time as she had left. She stated that after having the cystoscopy today she did not plan on having any more invasive procedures. We did discuss that if she did elect hospice that she would no longer be able to receive her TPN at home. She was originally somewhat fearful of "dying of starvation". We discussed what to expect at end of life and how the TPN would most likely cause her more harm than good. She would like to again meet with hospice and proceed to comfort care. Today's clinical data revealed: * Hgb 10.0, HCT 29.5, WBC 35.2, platelets 39, absolute neutrophil count 33, glucose 127 Family/Friend Interactions: was at bedside today during our conversation concerning end-of-life care and comfort goals. He was obviously tearful but voices his support of his 's decision. He also stated that ultimately he was concerned for her comfort. Advance Directives Living Will: Completed, but not made available Advance Directives Date on File: 12/23/17 (Community DNR) Documented care wishes:: The patient states she has a documented power of weather forecaster and will have her family bring in a copy for our records here. Patient did sign a community DNR this weekend Significant change in goals:: The patient verbalized that she was no longer seeking aggressive treatment. She states that she is ready to and would like to transition to comfort measures. Objective Vital Signs: Vital Signs 12/22/17 16:00 12/22/17 16:55 12/22/17 17:02 Temperature 98.5 F Pulse Rate 113 H 110 H 110 H Respiratory Rate 16 16 Blood Pressure 131/99 H Pulse Oximetry 99 12/22/17 20:00 12/22/17 20:11 12/23/17 00:00 Temperature 98.3 F 97.8 F Pulse Rate 110 H 112 H 115 H Respiratory Rate 16 18 Blood Pressure 130/94 H 133/97 H Pulse Oximetry 98 97 12/23/17 00:10 12/23/17 04:00 12/23/17 08:00 Temperature 97.9 F 98.6 F Pulse Rate 106 H 110 H 112 H Respiratory Rate 18 22 Blood Pressure 133/100 H 150/105 H Pulse Oximetry 99 96 12/23/17 08:56 Temperature Pulse Rate 115 H Respiratory Rate 18 Blood Pressure Pulse Oximetry Intake & Output 12/22/17 12/23/17 12/23/17 18:59 06:59 18:59 Intake Total 1207.5 / 1207.5 1047.5 / 1047.5 100 / 100 Output Total 275 / 275 325 / 325 Balance 932.5 / 932.5 722.5 / 722.5 100 / 100 Intake: IV 557.5 / 557.5 807.5 / 807.5 100 / 100 Maxipime Inj 2,000 MG In NS Inj 100 / 100 200 / 200 100 ML @ 200 mls/hr IV.SIG Q8H [facility] Rx#:[id number] Intralipid 20% Inj 250 ML @ 31. 250 / 250 25 mls/hr IV.SIG DAILY@2000 [facility] Rx#:[id number] Vancomycin Inj 750 MG In NS Inj 257.5 / 257.5 257.5 / 257.5 250 ML @ 250 mls/hr IV.SIG Q12H [facility] Rx#:[id number] Flagyl 500 MG Inj 100 ML @ 100 200 / 200 100 / 100 100 / 100 mls/hr IV.SIG Q8H [facility] Rx#: [id number] Oral 650 / 650 240 / 240 Output: Urine 275 / 275 325 / 325 Other: Date of Last Bowel Movement 12/20/17 Physical Exam: CONSTITUTIONAL/GENERAL: Cachectic with temporal wasting. Appears tired today TUBES/LINES/DRAINS: Right chest wall port. PIV SKIN: No jaundice, rashes, or lesions. No wounds seen anteriorly. Skin temperature appropriate. Not diaphoretic. EYES: Pupils equal and round and reactive. Extraocular motions intact. No scleral icterus. No injection or drainage. Fundi not examined. ENT: Hearing grossly normal. Throat without visible erythema, exudates, masses, or lesions. Oral mucosa dry CARDIOVASCULAR: Regular rate and rhythm without murmurs, gallops, or rubs. No JVD. Peripheral pulses symmetric. RESPIRATORY/CHEST: Symmetric, unlabored respirations. Clear to auscultation. Breath sounds equal bilaterally. Scattered rhonchi heard mostly right middle lobe. Diminished in the bases. Patient has a weak cough, continues with increased work of breathing GASTROINTESTINAL: Abdomen firm and noticeably distended slightly larger today. Tender to palpation and percussion particularly RLQ. Dull to percussion. No guarding. Bowel sounds intermittent. MUSCULOSKELETAL: Extremities without clubbing, cyanosis, or edema. No joint tenderness or effusion noted. No calf tenderness. No mottling or clubbing. NEUROLOGICAL: Awake and alert. Motor and sensory grossly within normal limits. Follows commands. Cognitively sharp. Moves all extremities. PSYCHIATRIC: No obvious anxiety/depression. no apparent hallucinations or other psychotic thought process. Pleasant Diagnostic Tests Laboratory: Laboratory Results - last 72 hr 12/20/17 12/20/17 12/20/17 12:34 12:34 12:34 WBC 3.2 L D RBC 3.09 L Hgb 8.9 L Hct 26.3 L MCV 85.0 MCH 28.9 MCHC 34.0 RDW 19.0 H Plt Count 51 L D MPV 9.0 Prelim Diff (Auto) Manual diff required WBC Differential Manual diff final Seg Neuts % (Manual) 28 Band Neuts % (Manual) 37 H Lymphocytes % (Manual) 8 L Monocytes % (Manual) 12 H Metamyelocytes % (Man) 3 H Myelocytes % (Man) 9 H Promyelocytes % (Man) 1 H Blast Cells % (Manual) 2 H Abs Neuts (Manual) 2.5 Differential Comment . Toxic Granulation 2+ H Toxic Vacuolation Present H Platelet Estimate Low L Platelet Morphology Enlarged H Dimorphic RBCs Present H PT 11.0 INR 1.1 APTT Sodium Potassium Chloride Carbon Dioxide Anion Gap BUN Creatinine Estimated GFR POC Glucose Random Glucose Calcium Prot Corrected Calcium Total Bilirubin AST ALT Alkaline Phosphatase Total Protein Albumin Triglycerides Vancomycin Trough 12.6 H 12/20/17 12/21/17 12/21/17 12:34 05:30 12:44 WBC 16.2 H RBC 3.41 L Hgb 9.8 L Hct 28.8 L MCV 84.6 MCH 28.8 MCHC 34.0 RDW 19.1 H Plt Count 42 L MPV 10.1 Prelim Diff (Auto) Manual diff required WBC Differential Manual diff final Seg Neuts % (Manual) 46 Band Neuts % (Manual) 47 H Lymphocytes % (Manual) Monocytes % (Manual) 6 Metamyelocytes % (Man) 1 Myelocytes % (Man) Promyelocytes % (Man) Blast Cells % (Manual) Abs Neuts (Manual) 15.2 H Differential Comment . Toxic Granulation Toxic Vacuolation Platelet Estimate Low L Platelet Morphology Normal Dimorphic RBCs PT INR APTT 27.8 Sodium Potassium Chloride Carbon Dioxide Anion Gap BUN Creatinine Estimated GFR POC Glucose Random Glucose Calcium Prot Corrected Calcium Total Bilirubin AST ALT Alkaline Phosphatase Total Protein Albumin Triglycerides 289 H Vancomycin Trough 12/21/17 12/22/17 12/22/17 12:44 04:00 04:00 WBC 35.2 H D RBC 3.47 L Hgb 10.0 L Hct 29.5 L MCV 84.9 MCH 28.9 MCHC 34.0 RDW 19.4 H Plt Count 39 L MPV 11.4 H Prelim Diff (Auto) Manual diff required WBC Differential Manual diff final Seg Neuts % (Manual) 48 Band Neuts % (Manual) 45 H Lymphocytes % (Manual) 2 L Monocytes % (Manual) 4 Metamyelocytes % (Man) Myelocytes % (Man) 1 H Promyelocytes % (Man) Blast Cells % (Manual) Abs Neuts (Manual) 33.1 H Differential Comment . Toxic Granulation Toxic Vacuolation Platelet Estimate Low L Platelet Morphology Normal Dimorphic RBCs PT INR APTT Sodium 133 L 134 L Potassium 2.8 L* 2.9 L* Chloride 101 102 Carbon Dioxide 22.6 21.8 Anion Gap 9 10 BUN 26 H 25 H Creatinine 0.78 0.61 Estimated GFR 74 L Greater than 89 POC Glucose Random Glucose 165 H 163 H Calcium 7.7 L 7.3 L* Prot Corrected Calcium 8.7 Total Bilirubin 0.5 0.5 AST 14 L 19 ALT 19 17 Alkaline Phosphatase 237 H 266 H Total Protein 4.9 L 4.6 L Albumin 1.2 L 1.1 L Triglycerides Vancomycin Trough 12/22/17 12/23/17 16:49 04:04 WBC RBC Hgb Hct MCV MCH MCHC RDW Plt Count MPV Prelim Diff (Auto) WBC Differential Seg Neuts % (Manual) Band Neuts % (Manual) Lymphocytes % (Manual) Monocytes % (Manual) Metamyelocytes % (Man) Myelocytes % (Man) Promyelocytes % (Man) Blast Cells % (Manual) Abs Neuts (Manual) Differential Comment Toxic Granulation Toxic Vacuolation Platelet Estimate Platelet Morphology Dimorphic RBCs PT INR APTT Sodium 134 L Potassium 3.2 L Chloride 103 Carbon Dioxide 22.1 Anion Gap 9 BUN 27 H Creatinine 0.56 Estimated GFR Greater than 89 POC Glucose 127 H Random Glucose 101 Calcium 7.7 L Prot Corrected Calcium Total Bilirubin AST ALT Alkaline Phosphatase Total Protein Albumin Triglycerides Vancomycin Trough Result Diagrams: 12/23/17 11:32 12/23/17 11:32 Microbiology: Microbiology 12/21/17 12:44 Aerobic Blood Culture - Preliminary Blood - Peripheral No growth in 2 days Anaerobic Blood Culture - Preliminary No growth in 2 days 12/21/17 12:40 Aerobic Blood Culture - Preliminary Blood - Peripheral No growth in 2 days Anaerobic Blood Culture - Preliminary No growth in 2 days 12/18/17 10:55 Aerobic Blood Culture - Final Blood - Peripheral Pseudomonas aeruginosa Viridans streptococcus grp Staphylococcus coag negative Anaerobic Blood Culture - Final Viridans streptococcus grp Staphylococcus coag negative 12/19/17 14:25 Urine Culture - Final Clean Catch Urine No growth in 48 hours 12/18/17 10:55 Aerobic Blood Culture - Final Blood - Peripheral Pseudomonas aeruginosa Viridans streptococcus grp Staphylococcus coag negative Anaerobic Blood Culture - Final Viridans streptococcus grp Staphylococcus coag negative Procedures: 12/23/17 * Cystoscopy with stent placement Assessment and Plan - Symptom Scale (1) Pain 0-10 Scale: 7 Comment: currently controlled with fentanyl patch 25mcg, plan to increase IV push morphine to 4 mg (2) Nausea 0-10 Scale: 0 Comment: Well-controlled at this time (3) Debility 0-10 Scale: Unable to quantify Pertinent Non-Medical Issues: Psychosocial: Patient was born in [place], [place]. In her 20s she worked for the [employer] where she met her . The couple then moved to [place] where she had her 2 children. 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 Spiritual: Yazdanism Legal: Per [place] statutes in the absence of documented living will, healthcare decision making would fall to the patient's , Aldair Velasquez should the patient become incapacitated any time. The patient does feel that she has filled out a living will at one point in time will ask family members to bring in a copy Ethical issues impacting care: There are currently no known ethical issues impacting care at this time Important Contacts: Aldair Velasquez, /HCP [phone] Demi Velasquez , daughter [phone] Prognosis: Given the aggressive nature of her cancer and poor response to chemotherapy in conjunction with her current medical decline. At this time the patient is no longer a candidate for continued chemotherapy. The patient is at high risk for continued morbidity, infection, debility, and eventually . Code Status: No Code DNR Plan: * LEGAL DECISION MAKER -per [place] statutes, in the absence of a documented living will or power of weather forecaster healthcare decision would fall to the patient' s Aldair Velasquez should she become incapacitated in time. * GOALS - The patient verbalized that she was no longer seeking aggressive treatment. She states that she is ready to and would like to transition to comfort measures. We will have hospice meet with patient again today * CODE STATUS -DNR community DNR in chart * SYMPTOMS: Paincurrently using fentanyl 25 MCG's patch every 72 hours. Complaining of abdominal pain 09/03 would like IV push morphine increased back to 4 mg. Patient is unable to tolerate oral opioids at this time. Would suggest a 24- hour recall of IV push morphine use with possible consideration of increasing fentanyl patch to 50 mcgs should her as needed usage warrant this Debilitypatient has severe proteincalorie malnutrition. With transitioning to comfort care and end-of-life goals TPN will be discontinued will focus on comfort measures Nauseawell controlled at this time ensure patient has adequate amounts of antiemetics for comfort Palliative care will continue to follow during hospital course as condition evolves, to assist patient/decision maker with understanding of medical conditions, weighing benefits/burdens of treatment options, for clarification of goals of treatment. Additionally will assist with any symptoms of palliative concern. Attestation Attestation: To help prompt me to consider important information that might be impacting today's encounter and assessment, information from prior notes written by myself or my colleagues may have been "brought forward" into today's note. My signature on this note, however, is an attestation that I personally performed the exam, history, and/or decision-making noted today, and, unless otherwise indicated, the interactions with patient, family, and staff as well as the review of records all occurred today. I also attest that the listed assessment and stated plan reflect my best clinical judgment today based on the combination of historical information, prior notes, and today's exam/ interactions. When time spent is documented, it refers only to time spent today by the signer, or if indicated, combined time spent today by collaborating physician/nurse practitioner.
[2017-12-23 12:43] LABS: Albumin 1.2 g/dL (3.4-5.0); Anion Gap 8 meq/L (5-15); Aspartate Aminotransferase 26 U/L (15-37); Blood Urea Nitrogen 29 mg/dL (7-18); Calcium 7.8 mg/dL (8.5-10.1); Carbon Dioxide 23.7 meq/L (21.0-32.0); Chloride 104 meq/L (98-107); Glomerular Filtration Rate Greater Than 89 mL/min (>89); Glucose,Random 94 mg/dL (74-106); Potassium 3.3 meq/L (3.5-5.1); Sodium 136 meq/L (136-145)
[2017-12-23 12:46] LABS: Alanine Aminotransferase 17 U/L (10-53); Alkaline Phosphatase 322 U/L (45-117); Vancomycin,Trough 8.8 mcg/mL (5.0-10.0)
[2017-12-23 12:49] LABS: Dohle Bodies Present; Lymphocytes 2 % (9-44); Metamyelocytes 1 % (0-1); Monocytes 5 % (0-8); Myelocytes 2 % (0-0); Plasma Cells 1 % (0-0); Toxic Granulation 2+
[2017-12-23] MEDS ORDERED: Morphine Sulfate Inj 2 MG/ML Vial IV.PUSH PRN (13:27)
[2017-12-23] MEDS ORDERED: Cathflo Activase Inj 2 MG Vial I-CATHETER PRN (13:45)
[2017-12-23] MEDS ORDERED: Potassium Chloride 25 MEQ Effervescent Tablet PO ONE (13:55)
--- NOTE | 2017-12-23 13:59 | P.PNFP ---
Subjective Interval history: 67 yo female with adenocarcinoma of uncertain origin presumed to be ovarian cancer admitted due to pancytopenia and weakness found to have bacteremia due to polymicrobial infection with pseudomonas, viridans strep, and coag negative staphylococcus. Today she reports feeling tired but otherwise well. No chest pains or shortness of breath. Not having fevers or diarrhea. Slight constipation / firm stools, no diarrhea. <Ruddy Lomas - 12/23/17 13:59> Results - Labs Result diagrams: 12/23/17 11:32 12/23/17 11:32 <Justin Rucker - 12/23/17 14:32> Abnormal lab results 12/22/17 12/23/17 12/23/17 Range/Units 16:49 04:04 11:32 WBC (4.0-11.0) th/mm3 RBC (4.00-5.30) mil/mm3 Hgb (11.6-15.3) gm/dL Hct (35.0-46.0) % RDW (11.6-17.2) % Plt Count (150-450) th/mm3 Band Neuts % (Manual) (0-6) % Lymphocytes % (Manual) (9-44) % Myelocytes % (Man) (0-0) % Plasma Cell % (Manual) (0-0) % Abs Neuts (Manual) (1.8-7.7) th/mm3 Toxic Granulation (None) Dohle Bodies (None) Platelet Estimate (Normal) Platelet Morphology (Normal) Sodium 134 L (136-145) meq/L Potassium 3.2 L 3.3 L (3.5-5.1) meq/L BUN 27 H 29 H (7-18) mg/dL POC Glucose 127 H (68-110) mg/dl Calcium 7.7 L 7.8 L (8.5-10.1) mg/dL Alkaline Phosphatase 322 H (45-117) U/L Total Protein 5.0 L (6.4-8.2) g/dL Albumin 1.2 L (3.4-5.0) g/dL 12/23/17 Range/Units 11:32 WBC 43.7 H (4.0-11.0) th/mm3 RBC 3.53 L (4.00-5.30) mil/mm3 Hgb 10.0 L (11.6-15.3) gm/dL Hct 29.9 L (35.0-46.0) % RDW 19.7 H (11.6-17.2) % Plt Count 57 L D (150-450) th/mm3 Band Neuts % (Manual) 19 H (0-6) % Lymphocytes % (Manual) 2 L (9-44) % Myelocytes % (Man) 2 H (0-0) % Plasma Cell % (Manual) 1 H (0-0) % Abs Neuts (Manual) 40.2 H (1.8-7.7) th/mm3 Toxic Granulation 2+ H (None) Dohle Bodies Present H (None) Platelet Estimate Low L (Normal) Platelet Morphology Enlarged H (Normal) Sodium (136-145) meq/L Potassium (3.5-5.1) meq/L BUN (7-18) mg/dL POC Glucose (68-110) mg/dl Calcium (8.5-10.1) mg/dL Alkaline Phosphatase (45-117) U/L Total Protein (6.4-8.2) g/dL Albumin (3.4-5.0) g/dL Short CBC 12/23/17 Range/Units 11:32 WBC 43.7 H (4.0-11.0) th/mm3 Hgb 10.0 L (11.6-15.3) gm/dL Hct 29.9 L (35.0-46.0) % Plt Count 57 L D (150-450) th/mm3 BMP 12/22/17 12/23/17 16:49 11:32 Sodium 134 L 136 Potassium 3.2 L 3.3 L Chloride 103 104 Carbon Dioxide 22.1 23.7 BUN 27 H 29 H Creatinine 0.56 0.56 Calcium 7.7 L 7.8 L Liver Function 12/23/17 Range/Units 11:32 Total Bilirubin 0.5 (0.2-1.0) mg/dL AST 26 (15-37) U/L ALT 17 (10-53) U/L Alkaline Phosphatase 322 H (45-117) U/L Albumin 1.2 L (3.4-5.0) g/dL <Justin Rucker - 12/23/17 14:32> Abnormal lab results 12/22/17 12/23/17 12/23/17 Range/Units 16:49 04:04 11:32 WBC (4.0-11.0) th/mm3 RBC (4.00-5.30) mil/mm3 Hgb (11.6-15.3) gm/dL Hct (35.0-46.0) % RDW (11.6-17.2) % Plt Count (150-450) th/mm3 Band Neuts % (Manual) (0-6) % Lymphocytes % (Manual) (9-44) % Myelocytes % (Man) (0-0) % Plasma Cell % (Manual) (0-0) % Abs Neuts (Manual) (1.8-7.7) th/mm3 Toxic Granulation (None) Dohle Bodies (None) Platelet Estimate (Normal) Platelet Morphology (Normal) Sodium 134 L (136-145) meq/L Potassium 3.2 L 3.3 L (3.5-5.1) meq/L BUN 27 H 29 H (7-18) mg/dL POC Glucose 127 H (68-110) mg/dl Calcium 7.7 L 7.8 L (8.5-10.1) mg/dL Alkaline Phosphatase 322 H (45-117) U/L Total Protein 5.0 L (6.4-8.2) g/dL Albumin 1.2 L (3.4-5.0) g/dL 12/23/17 Range/Units 11:32 WBC 43.7 H (4.0-11.0) th/mm3 RBC 3.53 L (4.00-5.30) mil/mm3 Hgb 10.0 L (11.6-15.3) gm/dL Hct 29.9 L (35.0-46.0) % RDW 19.7 H (11.6-17.2) % Plt Count 57 L D (150-450) th/mm3 Band Neuts % (Manual) 19 H (0-6) % Lymphocytes % (Manual) 2 L (9-44) % Myelocytes % (Man) 2 H (0-0) % Plasma Cell % (Manual) 1 H (0-0) % Abs Neuts (Manual) 40.2 H (1.8-7.7) th/mm3 Toxic Granulation 2+ H (None) Dohle Bodies Present H (None) Platelet Estimate Low L (Normal) Platelet Morphology Enlarged H (Normal) Sodium (136-145) meq/L Potassium (3.5-5.1) meq/L BUN (7-18) mg/dL POC Glucose (68-110) mg/dl Calcium (8.5-10.1) mg/dL Alkaline Phosphatase (45-117) U/L Total Protein (6.4-8.2) g/dL Albumin (3.4-5.0) g/dL Short CBC 12/23/17 Range/Units 11:32 WBC 43.7 H (4.0-11.0) th/mm3 Hgb 10.0 L (11.6-15.3) gm/dL Hct 29.9 L (35.0-46.0) % Plt Count 57 L D (150-450) th/mm3 BMP 12/22/17 12/23/17 16:49 11:32 Sodium 134 L 136 Potassium 3.2 L 3.3 L Chloride 103 104 Carbon Dioxide 22.1 23.7 BUN 27 H 29 H Creatinine 0.56 0.56 Calcium 7.7 L 7.8 L Liver Function 12/23/17 Range/Units 11:32 Total Bilirubin 0.5 (0.2-1.0) mg/dL AST 26 (15-37) U/L ALT 17 (10-53) U/L Alkaline Phosphatase 322 H (45-117) U/L Albumin 1.2 L (3.4-5.0) g/dL <Ruddy Lomas S - 12/23/17 13:59> - Imaging Chest CT 12/18/17 00:00 CONCLUSION: 1. Bibasilar airspace disease, left greater than right. Cannot exclude an early infiltrate just above the left hemidiaphragm. 2. No suspicious mass lesions to suggest metastatic disease. 3. Abdominal ascites. Abdomen/Pelvis CT 12/18/17 14:05 CONCLUSION: 1. Diffuse peritoneal ascites, slightly worse when compared to the prior. 2. Interval development of diffuse periportal edema in the liver. 3. The findings concerning for infarct in the anterior pole of the spleen. 4. Interval development of left-sided hydronephrosis with delayed nephrogram characteristic of a high-grade obstruction. This appears to be within the distal ureter. I do not see an obvious obstructing mass lesion distally, however. 5. Diffuse bowel wall thickening. Findings are nonspecific but could be related to a low oncotic pressure associated with the diffuse abdominal ascites. Abdomen Ultrasound 12/20/17 00:00 CONCLUSION: 1. Ascites. No hematoma noted. <Ruddy Lomas S - 12/23/17 13:59> Physical Exam Vital signs: Vital Signs 12/22/17 16:00 12/22/17 16:55 12/22/17 17:02 Temperature 98.5 F Pulse Rate 113 H 110 H 110 H Respiratory Rate 16 16 Blood Pressure 131/99 H Pulse Oximetry 99 12/22/17 20:00 12/22/17 20:11 12/23/17 00:00 Temperature 98.3 F 97.8 F Pulse Rate 110 H 112 H 115 H Respiratory Rate 16 18 Blood Pressure 130/94 H 133/97 H Pulse Oximetry 98 97 12/23/17 00:10 12/23/17 04:00 12/23/17 08:00 Temperature 97.9 F 98.6 F Pulse Rate 106 H 110 H 112 H Respiratory Rate 18 22 Blood Pressure 133/100 H 150/105 H Pulse Oximetry 99 96 12/23/17 08:56 12/23/17 12:00 Temperature 98.7 F Pulse Rate 115 H 104 H Respiratory Rate 18 18 Blood Pressure 124/81 Pulse Oximetry 97 Intake & Output 12/22/17 12/23/17 12/23/17 18:59 06:59 18:59 Intake Total 1207.5 / 1207.5 1047.5 / 1047.5 200 / 200 Output Total 275 / 275 325 / 325 Balance 932.5 / 932.5 722.5 / 722.5 200 / 200 Intake: IV 557.5 / 557.5 807.5 / 807.5 200 / 200 Maxipime Inj 2,000 MG In NS Inj 100 / 100 200 / 200 100 / 100 100 ML @ 200 mls/hr IV.SIG Q8H [facility] Rx#:[id number] Intralipid 20% Inj 250 ML @ 31. 250 / 250 25 mls/hr IV.SIG DAILY@2000 [facility] Rx#:[id number] Vancomycin Inj 750 MG In NS Inj 257.5 / 257.5 257.5 / 257.5 250 ML @ 250 mls/hr IV.SIG Q12H [facility] Rx#:[id number] Flagyl 500 MG Inj 100 ML @ 100 200 / 200 100 / 100 100 / 100 mls/hr IV.SIG Q8H [facility] Rx#: [id number] Oral 650 / 650 240 / 240 Output: Urine 275 / 275 325 / 325 Other: Date of Last Bowel Movement 12/20/17 <Lawanda Ruckergeny - 12/23/17 14:32> Vital Signs 12/22/17 16:00 12/22/17 16:55 12/22/17 17:02 Temperature 98.5 F Pulse Rate 113 H 110 H 110 H Respiratory Rate 16 16 Blood Pressure 131/99 H Pulse Oximetry 99 12/22/17 20:00 12/22/17 20:11 12/23/17 00:00 Temperature 98.3 F 97.8 F Pulse Rate 110 H 112 H 115 H Respiratory Rate 16 18 Blood Pressure 130/94 H 133/97 H Pulse Oximetry 98 97 12/23/17 00:10 12/23/17 04:00 12/23/17 08:00 Temperature 97.9 F 98.6 F Pulse Rate 106 H 110 H 112 H Respiratory Rate 18 22 Blood Pressure 133/100 H 150/105 H Pulse Oximetry 99 96 12/23/17 08:56 Temperature Pulse Rate 115 H Respiratory Rate 18 Blood Pressure Pulse Oximetry Intake & Output 12/22/17 12/23/17 12/23/17 18:59 06:59 18:59 Intake Total 1207.5 / 1207.5 1047.5 / 1047.5 100 / 100 Output Total 275 / 275 325 / 325 Balance 932.5 / 932.5 722.5 / 722.5 100 / 100 Intake: IV 557.5 / 557.5 807.5 / 807.5 100 / 100 Maxipime Inj 2,000 MG In NS Inj 100 / 100 200 / 200 100 ML @ 200 mls/hr IV.SIG Q8H [facility] Rx#:[id number] Intralipid 20% Inj 250 ML @ 31. 250 / 250 25 mls/hr IV.SIG DAILY@1999 [facility] Rx#:[id number] Vancomycin Inj 750 MG In NS Inj 257.5 / 257.5 257.5 / 257.5 250 ML @ 250 mls/hr IV.SIG Q12H [facility] Rx#:[id number] Flagyl 500 MG Inj 100 ML @ 100 200 / 200 100 / 100 100 / 100 mls/hr IV.SIG Q8H [facility] Rx#: [id number] Oral 650 / 650 240 / 240 Output: Urine 275 / 275 325 / 325 Other: Date of Last Bowel Movement 12/20/17 <Ruddy Lomas S - 12/23/17 13:59> - Constitutional no acute distress, cachectic, chronically ill appearing, cooperative <Ruddy Lomas S - 12/23/17 13:59> - Routine HEENT Exam Head: Present: normocephalic, atraumatic <Rdudy Lomas S - 12/23/17 13:59> - Routine Respiratory Exam Present: CTA bilaterally. Absent: accessory muscle use, wheezes, crackles < Ruddy Lomas S - 12/23/17 13:59> - Routine Cardiovascular Exam Present: RRR, S1, S2 <Ruddy Lomas S - 12/23/17 13:59> - Routine Abdominal Exam Present: soft, distended. Absent: tenderness <Ruddy Lomas S - 12/23/17 13:59 > - Routine Extremities Exam Absent: cyanosis, edema <Ruddy Lomas S - 12/23/17 13:59> - Routine Neurological Exam Present: alert, moving all extremities <Ruddy Lomas S - 12/23/17 13:59> - Routine Psychiatric Exam Present: normal affect, normal thought process <Ruddy Lomas S - 12/23/17 13: 59> Assessment and Plan - Assessment (1) Pneumonia Code(s): J18.9 - Pneumonia, unspecified organism Status: Acute Plan: Clinically stable Chest CT shows bibasilar airspace disease, left more so than right. Cannot exclude early infiltrate just above the left hemidiaphragm Blood cultures from 12/18/17 - polymicrobial with Pseudomonas, GPC Repeat blood cultures from 12/21 [id number] Antibiotics as below for bacteremia Chest physiotherapy ordered Continue with breathing treatments Incentive spirometer and Acapella to bedside (2) Bacteremia Code(s): R78.81 - Bacteremia Status: Resolved Plan: Blood cultures from 12/18/17 growing Pseudomonas and GPC Repeat blood Cx 12/21 NGTD x2 Source of bacteremia unknown, possibly from pneumonia versus GI vs urinary retention/hydronephrosis versus immunosuppression ID consulted, appreciate recs Vancomycin 750 mg IV every 12 hours with vancomycin pharmacy consult Cefepime 2 g IV every 8 hours Metronidazole 500 mg IV every 8 hours Vancomycin 500 mg PO Q6H due to C difficile F/u repeat cultures Further recs on length of treatment to follow from ID (3) Hydronephrosis, left Code(s): N13.30 - Unspecified hydronephrosis Status: Acute Plan: Urology consulted, appreciate recs Plan for cystoscopy with left retrograde pyelogram and likely left ureteral stent placement today Pain control provided with morphine 4 mg IV every 4 hours as needed (4) C. difficile diarrhea Code(s): A04.72 - Enterocolitis due to Clostridium difficile, not specified as recurrent Status: Acute Plan: Bowel thickening on CT abd and C diff + (toxin negative); clinically no diarrhea Flagyl 500 mg IV every 8 hours Vancomycin 500 mg p.o. 4 times daily Encourage maintaining hydration Contact precautions (5) Ascites Code(s): R18.8 - Other ascites Status: Acute Plan: Patient receives ultrasound-guided paracentesis weekly due to accumulation of ascites Continue to monitor daily, may require paracentesis at a later date (6) Protein-calorie malnutrition Code(s): E46 - Unspecified protein-calorie malnutrition Status: Acute Plan: TPN transfuse nightly over 8 hours For TPN recommend, Clinimix E 5/20 @ 50 mL/hr and 20% lipids @ 31.25 mL/hr over 8hrs daily Dietary will continue to follow (7) Pancytopenia due to chemotherapy Code(s): D61.810 - Antineoplastic chemotherapy induced pancytopenia Status: Resolved Plan: Neupogen started on 12/19/17 with [employer] [facility] Onc recommendations. WBC ~42 from 0.3 on admission, which indicates response to Neupogen. Calculated ANC significantly improved from admission. S/p 2 units PRBCs on 12/18, H/H now stable around 10 Status post 1 unit platelet infusion on 12/20, Plt today 57 Continue to watch daily labs Oncology following, appreciate recs Neupogen discontinued 12/22 (8) Ovarian cancer Code(s): C56.9 - Malignant neoplasm of unspecified ovary Status: Chronic Plan: Oncology consulted, appreciate recs Palliative consulted, greatly appreciate assistance: patient wishes to proceed w /aggressive treatment, but unsure whether to con't chemo. Discussion ongoing. Code status updated to DNR per patient and family discussion <Ruddy Lomas - 12/23/17 13:28> - Assessment and Plan See the residents documentation for details. I saw and evaluated the patient regarding the tamayo portions of this evaluation and agree with the residents findings and plans as written. Parts of this note were created using [employer] voice recognition software program. While efforts were made to correct any mistakes made by this software, some mistakes, errors, and omissions may remain in the final note that were not caught when the note was originally created. Plan of care was discussed and agreed upon with the patient as specifically documented in the above note. An opportunity to ask questions with explanation was provided. Patient voiced understanding on all information reviewed and discussed. <Justin Rucker - 12/23/17 14:32> FEN/PPX F: None for now E: Monitor and replete as needed N: Liquid diet with TPN per dietary DVT: SCDs only Code status: DNR <Ruddy Lomas - 12/23/17 13:59> Discharge Planning: Pending management of infections and urologic issue versus transition to hospice care should patient and family choose that route <Ruddy Lomas - 12/23/17 13:59>
[2017-12-23] MEDS ORDERED: Esmolol Bolus Inj 100 MG/10 ML Vial IV.PUSH ONE (16:40)
[2017-12-23] MEDS ORDERED: Phenylephrine/NS 1000 MCG/10ML Syringe IV.PUSH ONE (16:40)
[2017-12-23] MEDS ORDERED: Lidocaine PF 1% Inj 5 ML Syringe OTHER ONE (16:40)
[2017-12-23] MEDS ORDERED: Succinylcholine Inj 100 MG/5 ML Syringe IV.PUSH ONE (16:40)
--- NOTE | 2017-12-23 17:18 | P.OP ---
- Preoperative Diagnosis (1) Hydronephrosis, left - Postoperative Diagnosis (1) Hydronephrosis, left Date of procedure: 12/23/17 Procedure: Cystoscopy, left retrograde pyelogram and left ureteral stent placement Implants: Long-term left ureteral stent Anesthesia: MAC Surgeon: Alistair Kan MD Estimated blood loss (mL): 0 Pathology: none sent Operation and Findings: Indication for procedures: Case of a pleasant 67-year-old female with history metastatic ovarian CA and left hydronephrosis who presents now for left stent placement. Operative procedures in detail: Patient was brought to the operating room suite and placed supine on the cystoscopy table. She was then placed under general anesthesia. She was then repositioned in the dorsolithotomy position and prepped and draped in normal sterile fashion. After an appropriate timeout was undertaken I proceeded with cystoscopic evaluation utilizing the rigid cystoscope with the 20 [place] sheath and the 30 degree lens. Both right and left ureteral orifices were in correct anatomic position. There was clear reflux noted on the right and no reflux on the left. I then proceeded to pass a sensor 0.035 wire up the patient's left ureter under fluoroscopic guidance and further advance the wire into the left renal pelvis. A 6 [place] open-ended ureteral catheter was then advanced over the wire up to the left renal pelvis. Some resistance was felt as I advanced the catheter consistent with extrinsic compression. The wire was then removed and clear urine was noted to be coming from the end of the stent. I then proceeded with a retrograde pyelogram study performed to outline the collecting system. The guidewire was reintroduced and the open-ended catheter was exchanged for a [place] long-term stent. The stent size was 6 [place] by 22 cm in length. Once the stent was in proper position the trailing string was removed. The bladder was drained of all irrigant fluid and the cystoscope was withdrawn. The patient tolerated the procedures without complications and was transferred to the PACU and remained intubated.
[2017-12-23] MEDS ORDERED: Iohexol Inj 350 MG/ML 100 ML Bottle (for RAD Diag) IVCONTRAST ONE (17:33)
--- NOTE | 2017-12-23 17:42 | P.DIET ---
Nutritional Evaluation Type of nutrition evaluation: follow-up Nutrition consult regarding: TPN/PPN Nutrition screening: Weight Loss > 10 lbs, MDC Objective - Diagnosis sympotomatic anemia, neutropenia - Objective % IBW: 74 (IBW = 100lb) Body Weight Used for Calculations: Actual Energy Needs - Lower Range (kCal/kg): 35 Energy Needs - Upper Range (kCal/kg): 40 Lower Limit kCal/kg (kCals): 1,588 Upper Limit kCal/kg (kCals): 1,814 Lower Limit Protein Factor (Grams per Kg): 1.2 Upper Limit Protein Factor (Grams per Kg): 1.5 Lower Protein Needs (Protein): 54 Upper Protein Needs (Protein): 68 Dietitian Reviewed in Medical Record: Current diet, Curent medications, Labs, Medical history, TPN/PPN Diet Order: NPO, TPN Speech Therapy Recommendations: No Objective Comments: PMH: ovary cancer, chemotherapy, weekly paracentesis for ascites Labs: K 3.3, BUN 29, POC glucose 127, Ca+ 7.8, TG 1.2 Meds: zofran, protonix Assessment Assessment: Pt continues to be at nutritional risk r/t reported unplanned wt loss and NPO status. Per MD note, pt asked to be transitioned to comfort care measures and for hospice consult. Pt on Clinimix E 5/20 @ 50 mL/hr and 20% lipids @ 31.25 mL/ hr over 8hrs daily to aid in nutritional needs. Monitor PO intake, labs, electrolytes. Dietitian following. Recommendations: 1. Clinimix E 5/20 @ 50 mL/hr and 20% lipids @ 31.25 mL/hr over 8hrs daily 2. Monitor PO intake, labs, electrolytes 3. Dietitian following Dietitian to Monitor: Lab values, Intake & Output, TPN/PPN tolerance, Weight change, Medical course
--- NOTE | 2017-12-23 17:53 | ECG ---
Date Performed: 12/23/2017 Time Performed: 05:16:20 PTAGE: 67 years EKG: Sinus tachycardia Normal ECG except for rate PREVIOUS TRACING : 08/23/2017 17.50 Since the previous tracing, no significant change not ed DOCTOR: Tyler Stern Interpretating Date/Time 12/23/2017 17:52:33
[2017-12-23] MEDS ORDERED: fentaNYL Citrate Inj 100 MCG/2 ML Ampul ONE (18:12)
[2017-12-23 18:53] LABS: ABG PCO2 41 mmHg (38-42); ABG PO2 67 mmHg (61-120)
--- NOTE | 2017-12-23 19:36 | P.PNADD ---
Addendum to Inpatient Note Additional information: seen around 6:30 PM full note to follow
--- NOTE | 2017-12-23 19:59 | P.PNID ---
Subjective Remarks: events noted sp stent placement Apparently MS change post proceudre, was not waking up Now follows commands, still lethargic, but arousable c/o abd pain Antibiotics: cefepime flagyl vanco po vanco IV Allergies/Adverse Reactions: Allergies hydrocodone Adverse Reaction (Severe, Verified 12/18/17 10:35) Nausea/Vomiting Objective Vital Signs 12/22/17 20:00 12/22/17 20:11 12/23/17 00:00 Temperature 98.3 F 97.8 F Pulse Rate 110 H 112 H 115 H Respiratory Rate 16 18 Blood Pressure 130/94 H 133/97 H Pulse Oximetry 98 97 12/23/17 00:10 12/23/17 04:00 12/23/17 08:00 Temperature 97.9 F 98.6 F Pulse Rate 106 H 110 H 112 H Respiratory Rate 18 22 Blood Pressure 133/100 H 150/105 H Pulse Oximetry 99 96 12/23/17 08:56 12/23/17 12:00 12/23/17 15:17 Temperature 98.7 F 98.5 F Pulse Rate 115 H 118 H 117 H Respiratory Rate 18 18 18 Blood Pressure 124/81 132/94 H Pulse Oximetry 97 97 12/23/17 16:00 12/23/17 17:54 12/23/17 18:00 Temperature 98.7 F Pulse Rate 112 H 132 H 139 H Respiratory Rate 20 20 Blood Pressure 140/95 H 147/97 H Pulse Oximetry 99 99 12/23/17 18:06 12/23/17 18:15 12/23/17 18:34 Temperature 98.7 F Pulse Rate 139 H Respiratory Rate 20 20 32 H Blood Pressure 147/97 H Pulse Oximetry 98 99 94 L 12/23/17 19:35 Temperature Pulse Rate Respiratory Rate 37 H Blood Pressure Pulse Oximetry 94 L Intake & Output 12/23/17 12/23/17 12/24/17 06:59 18:59 06:59 Intake Total 1047.5 / 1047.5 200 / 200 Output Total 325 / 325 450 / 450 Balance 722.5 / 722.5 -250 / -250 Intake: IV 807.5 / 807.5 200 / 200 Maxipime Inj 2,000 MG In NS Inj 200 / 200 100 / 100 100 ML @ 200 mls/hr IV.SIG Q8H [facility] Rx#:[id number] Intralipid 20% Inj 250 ML @ 31. 250 / 250 25 mls/hr IV.SIG DAILY@2000 [facility] Rx#:[id number] Vancomycin Inj 750 MG In NS Inj 257.5 / 257.5 250 ML @ 250 mls/hr IV.SIG Q12H [facility] Rx#:[id number] Flagyl 500 MG Inj 100 ML @ 100 100 / 100 100 / 100 mls/hr IV.SIG Q8H [facility] Rx#: [id number] Oral 240 / 240 Output: Urine 325 / 325 450 / 450 Other: Date of Last Bowel Movement 12/20/17 12/21/17 12:44 Blood - Peripheral Aerobic Blood Culture - Preliminary No growth in 2 days 12/21/17 12:44 Blood - Peripheral Anaerobic Blood Culture - Preliminary No growth in 2 days 12/21/17 12:40 Blood - Peripheral Aerobic Blood Culture - Preliminary No growth in 2 days 12/21/17 12:40 Blood - Peripheral Anaerobic Blood Culture - Preliminary No growth in 2 days 12/18/17 10:55 Blood - Peripheral Aerobic Blood Culture - Final Pseudomonas aeruginosa Viridans streptococcus grp Staphylococcus coag negative 12/18/17 10:55 Blood - Peripheral Anaerobic Blood Culture - Final Viridans streptococcus grp Staphylococcus coag negative 12/19/17 14:25 Clean Catch Urine Urine Culture - Final No growth in 48 hours Lab - Hematology Results 12/22/17 12/23/17 04:00 11:32 WBC 35.2 H D 43.7 H RBC 3.47 L 3.53 L Hgb 10.0 L 10.0 L Hct 29.5 L 29.9 L MCV 84.9 84.8 MCH 28.9 28.4 MCHC 34.0 33.5 RDW 19.4 H 19.7 H Plt Count 39 L 57 L D MPV 11.4 H 10.7 Prelim Diff (Auto) Manual diff required Manual diff required WBC Differential Manual diff final Manual diff final Seg Neuts % (Manual) 48 70 Band Neuts % (Manual) 45 H 19 H Lymphocytes % (Manual) 2 L 2 L Monocytes % (Manual) 4 5 Metamyelocytes % (Man) 1 Myelocytes % (Man) 1 H 2 H Plasma Cell % (Manual) 1 H Abs Neuts (Manual) 33.1 H 40.2 H Differential Comment . . Toxic Granulation 2+ H Dohle Bodies Present H Platelet Estimate Low L Low L Platelet Morphology Normal Enlarged H Lab - Chemistry Results 12/22/17 12/22/17 12/23/17 04:00 16:49 04:04 Sodium 134 L 134 L Potassium 2.9 L* 3.2 L Chloride 102 103 Carbon Dioxide 21.8 22.1 Anion Gap 10 9 BUN 25 H 27 H Creatinine 0.61 0.56 Estimated GFR Greater than 89 Greater than 89 POC Glucose 127 H Random Glucose 163 H 101 Calcium 7.3 L* 7.7 L Prot Corrected Calcium 8.7 Total Bilirubin 0.5 AST 19 ALT 17 Alkaline Phosphatase 266 H Total Protein 4.6 L Albumin 1.1 L 12/23/17 12/23/17 11:32 18:48 Sodium 136 Potassium 3.3 L Chloride 104 Carbon Dioxide 23.7 Anion Gap 8 BUN 29 H Creatinine 0.56 Estimated GFR Greater than 89 POC Glucose 94 Random Glucose 94 Calcium 7.8 L Prot Corrected Calcium Total Bilirubin 0.5 AST 26 ALT 17 Alkaline Phosphatase 322 H Total Protein 5.0 L Albumin 1.2 L Imaging: ITS Impressions Chest CT 12/18/17 00:00 CONCLUSION: 1. Bibasilar airspace disease, left greater than right. Cannot exclude an early infiltrate just above the left hemidiaphragm. 2. No suspicious mass lesions to suggest metastatic disease. 3. Abdominal ascites. Abdomen/Pelvis CT 12/18/17 14:05 CONCLUSION: 1. Diffuse peritoneal ascites, slightly worse when compared to the prior. 2. Interval development of diffuse periportal edema in the liver. 3. The findings concerning for infarct in the anterior pole of the spleen. 4. Interval development of left-sided hydronephrosis with delayed nephrogram characteristic of a high-grade obstruction. This appears to be within the distal ureter. I do not see an obvious obstructing mass lesion distally, however. 5. Diffuse bowel wall thickening. Findings are nonspecific but could be related to a low oncotic pressure associated with the diffuse abdominal ascites. Abdomen Ultrasound 12/20/17 00:00 CONCLUSION: 1. Ascites. No hematoma noted. Physical Exam: GENERAL: very lethargic, but arousable On vent, int'd SKIN: Warm and dry. Cold, cyanotic feet + mottling up to the knees HEAD: Atraumatic. Normocephalic. EYES: Pupils equal and round. No scleral icterus. No injection or drainage. ENT: No nasal bleeding or discharge. Mucous membranes pink and moist. NECK: Trachea midline. No JVD. CARDIOVASCULAR: Regular rate and rhythm. RESPIRATORY: No accessory muscle use. Clear to auscultation. Breath sounds equal bilaterally. GASTROINTESTINAL: Abdomen tense, tender, distended. + fluid wave Hepatic and splenic margins not palpable. MUSCULOSKELETAL: Extremities without clubbing, + cyanosis, No edema. No obvious deformities. NEUROLOGICAL: Lethargic, arousable. Follows with b/l UE PSYCHIATRIC: unable to assess Assessment and Plan - Plan Bactermia, Psuedomonas and GPC source can be intraabdominal, vs (L ureter obstruction) vs, less likely PORT Metastatic ovarian ca Neutropenia - resolved sp neupogen Symptomatic anemia malignant recurrent ascites, on weekly paracenthesis schedule L hydronephrosis, obstructive uropathy sp stent placement bowel wall thickning, C.diff + (tox negative) Leukocytsos, leukemoid reaction probably neupogen effect MS change p stent placvement. SP stroke alert, better - now waking up Acute VDRF (remains int'd post procedure) cont cefepime,change to q 8 cont IV vancomycin cont oral vanco, IV Flagyl neal [place]
[2017-12-23] MEDS ORDERED: WATER IV.SIG SCH ×2 (20:00)
[2017-12-23] MEDS ORDERED: SODIUM CHLORIDE IV.SIG SCH ×2 (20:00)
[2017-12-23] MEDS ORDERED: DEXTROSE 10% IV.SIG SCH ×2 (20:00)
[2017-12-23 20:24] LABS: ABG Base Excess -5.8 mmol/L (-2-2); ABG PCO2 35 mmHg (38-42); ABG PO2 86 mmHg (61-120)
--- NOTE | 2017-12-23 20:24 | XR ---
EXAM DATE: 12/23/2017 8:13 PM EDT AGE/SEX: 67 years / Female INDICATIONS: Confirm ET tube placement. CLINICAL DATA: This is the patient's initial encounter. Patient reports that signs and symptoms have been present for 1 day and indicates a pain score of 0/10. MEDICAL/SURGICAL HISTORY: Carcinoma, ovarian. None. [place] [facility] [place]. . FINDINGS: There is an ETT with tip approximately 3 cm above the kenji. Right IJ [id number] in stable positi on. Interval development of diffuse patchy airspace disease bilaterally with linear parenchymal opaci ties at the left lung base. Cardiomediastinal contours are within normal limits. Remainder of the exa m is unchanged. CONCLUSION: 1. ETT in good position. 2. Interval development of diffuse patchy bilateral airspace disease in a pulmonary edema/ARDS juan navarro. Electronically signed by: Benoit Zaldivar MD 12/23/2017 8:23 PM EDT
[2017-12-23] MEDS ORDERED: fentaNYL 10 mcg/mL Premix Drip 2,500 MCG/250 ML BAG IV.SIG PRN (20:26)
--- NOTE | 2017-12-23 20:29 | P.CONCC ---
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 She received Taxol her current carboplatin therapy without response. [employer] Dr. Jimenez had been following. Infectious disease had been following for bacteremia with Pseudomonas, strep viridans, staph coag negative and also for C. difficile colitis. Currently patient is on IV cefepime, IV vancomycin, oral vancomycin and IV Flagyl. CT of the abdomen had shown left hydronephrosis/obstructive uropathy. Because of her very poor prognosis from ovarian cancer unresponsive to therapy and severe sepsis, C. difficile colitis, patient was made a DNR and was planning to go to hospice after urology procedure. Patient underwent ureteral stent placement for left hydronephrosis by Dr. Kan today. Apparently there was aspiration possibly during intubation. Postprocedure patient was unresponsive and a stroke alert was initiated. CT of the head was negative. Critical care medicine was consulted I evaluated the patient in the ICU patient is much more awake following commands but she is profoundly hypoxemic currently requiring FiO2 60% to maintain sat 90%. ABG shows significant A-a gradient. Chest x-ray shows acute development of bilateral pulmonary edema/ARDS. Patient is also hypotensive with systolic blood pressure in the 80s. I discussed with and family extensively. I explained to him that options are to choose comfort measures and extubate expecting patient to pass away soon, or we can attempt to diuresis and see whether oxygenation improves to permit extubation in the next 24 hours. They do not want any aggressive measures but would like to see whether the oxygenation improved so that she can be extubated and transferred to hospice. I have placed the patient on IV albumin 25 g every 12 hours, IV Lasix 40 mg every 8 hours, Shayan-Synephrine will be started to maintain map above 65. Also TPN had been restarted. No change in antibiotics Review of Systems unobtainable due to endotracheal tube PMFSH - History History Provided By: Patient, Family Member - Medical History Medical History: Medical History (Last Reviewed 12/23/17 @ 20:42 by Chuy Coyle MD) Ovary cancer - Surgical History Surgical History: Surgical History (Last Reviewed 12/23/17 @ 20:42 by Chuy Coyle MD) H/O shoulder surgery History of tonsillectomy Hx of appendectomy Hx of section Hx of hernia repair - Family History Family History: Family History (Last Reviewed 12/23/17 @ 20:42 by Chuy Coyle MD) Other No pertinent family history - Tobacco History Second Hand Smoke Exposure: No Tobacco Use In Past 30 Days: No Smoking Status: Former smoker (1 PPD x 15 years, quit 30 years ago) Tobacco Type: Cigarettes - Alcohol History How Often Do You Have a Drink Containing Alcohol: Never - Substance Use History Substance History: No History of Abuse - Travel History History of Recent Travel: No Recent Travel in the [place] Within the Last 8 Weeks: No Recent Travel Out of the Country Within the Last 8 Weeks: No - Immunization History Tetanus Immunization: Unsure Hx Influenza Vaccine This Season: No Medications and Allergies Active Medications: Active Medications Acetaminophen (Tylenol) 650 mg PO Q4H PRN PRN Reason: Fever or Pain 1-2 Albuterol (Duoneb Neb (Prn)) 1 ampul NEB Q2HR NEB PRN PRN Reason: SHORTNESS OF BREATH Alteplase, Recombinant (Cathflo Activase Inj) 2 mg I-CATHETER Q2H PRN PRN Reason: CLOTTED IV ACCESS DEVICE Last Admin: 12/23/17 14:17 Dose: 2 mg Benzonatate (Tessalon Perles) 100 mg PO Q8H PRN PRN Reason: cough Last Admin: 12/22/17 21:45 Dose: 100 mg Chlorhexidine Gluconate (Peridex 0.12% Oral Kit) 15 ml OROPHARYNG BID@0800, 2000 [facility] Famotidine (Pepcid) 20 mg PO BID [facility] Famotidine (Pepcid Pf Inj) 20 mg IV.PUSH Q12HR [facility] Fentanyl (Duragesic 25 Mcg Patch.72hr) 1 patch T-DERMAL Q72H [facility] Last Admin: 12/20/17 21:21 Dose: 1 patch Furosemide (Lasix Inj) 40 mg IV.PUSH Q8H [facility] Potassium Chloride/Sodium Chloride (Ns + Kcl 40 Meq Inj) 1,000 mls @ 20 mls/hr IV.CONT .Q24H [facility] Last Infusion: 12/20/17 18:01 Dose: 0 mls/hr Fat Emulsion Intravenous (Intralipid 20% Inj) 250 mls @ 31.25 mls/hr IV.SIG DAILY@1999 [facility] Last Infusion: 12/23/17 06:34 Dose: Infused Metronidazole/Sodium Chloride (Flagyl 500 Mg Inj) 100 mls @ 100 mls/hr IV.SIG Q8H [facility] Last Infusion: 12/23/17 11:54 Dose: Infused Cefepime HCl 2,000 mg/ Sodium (Chloride) 100 mls @ 200 mls/hr IV.SIG Q8H [facility] Last Infusion: 12/23/17 13:37 Dose: Infused Multivitamins 10 ml/ Folic Acid 1 mg/ Amino Acids/Electrolytes 2,010.2 mls @ 50 mls/hr IV.SIG DAILY@1999 [facility] Last Admin: 12/22/17 21:43 Dose: 50 mls/hr Lactated Ringer's (Lr 1000 Ml Inj) 1,000 mls @ 30 mls/hr IV.CONT .Q24H ONE Stop: 12/24/17 04:29 Sodium Chloride (Ns Inj) 500 mls @ 30 mls/hr IV.CONT .[id number] ONE Stop: 12/23/17 21:09 Vancomycin HCl 900 mg/ Sodium (Chloride) 259 mls @ 250 mls/hr IV.SIG Q12H [facility] Sodium Chloride 154 meq/ (Dextrose) 1,000 mls @ 50 mls/hr IV.SIG .Q20H [facility] Phenylephrine HCl 40 mg/ (Dextrose) 500 mls @ 30 mls/hr IV.CONT TITRATE PRN; Protocol PRN Reason: Per Protocol Albumin Human (Flexbumin 25% Inj) 100 mls @ 60 mls/hr IV.SIG Q8H [facility] Fentanyl (Fentanyl 10 Mcg/Ml Premix Drip) 2,500 mcg in 250 mls @ 5 mls/hr IV.SIG TITRATE PRN; Protocol PRN Reason: Per Protocol Midazolam HCl (Versed Inj) 50 mg in 50 mls @ 2 mls/hr IV.CONT TITRATE PRN; Protocol PRN Reason: Per Protocol Ibuprofen (Advil) 200 mg PO Q6H PRN PRN Reason: Pain scale 1-2 Last Admin: 12/18/17 21:06 Dose: 200 mg Loratadine (Claritin) 5 mg PO DAILY [facility] Last Admin: 12/23/17 08:08 Dose: Not Given Miscellaneous (Pill Splitter) 1 each OTHER PRN PRN PRN Reason: SEE LABEL COMMENTS Miscellaneous Information ([facility] [place] [facility] Ordered Lab Info) 0 each OTHER ONCE ONE Stop: 12/25/17 09:46 Miscellaneous Information ([facility] [place] Nursing Information) 0 each OTHER UNSCH PRN PRN Reason: SEE LABEL COMMENTS Stop: 12/24/17 17:59 Miscellaneous Medication () 1 each OROPHARYNG 0000,0400,1200,1600 [facility] Morphine Sulfate (Morphine Inj) 4 mg IV.PUSH Q4H PRN PRN Reason: Pain scale 3-10 Naloxone HCl (Narcan Inj) 0.4 mg IV.PUSH UNSCH PRN PRN Reason: SEE LABEL COMMENTS Ondansetron HCl (Zofran Inj) 4 mg IV.PUSH Q6H PRN PRN Reason: NAUSEA OR VOMITING Last Admin: 12/22/17 16:48 Dose: 4 mg Pantoprazole Sodium (Protonix Inj) 40 mg IV.PUSH Q24H [facility] Last Admin: 12/22/17 18:27 Dose: 40 mg Patch Removal (Remove Old Patch) 1 each T-DERMAL Q72H [facility] Last Admin: 12/20/17 21:22 Dose: 1 each Pharmacy Profile Note (Vancomycin Consult Pharmacy) 1 each OTHER UNSCH PRN PRN Reason: Pharmacy to dose Sodium Chloride (Ns Flush) 2 ml IV.FLUSH BID [facility] Last Admin: 12/23/17 11:56 Dose: 2 ml Sodium Chloride (Ns Flush) 2 ml IV.FLUSH PRN PRN PRN Reason: FLUSH AFTER USING IV ACCESS Terbutaline Sulfate (Brethine Inj) 1 mg SQ UNSCH PRN PRN Reason: For Extravasation Vancomycin HCl (Vancomycin Po) 500 mg PO QID [facility] Last Admin: 12/23/17 13:00 Dose: 500 mg Allergies Allergy/AdvReac Type Severity Reaction Status Date / Time hydrocodone AdvReac Severe Nausea/Vomi Verified 12/18/17 10:35 ting Home Medications Medication Instructions Recorded Confirmed Type fentanyl 1 patch TRANSDERMAL Q72H 12/18/17 12/18/17 History Physical Exam Vital signs: Vital Signs 12/23/17 00:00 12/23/17 00:10 12/23/17 04:00 Temperature 97.8 F 97.9 F Pulse Rate 115 H 106 H 110 H Respiratory Rate 18 18 Blood Pressure 133/97 H 133/100 H Pulse Oximetry 97 99 12/23/17 08:00 12/23/17 08:56 12/23/17 12:00 Temperature 98.6 F 98.7 F Pulse Rate 112 H 115 H 118 H Respiratory Rate 22 18 18 Blood Pressure 150/105 H 124/81 Pulse Oximetry 96 97 12/23/17 15:17 12/23/17 16:00 12/23/17 17:54 Temperature 98.5 F 98.7 F Pulse Rate 117 H 112 H 132 H Respiratory Rate 18 20 Blood Pressure 132/94 H 140/95 H Pulse Oximetry 97 99 12/23/17 18:00 12/23/17 18:06 12/23/17 18:15 Temperature 98.7 F Pulse Rate 139 H 139 H Respiratory Rate 20 20 20 Blood Pressure 147/97 H 147/97 H Pulse Oximetry 99 98 99 12/23/17 18:34 12/23/17 19:35 Temperature Pulse Rate Respiratory Rate 32 H 37 H Blood Pressure Pulse Oximetry 94 L 94 L Intake & Output 12/23/17 12/23/17 12/24/17 06:59 18:59 06:59 Intake Total 1047.5 / 1047.5 200 / 200 Output Total 325 / 325 450 / 450 Balance 722.5 / 722.5 -250 / -250 Intake: IV 807.5 / 807.5 200 / 200 Maxipime Inj 2,000 MG In NS Inj 200 / 200 100 / 100 100 ML @ 200 mls/hr IV.SIG Q8H [facility] Rx#:[id number] Intralipid 20% Inj 250 ML @ 31. 250 / 250 25 mls/hr IV.SIG DAILY@2000 [facility] Rx#:[id number] Vancomycin Inj 750 MG In NS Inj 257.5 / 257.5 250 ML @ 250 mls/hr IV.SIG Q12H [facility] Rx#:[id number] Flagyl 500 MG Inj 100 ML @ 100 100 / 100 100 / 100 mls/hr IV.SIG Q8H [facility] Rx#: [id number] Oral 240 / 240 Output: Urine 325 / 325 450 / 450 Other: Date of Last Bowel Movement 12/20/17 Narrative: GENERAL: Critically ill 67-year-old female who is intubated awake SKIN: Multiple areas of ecchymosis of the upper extremities NECK: Trachea midline. No JVD or lymphadenopathy. CV: Tachycardic with regular rhythm, hypotensive. Port in place on right side chest wall. RESP: Bilateral coarse rhonchi and rails. Patient very tachypneic on attempted CPAP. Currently on PRVC/AC PEEP 8, FiO2 60% GASTROINTESTINAL: Abdomen distended and diffusely tender NEURO: Patient is alert awake on the vent follows commands appears to be in respiratory distress Septic Shock Reassessment Septic shock perfusion: reassessment completed Assessment and Plan - Assessment and Plan Plan: ASSESSMENT: Acute hypoxemic respiratory failure Acute metabolic encephalopathy Septic shock Bacteremia with Pseudomonas coag negative staph, strep viridans Severe C. difficile colitis Leukocytosis Left hydronephrosis status post ureteral stent Metastatic ovarian cancer PLAN: NEURO: -Versed and fentanyl for sedation and ventilator synchrony RESP: -PRVC/AC 16/550/8 60% -Failed CPAP trial due to tachypnea and respiratory distress -Continue current antibiotics as below, this will cover for in-hospital aspiration -Chest x-ray stat showed pulmonary edema/ARDS could be secondary to aspiration versus fluid overload -Ventilator bundle. DuoNeb every 6 hours scheduled and as needed -SBT when appropriate CV: -Chest x-ray shows pulmonary edema unclear cardiogenic versus noncardiogenic -Due to hypoxia attempt diuresis to dry weight -IV albumin 25 g every 8 hours -IV Lasix 40 mg every 8 hours -Shayan-Synephrine to maintain map GI: -N.p.o., IV famotidine -Restart TPN : -Status post left ureteral stent -Monitor renal function closely. Villareal catheter for hourly intake output due to IV Lasix at high dose ID: -Antibiotics per ID which includes IV vancomycin IV cefepime p.o. vancomycin and IV Flagyl -Send sputum culture -Previous cultures reviewed HEME: -Monitor CBC, coags -Leukocytosis secondary to severe C. difficile colitis ENDO: -Electrolyte replacement per protocol -Sliding scale insulin if needed PROPH: -Bilateral lower extremity SCDs. IV Famotidine. No chemical DVT prophylaxis due to thrombocytopenia LINES: -Utilize peripheral IVs, patient has an [id number] CC time 45 min Code Status: DNR
[2017-12-23] MEDS ORDERED: Famotidine 20 MG Tablet PO SCH (21:00)
[2017-12-23] MEDS: Albumin Human 25% Inj 100 ML IV.SIG SCH (21:35)
[2017-12-23] MEDS: Famotidine PF Inj 20 MG/2 ML Vial IV.PUSH SCH (21:36)
[2017-12-23] MEDS: Midazolam 50 MG/50 ML Inj 50 MG/50 ML BAG IV.CONT PRN (22:00)
[2017-12-23] MEDS ORDERED: Vancomycin Inj 900 MG in Sodium Chlor 0.9% Inj 250 ML IV.SIG SCH (22:00)
[2017-12-23] MEDS: Multivitamin Inj 10 ML, Folic Acid Inj 1 MG in AA 5%/D20W - Electrolytes 2,000 ML IV.SIG SCH (22:44)
[2017-12-23] MEDS: Phenylephrine Inj 40 MG in Dextrose 5% in Water Inj 496 ML IV.CONT PRN ×2 (22:45)
[2017-12-24] MEDS: Pantoprazole Inj 40 MG Vial IV.PUSH SCH (00:08)
[2017-12-24] MEDS: Oral Hygiene Kit OROPHARYNG SCH ×2 (00:09→04:58)
[2017-12-24] MEDS: Albumin Human 25% Inj 100 ML IV.SIG SCH (04:58)
[2017-12-24 05:37] LABS: Hematocrit 26.2 % (35.0-46.0); Hemoglobin 8.9 gm/dL (11.6-15.3); Mean Corpuscular HGB Conc 33.9 % (32.0-36.0); Mean Corpuscular Hemoglobin 28.7 pg (27.0-34.0); Mean Corpuscular Volume 84.9 fL (80.0-100.0); Mean Platelet Volume 11.8 fL (7.0-11.0); Platelet Count 66 th/mm3 (150-450); Red Blood Count 3.08 mil/mm3 (4.00-5.30); Red Cell Distribution Width 19.4 % (11.6-17.2); White Blood Count 36.4 th/mm3 (4.0-11.0)
[2017-12-24 06:00] LABS: Calcium 6.9 mg/dL (8.5-10.1); Carbon Dioxide 20.6 meq/L (21.0-32.0); Potassium 3.2 meq/L (3.5-5.1)
[2017-12-24 06:11] LABS: Total Protein 4.6 g/dL (6.4-8.2)
[2017-12-24 07:43] LABS: Lymphocytes 5 % (9-44); Metamyelocytes 1 % (0-1); Monocytes 2 % (0-8); Myelocytes 3 % (0-0); Plasma Cells 1 % (0-0); Tallied Nucleated RBC 2 (0-0)
[2017-12-24 07:44] LABS: Dohle Bodies Present; Toxic Granulation 2+
[2017-12-24] MEDS: Phenylephrine Inj 40 MG in Dextrose 5% in Water Inj 496 ML IV.CONT PRN ×2 (07:50)
[2017-12-24] MEDS ORDERED: Chlorhexidine 0.12% Oral Kit 15 ML UDC OROPHARYNG SCH (08:00)
[2017-12-24] MEDS: Loratadine 10 MG Tablet PO SCH (08:35)
[2017-12-24] MEDS: Famotidine PF Inj 20 MG/2 ML Vial IV.PUSH SCH (08:36)
[2017-12-24] MEDS: Sodium Chloride 0.9% 2 ML Flush BID IV.FLUSH SCH (08:37)
[2017-12-24] MEDS ORDERED: Potassium Chloride 25 MEQ Effervescent Tablet PO SCH (09:00)
--- NOTE | 2017-12-24 10:31 | P.PNFP ---
Subjective Interval history: Patient seen examined this morning with family at bedside. Following cystoscopy procedure yesterday, patient remained sedated and had difficulty with oxygenation. Critical care was consulted and patient was transferred to the ICU. Family states that after speaking to palliative care yesterday, the patient had decided that she would like to discontinue aggressive care and discuss comfort care with hospice. After a discussion with Dr. Jimenez, patient's oncologist, who discussed patient's poor prognosis, family is agreeable with speaking with palliative care and hospice services today. Per Dr. Jimenez, patient's family would like to attempt extubation and transfer to hospice services today. <May Negro - 12/24/17 12:08> Results - Labs Result diagrams: 12/24/17 05:00 12/24/17 05:00 <Justin Rucker - 12/25/17 11:44> Abnormal lab results 12/23/17 12/23/17 12/23/17 Range/Units 11:32 11:32 18:40 WBC 43.7 H (4.0-11.0) th/mm3 RBC 3.53 L (4.00-5.30) mil/mm3 Hgb 10.0 L (11.6-15.3) gm/dL Hct 29.9 L (35.0-46.0) % RDW 19.7 H (11.6-17.2) % Plt Count 57 L D (150-450) th/mm3 MPV (7.0-11.0) fL Band Neuts % (Manual) 19 H (0-6) % Lymphocytes % (Manual) 2 L (9-44) % Myelocytes % (Man) 2 H (0-0) % Plasma Cell % (Manual) 1 H (0-0) % Abs Neuts (Manual) 40.2 H (1.8-7.7) th/mm3 Nucleated RBCs/100 WBC (0-0) /100 WBC Toxic Granulation 2+ H (None) Dohle Bodies Present H (None) Platelet Estimate Low L (Normal) Platelet Morphology Enlarged H (Normal) ABG pH 7.31 L (7.380-7.420) ABG pCO2 (38-42) mmHg ABG HCO3 20 L (22-26) mmol/L ABG Base Excess -5.0 L (-2-2) mmol/L Hemoglobin 11.4 L (12.0-16.0) G/DL Sodium (136-145) meq/L Potassium 3.3 L (3.5-5.1) meq/L Carbon Dioxide (21.0-32.0) meq/L BUN 29 H (7-18) mg/dL Estimated GFR (>89) mL/min Random Glucose (74-106) mg/dL Calcium 7.8 L (8.5-10.1) mg/dL Prot Corrected Calcium (8.5-10.1) mg/dL Alkaline Phosphatase 322 H (45-117) U/L Total Protein 5.0 L (6.4-8.2) g/dL Albumin 1.2 L (3.4-5.0) g/dL 12/23/17 12/24/17 12/24/17 Range/Units 20:10 05:00 05:00 WBC 36.4 H (4.0-11.0) th/mm3 RBC 3.08 L (4.00-5.30) mil/mm3 Hgb 8.9 L (11.6-15.3) gm/dL Hct 26.2 L (35.0-46.0) % RDW 19.4 H (11.6-17.2) % Plt Count 66 L (150-450) th/mm3 MPV 11.8 H (7.0-11.0) fL Band Neuts % (Manual) 37 H (0-6) % Lymphocytes % (Manual) 5 L (9-44) % Myelocytes % (Man) 3 H (0-0) % Plasma Cell % (Manual) 1 H (0-0) % Abs Neuts (Manual) 33.5 H (1.8-7.7) th/mm3 Nucleated RBCs/100 WBC 2 H (0-0) /100 WBC Toxic Granulation 2+ H (None) Dohle Bodies Present H (None) Platelet Estimate Low L (Normal) Platelet Morphology Enlarged H (Normal) ABG pH 7.35 L (7.380-7.420) ABG pCO2 35 L (38-42) mmHg ABG HCO3 19 L (22-26) mmol/L ABG Base Excess -5.8 L (-2-2) mmol/L Hemoglobin 10.9 L (12.0-16.0) G/DL Sodium 134 L (136-145) meq/L Potassium 3.2 L (3.5-5.1) meq/L Carbon Dioxide 20.6 L (21.0-32.0) meq/L BUN 30 H (7-18) mg/dL Estimated GFR 77 L (>89) mL/min Random Glucose 208 H D (74-106) mg/dL Calcium 6.9 L* D (8.5-10.1) mg/dL Prot Corrected Calcium 8.2 L (8.5-10.1) mg/dL Alkaline Phosphatase (45-117) U/L Total Protein 4.6 L (6.4-8.2) g/dL Albumin (3.4-5.0) g/dL Short CBC 12/23/17 12/24/17 Range/Units 11:32 05:00 WBC 43.7 H 36.4 H (4.0-11.0) th/mm3 Hgb 10.0 L 8.9 L (11.6-15.3) gm/dL Hct 29.9 L 26.2 L (35.0-46.0) % Plt Count 57 L D 66 L (150-450) th/mm3 BMP 12/23/17 12/24/17 11:32 05:00 Sodium 136 134 L Potassium 3.3 L 3.2 L Chloride 104 105 Carbon Dioxide 23.7 20.6 L BUN 29 H 30 H Creatinine 0.56 0.75 Calcium 7.8 L 6.9 L* D Liver Function 12/23/17 Range/Units 11:32 Total Bilirubin 0.5 (0.2-1.0) mg/dL AST 26 (15-37) U/L ALT 17 (10-53) U/L Alkaline Phosphatase 322 H (45-117) U/L Albumin 1.2 L (3.4-5.0) g/dL <May Negro 12/24/17 10:31> - Imaging Impressions Chest X-Ray 12/23/17 19:43 CONCLUSION: 1. ETT in good position. 2. Interval development of diffuse patchy bilateral airspace disease in a pulmonary edema/ARDS pattern. <May Negro 12/24/17 10:31> Physical Exam Vital signs: Vital Signs 12/24/17 11:47 12/24/17 12:00 12/24/17 12:02 Temperature 98.4 F Pulse Rate 103 H 102 H 100 H Respiratory Rate 19 15 10 L Blood Pressure 118/81 107/70 Pulse Oximetry 99 98 98 12/24/17 12:09 12/24/17 12:17 12/24/17 12:32 Temperature Pulse Rate 104 H 101 H Respiratory Rate 17 19 13 Blood Pressure 119/70 109/67 Pulse Oximetry 98 98 98 12/24/17 12:47 12/24/17 16:00 Temperature Pulse Rate 101 H 99 H Respiratory Rate 16 Blood Pressure 102/64 Pulse Oximetry 98 Intake & Output 12/24/17 12/25/17 12/25/17 18:59 06:59 18:59 Other: Date of Last Bowel Movement 12/24/17 <Justin Rucker - 12/25/17 11:44> Vital Signs 12/23/17 12:00 12/23/17 15:17 12/23/17 16:00 Temperature 98.7 F 98.5 F Pulse Rate 118 H 117 H 112 H Respiratory Rate 18 18 Blood Pressure 124/81 132/94 H Pulse Oximetry 97 97 12/23/17 17:54 12/23/17 18:00 12/23/17 18:06 Temperature 98.7 F Pulse Rate 132 H 139 H Respiratory Rate 20 20 20 Blood Pressure 140/95 H 147/97 H Pulse Oximetry 99 99 98 12/23/17 18:15 12/23/17 18:34 12/23/17 19:35 Temperature 98.7 F Pulse Rate 139 H Respiratory Rate 20 32 H 37 H Blood Pressure 147/97 H Pulse Oximetry 99 94 L 94 L 12/23/17 20:00 12/23/17 20:33 12/24/17 00:00 Temperature 97.5 F L 98.3 F Pulse Rate 124 H 76 Respiratory Rate 18 17 16 Blood Pressure 83/59 L 108/77 Pulse Oximetry 95 95 100 12/24/17 00:30 12/24/17 03:47 12/24/17 04:00 Temperature 98.2 F Pulse Rate 100 H Respiratory Rate 16 17 18 Blood Pressure 136/88 Pulse Oximetry 100 99 100 12/24/17 07:32 Temperature Pulse Rate Respiratory Rate 19 Blood Pressure Pulse Oximetry 100 Intake & Output 12/23/17 12/24/17 12/24/17 18:59 06:59 18:59 Intake Total 200 / 200 2919.2 / 2919.2 Output Total 450 / 450 1525 / 1525 Balance -250 / -250 1394.2 / 1394.2 Weight 60.9 kg Intake: IV 200 / 200 2919.2 / 2919.2 Flexbumin 25% Inj 100 ML @ 60 200 / 200 mls/hr IV.SIG Q8H [facility] Rx#: [id number] Maxipime Inj 2,000 MG In NS Inj 100 / 100 100 / 100 100 ML @ 200 mls/hr IV.SIG Q8H [facility] Rx#:[id number] Intralipid 20% Inj 250 ML @ 31. 250 / 250 25 mls/hr IV.SIG DAILY@1999 [facility] Rx#:[id number] MVI-12 Inj 10 ML Folvite Inj 1 2009.2 / 2009.2 MG In Clinimix E 5%/D20W Inj 2, 000 ML @ 50 mls/hr IV.SIG DAILY @1999 [facility] Rx#:[id number] Vancomycin Inj 900 MG In NS Inj 259 / 259 250 ML @ 250 mls/hr IV.SIG Q12H [facility] Rx#:[id number] Flagyl 500 MG Inj 100 ML @ 100 100 / 100 100 / 100 mls/hr IV.SIG Q8H [facility] Rx#: [id number] Output: Urine 450 / 450 Urine Amount (Catheter) 1400 / 1400 Indwelling Urethral Catheter 1400 / 1400 Gastric Drainage 125 / 125 Oral 125 / 125 Other: Date of Last Bowel Movement 12/24/17 # Bowel Movements 2 <May Negro - 12/24/17 10:31> Narrative: GENERAL: Critically ill 67-year-old female, sedated and intubated. SKIN: Multiple areas of ecchymosis of the upper extremities. NECK: Trachea midline. No JVD or lymphadenopathy. CV: Tachycardic with regular rhythm, hypotensive. Port in place on right side chest wall, without signs of infection. RESP: Bilateral coarse rhonchi and rails. Patient very tachypneic on mechanical ventilation, PRVC. GASTROINTESTINAL: Abdomen distended with bowel sounds in all 4 quadrants. <May Negro - 12/24/17 12:08> - Urinary Catheter Management Indwelling Urethral Catheter Cath placed during this visit: no <Michelle Ruckery - 12/25/17 11:44> yes <May Negro - 12/24/17 12:08> Reason for continuing: Terminally ill/Comfort care <May Negro - 10:31> Insertion date: 12/23/17 <May Negro - 12/24/17 10:31> Assessment and Plan - Assessment (1) Pneumonia Code(s): J18.9 - Pneumonia, unspecified organism Status: Acute Plan: After extensive discussion with palliative care, critical care and oncology, regarding patient's prognosis and current medical management, patient's family has decided to attempt extubation and transfer patient to hospice services today. Comfort care measures per palliative care. Currently managed by critical care: Chest CT shows bibasilar airspace disease, left more so than right. Cannot exclude early infiltrate just above the left hemidiaphragm Blood cultures from 12/18/17 - polymicrobial with Pseudomonas, GPC Repeat blood cultures from 12/21 [id number] Antibiotics as below for bacteremia Chest physiotherapy ordered Continue with breathing treatments Incentive spirometer and Acapella to bedside (2) Bacteremia Code(s): R78.81 - Bacteremia Status: Resolved Plan: Blood cultures from 12/18/17 growing Pseudomonas and GPC Repeat blood Cx 12/21 NGTD x2 Source of bacteremia unknown, possibly from pneumonia versus GI vs urinary retention/hydronephrosis versus immunosuppression ID consulted, appreciate recs Vancomycin 750 mg IV every 12 hours with vancomycin pharmacy consult Cefepime 2 g IV every 8 hours Metronidazole 500 mg IV every 8 hours Vancomycin 500 mg PO Q6H due to C difficile F/u repeat cultures Further recs on length of treatment to follow from ID (3) Hydronephrosis, left Code(s): N13.30 - Unspecified hydronephrosis Status: Acute Plan: Urology consulted, appreciate recs Plan for cystoscopy with left retrograde pyelogram and likely left ureteral stent placement today Pain control provided with morphine 4 mg IV every 4 hours as needed (4) C. difficile diarrhea Code(s): A04.72 - Enterocolitis due to Clostridium difficile, not specified as recurrent Status: Acute Plan: Bowel thickening on CT abd and C diff + (toxin negative); clinically no diarrhea Flagyl 500 mg IV every 8 hours Vancomycin 500 mg p.o. 4 times daily Encourage maintaining hydration Contact precautions (5) Ascites Code(s): R18.8 - Other ascites Status: Acute Plan: Patient receives ultrasound-guided paracentesis weekly due to accumulation of ascites Continue to monitor daily, may require paracentesis at a later date (6) Protein-calorie malnutrition Code(s): E46 - Unspecified protein-calorie malnutrition Status: Acute Plan: TPN transfuse nightly over 8 hours For TPN recommend, Clinimix E 5/20 @ 50 mL/hr and 20% lipids @ 31.25 mL/hr over 8hrs daily Dietary will continue to follow (7) Pancytopenia due to chemotherapy Code(s): D61.810 - Antineoplastic chemotherapy induced pancytopenia Status: Resolved Plan: Neupogen started on 12/19/17 with Proposal Review Analyst Onc recommendations. WBC ~42 from 0.3 on admission, which indicates response to Neupogen. Calculated ANC significantly improved from admission. S/p 2 units PRBCs on 12/18, H/H now stable around 10 Status post 1 unit platelet infusion on 12/20, Plt today 57 Continue to watch daily labs Oncology following, appreciate recs Neupogen discontinued 12/22 (8) Ovarian cancer Code(s): C56.9 - Malignant neoplasm of unspecified ovary Status: Chronic Plan: Oncology consulted. Palliative consulted. <May Negro - 12/24/17 11:55> - Attending Attestation See the residents documentation for details. I saw and evaluated the patient regarding the tamayo portions of this evaluation and agree with the residents findings and plans as written. Parts of this note were created using [employer] voice recognition software program. While efforts were made to correct any mistakes made by this software, some mistakes, errors, and omissions may remain in the final note that were not caught when the note was originally created. Plan of care was discussed and agreed upon with the patient as specifically documented in the above note. An opportunity to ask questions with explanation was provided. Patient voiced understanding on all information reviewed and discussed. <Justin Rucker - 12/25/17 11:44>
--- NOTE | 2017-12-24 11:03 | P.PNPAL ---
Reason for Visit Reason for visit: a. To assist with evaluation and management of symptoms including:pain, dyspnea , anxiety b. To assist medical decision maker(s) with: better understanding of current medical conditions; weighing benefits/burdens of medical treatment options; making medical treatment decisions. Subjective Subjective/Interval History: Ms. Velasquez is a 67-year-old female who presented to [facility] emergency room on with complaints of overall fatigue, generalized weakness, and diarrhea. 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 It is of note that the initiation of chemotherapy the patient essentially had no objective or subjective response. She did obtain a second opinion consultation through [facility]. Treatment modalities were changed and she recently just completed her second cycle last Saturday. She also undergoes weekly paracentesis, last one being of last week where by report 5 L of ascitic fluid were removed. She is found to be extremely anemic and the decision was made to admit the patient for further evaluation and treatment. Dr. Jimenez (oncologist) was consulted as he is known to the patient. CT findings overall suggestive of increased tumor burden from prior studies. Per his discussion with the patient he feels there is a strong possibility that this is not ovarian cancer given its poor response to any targeted chemotherapy. He feels it is possible this may be an atypical presentation for pancreatic or gallbladder cancer. Even if this is the case patient is currently receiving most often used regimen. Dr. Jimenez felt at this time it would be appropriate to discuss hospice. 12/24/17 Palliative care to continue follow-up of symptom management and goals of medical care. Patient went for cystoscopy with sent placement last evening. She was unable to be extubated to do increasing oxygen requirements and lethargy. It appears as if the patient aspirated at some point during the procedure. She was transferred to the SICU for further monitoring and treatment. Prior to this event the patient and family were able to meet with hospice and decided to schedule a meeting for this morning to fill out admission paperwork. Upon examination today, the patient is intubated and minimally sedated. She arouses to voice, able to follow simple commands, and nods appropriately. When asked if she wants to continue with the mechanical ventilator she shakes her head "no" and appears to mouth the word "out". Currently intubated on AC with a peep of 5, Fi02 40%. Her family states that she would not want to continue with further invasive treatment and at this point they would want the focus to be on their loved one's comfort. Today's clinical data revealed: * WBC 36.4, Hgb 8.9, Hct 26.2, Plt 66 * Na 134, K+ 3.2, Cl 105, C02 20.6, BUN 30, Creatinine 0.75, glucose 208 Family/Friend Interactions: and 2 children are at bedside. They verbalized that they do not want to pursue further aggressive measures. They feel that they would be keeping in line with her wishes if they transition to comfort care only. They would like to have their mother/ extubated and transferred to the [facility] today. Advance Directives Living Will: Completed, but not made available Advance Directives Date on File: 12/23/17 (Community DNR) Health Care Surrogate Name and Number: Dandre Velasquez (healthcare proxy/) [phone] Documented care wishes:: The patient states she has a documented power of assistant district attorney and will have her family bring in a copy for our records here. Patient did sign a community DNR this weekend Significant change in goals:: Prior to this event, the patient had verbalized her wishes to transition to comfort care only. She had planned to transition to hospice this morning. At this time, her family elects to transition her to comfort measures only. Objective Vital Signs: Vital Signs 12/23/17 12:00 12/23/17 15:17 12/23/17 16:00 Temperature 98.7 F 98.5 F Pulse Rate 118 H 117 H 112 H Respiratory Rate 18 18 Blood Pressure 124/81 132/94 H Pulse Oximetry 97 97 12/23/17 17:54 12/23/17 18:00 12/23/17 18:06 Temperature 98.7 F Pulse Rate 132 H 139 H Respiratory Rate 20 20 20 Blood Pressure 140/95 H 147/97 H Pulse Oximetry 99 99 98 12/23/17 18:15 12/23/17 18:34 12/23/17 19:35 Temperature 98.7 F Pulse Rate 139 H Respiratory Rate 20 32 H 37 H Blood Pressure 147/97 H Pulse Oximetry 99 94 L 94 L 12/23/17 20:00 12/23/17 20:33 12/24/17 00:00 Temperature 97.5 F L 98.3 F Pulse Rate 124 H 76 Respiratory Rate 18 17 16 Blood Pressure 83/59 L 108/77 Pulse Oximetry 95 95 100 12/24/17 00:30 12/24/17 03:47 12/24/17 04:00 Temperature 98.2 F Pulse Rate 100 H Respiratory Rate 16 17 18 Blood Pressure 136/88 Pulse Oximetry 100 99 100 12/24/17 07:32 12/24/17 08:00 Temperature Pulse Rate 94 H Respiratory Rate 19 Blood Pressure Pulse Oximetry 100 Intake & Output 12/23/17 12/24/17 12/24/17 18:59 06:59 18:59 Intake Total 200 / 200 2919.2 / 2919.2 Output Total 450 / 450 1525 / 1525 Balance -250 / -250 1394.2 / 1394.2 Weight 60.9 kg Intake: IV 200 / 200 2919.2 / 2919.2 Flexbumin 25% Inj 100 ML @ 60 200 / 200 mls/hr IV.SIG Q8H [facility] Rx#: [id number] Maxipime Inj 2,000 MG In NS Inj 100 / 100 100 / 100 100 ML @ 200 mls/hr IV.SIG Q8H [facility] Rx#:[id number] Intralipid 20% Inj 250 ML @ 31. 250 / 250 25 mls/hr IV.SIG DAILY@1999 [facility] Rx#:[id number] MVI-12 Inj 10 ML Folvite Inj 1 2009.2 / 2009.2 MG In Clinimix E 5%/D20W Inj 2, 000 ML @ 50 mls/hr IV.SIG DAILY @1999 [facility] Rx#:[id number] Vancomycin Inj 900 MG In NS Inj 259 / 259 250 ML @ 250 mls/hr IV.SIG Q12H [facility] Rx#:[id number] Flagyl 500 MG Inj 100 ML @ 100 100 / 100 100 / 100 mls/hr IV.SIG Q8H [facility] Rx#: [id number] Output: Urine 450 / 450 Urine Amount (Catheter) 1400 / 1400 Indwelling Urethral Catheter 1400 / 1400 Gastric Drainage 125 / 125 Oral 125 / 125 Other: Date of Last Bowel Movement 12/24/17 12/24/17 # Bowel Movements 2 Physical Exam: CONSTITUTIONAL/GENERAL: appears critically ill, intubated TUBES/LINES/DRAINS: Right chest wall port. PIV, OGT, bilateral soft wrist restraints SKIN: No jaundice, rashes, or lesions. No wounds seen anteriorly. Skin temperature appropriate. Not diaphoretic. EYES: Pupils equal and round and reactive. Extraocular motions intact. No scleral icterus. No injection or drainage. Fundi not examined. ENT: Hearing grossly normal. Throat without visible erythema, exudates, masses, or lesions. Oral mucosa dry, lips are cracked with some dried blood CARDIOVASCULAR: Regular rate and rhythm without murmurs, gallops, or rubs. No JVD. Peripheral pulses symmetric. RESPIRATORY/CHEST: Mechanical ventilated. Clear to auscultation. Breath sounds equal bilaterally. Scattered rhonchi heard mostly right middle lobe. Diminished in the bases. GASTROINTESTINAL: Abdomen firm and noticeably distended. Tender to palpation and percussion particularly RLQ. Dull to percussion. Bowel sounds rare. MUSCULOSKELETAL: Extremities without clubbing, cyanosis, or edema. No joint tenderness or effusion noted. No calf tenderness. No mottling or clubbing. NEUROLOGICAL: mildly sedated, arouses to voice. Able to follow simple commands and nod appropriately PSYCHIATRIC: unable to fully assess due to clinical condition Diagnostic Tests Laboratory: Laboratory Results - last 72 hr 12/21/17 12/21/17 12/22/17 12:44 12:44 04:00 WBC 16.2 H 35.2 H D RBC 3.41 L 3.47 L Hgb 9.8 L 10.0 L Hct 28.8 L 29.5 L MCV 84.6 84.9 MCH 28.8 28.9 MCHC 34.0 34.0 RDW 19.1 H 19.4 H Plt Count 42 L 39 L MPV 10.1 11.4 H Prelim Diff (Auto) Manual diff required Manual diff required WBC Differential Manual diff final Manual diff final Seg Neuts % (Manual) 46 48 Band Neuts % (Manual) 47 H 45 H Lymphocytes % (Manual) 2 L Monocytes % (Manual) 6 4 Metamyelocytes % (Man) 1 Myelocytes % (Man) 1 H Plasma Cell % (Manual) Abs Neuts (Manual) 15.2 H 33.1 H Nucleated RBCs/100 WBC Differential Comment . . Toxic Granulation Dohle Bodies Platelet Estimate Low L Low L Platelet Morphology Normal Normal Puncture Site Patient Temperature O2 Saturation ABG pH ABG pCO2 ABG pO2 ABG HCO3 ABG O2 Content ABG Base Excess ABG Methemoglobin Lev Test Hemoglobin Carboxyhemoglobin O2 Delivery Device Vent Setting Inspired O2 Critical Value Sodium 133 L Potassium 2.8 L* Chloride 101 Carbon Dioxide 22.6 Anion Gap 9 BUN 26 H Creatinine 0.78 Estimated GFR 74 L POC Glucose Random Glucose 165 H Calcium 7.7 L Prot Corrected Calcium Total Bilirubin 0.5 AST 14 L ALT 19 Alkaline Phosphatase 237 H Total Protein 4.9 L Albumin 1.2 L Nasal Screen MRSA (PCR) Vancomycin Trough 12/22/17 12/22/17 12/23/17 04:00 16:49 04:04 WBC RBC Hgb Hct MCV MCH MCHC RDW Plt Count MPV Prelim Diff (Auto) WBC Differential Seg Neuts % (Manual) Band Neuts % (Manual) Lymphocytes % (Manual) Monocytes % (Manual) Metamyelocytes % (Man) Myelocytes % (Man) Plasma Cell % (Manual) Abs Neuts (Manual) Nucleated RBCs/100 WBC Differential Comment Toxic Granulation Dohle Bodies Platelet Estimate Platelet Morphology Puncture Site Patient Temperature O2 Saturation ABG pH ABG pCO2 ABG pO2 ABG HCO3 ABG O2 Content ABG Base Excess ABG Methemoglobin Lev Test Hemoglobin Carboxyhemoglobin O2 Delivery Device Vent Setting Inspired O2 Critical Value Sodium 134 L 134 L Potassium 2.9 L* 3.2 L Chloride 102 103 Carbon Dioxide 21.8 22.1 Anion Gap 10 9 BUN 25 H 27 H Creatinine 0.61 0.56 Estimated GFR Greater than 89 Greater than 89 POC Glucose 127 H Random Glucose 163 H 101 Calcium 7.3 L* 7.7 L Prot Corrected Calcium 8.7 Total Bilirubin 0.5 AST 19 ALT 17 Alkaline Phosphatase 266 H Total Protein 4.6 L Albumin 1.1 L Nasal Screen MRSA (PCR) Vancomycin Trough 12/23/17 12/23/17 12/23/17 11:32 11:32 18:40 WBC 43.7 H RBC 3.53 L Hgb 10.0 L Hct 29.9 L MCV 84.8 MCH 28.4 MCHC 33.5 RDW 19.7 H Plt Count 57 L D MPV 10.7 Prelim Diff (Auto) Manual diff required WBC Differential Manual diff final Seg Neuts % (Manual) 70 Band Neuts % (Manual) 19 H Lymphocytes % (Manual) 2 L Monocytes % (Manual) 5 Metamyelocytes % (Man) 1 Myelocytes % (Man) 2 H Plasma Cell % (Manual) 1 H Abs Neuts (Manual) 40.2 H Nucleated RBCs/100 WBC Differential Comment . Toxic Granulation 2+ H Dohle Bodies Present H Platelet Estimate Low L Platelet Morphology Enlarged H Puncture Site Right radial Patient Temperature 98.6 O2 Saturation 90 ABG pH 7.31 L ABG pCO2 41 ABG pO2 67 ABG HCO3 20 L ABG O2 Content 14.6 ABG Base Excess -5.0 L ABG Methemoglobin 1.3 Lev Test Present Hemoglobin 11.4 L Carboxyhemoglobin 1.4 O2 Delivery Device Ventilator Vent Setting Prvc/ac Inspired O2 60 Critical Value No Sodium 136 Potassium 3.3 L Chloride 104 Carbon Dioxide 23.7 Anion Gap 8 BUN 29 H Creatinine 0.56 Estimated GFR Greater than 89 POC Glucose Random Glucose 94 Calcium 7.8 L Prot Corrected Calcium Total Bilirubin 0.5 AST 26 ALT 17 Alkaline Phosphatase 322 H Total Protein 5.0 L Albumin 1.2 L Nasal Screen MRSA (PCR) Vancomycin Trough 8.8 12/23/17 12/23/17 12/23/17 18:48 20:10 23:00 WBC RBC Hgb Hct MCV MCH MCHC RDW Plt Count MPV Prelim Diff (Auto) WBC Differential Seg Neuts % (Manual) Band Neuts % (Manual) Lymphocytes % (Manual) Monocytes % (Manual) Metamyelocytes % (Man) Myelocytes % (Man) Plasma Cell % (Manual) Abs Neuts (Manual) Nucleated RBCs/100 WBC Differential Comment Toxic Granulation Dohle Bodies Platelet Estimate Platelet Morphology Puncture Site Left radial Patient Temperature 98.6 O2 Saturation 95 ABG pH 7.35 L ABG pCO2 35 L ABG pO2 86 ABG HCO3 19 L ABG O2 Content 14.6 ABG Base Excess -5.8 L ABG Methemoglobin 1.1 Lev Test Present Hemoglobin 10.9 L Carboxyhemoglobin 1.1 O2 Delivery Device Ventilator Vent Setting 15/8 Inspired O2 60 Critical Value No Sodium Potassium Chloride Carbon Dioxide Anion Gap BUN Creatinine Estimated GFR POC Glucose 94 Random Glucose Calcium Prot Corrected Calcium Total Bilirubin AST ALT Alkaline Phosphatase Total Protein Albumin Nasal Screen MRSA (PCR) Not detected Vancomycin Trough 12/24/17 12/24/17 05:00 05:00 WBC 36.4 H RBC 3.08 L Hgb 8.9 L Hct 26.2 L MCV 84.9 MCH 28.7 MCHC 33.9 RDW 19.4 H Plt Count 66 L MPV 11.8 H Prelim Diff (Auto) Manual diff required WBC Differential Manual diff final Seg Neuts % (Manual) 51 Band Neuts % (Manual) 37 H Lymphocytes % (Manual) 5 L Monocytes % (Manual) 2 Metamyelocytes % (Man) 1 Myelocytes % (Man) 3 H Plasma Cell % (Manual) 1 H Abs Neuts (Manual) 33.5 H Nucleated RBCs/100 WBC 2 H Differential Comment . Toxic Granulation 2+ H Dohle Bodies Present H Platelet Estimate Low L Platelet Morphology Enlarged H Puncture Site Patient Temperature O2 Saturation ABG pH ABG pCO2 ABG pO2 ABG HCO3 ABG O2 Content ABG Base Excess ABG Methemoglobin Lev Test Hemoglobin Carboxyhemoglobin O2 Delivery Device Vent Setting Inspired O2 Critical Value Sodium 134 L Potassium 3.2 L Chloride 105 Carbon Dioxide 20.6 L Anion Gap 8 BUN 30 H Creatinine 0.75 Estimated GFR 77 L POC Glucose Random Glucose 208 H D Calcium 6.9 L* D Prot Corrected Calcium 8.2 L Total Bilirubin AST ALT Alkaline Phosphatase Total Protein 4.6 L Albumin Nasal Screen MRSA (PCR) Vancomycin Trough Result Diagrams: 12/24/17 05:00 12/24/17 05:00 Microbiology: Microbiology 12/23/17 23:00 Gram Stain - Final Sputum - Endotracheal 12/21/17 12:44 Aerobic Blood Culture - Preliminary Blood - Peripheral No growth in 2 days Anaerobic Blood Culture - Preliminary No growth in 2 days 12/21/17 12:40 Aerobic Blood Culture - Preliminary Blood - Peripheral No growth in 2 days Anaerobic Blood Culture - Preliminary No growth in 2 days 12/18/17 10:55 Aerobic Blood Culture - Final Blood - Peripheral Pseudomonas aeruginosa Viridans streptococcus grp Staphylococcus coag negative Anaerobic Blood Culture - Final Viridans streptococcus grp Staphylococcus coag negative 12/19/17 14:25 Urine Culture - Final Clean Catch Urine No growth in 48 hours Imaging: Impressions Chest X-Ray 12/23/17 19:43 CONCLUSION: 1. ETT in good position. 2. Interval development of diffuse patchy bilateral airspace disease in a pulmonary edema/ARDS pattern. Procedures: 12/23/17 * Cystoscopy with stent placement * Intubation Assessment and Plan - Symptom Scale (1) Pain 0-10 Scale: Unable to quantify Comment: currently intubated with planned compassionate extubation today (2) Dyspnea 0-10 Scale: Unable to quantify Comment: mechanically ventilated on 40% Fi02 (3) Anxiety 0-10 Scale: Unable to quantify Comment: currently managed by IV sedation Pertinent Non-Medical Issues: Psychosocial: Patient was born in [place], [place]. In her 20s she worked for the [employer] where she met her . The couple then moved to [place] where she had her 2 children. 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 Spiritual: Pentecostalism Legal: Per [place] statutes in the absence of documented living will, healthcare decision making would fall to the patient's , Aldair Velasquez should the patient become incapacitated any time. The patient does feel that she has filled out a living will at one point in time will ask family members to bring in a copy Ethical issues impacting care: There are currently no known ethical issues impacting care at this time Important Contacts: Aldair Velasquez, /HCP [phone] Demi Velasquez , daughter [phone] Prognosis: Given the aggressive nature of her cancer and poor response to chemotherapy in conjunction with her current medical decline. At this time the patient is no longer a candidate for continued chemotherapy. Given the recent perioperative events, it appears if is immanent Code Status: No Code DNR Plan: * LEGAL DECISION MAKER -per [place] statutes, in the absence of a documented living will or power of assistant district attorney healthcare decision would fall to the patient' s Aldair Velasquez should she become incapacitated in time. * GOALS - Compassionate withdraw planned for later today at the [facility]. Will transition to comfort care * CODE STATUS -DNR community DNR in chart * SYMPTOMS: PainWill manage pain symptoms associated with end of life care accordingly. Will transfer to [facility] and have extubation there. Patient currently has fentanyl patch, 25mcg in place. Will have Morphine 5mg IVP prior to transfer to [facility]. Dyspnea - plans for compassionate withdraw today at [facility]. Will plan to extubated to face mask for transport to [facility], then wean down to nasal cannula. Will ensure patient is appropriately medicated to assist with any discomfort associated with dyspnea Anxiety - plans for compassionate withdraw today. Will ensure patient is appropriately medicated to assist with any anxiety associate with end of life care. Will have Ativan 0.5mg IVP x 1 for transfer to [facility]. Palliative care will continue to follow during hospital course as condition evolves, to assist patient/decision maker with understanding of medical conditions, weighing benefits/burdens of treatment options, for clarification of goals of treatment. Additionally will assist with any symptoms of palliative concern. Attestation Attestation: To help prompt me to consider important information that might be impacting today's encounter and assessment, information from prior notes written by myself or my colleagues may have been "brought forward" into today's note. My signature on this note, however, is an attestation that I personally performed the exam, history, and/or decision-making noted today, and, unless otherwise indicated, the interactions with patient, family, and staff as well as the review of records all occurred today. I also attest that the listed assessment and stated plan reflect my best clinical judgment today based on the combination of historical information, prior notes, and today's exam/ interactions. When time spent is documented, it refers only to time spent today by the signer, or if indicated, combined time spent today by collaborating physician/nurse practitioner.
[2017-12-24] MEDS: Midazolam 50 MG/50 ML Inj 50 MG/50 ML BAG IV.CONT PRN (11:34)
--- NOTE | 2017-12-24 12:01 | P.DS ---
Date of admission: 12/18/17 13:16 Primary care physician: Deric Benson MD Attending physician on discharge: Demetri Guevara Anticipated date of discharge: 12/24/17 Brief History from admission: 67-year-old female being treated for ovarian cancer presents to the emergency department after being sent over by Dr. Jimenez for symptomatic and severe anemia. Patient has been feeling extremely fatigued and short of breath recently associated with diarrhea and mild abdominal discomfort. She is currently being treated with chemotherapy, recently changing to a Avastin for which she has been treated x2, most recently 5 days ago. She has been getting weekly paracentesis for recurrent ascites, her most recent paracentesis 6 days ago was noted to be bloody with approximately 5.5 L of fluid removed. She endorses fatigue, she endorses shortness of breath, she endorses generalized malaise. She does endorse chest congestion with a cough that is nonproductive. She also endorses subjective chills. She denies fevers. She denies nausea or vomiting. She denies chest pain or palpitations. Patient update on day of discharge: remains intubated. family requests hospice, which is appropriate. DS: Diagnosis - Discharge Diagnosis (1) Ascites Status: Acute (2) Ovarian cancer Status: Chronic (3) Pancytopenia due to chemotherapy Status: Resolved (4) Protein-calorie malnutrition Status: Acute (5) Diarrhea Status: Acute (6) Pain Status: Acute (7) C. 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 She received Taxol her current carboplatin therapy without response. [employer] [employer] Dr. Jimenez had been following. Infectious disease had been following for bacteremia with Pseudomonas, strep viridans, staph coag negative and also for C. difficile colitis. Currently patient is on IV cefepime, IV vancomycin, oral vancomycin and IV Flagyl. CT of the abdomen had shown left hydronephrosis/obstructive uropathy. Because of her very poor prognosis from ovarian cancer unresponsive to therapy and severe sepsis, C. difficile colitis, patient was made a DNR and was planning to go to hospice after urology procedure. Patient underwent ureteral stent placement for left hydronephrosis by Dr. Kan today. Apparently there was aspiration possibly during intubation. Postprocedure patient was unresponsive and a stroke alert was initiated. CT of the head was negative. Critical care medicine was consulted I evaluated the patient in the ICU patient is much more awake following commands but she is profoundly hypoxemic currently requiring FiO2 60% to maintain sat 90%. ABG shows significant A-a gradient. Chest x-ray shows acute development of bilateral pulmonary edema/ARDS. Patient is also hypotensive with systolic blood pressure in the 80s. I discussed with and family extensively. I explained to him that options are to choose comfort measures and extubate expecting patient to pass away soon, or we can attempt to diuresis and see whether oxygenation improves to permit extubation in the next 24 hours. They do not want any aggressive measures but would like to see whether the oxygenation improved so that she can be extubated and transferred to hospice. I have placed the patient on IV albumin 25 g every 12 hours, IV Lasix 40 mg every 8 hours, Shayan-Synephrine will be started to maintain map above 65. Also TPN had been restarted. No change in antibiotics 12/24: no improvements. patient and family requesting hospice. discussed with hospice: will move to care center and extubate there. - Time Spent with Patient Total time spent providing and/or coordinating discharge services: Greater than 30 minutes - Quality: VTE Deep Vein Thrombosis/Pulmonary Embolism Present on Admission: No Exam Vital signs: Vital Signs 12/23/17 12:00 12/23/17 15:17 12/23/17 16:00 Temperature 37.1 C 36.9 C Pulse Rate 118 H 117 H 112 H Respiratory Rate 18 18 Blood Pressure 124/81 132/94 H Pulse Oximetry 97 97 12/23/17 17:54 12/23/17 18:00 12/23/17 18:06 Temperature 37.1 C Pulse Rate 132 H 139 H Respiratory Rate 20 20 20 Blood Pressure 140/95 H 147/97 H Pulse Oximetry 99 99 98 10/29/18 18:15 12/23/17 18:34 12/23/17 19:35 Temperature 37.1 C Pulse Rate 139 H Respiratory Rate 20 32 H 37 H Blood Pressure 147/97 H Pulse Oximetry 99 94 L 94 L 12/23/17 20:00 12/23/17 20:33 12/24/17 00:00 Temperature 36.4 C L 36.8 C Pulse Rate 124 H 76 Respiratory Rate 18 17 16 Blood Pressure 83/59 L 108/77 Pulse Oximetry 95 95 100 12/24/17 00:30 12/24/17 03:47 12/24/17 04:00 Temperature 36.8 C Pulse Rate 100 H Respiratory Rate 16 17 18 Blood Pressure 136/88 Pulse Oximetry 100 99 100 12/24/17 05:17 12/24/17 05:32 12/24/17 05:47 Temperature Pulse Rate 93 H 93 H 105 H Respiratory Rate 8 L 0 L 36 H Blood Pressure 99/71 L 137/82 Pulse Oximetry 99 100 97 12/24/17 06:00 12/24/17 06:02 12/24/17 06:17 Temperature Pulse Rate 95 H 95 H 94 H Respiratory Rate 18 7 L 17 Blood Pressure 105/74 102/71 Pulse Oximetry 100 100 100 12/24/17 06:32 12/24/17 06:47 12/24/17 07:00 Temperature Pulse Rate 93 H 91 H 90 Respiratory Rate 16 16 16 Blood Pressure 97/66 L 99/66 L Pulse Oximetry 100 100 100 12/24/17 07:02 12/24/17 07:17 12/24/17 07:32 Temperature Pulse Rate 92 H 92 H 103 H Respiratory Rate 16 16 22 Blood Pressure 97/66 L 96/67 L 109/71 Pulse Oximetry 100 100 100 12/24/17 07:47 12/24/17 08:00 12/24/17 08:02 Temperature 37.1 C Pulse Rate 95 H 94 H 94 H Respiratory Rate 18 17 17 Blood Pressure 104/69 103/68 Pulse Oximetry 99 100 100 12/24/17 08:17 12/24/17 08:32 12/24/17 08:47 Temperature Pulse Rate 101 H 96 H 96 H Respiratory Rate 21 16 16 Blood Pressure 142/79 H 103/66 102/68 Pulse Oximetry 100 99 99 12/24/17 09:00 12/24/17 09:02 12/24/17 09:17 Temperature Pulse Rate 97 H 97 H 98 H Respiratory Rate 16 16 16 Blood Pressure 110/73 109/70 Pulse Oximetry 99 99 98 12/24/17 09:32 12/24/17 09:47 12/24/17 10:00 Temperature Pulse Rate 98 H 96 H 97 H Respiratory Rate 16 16 16 Blood Pressure 102/69 104/70 Pulse Oximetry 99 99 99 12/24/17 10:02 12/24/17 10:17 12/24/17 10:32 Temperature Pulse Rate 98 H 99 H 97 H Respiratory Rate 16 16 16 Blood Pressure 116/70 106/71 103/68 Pulse Oximetry 100 100 99 12/24/17 10:47 Temperature Pulse Rate 98 H Respiratory Rate 18 Blood Pressure 110/76 Pulse Oximetry 99 Intake & Output 12/23/17 12/24/17 12/24/17 18:59 06:59 18:59 Intake Total 200 / 200 2919.2 / 2919.2 Output Total 450 / 450 1525 / 1525 Balance -250 / -250 1394.2 / 1394.2 Weight 60.9 kg Intake: IV 200 / 200 2919.2 / 2919.2 Flexbumin 25% Inj 100 ML @ 60 200 / 200 mls/hr IV.SIG Q8H [facility] Rx#: [id number] Maxipime Inj 2,000 MG In NS Inj 100 / 100 100 / 100 100 ML @ 200 mls/hr IV.SIG Q8H [facility] Rx#:[id number] Intralipid 20% Inj 250 ML @ 31. 250 / 250 25 mls/hr IV.SIG DAILY@1999 [facility] Rx#:[id number] MVI-12 Inj 10 ML Folvite Inj 1 2009.2 / 2009.2 MG In Clinimix E 5%/D20W Inj 2, 000 ML @ 50 mls/hr IV.SIG DAILY @1999 [facility] Rx#:[id number] Vancomycin Inj 900 MG In NS Inj 259 / 259 250 ML @ 250 mls/hr IV.SIG Q12H [facility] Rx#:[id number] Flagyl 500 MG Inj 100 ML @ 100 100 / 100 100 / 100 mls/hr IV.SIG Q8H [facility] Rx#: [id number] Output: Urine 450 / 450 Urine Amount (Catheter) 1400 / 1400 Indwelling Urethral Catheter 1400 / 1399 Gastric Drainage 125 / 125 Oral 125 / 125 Other: Date of Last Bowel Movement 12/24/17 12/24/17 # Bowel Movements 2 Narrative: GENERAL: Critically ill 67-year-old female who is intubated awake SKIN: Multiple areas of ecchymosis of the upper extremities NECK: Trachea midline. No JVD or lymphadenopathy. CV: Tachycardic with regular rhythm, hypotensive. Port in place on right side chest wall. RESP: Bilateral coarse rhonchi and rails. Patient very tachypneic on attempted CPAP. Currently on PRVC/AC PEEP 8, FiO2 40% GASTROINTESTINAL: Abdomen distended and diffusely tender NEURO: Patient is alert awake on the vent follows commands appears to be in respiratory distress Results Procedures completed during hospitalization: cystoscopy with ureteral stents Labs on day of discharge: Labs from last 24 hours 12/24/17 12/24/17 12/23/17 05:00 05:00 23:00 WBC 36.4 H RBC 3.08 L Hgb 8.9 L Hct 26.2 L MCV 84.9 MCH 28.7 MCHC 33.9 RDW 19.4 H Plt Count 66 L MPV 11.8 H Prelim Diff (Auto) Manual diff required WBC Differential Manual diff final Seg Neuts % (Manual) 51 Band Neuts % (Manual) 37 H Lymphocytes % (Manual) 5 L Monocytes % (Manual) 2 Metamyelocytes % (Man) 1 Myelocytes % (Man) 3 H Plasma Cell % (Manual) 1 H Abs Neuts (Manual) 33.5 H Nucleated RBCs/100 WBC 2 H Differential Comment . Toxic Granulation 2+ H Dohle Bodies Present H Platelet Estimate Low L Platelet Morphology Enlarged H Puncture Site Patient Temperature O2 Saturation ABG pH ABG pCO2 ABG pO2 ABG HCO3 ABG O2 Content ABG Base Excess ABG Methemoglobin Lev Test Hemoglobin Carboxyhemoglobin O2 Delivery Device Vent Setting Inspired O2 Critical Value Sodium 134 L Potassium 3.2 L Chloride 105 Carbon Dioxide 20.6 L Anion Gap 8 BUN 30 H Creatinine 0.75 Estimated GFR 77 L POC Glucose Random Glucose 208 H D Calcium 6.9 L* D Prot Corrected Calcium 8.2 L Total Bilirubin AST ALT Alkaline Phosphatase Total Protein 4.6 L Albumin Nasal Screen MRSA (PCR) Not detected Vancomycin Trough 12/23/17 12/23/17 12/23/17 20:10 18:48 18:40 WBC RBC Hgb Hct MCV MCH MCHC RDW Plt Count MPV Prelim Diff (Auto) WBC Differential Seg Neuts % (Manual) Band Neuts % (Manual) Lymphocytes % (Manual) Monocytes % (Manual) Metamyelocytes % (Man) Myelocytes % (Man) Plasma Cell % (Manual) Abs Neuts (Manual) Nucleated RBCs/100 WBC Differential Comment Toxic Granulation Dohle Bodies Platelet Estimate Platelet Morphology Puncture Site Left radial Right radial Patient Temperature 98.6 98.6 O2 Saturation 95 90 ABG pH 7.35 L 7.31 L ABG pCO2 35 L 41 ABG pO2 86 67 ABG HCO3 19 L 20 L ABG O2 Content 14.6 14.6 ABG Base Excess -5.8 L -5.0 L ABG Methemoglobin 1.1 1.3 Lev Test Present Present Hemoglobin 10.9 L 11.4 L Carboxyhemoglobin 1.1 1.4 O2 Delivery Device Ventilator Ventilator Vent Setting 15/8 Prvc/ac Inspired O2 60 60 Critical Value No No Sodium Potassium Chloride Carbon Dioxide Anion Gap BUN Creatinine Estimated GFR POC Glucose 94 Random Glucose Calcium Prot Corrected Calcium Total Bilirubin AST ALT Alkaline Phosphatase Total Protein Albumin Nasal Screen MRSA (PCR) Vancomycin Trough 12/23/17 12/23/17 11:32 11:32 WBC 43.7 H RBC 3.53 L Hgb 10.0 L Hct 29.9 L MCV 84.8 MCH 28.4 MCHC 33.5 RDW 19.7 H Plt Count 57 L D MPV 10.7 Prelim Diff (Auto) Manual diff required WBC Differential Manual diff final Seg Neuts % (Manual) 70 Band Neuts % (Manual) 19 H Lymphocytes % (Manual) 2 L Monocytes % (Manual) 5 Metamyelocytes % (Man) 1 Myelocytes % (Man) 2 H Plasma Cell % (Manual) 1 H Abs Neuts (Manual) 40.2 H Nucleated RBCs/100 WBC Differential Comment . Toxic Granulation 2+ H Dohle Bodies Present H Platelet Estimate Low L Platelet Morphology Enlarged H Puncture Site Patient Temperature O2 Saturation ABG pH ABG pCO2 ABG pO2 ABG HCO3 ABG O2 Content ABG Base Excess ABG Methemoglobin Lev Test Hemoglobin Carboxyhemoglobin O2 Delivery Device Vent Setting Inspired O2 Critical Value Sodium 136 Potassium 3.3 L Chloride 104 Carbon Dioxide 23.7 Anion Gap 8 BUN 29 H Creatinine 0.56 Estimated GFR Greater than 89 POC Glucose Random Glucose 94 Calcium 7.8 L Prot Corrected Calcium Total Bilirubin 0.5 AST 26 ALT 17 Alkaline Phosphatase 322 H Total Protein 5.0 L Albumin 1.2 L Nasal Screen MRSA (PCR) Vancomycin Trough 8.8 Preliminary micro results at discharge 12/21/17 12:44 Aerobic Blood Culture - Preliminary Blood - Peripheral No growth in 3 days Anaerobic Blood Culture - Preliminary No growth in 3 days 12/21/17 12:40 Aerobic Blood Culture - Preliminary Blood - Peripheral No growth in 3 days Anaerobic Blood Culture - Preliminary No growth in 3 days - Impressions ITS Impressions Chest CT 12/18/17 00:00 CONCLUSION: 1. Bibasilar airspace disease, left greater than right. Cannot exclude an early infiltrate just above the left hemidiaphragm. 2. No suspicious mass lesions to suggest metastatic disease. 3. Abdominal ascites. Abdomen/Pelvis CT 12/18/17 14:05 CONCLUSION: 1. Diffuse peritoneal ascites, slightly worse when compared to the prior. 2. Interval development of diffuse periportal edema in the liver. 3. The findings concerning for infarct in the anterior pole of the spleen. 4. Interval development of left-sided hydronephrosis with delayed nephrogram characteristic of a high-grade obstruction. This appears to be within the distal ureter. I do not see an obvious obstructing mass lesion distally, however. 5. Diffuse bowel wall thickening. Findings are nonspecific but could be related to a low oncotic pressure associated with the diffuse abdominal ascites. Abdomen Ultrasound 12/20/17 00:00 CONCLUSION: 1. Ascites. No hematoma noted. Chest X-Ray 12/23/17 19:43 CONCLUSION: 1. ETT in good position. 2. Interval development of diffuse patchy bilateral airspace disease in a pulmonary edema/ARDS pattern. Discharge Plan - Discharge Disposition Patient Disposition: 51 Hospice/Med Facility - Discharge Condition Condition: Serious - Discharge Order Discharge Orders: Discharge Order (Routine); Ordered 12/24/17 Ordered By: Demetri Guevara - Discharge Details Anticipated Discharge Date: 12/24/17 - Physicians Team Primary Care Provider: Deric Benson Attending Provider: Justin Rucker Other Providers: Earline Jimenez MD ; Jun Coleman MD ; Sumit Mims MD ; Alistair Kan MD ; [facility],Agency
[2017-12-24 12:11] VITALS: O2SAT 98
[2017-12-24] MEDS ORDERED: Morphine Inj 4 MG/ML Vial IV.PUSH ONE (12:45)
[2017-12-24 12:53] VITALS: BP 102/64; RESP 16; TEMP 98.4
--- NOTE | 2017-12-24 14:57 | MB ---
cc: Earline Jimenez MD,Simone Cassidy,Deric Kan,Alistair Massey,Evelin Kay MD DATE: 12/24/2017 HISTORY OF PRESENT ILLNESS: Taryn Velasquez was seen this morning, accompanied by her , her sister, and her niece. The findings in her case to date were reviewed. This is in followup to a series of prior discussions outlining the challenges and difficult nature in her situation. We again reiterated that the ovarian cancer has not responded to primary or secondary treatment. She continued to have problems associated with disease including weight loss, decreased oral intake, recurrent accumulation of symptomatic ascites requiring paracentesis as well as side effects of chemotherapy which has further diminished her status. This admission, she was neutropenic, which is now resolved, but she was septic with positive blood cultures. She is on antibiotics. Imaging showed extensive tumor burden ascites despite treatment and significant hydronephrosis. At the time of the last discussion, she explained to me that she really did not feel that she could consider an additional treatment. She is feeling so poorly from the illness and so poorly from treatment that she was in favor of considering discontinuing treatment and shifting toward palliative care and hospice care. Furthermore, she and her family had talked on numerous occasions and they have already established a DO NOT RESUSCITATE/DO NOT INTUBATE order in the setting of progressive deterioration from her medical condition. She underwent procedure yesterday for ureteral stent placement, but had some problems reversing from anesthesia, became hypoxic, and so she remained intubated from that general anesthesia and she remains intubated this morning. I had a lengthy discussion with her family members outlining again the worsening nature of her status. She on previous discussions and now her as well reiterated her wishes to come under hospice care and to maximize efforts at comfort measures with no other anticancer efforts as thus far the cancer has not responded to treatment. They understand that if she is reversed from the ventilator, it is possible that she could do satisfactory for a period of time and be transferred to the hospice care facility and then hopefully home care. It is also understood, however, that she may decompensate rapidly and taking her off the ventilator may expedite her , which is an inevitable given her overall situation. Questions were asked and answered. They expressed good understanding. They are certain about this decision. They have given it much time and thought. They expressed gratitude for all the care provided and we certainly wish that she could have had a better response to treatment and sorry that she is doing so poorly. These wishes were then shared with the palliative care hospice nurse as well as the primary care team. MD YELENA Okeefe/ts , 02:27 PM , 02:38 PM
[2017-12-24 17:16] VITALS: PULSE 99
[2017-12-25] MEDS ORDERED: Pharmacy Ordered Lab Info OTHER ONE (09:45)
== END 2017-12-24 16:25 | disposition hospice, inpatient (51) ==
LOC: NEPC 09:00 → NEDA 13:16 → HCIN 14:39 → N03 12-23 18:25
PROVIDERS: ADMIT Family Medicine; ATTEND Family Medicine